=== PATIENT | female | born 1955 | race Caucasian/White ===

== ENCOUNTER 2017-10-27 11:15 | Emergency (ER) | payer BC, OTHER ==
[~2017-10-27] VITALS: Ht 172.7 cm; Wt 108.4 kg
[~2017-10-27 11:15] MED LIST changes: -ALBU3IS INH; -CLARITIN10 MG PO; -FERRETTS325 MG PO; -FLUT1DIS5 INH; -GABA100 PO; -GABA300 PO; -Ipratr-Albuterol3 ML; -LEVO-T150 MCG PO; -MECL12.5 PO; -Nasonex17 GM; -Nitrostat0.4 MG SL; -Prinivil10 MG PO; -VITAMIN D32000 UNIT PO; -Zofran Odt4 MG PO
[2017-10-27] MEDS ORDERED: Norco 5-325 Ta1 EACH PO (15:15)
[2018-01-01] MEDS ORDERED: Nitrostat0.4 MG SL (10:21)
[2018-01-01] MEDS ORDERED: Mirapex1.5 MG PO (10:21)
[2018-01-01] MEDS ORDERED: LEVO-T150 MCG PO (10:23)
[2018-01-01] MEDS ORDERED: Prinivil10 MG PO (10:23)
[2018-01-01] MEDS ORDERED: Omeprazole20 M1 PO (10:23)
[2018-01-01] MEDS ORDERED: Ipratr-Albuterol3 ML (10:24)
[2018-01-01] MEDS ORDERED: AMLO5 PO (10:24)
[2018-01-01] MEDS ORDERED: ATOR40TA PO (10:24)
[2018-01-01] MEDS ORDERED: ALBU90OI6 INH (10:24)
[2018-01-01] MEDS ORDERED: PARO20 PO (10:25)
[2018-01-01] MEDS ORDERED: SOTO80 PO (10:25)
[2018-01-01] MEDS ORDERED: FLUT1DIS5 INH (10:25)
[2018-01-01] MEDS ORDERED: TIOT18 INH (10:25)
[2018-01-01] MEDS ORDERED: XARELTO20 MG PO (10:26)
[2018-01-01] MEDS ORDERED: VITAMIN D32000 UNIT PO (10:26)
[2018-01-01] MEDS ORDERED: Ativan1 MG PO (10:27)
[2018-01-01] MEDS ORDERED: Isosorbide Mono30 MG PO (10:27)
[2018-07-28] MEDS ORDERED: PRAM.125 PO (09:56)
[2018-08-03] MEDS ORDERED: Zofran Odt4 MG PO (01:28)
[2018-09-20] MEDS ORDERED: ASPI81CH PO (00:32)
== END 2017-10-27 15:40 | disposition home or self-care (01) ==
LOC: ER 11:15
DX: R07.9 Chest pain, unspecified (principal); I10 Essential (primary) hypertension; I48.91 Unspecified atrial fibrillation; E03.9 Hypothyroidism, unspecified; J44.9 Chronic obstructive pulmonary disease, unspecified; F17.200 Nicotine dependence, unspecified, uncomplicated; Z88.0 Allergy status to penicillin; Z91.048 Other nonmedicinal substance allergy status; Z88.6 Allergy status to analgesic agent; Z91.013 Allergy to seafood; Z88.7 Allergy status to serum and vaccine; Z88.8 Allergy status to other drugs, medicaments and biological substances; Z79.899 Other long term (current) drug therapy; Z79.52 Long term (current) use of systemic steroids; Z95.0 Presence of cardiac pacemaker; Z90.710 Acquired absence of both cervix and uterus; Z90.49 Acquired absence of other specified parts of digestive tract
CPT/HCPCS: 71046; 83880; 84484; 93005; 93010; 99283

== ENCOUNTER → 2017-10-27 | Outpatient (CLI) | payer BC, OTHER ==
[~2017-10-27] MED LIST: ACET500ER PO; ALBIPROI; ALBU3IS INH; ALBU90OI; ALBU90OI INH; ALBU90OI6 INH; ALBU90OI61 INH; ALPR.5 PO; AMIO200 PO; AMLO5 PO; ASCO500 PO; ASPI325 PO; ASPI325EC PO; ASPI81CH PO; ASPI81EC PO; ATOR10 PO; ATOR40TA PO; AZIT250 PO; Amiodarone HCl200 MG PO; Ativan1 MG PO; BENZ100A; BENZ100A PO; BLACK COHOSH PO; BREO ELLIPTA 21 EACH IH; BUDESONIDE PO; BUSP15 PO; Bactrim Ds Tab1 EACH PO; Black Cohosh540 MG PO; Bystolic10 MG PO; CEFD300 PO; CEFU250 PO; CEPH500 PO; CHOL10002; CHOL10002 PO; CIPR500 PO; CITA20 PO; CLARITIN10 MG PO; CLOP75 PO; CONEST.625; CRUTCH4 USE; CYAN1000 PO; CYAN1000I IM; CYAN500 PO; CYCL0.05OP OP; CYCL10 PO; DELTASONE20 MG PO; DIAZ5 PO; DIPATR PO; DOC250 PO; DOCU100 PO; DULO30 PO; Dulcolax5 MG PO; Duoneb 2.5-0.5 M3 ML INH; ENABLEX; ENABLEX PO; ERYT.5TO BOTHEYES; ESCI20 PO; ESTR.05TPB TOP; ESTR1 PO; ESTR2 PO; FERRETTS325 MG PO; FERSU220EL PO; FEXO180 PO; FISH1000 PO; FLUO10 PO; FLUSAL2505 IH; FLUSAL2505 INH; FLUSAL5005 INH; FLUT.05NI; FLUT110OIA IH; FLUT1DIS5 INH; FLUT44OIA IH; FURO20 PO; FURO40 PO; FURO80 PO; GABA100 PO; GABA300 PO; GABA600 PO; GUAI120S1 PO; GUAI600T33 PO; Guaifenesin-Co118 ML PO; HYDACE10B PO; HYDACE5 PO; HYDACE5325 PO; HYDCHL12.5 PO; HYDCHL25 PO; HYDCHLSU PO; HYDMOR4 PO; HYDR-86 PO; HYDROMET; Hydromet Syrup473 ML PO; IBUP600 PO; IPRA.06NI; IRBHYD150; IRBHYD300 PO; ISOMON20 PO; Ipratr-Albuterol3 ML; Ipratr-Albuterol3 ML INH; Isosorbide Mono30 MG PO; LACT10SY PO; LAVAP17G PO; LEVCAR2510; LEVFLO500 PO; LEVO-T150 MCG PO; LEVO750 PO; LEVSOD150 PO; LEVSOD175 PO; LEVSOD200 PO; LIDO5TP TOP; LISI20 PO; LITH300C PO; LITH300ER PO; LORA.5 PO; LORA1 PO; LOSA50 PO; LOVA20 PO; LOVA40 PO; Lovastatin20 MG PO; MAGCIT300 PO; MAGOXI400 PO; MECL12.5 PO; METF500C PO; METO25ER PO; METO5 PO; METO50 PO; METO50ER PO; METPRE4DP PO; MIRAPEX; MIRT15 PO; MOME220I INH; MOMENI; MYRBETRIQ50 MG; Miralax17 GM PO; Mirapex1.5 MG PO; Monodox100 MG PO; Mucinex600 MG PO; NALT50; NALT50 PO; NAPR500 PO; NEBI10 PO; NEBI5 PO; NICO14TP TOP; NIFE30ER PO; NITR.4SL SL; NITR.6SL SL; NITR100CA PO; NYST100SU PO; Nasonex17 GM; Nifedical Xl30 MG PO; Nitrostat0.4 MG SL; Norco 10-325 T1 EACH PO; Norco 5-325 Ta1 EACH PO; Novolog Fl100 UNIT/1 SQ; OMEP20ER; OMEP20ER PO; OMEPRAZOLE MAGN20 MG PO; ONDA4ODT MM; OXYACE5T PO; OXYACE7.5T PO; OXYC15ER PO; OXYC5 PO; Omeprazole20 M1 PO; Oxycontin60 MG PO; PANT40 PO; PARO10 PO; PARO20 PO; PARO30 PO; POTA10T PO; POTCHL10ER PO; POTCHL20ER PO; PRAM.125; PRAM.125 PO; PRAM.5; PRAM.5 PO; PRAMIPEXOLE DI1.5 MG PO; PRED10 PO; PRED20 PO; PRIM50 PO; PROCODE120 PO; PROG100 PO; PROM25 PO; PSYL5.85P PO; PYRI60 PO; Prednisone20 MG PO; Prednisone50 MG PO; Prilosec Otc20 MG PO; Prinivil10 MG PO; RANI150 PO; RESTASIS; ROXICODONE5 MG PO; RXOXYACE PO; RXPROM25 PO; SANCTURA XR; SOLI5 PO; SOTO80 PO; SPIR25; SPIR25 PO; SULTRISS PO; TIOT18; TIOT18 INH; TRAZ100 PO; TRAZ50 PO; TRIAOI; TRIAOIA; UNKNOWN ANTIBIOTIC; Ultram50 MG PO; VARE1 PO; VENL150ER; VENL150ER PO; VESICARE PO; VITAMIN D-3 PO; VITAMIN D-32000 UNIT PO; VITAMIN D32000 UNIT PO; Valium5 MG PO; Ventolin Soln3 ML INH; Vibramycin100 MG PO; XARELTO20 MG PO; ZESTORETIC 20-121 E1 PO; Zantac150 MG PO; Zithromax250 MG PO; Zofran Odt4 MG PO; Zofran Odt4 MG SL; Zofran Odt8 MG SL; Zovirax800 MG PO; [UNRECOGNIZED DRUG - OTHER]; [UNRECOGNIZED DRUG - OTHER]; [UNRECOGNIZED DRUG - OTHER] PO
[2017-10-27 11:14] LABS: BASOPHILS PERCENT AUTO 1 % (0-2); EOSINOPHILS ABSOLUTE AUTO 0.37 K/mm3 (0.00-0.68); EOSINOPHILS PERCENT AUTO 4 % (0-6); Hematocrit 42.5 % (33.0-51.0); IMMATURE GRAN ABSOLUTE AUTO 0.06 K/mm3 (0.00-0.10); IMMATURE GRAN PERCENT AUTO 1 % (0-1); LYMPHOCYTES ABSOLUTE AUTO 3.07 K/mm3 (0.84-5.20); LYMPHOCYTES PERCENT AUTO 30 % (21-46); MONOCYTES ABSOLUTE AUTO 0.75 K/mm3 (0.16-1.47); MONOCYTES PERCENT AUTO 7 % (4-13); Mean Corpuscular HGB 27.8 pg (26.0-34.0); Mean Corpuscular HGB Conc 32.9 g/dL (31.5-36.5); Mean Corpuscular Volume 84 fL (80-100); Mean Platelet Volume 10.1 fL (9.1-12.4); NEUTROPHILS ABSOLUTE AUTO 5.93 K/mm3 (1.96-9.15); NEUTROPHILS PERCENT AUTO 58 % (41-73); Platelet Count 315 K/mm3 (150-400); RDW Standard Deviation 49.1 fL (35.1-46.3); Red Blood Cell Count 5.04 M/mm3 (3.80-5.20); White Blood Cell Count 10.28 K/mm3 (4.00-11.30)
[2017-10-27 11:28] LABS: Alanine Aminotransfer (ALT/SGP 20 U/L (12-78); Albumin, Blood 3.2 g/dL (3.4-5.0); Albumin/Globulin Ratio 0.8 (0.8-1.8); Alk Phos 145 U/L (40-126); Anion Gap 10 mmol/L (6-16); Aspartate Aminotrans (AST/SGOT 19 U/L (12-37); Bilirubin, Total 0.3 mg/dL (0.1-1.0); Blood Urea Nitrogen 9 mg/dL (8-24); Bun/Creatinine Ratio 14.1 (12.0-20.0); CO2, Blood 26 mmol/L (21-32); Calcium, Blood 8.8 mg/dL (8.5-10.1); Chloride, Blood 105 mmol/L (98-108); Creatinine, Blood 0.64 mg/dL (0.40-1.00); Globulin, Blood 3.9 g/dL (2.2-4.0); Glomerular Filtration Rate >60 (60-); Glucose, Blood 95 mg/dL (70-99); Potassium, Blood 3.9 mmol/L (3.5-5.5); Sodium, Blood 141 mmol/L (136-145); Total Protein, Blood 7.1 g/dL (6.4-8.2)
[2017-10-27 11:29] LABS: Troponin I <0.017 ng/mL (0.000-0.040)
== END ==
LOC: LAB SHORT 11:10
PROVIDERS: Emergency Medicine
DX: R07.89 Other chest pain (principal)
CPT/HCPCS: 80053; 84484; 85025

== ENCOUNTER 2017-12-02 07:58 | Emergency (ER) | payer BC, OTHER ==
[~2017-12-02] VITALS: Ht 167.6 cm; Wt 108.9 kg
[2017-12-02 08:51] LABS: BASOPHILS ABSOLUTE AUTO 0.07 K/mm3 (0.00-0.23); BASOPHILS PERCENT AUTO 1 % (0-2); EOSINOPHILS ABSOLUTE AUTO 0.47 K/mm3 (0.00-0.68); EOSINOPHILS PERCENT AUTO 5 % (0-6); Hematocrit 42.8 % (33.0-51.0); Hemoglobin 13.2 g/dL (11.5-16.0); IMMATURE GRAN ABSOLUTE AUTO 0.07 K/mm3 (0.00-0.10); IMMATURE GRAN PERCENT AUTO 1 % (0-1); LYMPHOCYTES ABSOLUTE AUTO 2.52 K/mm3 (0.84-5.20); LYMPHOCYTES PERCENT AUTO 29 % (21-46); MONOCYTES ABSOLUTE AUTO 0.69 K/mm3 (0.16-1.47); MONOCYTES PERCENT AUTO 8 % (4-13); Mean Corpuscular HGB 27.4 pg (26.0-34.0); Mean Corpuscular HGB Conc 30.8 g/dL (31.5-36.5); Mean Corpuscular Volume 89 fL (80-100); Mean Platelet Volume 10.6 fL (9.1-12.4); NEUTROPHILS ABSOLUTE AUTO 4.98 K/mm3 (1.96-9.15); NEUTROPHILS PERCENT AUTO 57 % (41-73); Platelet Count 293 K/mm3 (150-400); RDW Coefficient Variation 15.2 % (11.7-14.2); RDW Standard Deviation 49.8 fL (35.1-46.3); Red Blood Cell Count 4.81 M/mm3 (3.80-5.20)
[2017-12-02 09:08] LABS: International Normalized Ratio 1.03; Prothrombin Time Results 10.7 Sec (9.7-11.5)
[2017-12-02 09:12] LABS: Alanine Aminotransfer (ALT/SGP 28 U/L (12-78); Albumin, Blood 3.1 g/dL (3.4-5.0); Albumin/Globulin Ratio 0.8 (0.8-1.8); Alk Phos 185 U/L (50-136); Anion Gap 7 mmol/L (6-16); Aspartate Aminotrans (AST/SGOT 21 U/L (12-37); Bilirubin, Total 0.3 mg/dL (0.1-1.0); Blood Urea Nitrogen 16 mg/dL (8-24); Bun/Creatinine Ratio 27.2 (12.0-20.0); CO2, Blood 30 mmol/L (21-32); Calcium, Blood 8.4 mg/dL (8.5-10.1); Chloride, Blood 104 mmol/L (98-108); Creatinine, Blood 0.59 mg/dL (0.40-1.00); Glomerular Filtration Rate >60 (60-); Glucose, Blood 105 mg/dL (70-99); Potassium, Blood 4.2 mmol/L (3.5-5.5); Sodium, Blood 141 mmol/L (136-145); Total Protein, Blood 7.1 g/dL (6.4-8.2); Troponin I <0.015 ng/mL (0.000-0.040)
[2017-12-02 10:53] LABS: Bilirubin, Urine Neg (Neg); Blood, Urine 1+ (Neg); Glucose Qualitative, Urine Neg (Neg); Ketones, Urine Neg (Neg); Leukocyte Esterase, Urine Neg (Neg); Nitrite, Urine Neg (Neg); Protein, Urine Neg (Neg); Urobilinogen, Urine NORM (Normal)
[2017-12-02 11:21] LABS: U Amphetamine Screen Not Detected; U Barbituate Screen Not Detected; U Methamphetamine Screen Not Detected
[2017-12-02 11:22] LABS: U Benzodiazapine Screen DETECTED; U Buprenorphine Screen Not Detected; U Cannabinoids Screen Not Detected; U Cocaine Screen Not Detected; U Methadone Screen Not Detected; U Opiates Screen DETECTED; U Oxycodone Screen DETECTED; U Phencyclidine Screen Not Detected; U Propoxyphene Screen Not Detected
[2017-12-02 11:30] LABS: Appearance, Urine Clear (Clear); Color, Urine Yellow (P-Yellow)
[2017-12-02 11:31] LABS: Red Blood Cells, Urine 0-2 /hpf (0-2); White Blood Cells, Urine Not Seen /hpf (0-5)
[2017-12-02 11:32] LABS: Bacteria Not Seen /hpf; Squamous Epithelial Cells Few /hpf (Few); Transitional Epithelial Cells Few /hpf (0-Rare)
[2018-01-01] MEDS ORDERED: Mirapex1.5 MG PO (10:21)
[2018-01-01] MEDS ORDERED: Nitrostat0.4 MG SL (10:21)
[2018-01-01] MEDS ORDERED: Omeprazole20 M1 PO (10:23)
[2018-01-01] MEDS ORDERED: LEVO-T150 MCG PO (10:23)
[2018-01-01] MEDS ORDERED: Prinivil10 MG PO (10:23)
[2018-01-01] MEDS ORDERED: ATOR40TA PO (10:24)
[2018-01-01] MEDS ORDERED: AMLO5 PO (10:24)
[2018-01-01] MEDS ORDERED: ALBU90OI6 INH (10:24)
[2018-01-01] MEDS ORDERED: Ipratr-Albuterol3 ML (10:24)
[2018-01-01] MEDS ORDERED: SOTO80 PO (10:25)
[2018-01-01] MEDS ORDERED: FLUT1DIS5 INH (10:25)
[2018-01-01] MEDS ORDERED: TIOT18 INH (10:25)
[2018-01-01] MEDS ORDERED: PARO20 PO (10:25)
[2018-01-01] MEDS ORDERED: XARELTO20 MG PO (10:26)
[2018-01-01] MEDS ORDERED: VITAMIN D32000 UNIT PO (10:26)
[2018-01-01] MEDS ORDERED: Isosorbide Mono30 MG PO (10:27)
[2018-01-01] MEDS ORDERED: Ativan1 MG PO (10:27)
[2018-07-28] MEDS ORDERED: PRAM.125 PO (09:56)
[2018-08-03] MEDS ORDERED: Zofran Odt4 MG PO (01:28)
[2018-09-20] MEDS ORDERED: ASPI81CH PO (00:32)
== END 2017-12-02 11:15 | disposition home or self-care (01) ==
LOC: ER 07:58
PROVIDERS: Emergency Medicine
DX: R55 Syncope and collapse (principal); I48.91 Unspecified atrial fibrillation; I10 Essential (primary) hypertension; J45.909 Unspecified asthma, uncomplicated; J44.9 Chronic obstructive pulmonary disease, unspecified; F17.210 Nicotine dependence, cigarettes, uncomplicated; Z88.0 Allergy status to penicillin; Z91.048 Other nonmedicinal substance allergy status; Z88.6 Allergy status to analgesic agent; Z88.7 Allergy status to serum and vaccine; Z79.899 Other long term (current) drug therapy; Z95.0 Presence of cardiac pacemaker; Z95.5 Presence of coronary angioplasty implant and graft
CPT/HCPCS: 36415; 70450; 71045; 80053; 81001; 83880; 84484; 85025; 85610; 93005; 93010; 96360; 96361; 99284; J7030

== ENCOUNTER 2017-12-10 19:44 | Emergency (ER) | payer BC, OTHER ==
[~2017-12-10] VITALS: Ht 167.6 cm; Wt 112.5 kg
[2017-12-10 20:37] LABS: Alanine Aminotransfer (ALT/SGP 21 U/L (12-78); Albumin, Blood 3.2 g/dL (3.4-5.0); Albumin/Globulin Ratio 0.8 (0.8-1.8); Alk Phos 176 U/L (50-136); Anion Gap 8 mmol/L (6-16); Aspartate Aminotrans (AST/SGOT 17 U/L (12-37); Bilirubin, Total 0.2 mg/dL (0.1-1.0); Blood Urea Nitrogen 12 mg/dL (8-24); Bun/Creatinine Ratio 18.7 (12.0-20.0); CO2, Blood 26 mmol/L (21-32); Calcium, Blood 8.4 mg/dL (8.5-10.1); Chloride, Blood 105 mmol/L (98-108); Creatinine, Blood 0.64 mg/dL (0.40-1.00); Glomerular Filtration Rate >60 (60-); Glucose, Blood 176 mg/dL (70-99); Potassium, Blood 3.9 mmol/L (3.5-5.5); Sodium, Blood 139 mmol/L (136-145); Total Protein, Blood 7.2 g/dL (6.4-8.2); Troponin I <0.015 ng/mL (0.000-0.040)
[2017-12-10 20:44] LABS: BASOPHILS ABSOLUTE AUTO 0.07 K/mm3 (0.00-0.23); BASOPHILS PERCENT AUTO 1 % (0-2); EOSINOPHILS ABSOLUTE AUTO 0.43 K/mm3 (0.00-0.68); EOSINOPHILS PERCENT AUTO 4 % (0-6); Hematocrit 42.3 % (33.0-51.0); Hemoglobin 13.5 g/dL (11.5-16.0); IMMATURE GRAN ABSOLUTE AUTO 0.07 K/mm3 (0.00-0.10); IMMATURE GRAN PERCENT AUTO 1 % (0-1); LYMPHOCYTES ABSOLUTE AUTO 3.52 K/mm3 (0.84-5.20); LYMPHOCYTES PERCENT AUTO 30 % (21-46); MONOCYTES ABSOLUTE AUTO 0.75 K/mm3 (0.16-1.47); MONOCYTES PERCENT AUTO 6 % (4-13); Mean Corpuscular HGB 27.7 pg (26.0-34.0); Mean Corpuscular HGB Conc 31.9 g/dL (31.5-36.5); Mean Corpuscular Volume 87 fL (80-100); Mean Platelet Volume 10.2 fL (9.1-12.4); NEUTROPHILS ABSOLUTE AUTO 6.95 K/mm3 (1.96-9.15); NEUTROPHILS PERCENT AUTO 59 % (41-73); Platelet Count 360 K/mm3 (150-400); RDW Coefficient Variation 14.9 % (11.7-14.2); RDW Standard Deviation 48.1 fL (35.1-46.3); Red Blood Cell Count 4.87 M/mm3 (3.80-5.20); White Blood Cell Count 11.79 K/mm3 (4.00-11.30)
[2017-12-10 22:54] LABS: Source, Urine Clean Catch
[2017-12-10 23:01] LABS: Blood, Urine 2+ (Neg); Glucose Qualitative, Urine Neg (Neg); Ketones, Urine 1+ (Neg); Leukocyte Esterase, Urine 1+ (Neg); Nitrite, Urine Neg (Neg); Protein, Urine 2+ (Neg); Specific Gravity, Urine 1.025 (1.003-1.022); Urobilinogen, Urine 1+ (Normal)
[2017-12-10 23:10] LABS: Appearance, Urine Clear (Clear); Bilirubin, Urine 1+ (Neg); Color, Urine Yellow (P-Yellow); Red Blood Cells, Urine 0-2 /hpf (0-2)
[2017-12-10 23:11] LABS: Bacteria Mod /hpf; Mucus Heavy (0-Heavy); Squamous Epithelial Cells Few /hpf (Few)
[2018-01-01] MEDS ORDERED: Mirapex1.5 MG PO (10:21)
[2018-01-01] MEDS ORDERED: Nitrostat0.4 MG SL (10:21)
[2018-01-01] MEDS ORDERED: Omeprazole20 M1 PO (10:23)
[2018-01-01] MEDS ORDERED: Prinivil10 MG PO (10:23)
[2018-01-01] MEDS ORDERED: LEVO-T150 MCG PO (10:23)
[2018-01-01] MEDS ORDERED: ALBU90OI6 INH (10:24)
[2018-01-01] MEDS ORDERED: ATOR40TA PO (10:24)
[2018-01-01] MEDS ORDERED: Ipratr-Albuterol3 ML (10:24)
[2018-01-01] MEDS ORDERED: AMLO5 PO (10:24)
[2018-01-01] MEDS ORDERED: TIOT18 INH (10:25)
[2018-01-01] MEDS ORDERED: FLUT1DIS5 INH (10:25)
[2018-01-01] MEDS ORDERED: SOTO80 PO (10:25)
[2018-01-01] MEDS ORDERED: PARO20 PO (10:25)
[2018-01-01] MEDS ORDERED: XARELTO20 MG PO (10:26)
[2018-01-01] MEDS ORDERED: VITAMIN D32000 UNIT PO (10:26)
[2018-01-01] MEDS ORDERED: Isosorbide Mono30 MG PO (10:27)
[2018-01-01] MEDS ORDERED: Ativan1 MG PO (10:27)
[2018-07-28] MEDS ORDERED: PRAM.125 PO (09:56)
[2018-08-03] MEDS ORDERED: Zofran Odt4 MG PO (01:28)
[2018-09-20] MEDS ORDERED: ASPI81CH PO (00:32)
== END 2017-12-11 00:03 | disposition home or self-care (01) ==
LOC: ER 19:44
PROVIDERS: Emergency Medicine
DX: I10 Essential (primary) hypertension (principal); I48.91 Unspecified atrial fibrillation; R07.9 Chest pain, unspecified; Z91.19 Patient's noncompliance with other medical treatment and regimen; Z88.0 Allergy status to penicillin; Z88.8 Allergy status to other drugs, medicaments and biological substances; Z91.013 Allergy to seafood; Z79.899 Other long term (current) drug therapy; E03.9 Hypothyroidism, unspecified; J45.909 Unspecified asthma, uncomplicated; J44.9 Chronic obstructive pulmonary disease, unspecified; F17.210 Nicotine dependence, cigarettes, uncomplicated
CPT/HCPCS: 36415; 71046; 80053; 81001; 84484; 85025; 87086; 93005; 93010; 99283

== ENCOUNTER 2017-12-18 06:24 | Emergency (ER) | payer BC, OTHER ==
[~2017-12-18] VITALS: Ht 167.6 cm; Wt 112.5 kg
[2017-12-18] MEDS ORDERED: CEFD300 PO (06:49)
[2017-12-18] MEDS ORDERED: FERRETTS325 MG PO (06:49)
[2017-12-18] MEDS ORDERED: ALBU3IS INH (06:50)
[2017-12-18 07:29] LABS: BASOPHILS PERCENT AUTO 1 % (0-2); EOSINOPHILS ABSOLUTE AUTO 0.29 K/mm3 (0.00-0.68); EOSINOPHILS PERCENT AUTO 3 % (0-6); Hemoglobin 13.4 g/dL (11.5-16.0); IMMATURE GRAN ABSOLUTE AUTO 0.06 K/mm3 (0.00-0.10); IMMATURE GRAN PERCENT AUTO 1 % (0-1); LYMPHOCYTES ABSOLUTE AUTO 2.45 K/mm3 (0.84-5.20); LYMPHOCYTES PERCENT AUTO 28 % (21-46); MONOCYTES ABSOLUTE AUTO 1.14 K/mm3 (0.16-1.47); MONOCYTES PERCENT AUTO 13 % (4-13); Mean Corpuscular HGB 27.6 pg (26.0-34.0); Mean Corpuscular HGB Conc 31.9 g/dL (31.5-36.5); Mean Corpuscular Volume 86 fL (80-100); Mean Platelet Volume 10.6 fL (9.1-12.4); NEUTROPHILS ABSOLUTE AUTO 4.59 K/mm3 (1.96-9.15); NEUTROPHILS PERCENT AUTO 53 % (41-73); Platelet Count 301 K/mm3 (150-400); RDW Coefficient Variation 14.6 % (11.7-14.2); RDW Standard Deviation 46.5 fL (35.1-46.3); Red Blood Cell Count 4.86 M/mm3 (3.80-5.20); White Blood Cell Count 8.63 K/mm3 (4.00-11.30)
[2017-12-18 07:55] LABS: Alanine Aminotransfer (ALT/SGP 24 U/L (12-78); Albumin, Blood 3.1 g/dL (3.4-5.0); Albumin/Globulin Ratio 0.7 (0.8-1.8); Alk Phos 146 U/L (50-136); Anion Gap 7 mmol/L (6-16); Aspartate Aminotrans (AST/SGOT 26 U/L (12-37); Bilirubin, Total 0.2 mg/dL (0.1-1.0); Blood Urea Nitrogen 7 mg/dL (8-24); Bun/Creatinine Ratio 10.1 (12.0-20.0); CO2, Blood 28 mmol/L (21-32); Calcium, Blood 8.2 mg/dL (8.5-10.1); Chloride, Blood 103 mmol/L (98-108); Creatinine, Blood 0.69 mg/dL (0.40-1.00); Globulin, Blood 4.3 g/dL (2.2-4.0); Glomerular Filtration Rate >60 (60-); Glucose, Blood 85 mg/dL (70-99); Potassium, Blood 3.8 mmol/L (3.5-5.5); Sodium, Blood 138 mmol/L (136-145); Total Protein, Blood 7.4 g/dL (6.4-8.2)
[2017-12-18 08:11] LABS: Influenza A Negative (NEGATIVE); Influenza B Negative (NEGATIVE)
[2017-12-18] MEDS ORDERED: Prednisone20 MG PO (09:01)
[2018-01-01] MEDS ORDERED: Mirapex1.5 MG PO (10:21)
[2018-01-01] MEDS ORDERED: Nitrostat0.4 MG SL (10:21)
[2018-01-01] MEDS ORDERED: LEVO-T150 MCG PO (10:23)
[2018-01-01] MEDS ORDERED: Omeprazole20 M1 PO (10:23)
[2018-01-01] MEDS ORDERED: Prinivil10 MG PO (10:23)
[2018-01-01] MEDS ORDERED: ATOR40TA PO (10:24)
[2018-01-01] MEDS ORDERED: ALBU90OI6 INH (10:24)
[2018-01-01] MEDS ORDERED: AMLO5 PO (10:24)
[2018-01-01] MEDS ORDERED: Ipratr-Albuterol3 ML (10:24)
[2018-01-01] MEDS ORDERED: PARO20 PO (10:25)
[2018-01-01] MEDS ORDERED: SOTO80 PO (10:25)
[2018-01-01] MEDS ORDERED: TIOT18 INH (10:25)
[2018-01-01] MEDS ORDERED: FLUT1DIS5 INH (10:25)
[2018-01-01] MEDS ORDERED: XARELTO20 MG PO (10:26)
[2018-01-01] MEDS ORDERED: VITAMIN D32000 UNIT PO (10:26)
[2018-01-01] MEDS ORDERED: Isosorbide Mono30 MG PO (10:27)
[2018-01-01] MEDS ORDERED: Ativan1 MG PO (10:27)
[2018-07-28] MEDS ORDERED: PRAM.125 PO (09:56)
[2018-08-03] MEDS ORDERED: Zofran Odt4 MG PO (01:28)
[2018-09-20] MEDS ORDERED: ASPI81CH PO (00:32)
== END 2017-12-18 09:29 | disposition home or self-care (01) ==
LOC: ER 06:24
PROVIDERS: Emergency Medicine
DX: J20.9 Acute bronchitis, unspecified (principal); Z88.0 Allergy status to penicillin; Z88.8 Allergy status to other drugs, medicaments and biological substances; Z91.013 Allergy to seafood; Z79.899 Other long term (current) drug therapy; I10 Essential (primary) hypertension; E03.9 Hypothyroidism, unspecified; J45.909 Unspecified asthma, uncomplicated; J44.9 Chronic obstructive pulmonary disease, unspecified; I48.91 Unspecified atrial fibrillation; Z87.891 Personal history of nicotine dependence
CPT/HCPCS: 36415; 71046; 80053; 84484; 85025; 87804; 93005; 93010; 94640; 96374; 99284; J2930

== ENCOUNTER 2018-01-08 09:44 | Day surgery (SDC) | payer BC, OTHER ==
[~2018-01-08] VITALS: Ht 167.6 cm; Wt 112.7 kg
[~2018-01-08 09:44] MED LIST changes: +ALBU3IS INH; +FERRETTS325 MG PO; +FLUT1DIS5 INH; +Ipratr-Albuterol3 ML; +LEVO-T150 MCG PO; +Nitrostat0.4 MG SL; +Prinivil10 MG PO; +VITAMIN D32000 UNIT PO
== END 2018-01-08 12:12 | disposition home or self-care (01) ==
LOC: ORSCSDS 09:44
PROVIDERS: Internal Medicine Gastroenterology
PROC: 0DBK8ZX Excision of Ascending Colon, Via Natural or Artificial Opening Endoscopic, Diagnostic (ICD-10-PCS; principal; 2018-01-08 11:30)
DX: D50.9 Iron deficiency anemia, unspecified (principal); R10.32 Left lower quadrant pain; D12.2 Benign neoplasm of ascending colon; K57.30 Diverticulosis of large intestine without perforation or abscess without bleeding; Z86.010 Personal history of colon polyps; G47.33 Obstructive sleep apnea (adult) (pediatric); K64.8 Other hemorrhoids; I10 Essential (primary) hypertension; I48.91 Unspecified atrial fibrillation; I25.2 Old myocardial infarction; J44.9 Chronic obstructive pulmonary disease, unspecified; E03.9 Hypothyroidism, unspecified; G93.2 Benign intracranial hypertension; F17.210 Nicotine dependence, cigarettes, uncomplicated; E66.01 Morbid (severe) obesity due to excess calories; Z68.41 Body mass index [BMI] 40.0-44.9, adult; Z79.899 Other long term (current) drug therapy
CPT/HCPCS: 82947; 88305; J2250

== ENCOUNTER 2018-01-30 11:33 | Emergency (ER) | payer BC, OTHER ==
[~2018-01-30] VITALS: Ht 162.6 cm; Wt 120.2 kg
[2018-01-30 12:22] LABS: BASOPHILS ABSOLUTE AUTO 0.13 K/mm3 (0.00-0.23); BASOPHILS PERCENT AUTO 1 % (0-2); EOSINOPHILS ABSOLUTE AUTO 0.39 K/mm3 (0.00-0.68); EOSINOPHILS PERCENT AUTO 3 % (0-6); Hematocrit 44.3 % (33.0-51.0); Hemoglobin 14.4 g/dL (11.5-16.0); IMMATURE GRAN ABSOLUTE AUTO 0.14 K/mm3 (0.00-0.10); IMMATURE GRAN PERCENT AUTO 1 % (0-1); LYMPHOCYTES ABSOLUTE AUTO 3.92 K/mm3 (0.84-5.20); LYMPHOCYTES PERCENT AUTO 26 % (21-46); MONOCYTES ABSOLUTE AUTO 1.03 K/mm3 (0.16-1.47); MONOCYTES PERCENT AUTO 7 % (4-13); Mean Corpuscular HGB 28.4 pg (26.0-34.0); Mean Corpuscular HGB Conc 32.5 g/dL (31.5-36.5); Mean Corpuscular Volume 87 fL (80-100); Mean Platelet Volume 10.6 fL (9.1-12.4); NEUTROPHILS ABSOLUTE AUTO 9.62 K/mm3 (1.96-9.15); NEUTROPHILS PERCENT AUTO 63 % (41-73); Platelet Count 339 K/mm3 (150-400); RDW Coefficient Variation 14.5 % (11.7-14.2); RDW Standard Deviation 46.4 fL (35.1-46.3); Red Blood Cell Count 5.07 M/mm3 (3.80-5.20); White Blood Cell Count 15.23 K/mm3 (4.00-11.30)
[2018-01-30 12:37] LABS: Alanine Aminotransfer (ALT/SGP 28 U/L (12-78); Albumin, Blood 3.1 g/dL (3.4-5.0); Albumin/Globulin Ratio 0.8 (0.8-1.8); Alk Phos 154 U/L (50-136); Anion Gap 6 mmol/L (6-16); Aspartate Aminotrans (AST/SGOT 26 U/L (12-37); Bilirubin, Total 0.2 mg/dL (0.1-1.0); Blood Urea Nitrogen 18 mg/dL (8-24); Bun/Creatinine Ratio 26.3 (12.0-20.0); CO2, Blood 29 mmol/L (21-32); Calcium, Blood 8.2 mg/dL (8.5-10.1); Chloride, Blood 105 mmol/L (98-108); Creatinine, Blood 0.68 mg/dL (0.40-1.00); Globulin, Blood 3.9 g/dL (2.2-4.0); Glomerular Filtration Rate >60 (60-); Glucose, Blood 129 mg/dL (70-99); Potassium, Blood 3.8 mmol/L (3.5-5.5); Sodium, Blood 140 mmol/L (136-145); Troponin I <0.015 ng/mL (0.000-0.040)
[2018-01-30] MEDS ORDERED: METPRE4DP PO (13:45)
[2018-01-30] MEDS ORDERED: CLARITIN10 MG PO (13:45)
[2018-01-30] MEDS ORDERED: Nasonex17 GM (13:45)
== END 2018-01-30 14:16 | disposition home or self-care (01) ==
LOC: ER 11:33
PROVIDERS: Internal Medicine
DX: J45.901 Unspecified asthma with (acute) exacerbation (principal); Z88.0 Allergy status to penicillin; Z79.899 Other long term (current) drug therapy; Z91.048 Other nonmedicinal substance allergy status; Z88.5 Allergy status to narcotic agent; Z91.013 Allergy to seafood; I10 Essential (primary) hypertension; E03.9 Hypothyroidism, unspecified; J44.9 Chronic obstructive pulmonary disease, unspecified; I48.91 Unspecified atrial fibrillation; Z87.891 Personal history of nicotine dependence
CPT/HCPCS: 71046; 80053; 83880; 84484; 85025; 93005; 93010; 94640; 96374; 99283; J2930

== ENCOUNTER → 2018-01-31 | Outpatient (CLI) | payer BC, OTHER ==
[~2018-01-31] MED LIST changes: +CLARITIN10 MG PO; +Nasonex17 GM
[2018-01-31 15:06] LABS: BASOPHILS ABSOLUTE AUTO 0.04 K/mm3 (0.00-0.23); BASOPHILS PERCENT AUTO 0 % (0-2); EOSINOPHILS ABSOLUTE AUTO 0.01 K/mm3 (0.00-0.68); EOSINOPHILS PERCENT AUTO 0 % (0-6); Hematocrit 41.5 % (33.0-51.0); Hemoglobin 13.4 g/dL (11.5-16.0); IMMATURE GRAN ABSOLUTE AUTO 0.33 K/mm3 (0.00-0.10); IMMATURE GRAN PERCENT AUTO 1 % (0-1); LYMPHOCYTES ABSOLUTE AUTO 3.14 K/mm3 (0.84-5.20); LYMPHOCYTES PERCENT AUTO 12 % (21-46); MONOCYTES ABSOLUTE AUTO 1.61 K/mm3 (0.16-1.47); MONOCYTES PERCENT AUTO 6 % (4-13); Mean Corpuscular HGB 27.6 pg (26.0-34.0); Mean Corpuscular HGB Conc 32.3 g/dL (31.5-36.5); Mean Corpuscular Volume 85 fL (80-100); Mean Platelet Volume 10.7 fL (9.1-12.4); NEUTROPHILS ABSOLUTE AUTO 20.28 K/mm3 (1.96-9.15); NEUTROPHILS PERCENT AUTO 80 % (41-73); Platelet Count 343 K/mm3 (150-400); RDW Coefficient Variation 14.4 % (11.7-14.2); Red Blood Cell Count 4.86 M/mm3 (3.80-5.20); White Blood Cell Count 25.41 K/mm3 (4.00-11.30)
[2018-01-31 15:16] LABS: Alanine Aminotransfer (ALT/SGP 32 U/L (12-78); Albumin, Blood 3.3 g/dL (3.4-5.0); Albumin/Globulin Ratio 0.8 (0.8-1.8); Alk Phos 156 U/L (40-126); Anion Gap 10 mmol/L (6-16); Aspartate Aminotrans (AST/SGOT 16 U/L (12-37); Bilirubin, Total 0.3 mg/dL (0.1-1.0); Blood Urea Nitrogen 20 mg/dL (8-24); CO2, Blood 28 mmol/L (21-32); Calcium, Blood 8.9 mg/dL (8.5-10.1); Chloride, Blood 101 mmol/L (98-108); Creatinine, Blood 0.91 mg/dL (0.40-1.00); Glomerular Filtration Rate >60 (60-); Glucose, Blood 145 mg/dL (70-99); Sodium, Blood 139 mmol/L (136-145); Total Protein, Blood 7.3 g/dL (6.4-8.2)
[2018-01-31 15:50] LABS: Troponin I <0.017 ng/mL (0.000-0.040)
== END ==
LOC: LAB EV 14:58 → LAB SHORT 14:58
PROVIDERS: Internal Medicine
DX: R07.9 Chest pain, unspecified (principal); R06.02 Shortness of breath
CPT/HCPCS: 80053; 83880; 84484; 85025

== ENCOUNTER 2018-02-09 21:48 | Emergency (ER) | payer BC, OTHER ==
[~2018-02-09] VITALS: Ht 167.6 cm; Wt 113.4 kg
[2018-02-09 22:18] LABS: BASOPHILS PERCENT AUTO 1 % (0-2); EOSINOPHILS ABSOLUTE AUTO 0.52 K/mm3 (0.00-0.68); EOSINOPHILS PERCENT AUTO 4 % (0-6); Hematocrit 42.4 % (33.0-51.0); Hemoglobin 13.1 g/dL (11.5-16.0); IMMATURE GRAN PERCENT AUTO 1 % (0-1); LYMPHOCYTES ABSOLUTE AUTO 4.01 K/mm3 (0.84-5.20); LYMPHOCYTES PERCENT AUTO 28 % (21-46); MONOCYTES ABSOLUTE AUTO 0.84 K/mm3 (0.16-1.47); MONOCYTES PERCENT AUTO 6 % (4-13); Mean Corpuscular HGB 27.4 pg (26.0-34.0); Mean Corpuscular HGB Conc 30.9 g/dL (31.5-36.5); Mean Corpuscular Volume 89 fL (80-100); Mean Platelet Volume 10.3 fL (9.1-12.4); NEUTROPHILS ABSOLUTE AUTO 8.92 K/mm3 (1.96-9.15); NEUTROPHILS PERCENT AUTO 62 % (41-73); Platelet Count 295 K/mm3 (150-400); RDW Standard Deviation 48.4 fL (35.1-46.3); Red Blood Cell Count 4.78 M/mm3 (3.80-5.20); White Blood Cell Count 14.49 K/mm3 (4.00-11.30)
[2018-02-09 22:37] LABS: Alanine Aminotransfer (ALT/SGP 42 U/L (12-78); Albumin, Blood 2.9 g/dL (3.4-5.0); Albumin/Globulin Ratio 0.8 (0.8-1.8); Alk Phos 179 U/L (50-136); Anion Gap 4 mmol/L (6-16); Aspartate Aminotrans (AST/SGOT 24 U/L (12-37); Bilirubin, Total 0.3 mg/dL (0.1-1.0); Blood Urea Nitrogen 20 mg/dL (8-24); Bun/Creatinine Ratio 25.8 (12.0-20.0); CO2, Blood 31 mmol/L (21-32); Calcium, Blood 8.4 mg/dL (8.5-10.1); Chloride, Blood 106 mmol/L (98-108); Creatinine, Blood 0.77 mg/dL (0.40-1.00); Globulin, Blood 3.8 g/dL (2.2-4.0); Glomerular Filtration Rate >60 (60-); Glucose, Blood 147 mg/dL (70-99); Potassium, Blood 3.9 mmol/L (3.5-5.5); Sodium, Blood 141 mmol/L (136-145); Total Protein, Blood 6.7 g/dL (6.4-8.2); Troponin I <0.015 ng/mL (0.000-0.040)
== END 2018-02-10 01:50 | disposition home or self-care (01) ==
LOC: ER 21:48
PROVIDERS: Emergency Medicine
DX: M25.512 Pain in left shoulder (principal); J44.9 Chronic obstructive pulmonary disease, unspecified; I10 Essential (primary) hypertension; E03.9 Hypothyroidism, unspecified; I48.91 Unspecified atrial fibrillation; I25.2 Old myocardial infarction; F17.200 Nicotine dependence, unspecified, uncomplicated; Z88.0 Allergy status to penicillin; Z88.5 Allergy status to narcotic agent; Z91.048 Other nonmedicinal substance allergy status; Z88.6 Allergy status to analgesic agent; Z88.8 Allergy status to other drugs, medicaments and biological substances; Z91.013 Allergy to seafood; Z88.7 Allergy status to serum and vaccine; Z91.018 Allergy to other foods; Z79.899 Other long term (current) drug therapy
CPT/HCPCS: 36415; 71046; 80053; 84484; 85025; 93005; 93010; 96361; 96374; 99284; J2405; J7030

== ENCOUNTER → 2018-02-15 | Outpatient (CLI) | payer BC, OTHER ==
[2018-02-15 13:14] LABS: BASOPHILS ABSOLUTE AUTO 0.06 K/mm3 (0.00-0.23); BASOPHILS PERCENT AUTO 1 % (0-2); EOSINOPHILS ABSOLUTE AUTO 0.44 K/mm3 (0.00-0.68); EOSINOPHILS PERCENT AUTO 3 % (0-6); Hematocrit 40.6 % (33.0-51.0); Hemoglobin 12.9 g/dL (11.5-16.0); IMMATURE GRAN ABSOLUTE AUTO 0.06 K/mm3 (0.00-0.10); IMMATURE GRAN PERCENT AUTO 1 % (0-1); LYMPHOCYTES ABSOLUTE AUTO 2.39 K/mm3 (0.84-5.20); LYMPHOCYTES PERCENT AUTO 18 % (21-46); MONOCYTES ABSOLUTE AUTO 0.73 K/mm3 (0.16-1.47); MONOCYTES PERCENT AUTO 6 % (4-13); Mean Corpuscular HGB 27.6 pg (26.0-34.0); Mean Corpuscular HGB Conc 31.8 g/dL (31.5-36.5); Mean Corpuscular Volume 87 fL (80-100); Mean Platelet Volume 11.5 fL (9.1-12.4); NEUTROPHILS ABSOLUTE AUTO 9.32 K/mm3 (1.96-9.15); NEUTROPHILS PERCENT AUTO 72 % (41-73); Platelet Count 288 K/mm3 (150-400); RDW Coefficient Variation 15.1 % (11.7-14.2); RDW Standard Deviation 47.9 fL (35.1-46.3); Red Blood Cell Count 4.67 M/mm3 (3.80-5.20)
[2018-02-15 13:26] LABS: Anion Gap 10 mmol/L (6-16); Blood Urea Nitrogen 12 mg/dL (8-24); CO2, Blood 27 mmol/L (21-32); Calcium, Blood 8.6 mg/dL (8.5-10.1); Chloride, Blood 103 mmol/L (98-108); Creatinine, Blood 0.92 mg/dL (0.40-1.00); Glomerular Filtration Rate >60 (60-); Glucose, Blood 143 mg/dL (70-99); Potassium, Blood 3.8 mmol/L (3.5-5.5); Sodium, Blood 140 mmol/L (136-145)
[2018-02-15 13:31] LABS: Troponin I <0.017 ng/mL (0.000-0.040)
== END | disposition home or self-care (01) ==
LOC: LAB SHORT 13:08 → LAB EV 13:08
PROVIDERS: Physician Assistant Surgical
DX: R42 Dizziness and giddiness (principal)
CPT/HCPCS: 80048; 84484; 85025

== ENCOUNTER → 2018-02-27 | Outpatient (CLI) | payer BC, OTHER ==
[2018-02-27 14:56] LABS: BASOPHILS ABSOLUTE AUTO 0.08 K/mm3 (0.00-0.23); BASOPHILS PERCENT AUTO 1 % (0-2); EOSINOPHILS ABSOLUTE AUTO 0.45 K/mm3 (0.00-0.68); EOSINOPHILS PERCENT AUTO 4 % (0-6); Hematocrit 42.1 % (33.0-51.0); Hemoglobin 13.6 g/dL (11.5-16.0); IMMATURE GRAN ABSOLUTE AUTO 0.09 K/mm3 (0.00-0.10); IMMATURE GRAN PERCENT AUTO 1 % (0-1); LYMPHOCYTES PERCENT AUTO 26 % (21-46); MONOCYTES ABSOLUTE AUTO 0.63 K/mm3 (0.16-1.47); MONOCYTES PERCENT AUTO 6 % (4-13); Mean Corpuscular HGB 27.4 pg (26.0-34.0); Mean Corpuscular HGB Conc 32.3 g/dL (31.5-36.5); Mean Corpuscular Volume 85 fL (80-100); Mean Platelet Volume 10.3 fL (9.1-12.4); NEUTROPHILS ABSOLUTE AUTO 6.73 K/mm3 (1.96-9.15); NEUTROPHILS PERCENT AUTO 63 % (41-73); Platelet Count 348 K/mm3 (150-400); RDW Standard Deviation 45.4 fL (35.1-46.3); Red Blood Cell Count 4.96 M/mm3 (3.80-5.20); White Blood Cell Count 10.78 K/mm3 (4.00-11.30)
[2018-02-27 15:11] LABS: Alanine Aminotransfer (ALT/SGP 23 U/L (12-78); Albumin, Blood 3.2 g/dL (3.4-5.0); Albumin/Globulin Ratio 0.8 (0.8-1.8); Alk Phos 179 U/L (40-126); Anion Gap 8 mmol/L (6-16); Aspartate Aminotrans (AST/SGOT 21 U/L (12-37); Bilirubin, Total 0.3 mg/dL (0.1-1.0); Blood Urea Nitrogen 11 mg/dL (8-24); CO2, Blood 30 mmol/L (21-32); Calcium, Blood 8.7 mg/dL (8.5-10.1); Chloride, Blood 103 mmol/L (98-108); Creatinine, Blood 0.92 mg/dL (0.40-1.00); Globulin, Blood 4.2 g/dL (2.2-4.0); Glomerular Filtration Rate >60 (60-); Glucose, Blood 111 mg/dL (70-99); Potassium, Blood 3.9 mmol/L (3.5-5.5); Sodium, Blood 141 mmol/L (136-145); Total Protein, Blood 7.4 g/dL (6.4-8.2)
== END ==
LOC: LAB SHORT 14:50
PROVIDERS: Physician Assistant
DX: R05 Cough (principal)
CPT/HCPCS: 80053; 83880; 85025

== ENCOUNTER 2018-03-06 16:19 | Emergency (ER) | payer BC, OTHER ==
[~2018-03-06] VITALS: Ht 170.2 cm; Wt 131.5 kg
[2018-03-06 17:23] LABS: BASOPHILS ABSOLUTE AUTO 0.11 K/mm3 (0.00-0.23); BASOPHILS PERCENT AUTO 1 % (0-2); EOSINOPHILS PERCENT AUTO 3 % (0-6); Hematocrit 42.6 % (33.0-51.0); Hemoglobin 13.5 g/dL (11.5-16.0); IMMATURE GRAN ABSOLUTE AUTO 0.12 K/mm3 (0.00-0.10); IMMATURE GRAN PERCENT AUTO 1 % (0-1); LYMPHOCYTES PERCENT AUTO 22 % (21-46); MONOCYTES ABSOLUTE AUTO 0.87 K/mm3 (0.16-1.47); MONOCYTES PERCENT AUTO 7 % (4-13); Mean Corpuscular HGB Conc 31.7 g/dL (31.5-36.5); Mean Corpuscular Volume 85 fL (80-100); Mean Platelet Volume 10.3 fL (9.1-12.4); NEUTROPHILS ABSOLUTE AUTO 8.02 K/mm3 (1.96-9.15); NEUTROPHILS PERCENT AUTO 66 % (41-73); Platelet Count 366 K/mm3 (150-400); RDW Standard Deviation 46.2 fL (35.1-46.3); White Blood Cell Count 12.12 K/mm3 (4.00-11.30)
[2018-03-06 17:34] LABS: Alanine Aminotransfer (ALT/SGP 22 U/L (12-78); Albumin, Blood 3.3 g/dL (3.4-5.0); Albumin/Globulin Ratio 0.8 (0.8-1.8); Alk Phos 180 U/L (50-136); Anion Gap 6 mmol/L (6-16); Aspartate Aminotrans (AST/SGOT 22 U/L (12-37); Bilirubin, Total 0.2 mg/dL (0.1-1.0); Blood Urea Nitrogen 9 mg/dL (8-24); Bun/Creatinine Ratio 13.5 (12.0-20.0); CO2, Blood 28 mmol/L (21-32); Calcium, Blood 8.8 mg/dL (8.5-10.1); Chloride, Blood 102 mmol/L (98-108); Creatinine, Blood 0.67 mg/dL (0.40-1.00); Globulin, Blood 4.1 g/dL (2.2-4.0); Glomerular Filtration Rate >60 (60-); Glucose, Blood 112 mg/dL (70-99); Potassium, Blood 4.2 mmol/L (3.5-5.5); Sodium, Blood 136 mmol/L (136-145); Total Protein, Blood 7.4 g/dL (6.4-8.2)
[2018-03-06 17:37] LABS: International Normalized Ratio 0.99; Prothrombin Time Results 10.3 Sec (9.7-11.5)
[2018-03-06] MEDS ORDERED: MECL12.5 PO (19:10)
== END 2018-03-06 19:30 | disposition home or self-care (01) ==
LOC: ER 16:19
PROVIDERS: Emergency Medicine
DX: H83.09 Labyrinthitis, unspecified ear (principal); I10 Essential (primary) hypertension; E03.9 Hypothyroidism, unspecified; J44.9 Chronic obstructive pulmonary disease, unspecified; I48.91 Unspecified atrial fibrillation; F17.210 Nicotine dependence, cigarettes, uncomplicated; Z88.0 Allergy status to penicillin; Z88.6 Allergy status to analgesic agent; Z88.8 Allergy status to other drugs, medicaments and biological substances; Z88.5 Allergy status to narcotic agent; Z91.013 Allergy to seafood; Z88.7 Allergy status to serum and vaccine; Z79.899 Other long term (current) drug therapy
CPT/HCPCS: 36415; 80053; 85025; 85610; 85730; 93005; 93010; 96374; 99283; J1885

== ENCOUNTER 2018-03-18 00:56 | Emergency (ER) | payer BC, OTHER ==
[~2018-03-18] VITALS: Ht 167.6 cm; Wt 99.8 kg
[~2018-03-18 00:56] MED LIST changes: +MECL12.5 PO
[2018-03-18 02:04] LABS: Troponin I <0.015 ng/mL (0.000-0.040)
[2018-03-18 02:05] LABS: Alanine Aminotransfer (ALT/SGP 22 U/L (12-78); Albumin, Blood 3.2 g/dL (3.4-5.0); Albumin/Globulin Ratio 0.9 (0.8-1.8); Alk Phos 148 U/L (50-136); Anion Gap 10 mmol/L (6-16); Aspartate Aminotrans (AST/SGOT 23 U/L (12-37); Bilirubin, Total 0.2 mg/dL (0.1-1.0); Blood Urea Nitrogen 13 mg/dL (8-24); Bun/Creatinine Ratio 15.5 (12.0-20.0); CO2, Blood 25 mmol/L (21-32); Calcium, Blood 8.1 mg/dL (8.5-10.1); Chloride, Blood 106 mmol/L (98-108); Creatinine, Blood 0.84 mg/dL (0.40-1.00); Globulin, Blood 3.7 g/dL (2.2-4.0); Glomerular Filtration Rate >60 (60-); Glucose, Blood 117 mg/dL (70-99); Potassium, Blood 3.8 mmol/L (3.5-5.5); Sodium, Blood 141 mmol/L (136-145); Total Protein, Blood 6.9 g/dL (6.4-8.2)
[2018-03-18 02:07] LABS: BASOPHILS PERCENT AUTO 1 % (0-2); EOSINOPHILS ABSOLUTE AUTO 0.51 K/mm3 (0.00-0.68); EOSINOPHILS PERCENT AUTO 5 % (0-6); Hematocrit 39.8 % (33.0-51.0); Mean Corpuscular HGB 27.6 pg (26.0-34.0); Mean Corpuscular HGB Conc 32.7 g/dL (31.5-36.5); Mean Corpuscular Volume 85 fL (80-100); Mean Platelet Volume 11.6 fL (9.1-12.4); Platelet Count 248 K/mm3 (150-400); RDW Coefficient Variation 15.2 % (11.7-14.2); Red Blood Cell Count 4.71 M/mm3 (3.80-5.20); White Blood Cell Count 10.97 K/mm3 (4.00-11.30)
[2018-03-18 02:11] LABS: IMMATURE GRAN ABSOLUTE AUTO 0.05 K/mm3 (0.00-0.10); IMMATURE GRAN PERCENT AUTO 1 % (0-1); LYMPHOCYTES ABSOLUTE AUTO 3.83 K/mm3 (0.84-5.20); LYMPHOCYTES PERCENT AUTO 35 % (21-46); MONOCYTES ABSOLUTE AUTO 1.07 K/mm3 (0.16-1.47); MONOCYTES PERCENT AUTO 10 % (4-13); NEUTROPHILS ABSOLUTE AUTO 5.41 K/mm3 (1.96-9.15); NEUTROPHILS PERCENT AUTO 49 % (41-73)
[2018-03-18] MEDS ORDERED: Prednisone20 MG PO (04:45)
== END 2018-03-18 05:50 | disposition home or self-care (01) ==
LOC: ER 00:56
PROVIDERS: Emergency Medicine
DX: J44.1 Chronic obstructive pulmonary disease with (acute) exacerbation (principal); I10 Essential (primary) hypertension; E03.9 Hypothyroidism, unspecified; I48.91 Unspecified atrial fibrillation; F17.200 Nicotine dependence, unspecified, uncomplicated; Z88.0 Allergy status to penicillin; Z88.6 Allergy status to analgesic agent; Z91.048 Other nonmedicinal substance allergy status; Z91.09 Other allergy status, other than to drugs and biological substances; Z88.5 Allergy status to narcotic agent; Z91.013 Allergy to seafood; Z88.7 Allergy status to serum and vaccine; Z79.899 Other long term (current) drug therapy
CPT/HCPCS: 71046; 80053; 84484; 85025; 93005; 93010; 94640; 96374; 99284; J2930

== ENCOUNTER 2018-03-19 00:18 | Emergency (ER) | payer BC, OTHER ==
[~2018-03-19] VITALS: Ht 167.6 cm; Wt 113.4 kg
[2018-03-19 00:58] LABS: BASOPHILS ABSOLUTE AUTO 0.01 K/mm3 (0.00-0.23); BASOPHILS PERCENT AUTO 0 % (0-2); EOSINOPHILS PERCENT AUTO 0 % (0-6); Hematocrit 39.7 % (33.0-51.0); Hemoglobin 12.5 g/dL (11.5-16.0); IMMATURE GRAN ABSOLUTE AUTO 0.12 K/mm3 (0.00-0.10); IMMATURE GRAN PERCENT AUTO 1 % (0-1); LYMPHOCYTES ABSOLUTE AUTO 1.81 K/mm3 (0.84-5.20); LYMPHOCYTES PERCENT AUTO 13 % (21-46); MONOCYTES PERCENT AUTO 6 % (4-13); Mean Corpuscular HGB 27.5 pg (26.0-34.0); Mean Corpuscular HGB Conc 31.5 g/dL (31.5-36.5); Mean Corpuscular Volume 87 fL (80-100); Mean Platelet Volume 10.5 fL (9.1-12.4); NEUTROPHILS ABSOLUTE AUTO 11.62 K/mm3 (1.96-9.15); NEUTROPHILS PERCENT AUTO 80 % (41-73); Platelet Count 308 K/mm3 (150-400); RDW Standard Deviation 48.1 fL (35.1-46.3); Red Blood Cell Count 4.54 M/mm3 (3.80-5.20); White Blood Cell Count 14.46 K/mm3 (4.00-11.30)
[2018-03-19 01:19] LABS: Alanine Aminotransfer (ALT/SGP 25 U/L (12-78); Albumin, Blood 3.4 g/dL (3.4-5.0); Albumin/Globulin Ratio 0.8 (0.8-1.8); Alk Phos 156 U/L (50-136); Anion Gap 9 mmol/L (6-16); Aspartate Aminotrans (AST/SGOT 24 U/L (12-37); Bilirubin, Total 0.2 mg/dL (0.1-1.0); Blood Urea Nitrogen 15 mg/dL (8-24); Bun/Creatinine Ratio 19.3 (12.0-20.0); CO2, Blood 26 mmol/L (21-32); Calcium, Blood 8.6 mg/dL (8.5-10.1); Chloride, Blood 104 mmol/L (98-108); Creatinine, Blood 0.78 mg/dL (0.40-1.00); Glomerular Filtration Rate >60 (60-); Glucose, Blood 185 mg/dL (70-99); Potassium, Blood 3.9 mmol/L (3.5-5.5); Sodium, Blood 139 mmol/L (136-145); Total Protein, Blood 7.4 g/dL (6.4-8.2); Troponin I <0.015 ng/mL (0.000-0.040)
== END 2018-03-19 04:03 | disposition home or self-care (01) ==
LOC: ER 00:18
PROVIDERS: Emergency Medicine
DX: I48.0 Paroxysmal atrial fibrillation (principal); R07.89 Other chest pain; I10 Essential (primary) hypertension; E03.9 Hypothyroidism, unspecified; J45.909 Unspecified asthma, uncomplicated; J44.9 Chronic obstructive pulmonary disease, unspecified; I25.2 Old myocardial infarction; Z88.0 Allergy status to penicillin; Z88.8 Allergy status to other drugs, medicaments and biological substances; Z91.048 Other nonmedicinal substance allergy status; Z88.5 Allergy status to narcotic agent; Z91.013 Allergy to seafood; Z79.899 Other long term (current) drug therapy; Z79.52 Long term (current) use of systemic steroids; F17.200 Nicotine dependence, unspecified, uncomplicated
CPT/HCPCS: 36415; 80053; 84484; 85025; 93005; 93010; 99284

== ENCOUNTER 2018-03-31 20:14 | Emergency (ER) | payer BC, OTHER ==
[~2018-03-31] VITALS: Ht 167.6 cm; Wt 116.1 kg
== END 2018-03-31 22:25 | disposition left against medical advice (07) ==
LOC: ER 20:14
DX: Z53.21 Procedure and treatment not carried out due to patient leaving prior to being seen by health care provider (principal)
CPT/HCPCS: 93005; 93010; 99283

== ENCOUNTER → 2018-04-10 | Outpatient (CLI) | payer BC, OTHER ==
[2018-04-10 16:34] LABS: BASOPHILS ABSOLUTE AUTO 0.08 K/mm3 (0.00-0.23); BASOPHILS PERCENT AUTO 1 % (0-2); EOSINOPHILS ABSOLUTE AUTO 0.55 K/mm3 (0.00-0.68); EOSINOPHILS PERCENT AUTO 6 % (0-6); Hematocrit 40.3 % (33.0-51.0); Hemoglobin 13.2 g/dL (11.5-16.0); IMMATURE GRAN ABSOLUTE AUTO 0.02 K/mm3 (0.00-0.10); IMMATURE GRAN PERCENT AUTO 0 % (0-1); LYMPHOCYTES PERCENT AUTO 34 % (21-46); MONOCYTES ABSOLUTE AUTO 0.69 K/mm3 (0.16-1.47); MONOCYTES PERCENT AUTO 8 % (4-13); Mean Corpuscular HGB 27.7 pg (26.0-34.0); Mean Corpuscular HGB Conc 32.8 g/dL (31.5-36.5); Mean Corpuscular Volume 85 fL (80-100); Mean Platelet Volume 11.6 fL (9.1-12.4); NEUTROPHILS ABSOLUTE AUTO 4.37 K/mm3 (1.96-9.15); NEUTROPHILS PERCENT AUTO 51 % (41-73); Platelet Count 298 K/mm3 (150-400); RDW Coefficient Variation 15.1 % (11.7-14.2); RDW Standard Deviation 46.7 fL (35.1-46.3); Red Blood Cell Count 4.76 M/mm3 (3.80-5.20); White Blood Cell Count 8.61 K/mm3 (4.00-11.30)
[2018-04-10 16:52] LABS: Alanine Aminotransfer (ALT/SGP 24 U/L (12-78); Albumin, Blood 3.7 g/dL (3.4-5.0); Alk Phos 153 U/L (40-126); Anion Gap 10 mmol/L (6-16); Aspartate Aminotrans (AST/SGOT 25 U/L (12-37); Bilirubin, Total 0.5 mg/dL (0.1-1.0); Blood Urea Nitrogen 22 mg/dL (8-24); CO2, Blood 29 mmol/L (21-32); Chloride, Blood 102 mmol/L (98-108); Globulin, Blood 3.8 g/dL (2.2-4.0); Glomerular Filtration Rate 56 (60-); Glucose, Blood 109 mg/dL (70-99); Potassium, Blood 3.4 mmol/L (3.5-5.5); Sodium, Blood 141 mmol/L (136-145); Total Protein, Blood 7.5 g/dL (6.4-8.2)
[2018-04-10 16:53] LABS: Troponin I <0.017 ng/mL (0.000-0.040)
== END | disposition home or self-care (01) ==
LOC: LAB SHORT 16:28 → LAB EV 16:28
PROVIDERS: Family Medicine
DX: R00.2 Palpitations (principal)
CPT/HCPCS: 80053; 83880; 84484; 85025

== ENCOUNTER 2018-05-23 19:16 | Emergency (ER) | payer OTHER, BC ==
[~2018-05-23] VITALS: Ht 167.6 cm; Wt 113.4 kg
[2018-05-23 20:13] LABS: BASOPHILS ABSOLUTE AUTO 0.09 K/mm3 (0.00-0.23); BASOPHILS PERCENT AUTO 1 % (0-2); EOSINOPHILS ABSOLUTE AUTO 0.59 K/mm3 (0.00-0.68); EOSINOPHILS PERCENT AUTO 6 % (0-6); Hematocrit 42.5 % (33.0-51.0); Hemoglobin 13.1 g/dL (11.5-16.0); IMMATURE GRAN ABSOLUTE AUTO 0.03 K/mm3 (0.00-0.10); IMMATURE GRAN PERCENT AUTO 0 % (0-1); LYMPHOCYTES ABSOLUTE AUTO 3.28 K/mm3 (0.84-5.20); LYMPHOCYTES PERCENT AUTO 34 % (21-46); MONOCYTES ABSOLUTE AUTO 0.79 K/mm3 (0.16-1.47); MONOCYTES PERCENT AUTO 8 % (4-13); Mean Corpuscular HGB 27.1 pg (26.0-34.0); Mean Corpuscular HGB Conc 30.8 g/dL (31.5-36.5); Mean Corpuscular Volume 88 fL (80-100); Mean Platelet Volume 11.8 fL (9.1-12.4); NEUTROPHILS ABSOLUTE AUTO 4.93 K/mm3 (1.96-9.15); NEUTROPHILS PERCENT AUTO 51 % (41-73); Platelet Count 278 K/mm3 (150-400); RDW Coefficient Variation 14.6 % (11.7-14.2); RDW Standard Deviation 46.9 fL (35.1-46.3); Red Blood Cell Count 4.84 M/mm3 (3.80-5.20); White Blood Cell Count 9.71 K/mm3 (4.00-11.30)
[2018-05-23 20:35] LABS: Alanine Aminotransfer (ALT/SGP 17 U/L (12-78); Albumin, Blood 3.2 g/dL (3.4-5.0); Albumin/Globulin Ratio 0.8 (0.8-1.8); Alk Phos 169 U/L (50-136); Anion Gap 7 mmol/L (6-16); Aspartate Aminotrans (AST/SGOT 17 U/L (12-37); Bilirubin, Total 0.2 mg/dL (0.1-1.0); Blood Urea Nitrogen 20 mg/dL (8-24); Bun/Creatinine Ratio 26.1 (12.0-20.0); CO2, Blood 27 mmol/L (21-32); Calcium, Blood 8.5 mg/dL (8.5-10.1); Chloride, Blood 106 mmol/L (98-108); Creatinine, Blood 0.77 mg/dL (0.40-1.00); Glomerular Filtration Rate >60 (60-); Glucose, Blood 103 mg/dL (70-99); Potassium, Blood 4.3 mmol/L (3.5-5.5); Sodium, Blood 140 mmol/L (136-145); Total Protein, Blood 7.2 g/dL (6.4-8.2); Troponin I <0.015 ng/mL (0.000-0.040)
== END 2018-05-23 22:39 | disposition home or self-care (01) ==
LOC: ER 19:16
PROVIDERS: Internal Medicine
DX: R07.89 Other chest pain (principal); I10 Essential (primary) hypertension; E03.9 Hypothyroidism, unspecified; J44.9 Chronic obstructive pulmonary disease, unspecified; I48.91 Unspecified atrial fibrillation; F17.200 Nicotine dependence, unspecified, uncomplicated; Z88.0 Allergy status to penicillin; Z88.6 Allergy status to analgesic agent; Z91.048 Other nonmedicinal substance allergy status; Z91.013 Allergy to seafood; Z88.7 Allergy status to serum and vaccine; Z79.899 Other long term (current) drug therapy; Z79.52 Long term (current) use of systemic steroids
CPT/HCPCS: 71046; 80053; 84484; 85025; 93005; 93010; 99285-25

== ENCOUNTER 2018-06-11 11:21 | Emergency (ER) | payer OTHER ==
[~2018-06-11] VITALS: Ht 167.6 cm; Wt 113.4 kg
[2018-06-11 11:54] LABS: BASOPHILS ABSOLUTE AUTO 0.09 K/mm3 (0.00-0.23); BASOPHILS PERCENT AUTO 1 % (0-2); EOSINOPHILS ABSOLUTE AUTO 0.64 K/mm3 (0.00-0.68); EOSINOPHILS PERCENT AUTO 6 % (0-6); Hematocrit 42.8 % (33.0-51.0); IMMATURE GRAN ABSOLUTE AUTO 0.07 K/mm3 (0.00-0.10); IMMATURE GRAN PERCENT AUTO 1 % (0-1); LYMPHOCYTES ABSOLUTE AUTO 2.74 K/mm3 (0.84-5.20); LYMPHOCYTES PERCENT AUTO 26 % (21-46); MONOCYTES ABSOLUTE AUTO 0.79 K/mm3 (0.16-1.47); MONOCYTES PERCENT AUTO 8 % (4-13); Mean Corpuscular HGB 26.6 pg (26.0-34.0); Mean Corpuscular HGB Conc 30.4 g/dL (31.5-36.5); Mean Corpuscular Volume 88 fL (80-100); Mean Platelet Volume 11.1 fL (9.1-12.4); NEUTROPHILS ABSOLUTE AUTO 6.25 K/mm3 (1.96-9.15); NEUTROPHILS PERCENT AUTO 59 % (41-73); Platelet Count 321 K/mm3 (150-400); RDW Coefficient Variation 14.8 % (11.7-14.2); RDW Standard Deviation 47.7 fL (35.1-46.3); Red Blood Cell Count 4.89 M/mm3 (3.80-5.20); White Blood Cell Count 10.58 K/mm3 (4.00-11.30)
[2018-06-11 12:07] LABS: International Normalized Ratio 1.06; Prothrombin Time Results 10.9 Sec (9.7-11.5)
[2018-06-11 12:09] LABS: Alanine Aminotransfer (ALT/SGP 20 U/L (12-78); Albumin, Blood 3.2 g/dL (3.4-5.0); Albumin/Globulin Ratio 0.7 (0.8-1.8); Alk Phos 169 U/L (50-136); Anion Gap 6 mmol/L (6-16); Aspartate Aminotrans (AST/SGOT 19 U/L (12-37); Bilirubin, Total 0.2 mg/dL (0.1-1.0); Blood Urea Nitrogen 20 mg/dL (8-24); Bun/Creatinine Ratio 27.6 (12.0-20.0); CO2, Blood 30 mmol/L (21-32); Calcium, Blood 8.5 mg/dL (8.5-10.1); Chloride, Blood 105 mmol/L (98-108); Creatinine, Blood 0.73 mg/dL (0.40-1.00); Globulin, Blood 4.5 g/dL (2.2-4.0); Glomerular Filtration Rate >60 (60-); Glucose, Blood 114 mg/dL (70-99); Potassium, Blood 4.2 mmol/L (3.5-5.5); Sodium, Blood 141 mmol/L (136-145); Total Protein, Blood 7.7 g/dL (6.4-8.2)
[2018-06-11] MEDS ORDERED: XARELTO20 MG PO (12:13)
[2018-06-11] MEDS ORDERED: FURO20 PO (12:14)
[2018-06-11] MEDS ORDERED: ALBU90OI6 INH (12:15)
[2018-06-11 12:16] LABS: Ethanol (Alcohol), Blood, Med <3 mg/dL; Troponin I <0.015 ng/mL (0.000-0.040)
[2018-06-11] MEDS ORDERED: GABA100 PO (12:17)
[2018-06-11 12:47] LABS: Source, Urine Clean Catch
[2018-06-11 12:53] LABS: Bilirubin, Urine Neg (Neg); Blood, Urine 1+ (Neg); Glucose Qualitative, Urine Neg (Neg); Ketones, Urine Neg (Neg); Leukocyte Esterase, Urine 1+ (Neg); Nitrite, Urine Neg (Neg); Protein, Urine Neg (Neg); Urobilinogen, Urine NORM (Normal); pH, Urine 6.5 (5.0-8.0)
[2018-06-11 13:08] LABS: U Amphetamine Screen Not Detected; U Barbituate Screen Not Detected; U Benzodiazapine Screen DETECTED; U Buprenorphine Screen Not Detected; U Cannabinoids Screen DETECTED; U Cocaine Screen Not Detected; U Methadone Screen Not Detected; U Methamphetamine Screen Not Detected; U Opiates Screen Not Detected; U Oxycodone Screen Not Detected; U Phencyclidine Screen Not Detected; U Propoxyphene Screen Not Detected
[2018-06-11 13:14] LABS: Appearance, Urine Clear (Clear); Color, Urine Yellow (P-Yellow)
[2018-06-11 13:15] LABS: Bacteria Rare /hpf; Squamous Epithelial Cells Mod /hpf (Few)
== END 2018-06-11 14:05 | disposition home or self-care (01) ==
LOC: ER 11:21 → EDSTATUS 11:21 → ER 14:05
PROVIDERS: Emergency Medicine; Physician Assistant
DX: R40.4 Transient alteration of awareness (principal); R51 Headache; I10 Essential (primary) hypertension; E03.9 Hypothyroidism, unspecified; J44.9 Chronic obstructive pulmonary disease, unspecified; I25.2 Old myocardial infarction; I48.91 Unspecified atrial fibrillation; Z88.0 Allergy status to penicillin; Z88.5 Allergy status to narcotic agent; Z91.048 Other nonmedicinal substance allergy status; Z88.6 Allergy status to analgesic agent; Z91.09 Other allergy status, other than to drugs and biological substances; Z91.018 Allergy to other foods; Z88.7 Allergy status to serum and vaccine; Z79.899 Other long term (current) drug therapy; Z79.51 Long term (current) use of inhaled steroids; Z87.891 Personal history of nicotine dependence
CPT/HCPCS: 36415; 70450; 80053; 81001; 82947; 84484; 85025; 85610; 85730; 87086; 93005; 93010; 96361; 96374; 99284-25; G0480; J2405; J7030

== ENCOUNTER 2018-06-19 14:06 | Emergency (ER) | payer OTHER ==
[~2018-06-19] VITALS: Ht 167.6 cm; Wt 113.4 kg
[~2018-06-19 14:06] MED LIST changes: +GABA100 PO
[2018-06-19] MEDS ORDERED: MECL12.5 PO (16:23)
[2018-06-19] MEDS ORDERED: Norco 5-325 Ta1 EACH PO (16:23)
== END 2018-06-19 16:45 | disposition home or self-care (01) ==
LOC: ER 14:06
DX: S00.93XA Contusion of unspecified part of head, initial encounter (principal); S00.33XA Contusion of nose, initial encounter; S40.019A Contusion of unspecified shoulder, initial encounter; H83.09 Labyrinthitis, unspecified ear; R27.0 Ataxia, unspecified; I10 Essential (primary) hypertension; E03.9 Hypothyroidism, unspecified; J44.9 Chronic obstructive pulmonary disease, unspecified; I48.91 Unspecified atrial fibrillation; I25.2 Old myocardial infarction; F17.200 Nicotine dependence, unspecified, uncomplicated; Z88.0 Allergy status to penicillin; Z88.5 Allergy status to narcotic agent; Z91.048 Other nonmedicinal substance allergy status; Z88.6 Allergy status to analgesic agent; Z91.09 Other allergy status, other than to drugs and biological substances; Z91.013 Allergy to seafood; Z88.7 Allergy status to serum and vaccine; Z91.018 Allergy to other foods; Z79.899 Other long term (current) drug therapy; Z79.51 Long term (current) use of inhaled steroids; W22.8XXA Striking against or struck by other objects, initial encounter
CPT/HCPCS: 70450; 72125; 93005; 93010; 99284-25

== ENCOUNTER 2018-07-03 17:15 | Emergency (ER) | payer OTHER ==
[~2018-07-03] VITALS: Ht 167.6 cm; Wt 116.1 kg
[2018-07-03] MEDS ORDERED: GABA300 PO (17:41)
[2018-07-03 18:31] LABS: BASOPHILS ABSOLUTE AUTO 0.08 K/mm3 (0.00-0.23); BASOPHILS PERCENT AUTO 1 % (0-2); EOSINOPHILS ABSOLUTE AUTO 0.66 K/mm3 (0.00-0.68); EOSINOPHILS PERCENT AUTO 6 % (0-6); Hemoglobin 12.3 g/dL (11.5-16.0); IMMATURE GRAN ABSOLUTE AUTO 0.06 K/mm3 (0.00-0.10); IMMATURE GRAN PERCENT AUTO 1 % (0-1); LYMPHOCYTES ABSOLUTE AUTO 2.57 K/mm3 (0.84-5.20); LYMPHOCYTES PERCENT AUTO 24 % (21-46); MONOCYTES ABSOLUTE AUTO 0.78 K/mm3 (0.16-1.47); MONOCYTES PERCENT AUTO 7 % (4-13); Mean Corpuscular HGB 26.2 pg (26.0-34.0); Mean Corpuscular HGB Conc 30.8 g/dL (31.5-36.5); Mean Corpuscular Volume 85 fL (80-100); Mean Platelet Volume 10.8 fL (9.1-12.4); NEUTROPHILS ABSOLUTE AUTO 6.65 K/mm3 (1.96-9.15); NEUTROPHILS PERCENT AUTO 62 % (41-73); Platelet Count 320 K/mm3 (150-400)
[2018-07-03 18:56] LABS: Alanine Aminotransfer (ALT/SGP 20 U/L (12-78); Albumin, Blood 3.1 g/dL (3.4-5.0); Albumin/Globulin Ratio 0.7 (0.8-1.8); Alk Phos 176 U/L (50-136); Anion Gap 7 mmol/L (6-16); Aspartate Aminotrans (AST/SGOT 18 U/L (12-37); Bilirubin, Total 0.3 mg/dL (0.1-1.0); Blood Urea Nitrogen 17 mg/dL (8-24); CO2, Blood 29 mmol/L (21-32); Calcium, Blood 8.9 mg/dL (8.5-10.1); Chloride, Blood 102 mmol/L (98-108); Creatinine, Blood 0.74 mg/dL (0.40-1.00); Globulin, Blood 4.3 g/dL (2.2-4.0); Glomerular Filtration Rate >60 (60-); Glucose, Blood 113 mg/dL (70-99); Potassium, Blood 3.9 mmol/L (3.5-5.5); Sodium, Blood 138 mmol/L (136-145); Total Protein, Blood 7.4 g/dL (6.4-8.2); Troponin I <0.015 ng/mL (0.000-0.040)
[2018-07-03] MEDS ORDERED: Prednisone50 MG PO (19:51)
[2018-07-03] MEDS ORDERED: BENZ100A PO (19:51)
[2018-07-03] MEDS ORDERED: Vibramycin100 MG PO (19:51)
== END 2018-07-03 20:05 | disposition home or self-care (01) ==
LOC: ER 17:15
PROVIDERS: Emergency Medicine
DX: J44.1 Chronic obstructive pulmonary disease with (acute) exacerbation (principal); I10 Essential (primary) hypertension; E03.9 Hypothyroidism, unspecified; F17.200 Nicotine dependence, unspecified, uncomplicated; Z88.0 Allergy status to penicillin; Z88.6 Allergy status to analgesic agent; Z88.8 Allergy status to other drugs, medicaments and biological substances; Z91.013 Allergy to seafood; Z88.7 Allergy status to serum and vaccine; Z88.5 Allergy status to narcotic agent; Z79.899 Other long term (current) drug therapy
CPT/HCPCS: 36415; 71046; 80053; 83880; 84484; 85025; 93005; 93010; 94640; 96374; 99285-25; J1100

== ENCOUNTER 2018-07-08 03:02 | Emergency (ER) | payer OTHER ==
[~2018-07-08] VITALS: Ht 167.6 cm; Wt 116.1 kg
[~2018-07-08 03:02] MED LIST changes: +GABA300 PO
[2018-07-08 03:43] LABS: BASOPHILS PERCENT AUTO 1 % (0-2); EOSINOPHILS ABSOLUTE AUTO 0.56 K/mm3 (0.00-0.68); EOSINOPHILS PERCENT AUTO 4 % (0-6); Hematocrit 40.2 % (33.0-51.0); Hemoglobin 12.5 g/dL (11.5-16.0); IMMATURE GRAN ABSOLUTE AUTO 0.11 K/mm3 (0.00-0.10); IMMATURE GRAN PERCENT AUTO 1 % (0-1); LYMPHOCYTES ABSOLUTE AUTO 4.26 K/mm3 (0.84-5.20); LYMPHOCYTES PERCENT AUTO 29 % (21-46); MONOCYTES ABSOLUTE AUTO 1.16 K/mm3 (0.16-1.47); MONOCYTES PERCENT AUTO 8 % (4-13); Mean Corpuscular HGB 26.7 pg (26.0-34.0); Mean Corpuscular HGB Conc 31.1 g/dL (31.5-36.5); Mean Corpuscular Volume 86 fL (80-100); Mean Platelet Volume 10.7 fL (9.1-12.4); NEUTROPHILS ABSOLUTE AUTO 8.34 K/mm3 (1.96-9.15); NEUTROPHILS PERCENT AUTO 57 % (41-73); Platelet Count 315 K/mm3 (150-400); RDW Coefficient Variation 15.4 % (11.7-14.2); RDW Standard Deviation 48.2 fL (35.1-46.3); Red Blood Cell Count 4.69 M/mm3 (3.80-5.20); White Blood Cell Count 14.53 K/mm3 (4.00-11.30)
[2018-07-08 04:20] LABS: Alanine Aminotransfer (ALT/SGP 23 U/L (12-78); Albumin, Blood 3.1 g/dL (3.4-5.0); Albumin/Globulin Ratio 0.7 (0.8-1.8); Alk Phos 171 U/L (50-136); Anion Gap 7 mmol/L (6-16); Aspartate Aminotrans (AST/SGOT 25 U/L (12-37); Bilirubin, Total 0.4 mg/dL (0.1-1.0); Blood Urea Nitrogen 15 mg/dL (8-24); CO2, Blood 30 mmol/L (21-32); Calcium, Blood 8.2 mg/dL (8.5-10.1); Chloride, Blood 103 mmol/L (98-108); Creatinine, Blood 0.65 mg/dL (0.40-1.00); Globulin, Blood 4.3 g/dL (2.2-4.0); Glomerular Filtration Rate >60 (60-); Glucose, Blood 97 mg/dL (70-99); Sodium, Blood 140 mmol/L (136-145); Total Protein, Blood 7.4 g/dL (6.4-8.2); Troponin I <0.015 ng/mL (0.000-0.040)
== END 2018-07-08 04:58 | disposition home or self-care (01) ==
LOC: ER 03:02
PROVIDERS: Emergency Medicine
DX: R07.89 Other chest pain (principal); I10 Essential (primary) hypertension; E03.9 Hypothyroidism, unspecified; J44.9 Chronic obstructive pulmonary disease, unspecified; I48.91 Unspecified atrial fibrillation; F17.200 Nicotine dependence, unspecified, uncomplicated; Z88.0 Allergy status to penicillin; Z88.5 Allergy status to narcotic agent; Z91.048 Other nonmedicinal substance allergy status; Z88.6 Allergy status to analgesic agent; Z91.013 Allergy to seafood; Z88.7 Allergy status to serum and vaccine; Z91.018 Allergy to other foods; Z79.899 Other long term (current) drug therapy; Z79.51 Long term (current) use of inhaled steroids; Z79.52 Long term (current) use of systemic steroids
CPT/HCPCS: 36415; 71046; 80053; 83690; 84484; 85025; 93005; 93010; 99284-25

== ENCOUNTER → 2018-08-11 | Outpatient (CLI) | payer OTHER ==
[~2018-08-11] MED LIST changes: +Zofran Odt4 MG PO
[2018-08-11 13:39] LABS: BASOPHILS ABSOLUTE AUTO 0.05 K/mm3 (0.00-0.23); BASOPHILS PERCENT AUTO 0 % (0-2); EOSINOPHILS ABSOLUTE AUTO 0.04 K/mm3 (0.00-0.68); EOSINOPHILS PERCENT AUTO 0 % (0-6); Hematocrit 37.2 % (33.0-51.0); IMMATURE GRAN ABSOLUTE AUTO 0.16 K/mm3 (0.00-0.10); IMMATURE GRAN PERCENT AUTO 1 % (0-1); LYMPHOCYTES ABSOLUTE AUTO 1.92 K/mm3 (0.84-5.20); LYMPHOCYTES PERCENT AUTO 13 % (21-46); MONOCYTES ABSOLUTE AUTO 0.62 K/mm3 (0.16-1.47); MONOCYTES PERCENT AUTO 4 % (4-13); Mean Corpuscular HGB Conc 32.3 g/dL (31.5-36.5); Mean Platelet Volume 11.1 fL (9.1-12.4); NEUTROPHILS ABSOLUTE AUTO 11.83 K/mm3 (1.96-9.15); NEUTROPHILS PERCENT AUTO 81 % (41-73); Platelet Count 341 K/mm3 (150-400); RDW Coefficient Variation 16.6 % (11.7-14.2); RDW Standard Deviation 50.3 fL (35.1-46.3); Red Blood Cell Count 4.45 M/mm3 (3.80-5.20); White Blood Cell Count 14.62 K/mm3 (4.00-11.30)
[2018-08-11 13:40] LABS: Mean Corpuscular Volume 84 fL (80-100)
[2018-08-11 13:47] LABS: Anion Gap 10 mmol/L (6-16); Blood Urea Nitrogen 14 mg/dL (8-24); Bun/Creatinine Ratio 15.2 (12.0-20.0); CO2, Blood 29 mmol/L (21-32); Calcium, Blood 8.4 mg/dL (8.5-10.1); Chloride, Blood 104 mmol/L (98-108); Creatinine, Blood 0.92 mg/dL (0.40-1.00); Glomerular Filtration Rate >60 (60-); Glucose, Blood 130 mg/dL (70-99); Potassium, Blood 3.6 mmol/L (3.5-5.5); Sodium, Blood 143 mmol/L (136-145)
== END ==
LOC: LAB SHORT 13:36 → LAB EV 13:36
PROVIDERS: Emergency Medicine
DX: R06.00 Dyspnea, unspecified (principal)
CPT/HCPCS: 80048; 83880; 85025

== ENCOUNTER → 2018-08-19 | Outpatient (CLI) | payer OTHER ==
[~2018-08-19] MED LIST changes: +Advair Hfa 230-12 GM INH; +CITRATE OF MAG296 ML PO; +Colace100 MG PO; +Hydrocodone-Ap1 EA23; +Motion Sickness25 M1 PO; +Percocet 5-3251 EACH PO
[2018-08-19 10:12] LABS: BASOPHILS ABSOLUTE AUTO 0.08 K/mm3 (0.00-0.23); BASOPHILS PERCENT AUTO 1 % (0-2); EOSINOPHILS ABSOLUTE AUTO 0.33 K/mm3 (0.00-0.68); EOSINOPHILS PERCENT AUTO 3 % (0-6); Hematocrit 39.3 % (33.0-51.0); Hemoglobin 12.3 g/dL (11.5-16.0); IMMATURE GRAN ABSOLUTE AUTO 0.11 K/mm3 (0.00-0.10); IMMATURE GRAN PERCENT AUTO 1 % (0-1); LYMPHOCYTES PERCENT AUTO 17 % (21-46); MONOCYTES ABSOLUTE AUTO 1.15 K/mm3 (0.16-1.47); MONOCYTES PERCENT AUTO 9 % (4-13); Mean Corpuscular HGB 26.7 pg (26.0-34.0); Mean Corpuscular HGB Conc 31.3 g/dL (31.5-36.5); Mean Corpuscular Volume 85 fL (80-100); Mean Platelet Volume 11.2 fL (9.1-12.4); NEUTROPHILS ABSOLUTE AUTO 9.25 K/mm3 (1.96-9.15); NEUTROPHILS PERCENT AUTO 71 % (41-73); Platelet Count 320 K/mm3 (150-400); RDW Coefficient Variation 16.6 % (11.7-14.2); RDW Standard Deviation 51.3 fL (35.1-46.3); White Blood Cell Count 13.12 K/mm3 (4.00-11.30)
[2018-08-19 10:28] LABS: Alanine Aminotransfer (ALT/SGP 19 U/L (12-78); Albumin/Globulin Ratio 0.7 (0.8-1.8); Alk Phos 160 U/L (40-126); Anion Gap 8 mmol/L (6-16); Aspartate Aminotrans (AST/SGOT 15 U/L (12-37); Bilirubin, Total 0.7 mg/dL (0.1-1.0); Blood Urea Nitrogen 11 mg/dL (8-24); Bun/Creatinine Ratio 13.1 (12.0-20.0); CO2, Blood 31 mmol/L (21-32); Calcium, Blood 8.8 mg/dL (8.5-10.1); Chloride, Blood 101 mmol/L (98-108); Creatinine, Blood 0.84 mg/dL (0.40-1.00); Globulin, Blood 4.4 g/dL (2.2-4.0); Glomerular Filtration Rate >60 (60-); Glucose, Blood 90 mg/dL (70-99); Potassium, Blood 3.9 mmol/L (3.5-5.5); Sodium, Blood 140 mmol/L (136-145); Total Protein, Blood 7.4 g/dL (6.4-8.2)
[2018-08-19 10:31] LABS: Troponin I <0.017 ng/mL (0.000-0.040)
== END | disposition home or self-care (01) ==
LOC: LAB SHORT 10:03 → LAB EV 10:03
PROVIDERS: Physician Assistant
DX: R07.9 Chest pain, unspecified (principal); R06.02 Shortness of breath
CPT/HCPCS: 80053; 83880; 84484; 85025

== ENCOUNTER → 2018-09-11 | Outpatient (CLI) | payer OTHER ==
[2018-09-11 13:34] LABS: BASOPHILS ABSOLUTE AUTO 0.11 K/mm3 (0.00-0.23); BASOPHILS PERCENT AUTO 1 % (0-2); EOSINOPHILS ABSOLUTE AUTO 0.44 K/mm3 (0.00-0.68); EOSINOPHILS PERCENT AUTO 4 % (0-6); Hematocrit 41.4 % (33.0-51.0); IMMATURE GRAN ABSOLUTE AUTO 0.04 K/mm3 (0.00-0.10); IMMATURE GRAN PERCENT AUTO 0 % (0-1); LYMPHOCYTES ABSOLUTE AUTO 2.42 K/mm3 (0.84-5.20); LYMPHOCYTES PERCENT AUTO 23 % (21-46); MONOCYTES ABSOLUTE AUTO 0.68 K/mm3 (0.16-1.47); MONOCYTES PERCENT AUTO 7 % (4-13); Mean Corpuscular HGB 26.7 pg (26.0-34.0); Mean Corpuscular HGB Conc 31.4 g/dL (31.5-36.5); Mean Corpuscular Volume 85 fL (80-100); Mean Platelet Volume 10.9 fL (9.1-12.4); NEUTROPHILS ABSOLUTE AUTO 6.76 K/mm3 (1.96-9.15); NEUTROPHILS PERCENT AUTO 65 % (41-73); Platelet Count 355 K/mm3 (150-400); RDW Coefficient Variation 15.8 % (11.7-14.2); RDW Standard Deviation 48.7 fL (35.1-46.3); Red Blood Cell Count 4.87 M/mm3 (3.80-5.20); White Blood Cell Count 10.45 K/mm3 (4.00-11.30)
[2018-09-11 13:52] LABS: Anion Gap 10 mmol/L (6-16); Blood Urea Nitrogen 12 mg/dL (8-24); Bun/Creatinine Ratio 15.6 (12.0-20.0); CO2, Blood 29 mmol/L (21-32); Calcium, Blood 9.1 mg/dL (8.5-10.1); Chloride, Blood 102 mmol/L (98-108); Creatinine, Blood 0.77 mg/dL (0.40-1.00); Glomerular Filtration Rate >60 (60-); Glucose, Blood 102 mg/dL (70-99); Potassium, Blood 3.9 mmol/L (3.5-5.5); Sodium, Blood 141 mmol/L (136-145)
== END ==
LOC: LAB EV 13:24 → LAB SHORT 13:24
PROVIDERS: Physician Assistant Surgical
DX: R06.09 Other forms of dyspnea (principal); R53.83 Other fatigue
CPT/HCPCS: 80048; 83880; 84443; 85025

== ENCOUNTER 2018-10-12 23:18 | Emergency (ER) | payer OTHER ==
[~2018-10-12] VITALS: Ht 172.7 cm; Wt 86.2 kg
[~2018-10-12 23:18] MED LIST changes: -Advair Hfa 230-12 GM INH; -CITRATE OF MAG296 ML PO; -Colace100 MG PO; -Hydrocodone-Ap1 EA23; -Motion Sickness25 M1 PO
[2018-10-13 00:28] LABS: BASOPHILS ABSOLUTE AUTO 0.07 K/mm3 (0.00-0.23); BASOPHILS PERCENT AUTO 1 % (0-2); EOSINOPHILS PERCENT AUTO 7 % (0-6); Hematocrit 40.1 % (33.0-51.0); Hemoglobin 12.3 g/dL (11.5-16.0); IMMATURE GRAN ABSOLUTE AUTO 0.07 K/mm3 (0.00-0.10); IMMATURE GRAN PERCENT AUTO 1 % (0-1); LYMPHOCYTES ABSOLUTE AUTO 2.73 K/mm3 (0.84-5.20); LYMPHOCYTES PERCENT AUTO 20 % (21-46); MONOCYTES ABSOLUTE AUTO 0.85 K/mm3 (0.16-1.47); MONOCYTES PERCENT AUTO 6 % (4-13); Mean Corpuscular HGB 26.3 pg (26.0-34.0); Mean Corpuscular HGB Conc 30.7 g/dL (31.5-36.5); Mean Corpuscular Volume 86 fL (80-100); Mean Platelet Volume 11.1 fL (9.1-12.4); NEUTROPHILS ABSOLUTE AUTO 8.73 K/mm3 (1.96-9.15); NEUTROPHILS PERCENT AUTO 66 % (41-73); Platelet Count 333 K/mm3 (150-400); RDW Coefficient Variation 15.7 % (11.7-14.2); RDW Standard Deviation 48.5 fL (35.1-46.3); Red Blood Cell Count 4.67 M/mm3 (3.80-5.20); White Blood Cell Count 13.35 K/mm3 (4.00-11.30)
[2018-10-13 00:44] LABS: Alanine Aminotransfer (ALT/SGP 22 U/L (12-78); Albumin, Blood 3.1 g/dL (3.4-5.0); Albumin/Globulin Ratio 0.8 (0.8-1.8); Alk Phos 190 U/L (50-136); Anion Gap 8 mmol/L (6-16); Aspartate Aminotrans (AST/SGOT 17 U/L (12-37); Bilirubin, Total 0.5 mg/dL (0.1-1.0); Blood Urea Nitrogen 10 mg/dL (8-24); Bun/Creatinine Ratio 13.7 (12.0-20.0); CO2, Blood 28 mmol/L (21-32); Calcium, Blood 8.3 mg/dL (8.5-10.1); Chloride, Blood 99 mmol/L (98-108); Creatinine, Blood 0.73 mg/dL (0.40-1.00); Globulin, Blood 4.1 g/dL (2.2-4.0); Glomerular Filtration Rate >60 (60-); Glucose, Blood 115 mg/dL (70-99); Potassium, Blood 3.9 mmol/L (3.5-5.5); Sodium, Blood 135 mmol/L (136-145); Total Protein, Blood 7.2 g/dL (6.4-8.2)
[2018-10-13 00:46] LABS: Troponin I 0.505 ng/mL (0.000-0.040)
[2018-10-13] MEDS ORDERED: Colace100 MG PO (03:43)
[2018-10-13] MEDS ORDERED: CITRATE OF MAG296 ML PO (03:43)
== END 2018-10-13 04:05 | disposition home or self-care (01) ==
LOC: ER 23:18
PROVIDERS: Emergency Medicine
DX: K59.00 Constipation, unspecified (principal); Z88.0 Allergy status to penicillin; Z88.8 Allergy status to other drugs, medicaments and biological substances; Z91.013 Allergy to seafood; Z91.048 Other nonmedicinal substance allergy status; Z79.899 Other long term (current) drug therapy; Z79.82 Long term (current) use of aspirin; I10 Essential (primary) hypertension; E03.9 Hypothyroidism, unspecified; J44.9 Chronic obstructive pulmonary disease, unspecified; I48.91 Unspecified atrial fibrillation; I25.2 Old myocardial infarction; Z95.5 Presence of coronary angioplasty implant and graft; F17.200 Nicotine dependence, unspecified, uncomplicated
CPT/HCPCS: 36415; 71046; 74018; 80053; 83880; 84484; 85025; 93005; 93010; 96374; 99285-25; J2405

== ENCOUNTER 2018-10-14 13:51 | Emergency (ER) | payer OTHER ==
[~2018-10-14] VITALS: Ht 167.6 cm; Wt 116.1 kg
[~2018-10-14 13:51] MED LIST changes: +CITRATE OF MAG296 ML PO; +Colace100 MG PO
[2018-10-14 14:31] LABS: BASOPHILS ABSOLUTE AUTO 0.09 K/mm3 (0.00-0.23); BASOPHILS PERCENT AUTO 1 % (0-2); EOSINOPHILS ABSOLUTE AUTO 0.72 K/mm3 (0.00-0.68); EOSINOPHILS PERCENT AUTO 7 % (0-6); Hematocrit 39.8 % (33.0-51.0); Hemoglobin 12.1 g/dL (11.5-16.0); IMMATURE GRAN ABSOLUTE AUTO 0.07 K/mm3 (0.00-0.10); IMMATURE GRAN PERCENT AUTO 1 % (0-1); LYMPHOCYTES ABSOLUTE AUTO 3.19 K/mm3 (0.84-5.20); LYMPHOCYTES PERCENT AUTO 29 % (21-46); MONOCYTES ABSOLUTE AUTO 0.62 K/mm3 (0.16-1.47); MONOCYTES PERCENT AUTO 6 % (4-13); Mean Corpuscular HGB Conc 30.4 g/dL (31.5-36.5); Mean Corpuscular Volume 86 fL (80-100); Mean Platelet Volume 11.1 fL (9.1-12.4); NEUTROPHILS ABSOLUTE AUTO 6.18 K/mm3 (1.96-9.15); NEUTROPHILS PERCENT AUTO 57 % (41-73); Platelet Count 346 K/mm3 (150-400); RDW Coefficient Variation 15.9 % (11.7-14.2); RDW Standard Deviation 48.5 fL (35.1-46.3); Red Blood Cell Count 4.65 M/mm3 (3.80-5.20); White Blood Cell Count 10.87 K/mm3 (4.00-11.30)
[2018-10-14 14:52] LABS: Alanine Aminotransfer (ALT/SGP 20 U/L (12-78); Albumin, Blood 3.1 g/dL (3.4-5.0); Albumin/Globulin Ratio 0.8 (0.8-1.8); Alk Phos 182 U/L (50-136); Anion Gap 8 mmol/L (6-16); Aspartate Aminotrans (AST/SGOT 18 U/L (12-37); Bilirubin, Total 0.5 mg/dL (0.1-1.0); Blood Urea Nitrogen 11 mg/dL (8-24); CO2, Blood 27 mmol/L (21-32); Calcium, Blood 8.2 mg/dL (8.5-10.1); Chloride, Blood 99 mmol/L (98-108); Creatinine, Blood 0.78 mg/dL (0.40-1.00); Globulin, Blood 3.9 g/dL (2.2-4.0); Glomerular Filtration Rate >60 (60-); Glucose, Blood 133 mg/dL (70-99); Potassium, Blood 3.9 mmol/L (3.5-5.5); Sodium, Blood 134 mmol/L (136-145)
== END 2018-10-14 17:04 | disposition left against medical advice (07) ==
LOC: ER 13:51
PROVIDERS: Physician Assistant
DX: Z53.21 Procedure and treatment not carried out due to patient leaving prior to being seen by health care provider (principal)
CPT/HCPCS: 36415; 80053; 84484; 85025; 93005; 93010; 99285-25

== ENCOUNTER 2018-10-19 05:47 | Emergency (ER) | payer OTHER ==
[~2018-10-19] VITALS: Ht 167.6 cm; Wt 116.1 kg
[2018-10-19] MEDS ORDERED: Miralax17 GM PO (07:56)
== END 2018-10-19 08:36 | disposition home or self-care (01) ==
LOC: ER 05:47
DX: K59.09 Other constipation (principal); Z88.0 Allergy status to penicillin; Z91.048 Other nonmedicinal substance allergy status; Z91.013 Allergy to seafood; Z79.899 Other long term (current) drug therapy; Z79.82 Long term (current) use of aspirin; I10 Essential (primary) hypertension; E03.9 Hypothyroidism, unspecified; J44.9 Chronic obstructive pulmonary disease, unspecified; I48.91 Unspecified atrial fibrillation; I25.2 Old myocardial infarction; F17.210 Nicotine dependence, cigarettes, uncomplicated
CPT/HCPCS: 74019; 99283-25

== ENCOUNTER 2018-11-08 17:58 | Emergency (ER) | payer OTHER ==
[~2018-11-08] VITALS: Ht 170.2 cm; Wt 123.4 kg
[2018-11-08 18:24] LABS: BASOPHILS ABSOLUTE AUTO 0.09 K/mm3 (0.00-0.23); BASOPHILS PERCENT AUTO 1 % (0-2); EOSINOPHILS ABSOLUTE AUTO 0.77 K/mm3 (0.00-0.68); EOSINOPHILS PERCENT AUTO 9 % (0-6); Hematocrit 45.1 % (33.0-51.0); Hemoglobin 13.7 g/dL (11.5-16.0); IMMATURE GRAN ABSOLUTE AUTO 0.05 K/mm3 (0.00-0.10); IMMATURE GRAN PERCENT AUTO 1 % (0-1); LYMPHOCYTES ABSOLUTE AUTO 3.43 K/mm3 (0.84-5.20); LYMPHOCYTES PERCENT AUTO 40 % (21-46); MONOCYTES ABSOLUTE AUTO 0.53 K/mm3 (0.16-1.47); MONOCYTES PERCENT AUTO 6 % (4-13); Mean Corpuscular HGB 25.7 pg (26.0-34.0); Mean Corpuscular HGB Conc 30.4 g/dL (31.5-36.5); Mean Corpuscular Volume 85 fL (80-100); Mean Platelet Volume 10.4 fL (9.1-12.4); NEUTROPHILS ABSOLUTE AUTO 3.76 K/mm3 (1.96-9.15); NEUTROPHILS PERCENT AUTO 44 % (41-73); Platelet Count 319 K/mm3 (150-400); RDW Coefficient Variation 16.3 % (11.7-14.2); RDW Standard Deviation 49.9 fL (35.1-46.3); Red Blood Cell Count 5.34 M/mm3 (3.80-5.20); White Blood Cell Count 8.63 K/mm3 (4.00-11.30)
[2018-11-08 18:39] LABS: Alanine Aminotransfer (ALT/SGP 19 U/L (12-78); Albumin, Blood 3.6 g/dL (3.4-5.0); Albumin/Globulin Ratio 0.8 (0.8-1.8); Alk Phos 133 U/L (50-136); Anion Gap 8 mmol/L (6-16); Aspartate Aminotrans (AST/SGOT 25 U/L (12-37); Bilirubin, Total 0.3 mg/dL (0.1-1.0); Blood Urea Nitrogen 12 mg/dL (8-24); Bun/Creatinine Ratio 14.7 (12.0-20.0); CO2, Blood 24 mmol/L (21-32); Calcium, Blood 8.3 mg/dL (8.5-10.1); Chloride, Blood 102 mmol/L (98-108); Creatinine, Blood 0.82 mg/dL (0.40-1.00); Globulin, Blood 4.5 g/dL (2.2-4.0); Glomerular Filtration Rate >60 (60-); Glucose, Blood 120 mg/dL (70-99); Potassium, Blood 4.6 mmol/L (3.5-5.5); Sodium, Blood 134 mmol/L (136-145); Total Protein, Blood 8.1 g/dL (6.4-8.2)
[2018-11-08 18:42] LABS: International Normalized Ratio 1.05; Prothrombin Time Results 11.1 Sec (9.7-11.5)
[2018-11-08] MEDS ORDERED: Advair Hfa 230-12 GM INH (19:14)
[2018-11-08] MEDS ORDERED: Hydrocodone-Ap1 EA23 (19:15)
[2018-11-08] MEDS ORDERED: ALBU3IS INH (19:16)
[2018-11-08] MEDS ORDERED: Motion Sickness25 M1 PO (21:08)
== END 2018-11-08 21:05 | disposition home or self-care (01) ==
LOC: ER 17:58
PROVIDERS: Emergency Medicine
DX: R41.82 Altered mental status, unspecified (principal); R51 Headache; Z88.0 Allergy status to penicillin; Z91.048 Other nonmedicinal substance allergy status; Z88.8 Allergy status to other drugs, medicaments and biological substances; Z91.013 Allergy to seafood; Z88.7 Allergy status to serum and vaccine; Z79.899 Other long term (current) drug therapy; Z79.82 Long term (current) use of aspirin; I10 Essential (primary) hypertension; E03.9 Hypothyroidism, unspecified; J44.9 Chronic obstructive pulmonary disease, unspecified; I48.91 Unspecified atrial fibrillation; I25.2 Old myocardial infarction; F17.210 Nicotine dependence, cigarettes, uncomplicated
CPT/HCPCS: 36415; 70450; 70496; 70498; 80053; 85025; 85610; 93005; 93010; 99285-25; Q9967

== ENCOUNTER 2018-11-22 01:05 | Emergency (ER) | payer OTHER ==
[~2018-11-22] VITALS: Ht 167.6 cm; Wt 104.3 kg
[~2018-11-22 01:05] MED LIST changes: +Advair Hfa 230-12 GM INH; +Hydrocodone-Ap1 EA23; +Motion Sickness25 M1 PO
[2018-11-22 02:14] LABS: BASOPHILS ABSOLUTE AUTO 0.08 K/mm3 (0.00-0.23); BASOPHILS PERCENT AUTO 1 % (0-2); EOSINOPHILS ABSOLUTE AUTO 0.35 K/mm3 (0.00-0.68); EOSINOPHILS PERCENT AUTO 4 % (0-6); Hematocrit 39.9 % (33.0-51.0); Hemoglobin 12.2 g/dL (11.5-16.0); IMMATURE GRAN ABSOLUTE AUTO 0.02 K/mm3 (0.00-0.10); IMMATURE GRAN PERCENT AUTO 0 % (0-1); LYMPHOCYTES ABSOLUTE AUTO 2.58 K/mm3 (0.84-5.20); LYMPHOCYTES PERCENT AUTO 32 % (21-46); MONOCYTES ABSOLUTE AUTO 0.72 K/mm3 (0.16-1.47); MONOCYTES PERCENT AUTO 9 % (4-13); Mean Corpuscular HGB 26.6 pg (26.0-34.0); Mean Corpuscular HGB Conc 30.6 g/dL (31.5-36.5); Mean Corpuscular Volume 87 fL (80-100); Mean Platelet Volume 10.5 fL (9.1-12.4); NEUTROPHILS ABSOLUTE AUTO 4.24 K/mm3 (1.96-9.15); NEUTROPHILS PERCENT AUTO 53 % (41-73); Platelet Count 306 K/mm3 (150-400); RDW Coefficient Variation 16.1 % (11.7-14.2); RDW Standard Deviation 50.9 fL (35.1-46.3); Red Blood Cell Count 4.59 M/mm3 (3.80-5.20); White Blood Cell Count 7.99 K/mm3 (4.00-11.30)
[2018-11-22 02:38] LABS: Alanine Aminotransfer (ALT/SGP 14 U/L (12-78); Albumin, Blood 3.7 g/dL (3.4-5.0); Albumin/Globulin Ratio 0.9 (0.8-1.8); Alk Phos 165 U/L (50-136); Anion Gap 8 mmol/L (6-16); Aspartate Aminotrans (AST/SGOT 16 U/L (12-37); Bilirubin, Total 0.3 mg/dL (0.1-1.0); Blood Urea Nitrogen 19 mg/dL (8-24); Bun/Creatinine Ratio 21.8 (12.0-20.0); CO2, Blood 28 mmol/L (21-32); Calcium, Blood 8.9 mg/dL (8.5-10.1); Chloride, Blood 102 mmol/L (98-108); Creatinine, Blood 0.87 mg/dL (0.40-1.00); Globulin, Blood 4.1 g/dL (2.2-4.0); Glomerular Filtration Rate >60 (60-); Glucose, Blood 116 mg/dL (70-99); Sodium, Blood 138 mmol/L (136-145); Total Protein, Blood 7.8 g/dL (6.4-8.2)
== END 2018-11-22 03:42 | disposition home or self-care (01) ==
LOC: ER 01:05
PROVIDERS: Emergency Medicine
DX: R42 Dizziness and giddiness (principal); I10 Essential (primary) hypertension; E03.9 Hypothyroidism, unspecified; J44.9 Chronic obstructive pulmonary disease, unspecified; I25.2 Old myocardial infarction; I48.91 Unspecified atrial fibrillation; F17.200 Nicotine dependence, unspecified, uncomplicated; Z88.0 Allergy status to penicillin; Z91.048 Other nonmedicinal substance allergy status; Z88.6 Allergy status to analgesic agent; Z91.041 Radiographic dye allergy status; Z91.013 Allergy to seafood; Z88.7 Allergy status to serum and vaccine; Z91.018 Allergy to other foods; Z79.899 Other long term (current) drug therapy; Z79.51 Long term (current) use of inhaled steroids; Z79.82 Long term (current) use of aspirin
CPT/HCPCS: 36415; 80053; 84439; 84443; 85025; 93005; 93010; 99284-25

== ENCOUNTER 2018-12-18 09:32 | Emergency (ER) | payer OTHER ==
[~2018-12-18] VITALS: Ht 167.6 cm; Wt 117.9 kg
[2018-12-18 10:13] LABS: BASOPHILS ABSOLUTE AUTO 0.08 K/mm3 (0.00-0.23); BASOPHILS PERCENT AUTO 1 % (0-2); EOSINOPHILS ABSOLUTE AUTO 0.29 K/mm3 (0.00-0.68); EOSINOPHILS PERCENT AUTO 4 % (0-6); Hematocrit 41.1 % (33.0-51.0); Hemoglobin 12.5 g/dL (11.5-16.0); IMMATURE GRAN ABSOLUTE AUTO 0.03 K/mm3 (0.00-0.10); IMMATURE GRAN PERCENT AUTO 0 % (0-1); LYMPHOCYTES ABSOLUTE AUTO 1.92 K/mm3 (0.84-5.20); LYMPHOCYTES PERCENT AUTO 24 % (21-46); MONOCYTES ABSOLUTE AUTO 0.69 K/mm3 (0.16-1.47); MONOCYTES PERCENT AUTO 9 % (4-13); Mean Corpuscular HGB 26.1 pg (26.0-34.0); Mean Corpuscular HGB Conc 30.4 g/dL (31.5-36.5); Mean Corpuscular Volume 86 fL (80-100); Mean Platelet Volume 10.3 fL (9.1-12.4); NEUTROPHILS ABSOLUTE AUTO 5.05 K/mm3 (1.96-9.15); NEUTROPHILS PERCENT AUTO 63 % (41-73); Platelet Count 295 K/mm3 (150-400); RDW Coefficient Variation 15.7 % (11.7-14.2); RDW Standard Deviation 49.2 fL (35.1-46.3); Red Blood Cell Count 4.79 M/mm3 (3.80-5.20); White Blood Cell Count 8.06 K/mm3 (4.00-11.30)
[2018-12-18 10:41] LABS: Alanine Aminotransfer (ALT/SGP 14 U/L (12-78); Albumin, Blood 3.2 g/dL (3.4-5.0); Albumin/Globulin Ratio 0.8 (0.8-1.8); Alk Phos 162 U/L (50-136); Anion Gap 10 mmol/L (6-16); Aspartate Aminotrans (AST/SGOT 14 U/L (12-37); Bilirubin, Total 0.4 mg/dL (0.1-1.0); Blood Urea Nitrogen 9 mg/dL (8-24); CO2, Blood 26 mmol/L (21-32); Calcium, Blood 8.5 mg/dL (8.5-10.1); Chloride, Blood 104 mmol/L (98-108); Globulin, Blood 4.2 g/dL (2.2-4.0); Glomerular Filtration Rate >60 (60-); Glucose, Blood 87 mg/dL (70-99); Potassium, Blood 3.8 mmol/L (3.5-5.5); Sodium, Blood 140 mmol/L (136-145); Total Protein, Blood 7.4 g/dL (6.4-8.2); Troponin I <0.015 ng/mL (0.000-0.040)
[2018-12-18] MEDS ORDERED: ONDA4ODT MM (11:11)
== END 2018-12-18 11:26 | disposition home or self-care (01) ==
LOC: ER 09:32
PROVIDERS: Emergency Medicine
DX: R07.9 Chest pain, unspecified (principal); R11.2 Nausea with vomiting, unspecified; I10 Essential (primary) hypertension; E03.9 Hypothyroidism, unspecified; J44.9 Chronic obstructive pulmonary disease, unspecified; I48.91 Unspecified atrial fibrillation; I25.2 Old myocardial infarction; Z88.0 Allergy status to penicillin; Z91.048 Other nonmedicinal substance allergy status; Z91.013 Allergy to seafood; Z79.899 Other long term (current) drug therapy; Z79.82 Long term (current) use of aspirin; F17.210 Nicotine dependence, cigarettes, uncomplicated
CPT/HCPCS: 36415; 71046; 80053; 83690; 84484; 85025; 93005; 93010; 96374; 99285-25; J2405

== ENCOUNTER 2019-01-26 21:15 | Emergency (ER) | payer OTHER ==
[~2019-01-26] VITALS: Ht 167.6 cm; Wt 113.4 kg
[2019-01-26 21:50] LABS: BASOPHILS ABSOLUTE AUTO 0.07 K/mm3 (0.00-0.23); BASOPHILS PERCENT AUTO 1 % (0-2); EOSINOPHILS ABSOLUTE AUTO 0.42 K/mm3 (0.00-0.68); EOSINOPHILS PERCENT AUTO 5 % (0-6); Hematocrit 39.8 % (33.0-51.0); Hemoglobin 12.3 g/dL (11.5-16.0); IMMATURE GRAN ABSOLUTE AUTO 0.03 K/mm3 (0.00-0.10); IMMATURE GRAN PERCENT AUTO 0 % (0-1); LYMPHOCYTES ABSOLUTE AUTO 3.02 K/mm3 (0.84-5.20); LYMPHOCYTES PERCENT AUTO 35 % (21-46); MONOCYTES ABSOLUTE AUTO 0.67 K/mm3 (0.16-1.47); MONOCYTES PERCENT AUTO 8 % (4-13); Mean Corpuscular HGB 26.2 pg (26.0-34.0); Mean Corpuscular HGB Conc 30.9 g/dL (31.5-36.5); Mean Corpuscular Volume 85 fL (80-100); Mean Platelet Volume 10.8 fL (9.1-12.4); NEUTROPHILS PERCENT AUTO 52 % (41-73); Platelet Count 310 K/mm3 (150-400); RDW Coefficient Variation 16.1 % (11.7-14.2); RDW Standard Deviation 50.2 fL (35.1-46.3); White Blood Cell Count 8.71 K/mm3 (4.00-11.30)
[2019-01-26 22:11] LABS: Alanine Aminotransfer (ALT/SGP 15 U/L (12-78); Albumin, Blood 3.2 g/dL (3.4-5.0); Albumin/Globulin Ratio 0.8 (0.8-1.8); Alk Phos 156 U/L (50-136); Anion Gap 3 mmol/L (6-16); Aspartate Aminotrans (AST/SGOT 12 U/L (12-37); Bilirubin, Total 0.2 mg/dL (0.1-1.0); Blood Urea Nitrogen 14 mg/dL (8-24); Bun/Creatinine Ratio 17.6 (12.0-20.0); CO2, Blood 29 mmol/L (21-32); Calcium, Blood 8.5 mg/dL (8.5-10.1); Chloride, Blood 104 mmol/L (98-108); Globulin, Blood 3.9 g/dL (2.2-4.0); Glomerular Filtration Rate >60 (60-); Glucose, Blood 104 mg/dL (70-99); Potassium, Blood 3.9 mmol/L (3.5-5.5); Sodium, Blood 136 mmol/L (136-145); Total Protein, Blood 7.1 g/dL (6.4-8.2); Troponin I <0.015 ng/mL (0.000-0.040)
== END 2019-01-27 00:49 | disposition home or self-care (01) ==
LOC: ER 21:15
PROVIDERS: Emergency Medicine
DX: R07.9 Chest pain, unspecified (principal); J45.909 Unspecified asthma, uncomplicated; I10 Essential (primary) hypertension; E03.9 Hypothyroidism, unspecified; J44.9 Chronic obstructive pulmonary disease, unspecified; I48.91 Unspecified atrial fibrillation; I25.2 Old myocardial infarction; F17.210 Nicotine dependence, cigarettes, uncomplicated; Z88.0 Allergy status to penicillin; Z91.013 Allergy to seafood; Z91.048 Other nonmedicinal substance allergy status; Z88.8 Allergy status to other drugs, medicaments and biological substances; Z79.82 Long term (current) use of aspirin; Z79.899 Other long term (current) drug therapy
CPT/HCPCS: 36415; 71046; 80053; 83690; 84484; 85025; 93005; 93010; 99285-25

== ENCOUNTER 2019-02-08 04:30 | Emergency (ER) | payer OTHER ==
[~2019-02-08] VITALS: Ht 167.6 cm; Wt 113.4 kg
[2019-02-08 05:25] LABS: BASOPHILS ABSOLUTE AUTO 0.08 K/mm3 (0.00-0.23); BASOPHILS PERCENT AUTO 1 % (0-2); EOSINOPHILS ABSOLUTE AUTO 0.43 K/mm3 (0.00-0.68); EOSINOPHILS PERCENT AUTO 4 % (0-6); Hematocrit 41.2 % (33.0-51.0); Hemoglobin 13.1 g/dL (11.5-16.0); IMMATURE GRAN ABSOLUTE AUTO 0.04 K/mm3 (0.00-0.10); IMMATURE GRAN PERCENT AUTO 0 % (0-1); LYMPHOCYTES PERCENT AUTO 26 % (21-46); MONOCYTES ABSOLUTE AUTO 0.64 K/mm3 (0.16-1.47); MONOCYTES PERCENT AUTO 6 % (4-13); Mean Corpuscular HGB 26.7 pg (26.0-34.0); Mean Corpuscular HGB Conc 31.8 g/dL (31.5-36.5); Mean Corpuscular Volume 84 fL (80-100); Mean Platelet Volume 10.5 fL (9.1-12.4); NEUTROPHILS ABSOLUTE AUTO 6.64 K/mm3 (1.96-9.15); NEUTROPHILS PERCENT AUTO 63 % (41-73); Platelet Count 290 K/mm3 (150-400); RDW Coefficient Variation 15.8 % (11.7-14.2); RDW Standard Deviation 48.1 fL (35.1-46.3); Red Blood Cell Count 4.91 M/mm3 (3.80-5.20); White Blood Cell Count 10.63 K/mm3 (4.00-11.30)
[2019-02-08 05:39] LABS: Alanine Aminotransfer (ALT/SGP 13 U/L (12-78); Albumin, Blood 3.1 g/dL (3.4-5.0); Albumin/Globulin Ratio 0.7 (0.8-1.8); Alk Phos 166 U/L (50-136); Anion Gap 7 mmol/L (6-16); Aspartate Aminotrans (AST/SGOT 12 U/L (12-37); Bilirubin, Total 0.4 mg/dL (0.1-1.0); Blood Urea Nitrogen 12 mg/dL (8-24); Bun/Creatinine Ratio 17.4 (12.0-20.0); CO2, Blood 27 mmol/L (21-32); Calcium, Blood 8.7 mg/dL (8.5-10.1); Chloride, Blood 103 mmol/L (98-108); Creatinine, Blood 0.69 mg/dL (0.40-1.00); Globulin, Blood 4.2 g/dL (2.2-4.0); Glomerular Filtration Rate >60 (60-); Glucose, Blood 131 mg/dL (70-99); Potassium, Blood 3.5 mmol/L (3.5-5.5); Sodium, Blood 137 mmol/L (136-145); Total Protein, Blood 7.3 g/dL (6.4-8.2); Troponin I <0.015 ng/mL (0.000-0.040)
[2019-02-08 05:51] LABS: Source, Urine Clean Catch
[2019-02-08 05:58] LABS: Bilirubin, Urine Neg (Neg); Blood, Urine 3+ (Neg); Glucose Qualitative, Urine Neg (Neg); Ketones, Urine Neg (Neg); Leukocyte Esterase, Urine 1+ (Neg); Nitrite, Urine Neg (Neg); Protein, Urine Neg (Neg); Urobilinogen, Urine NORM (Normal)
[2019-02-08 06:02] LABS: Appearance, Urine Clear (Clear); Color, Urine Yellow (P-Yellow)
[2019-02-08 06:04] LABS: Bacteria Rare /hpf; Mucus Light (0-Heavy); Red Blood Cells, Urine 0-2 /hpf (0-2); Squamous Epithelial Cells Few /hpf (Few)
[2019-02-08] MEDS ORDERED: Prilosec Otc20 MG PO (06:05)
[2019-02-08] MEDS ORDERED: Carafate1 GM/10 ML PO (06:05)
[2019-02-08] MEDS ORDERED: ONDA4ODT MM (06:12)
== END 2019-02-08 06:15 | disposition home or self-care (01) ==
LOC: ER 04:30
PROVIDERS: Emergency Medicine
DX: R10.13 Epigastric pain (principal); Z88.0 Allergy status to penicillin; Z91.048 Other nonmedicinal substance allergy status; Z88.8 Allergy status to other drugs, medicaments and biological substances; Z91.013 Allergy to seafood; Z79.899 Other long term (current) drug therapy; Z79.82 Long term (current) use of aspirin; I10 Essential (primary) hypertension; E03.9 Hypothyroidism, unspecified; J45.909 Unspecified asthma, uncomplicated; I48.91 Unspecified atrial fibrillation; J44.9 Chronic obstructive pulmonary disease, unspecified; I25.10 Atherosclerotic heart disease of native coronary artery without angina pectoris; F17.200 Nicotine dependence, unspecified, uncomplicated
CPT/HCPCS: 80053; 81001; 83690; 84484; 85025; 87086; 93005; 93010; 96374; 96375; 99284-25; J2270; J2405; J7030

== ENCOUNTER 2019-04-08 22:59 | Emergency (ER) | payer OTHER ==
[~2019-04-08] VITALS: Ht 167.6 cm; Wt 112.0 kg
[~2019-04-08 22:59] MED LIST changes: +AMLO10 PO; +Aspirin EC81 MG PO; +Carafate1 GM/10 ML PO; -LEVO-T150 MCG PO; +LEVO-T175 MCG PO; +Sotalol120 MG PO
[2019-04-09 00:56] LABS: BASOPHILS ABSOLUTE AUTO 0.08 K/mm3 (0.00-0.23); BASOPHILS PERCENT AUTO 1 % (0-2); EOSINOPHILS ABSOLUTE AUTO 0.55 K/mm3 (0.00-0.68); EOSINOPHILS PERCENT AUTO 6 % (0-6); Hematocrit 38.4 % (33.0-51.0); Hemoglobin 11.7 g/dL (11.5-16.0); IMMATURE GRAN ABSOLUTE AUTO 0.05 K/mm3 (0.00-0.10); IMMATURE GRAN PERCENT AUTO 1 % (0-1); LYMPHOCYTES ABSOLUTE AUTO 2.56 K/mm3 (0.84-5.20); LYMPHOCYTES PERCENT AUTO 26 % (21-46); MONOCYTES ABSOLUTE AUTO 0.75 K/mm3 (0.16-1.47); MONOCYTES PERCENT AUTO 8 % (4-13); Mean Corpuscular HGB 25.9 pg (26.0-34.0); Mean Corpuscular HGB Conc 30.5 g/dL (31.5-36.5); Mean Corpuscular Volume 85 fL (80-100); Mean Platelet Volume 10.1 fL (9.1-12.4); NEUTROPHILS PERCENT AUTO 59 % (41-73); Platelet Count 299 K/mm3 (150-400); RDW Coefficient Variation 15.1 % (11.7-14.2); RDW Standard Deviation 47.3 fL (35.1-46.3); Red Blood Cell Count 4.51 M/mm3 (3.80-5.20); White Blood Cell Count 9.69 K/mm3 (4.00-11.30)
[2019-04-09 01:01] LABS: Bilirubin, Urine Neg (Neg); Blood, Urine Neg (Neg); Glucose Qualitative, Urine Neg (Neg); Ketones, Urine Neg (Neg); Leukocyte Esterase, Urine 1+ (Neg); Nitrite, Urine Neg (Neg); Protein, Urine Neg (Neg); Source, Urine Clean Catch; Specific Gravity, Urine 1.015 (1.003-1.022); Urobilinogen, Urine NORM (Normal)
[2019-04-09 01:06] LABS: Appearance, Urine Clear (Clear); Color, Urine Yellow (P-Yellow)
[2019-04-09 01:07] LABS: Red Blood Cells, Urine 0-2 /hpf (0-2); Squamous Epithelial Cells Few /hpf (Few)
[2019-04-09 01:08] LABS: Bacteria Mod /hpf; Hyaline Casts 0-2 /lpf (0-2)
[2019-04-09 01:14] LABS: Alanine Aminotransfer (ALT/SGP 15 U/L (12-78); Albumin, Blood 3.2 g/dL (3.4-5.0); Albumin/Globulin Ratio 0.8 (0.8-1.8); Alk Phos 158 U/L (50-136); Anion Gap 6 mmol/L (6-16); Aspartate Aminotrans (AST/SGOT 10 U/L (12-37); Bilirubin, Total 0.2 mg/dL (0.1-1.0); Blood Urea Nitrogen 14 mg/dL (8-24); Bun/Creatinine Ratio 19.2 (12.0-20.0); CO2, Blood 29 mmol/L (21-32); Calcium, Blood 8.8 mg/dL (8.5-10.1); Chloride, Blood 102 mmol/L (98-108); Creatinine, Blood 0.73 mg/dL (0.40-1.00); Globulin, Blood 3.8 g/dL (2.2-4.0); Glomerular Filtration Rate >60 (60-); Glucose, Blood 115 mg/dL (70-99); Potassium, Blood 3.9 mmol/L (3.5-5.5); Sodium, Blood 137 mmol/L (136-145)
== END 2019-04-09 01:55 | disposition home or self-care (01) ==
LOC: ER 22:59
PROVIDERS: Emergency Medicine
DX: R53.1 Weakness (principal); R11.0 Nausea; I10 Essential (primary) hypertension; J45.909 Unspecified asthma, uncomplicated; E03.9 Hypothyroidism, unspecified; I44.1 Atrioventricular block, second degree; J44.9 Chronic obstructive pulmonary disease, unspecified; I48.91 Unspecified atrial fibrillation; I25.10 Atherosclerotic heart disease of native coronary artery without angina pectoris; I25.2 Old myocardial infarction; F17.210 Nicotine dependence, cigarettes, uncomplicated; Z88.0 Allergy status to penicillin; Z88.6 Allergy status to analgesic agent; Z91.013 Allergy to seafood; Z88.8 Allergy status to other drugs, medicaments and biological substances; Z79.899 Other long term (current) drug therapy
CPT/HCPCS: 36415; 71046; 80053; 81001; 85025; 87086; 93005; 93010; 96360; 99284-25; J7030

== ENCOUNTER 2019-05-18 15:56 | Emergency (ER) | payer OTHER ==
[~2019-05-18] VITALS: Ht 167.6 cm; Wt 117.4 kg
[2019-05-18 19:28] LABS: BASOPHILS ABSOLUTE AUTO 0.06 K/mm3 (0.00-0.23); BASOPHILS PERCENT AUTO 1 % (0-2); EOSINOPHILS ABSOLUTE AUTO 0.55 K/mm3 (0.00-0.68); EOSINOPHILS PERCENT AUTO 6 % (0-6); Hematocrit 39.3 % (33.0-51.0); Hemoglobin 11.9 g/dL (11.5-16.0); IMMATURE GRAN ABSOLUTE AUTO 0.02 K/mm3 (0.00-0.10); IMMATURE GRAN PERCENT AUTO 0 % (0-1); LYMPHOCYTES ABSOLUTE AUTO 2.58 K/mm3 (0.84-5.20); LYMPHOCYTES PERCENT AUTO 30 % (21-46); MONOCYTES ABSOLUTE AUTO 0.61 K/mm3 (0.16-1.47); MONOCYTES PERCENT AUTO 7 % (4-13); Mean Corpuscular HGB Conc 30.3 g/dL (31.5-36.5); Mean Corpuscular Volume 86 fL (80-100); Mean Platelet Volume 10.7 fL (9.1-12.4); NEUTROPHILS ABSOLUTE AUTO 4.75 K/mm3 (1.96-9.15); NEUTROPHILS PERCENT AUTO 56 % (41-73); Platelet Count 330 K/mm3 (150-400); RDW Standard Deviation 49.7 fL (35.1-46.3); Red Blood Cell Count 4.58 M/mm3 (3.80-5.20); White Blood Cell Count 8.57 K/mm3 (4.00-11.30)
[2019-05-18 19:47] LABS: Anion Gap 6 mmol/L (6-16); Blood Urea Nitrogen 17 mg/dL (8-24); Bun/Creatinine Ratio 23.2 (12.0-20.0); CO2, Blood 23 mmol/L (21-32); Calcium, Blood 8.8 mg/dL (8.5-10.1); Chloride, Blood 105 mmol/L (98-108); Creatinine, Blood 0.73 mg/dL (0.40-1.00); Glomerular Filtration Rate >60 (60-); Glucose, Blood 139 mg/dL (70-99); Potassium, Blood 4.8 mmol/L (3.5-5.5); Sodium, Blood 134 mmol/L (136-145)
[2019-05-18] MEDS ORDERED: Norco 7.5-3251 EACH PO (20:41)
[2019-05-18] MEDS ORDERED: ALBU3IS INH (20:42)
== END 2019-05-18 23:42 | disposition home or self-care (01) ==
LOC: ER 15:56
PROVIDERS: Emergency Medicine
DX: T83.69XA Infection and inflammatory reaction due to other prosthetic device, implant and graft in genital tract, initial encounter (principal); L02.31 Cutaneous abscess of buttock; L03.317 Cellulitis of buttock; Z88.0 Allergy status to penicillin; Z88.8 Allergy status to other drugs, medicaments and biological substances; Z91.013 Allergy to seafood; Z88.7 Allergy status to serum and vaccine; Z91.048 Other nonmedicinal substance allergy status; Z79.899 Other long term (current) drug therapy; Z79.82 Long term (current) use of aspirin; I10 Essential (primary) hypertension; E03.9 Hypothyroidism, unspecified; J45.909 Unspecified asthma, uncomplicated; J44.9 Chronic obstructive pulmonary disease, unspecified; I48.91 Unspecified atrial fibrillation; I25.2 Old myocardial infarction; F17.200 Nicotine dependence, unspecified, uncomplicated
CPT/HCPCS: 76882; 80048; 85025; 96365; 96366; 96375; 99284-25; J2405; J3370; J7050

== ENCOUNTER 2019-05-19 09:49 | Emergency (ER) | payer OTHER ==
[~2019-05-19] VITALS: Ht 167.6 cm; Wt 117.0 kg
[~2019-05-19 09:49] MED LIST changes: +Norco 7.5-3251 EACH PO
== END 2019-05-19 10:51 | disposition left against medical advice (07) ==
LOC: ER 09:49
DX: Z53.21 Procedure and treatment not carried out due to patient leaving prior to being seen by health care provider (principal)

== ENCOUNTER 2019-06-06 04:13 | Emergency (ER) | payer OTHER ==
[~2019-06-06] VITALS: Ht 167.6 cm; Wt 113.4 kg
[2019-06-06 09:37] LABS: BASOPHILS ABSOLUTE AUTO 0.07 K/mm3 (0.00-0.23); BASOPHILS PERCENT AUTO 1 % (0-2); EOSINOPHILS ABSOLUTE AUTO 0.33 K/mm3 (0.00-0.68); EOSINOPHILS PERCENT AUTO 3 % (0-6); Hematocrit 36.7 % (33.0-51.0); Hemoglobin 11.2 g/dL (11.5-16.0); IMMATURE GRAN ABSOLUTE AUTO 0.05 K/mm3 (0.00-0.10); IMMATURE GRAN PERCENT AUTO 0 % (0-1); LYMPHOCYTES ABSOLUTE AUTO 2.05 K/mm3 (0.84-5.20); LYMPHOCYTES PERCENT AUTO 15 % (21-46); MONOCYTES ABSOLUTE AUTO 0.98 K/mm3 (0.16-1.47); MONOCYTES PERCENT AUTO 7 % (4-13); Mean Corpuscular HGB 25.8 pg (26.0-34.0); Mean Corpuscular HGB Conc 30.5 g/dL (31.5-36.5); Mean Corpuscular Volume 85 fL (80-100); Mean Platelet Volume 10.5 fL (9.1-12.4); NEUTROPHILS ABSOLUTE AUTO 9.93 K/mm3 (1.96-9.15); NEUTROPHILS PERCENT AUTO 74 % (41-73); Platelet Count 291 K/mm3 (150-400); RDW Standard Deviation 49.6 fL (35.1-46.3); Red Blood Cell Count 4.34 M/mm3 (3.80-5.20); White Blood Cell Count 13.41 K/mm3 (4.00-11.30)
[2019-06-06 09:57] LABS: Alanine Aminotransfer (ALT/SGP 16 U/L (12-78); Albumin, Blood 3.2 g/dL (3.4-5.0); Albumin/Globulin Ratio 0.8 (0.8-1.8); Alk Phos 140 U/L (50-136); Anion Gap 7 mmol/L (6-16); Aspartate Aminotrans (AST/SGOT 12 U/L (12-37); Bilirubin, Total 0.5 mg/dL (0.1-1.0); Blood Urea Nitrogen 18 mg/dL (8-24); Bun/Creatinine Ratio 27.4 (12.0-20.0); CO2, Blood 28 mmol/L (21-32); Calcium, Blood 8.6 mg/dL (8.5-10.1); Chloride, Blood 106 mmol/L (98-108); Creatinine, Blood 0.66 mg/dL (0.40-1.00); Globulin, Blood 3.8 g/dL (2.2-4.0); Glomerular Filtration Rate >60 (60-); Glucose, Blood 122 mg/dL (70-99); Potassium, Blood 3.7 mmol/L (3.5-5.5); Sodium, Blood 141 mmol/L (136-145)
== END 2019-06-06 14:15 | disposition short-term general hospital (02) ==
LOC: ER 04:13
PROVIDERS: Physician Assistant
DX: T81.49XA Infection following a procedure, other surgical site, initial encounter (principal); L03.317 Cellulitis of buttock; L02.31 Cutaneous abscess of buttock; I10 Essential (primary) hypertension; E11.9 Type 2 diabetes mellitus without complications; E78.5 Hyperlipidemia, unspecified; J44.9 Chronic obstructive pulmonary disease, unspecified; I25.10 Atherosclerotic heart disease of native coronary artery without angina pectoris; E03.9 Hypothyroidism, unspecified; G47.30 Sleep apnea, unspecified; F17.210 Nicotine dependence, cigarettes, uncomplicated; Z88.0 Allergy status to penicillin; Z91.048 Other nonmedicinal substance allergy status; Z91.09 Other allergy status, other than to drugs and biological substances; Z91.013 Allergy to seafood; Z88.7 Allergy status to serum and vaccine; Z88.6 Allergy status to analgesic agent; Z91.018 Allergy to other foods; Z79.899 Other long term (current) drug therapy; Z79.82 Long term (current) use of aspirin; Z79.51 Long term (current) use of inhaled steroids; Z98.890 Other specified postprocedural states
CPT/HCPCS: 36415; 72193; 80053; 85025; 96374-59; 96375-59; 96376-59; 99284-25; J2270; J2405; J3010; Q9967

== ENCOUNTER 2019-06-21 15:09 | Emergency (ER) | payer OTHER ==
[~2019-06-21] VITALS: Ht 167.6 cm; Wt 111.0 kg
[2019-06-21 15:42] LABS: BASOPHILS ABSOLUTE AUTO 0.08 K/mm3 (0.00-0.23); BASOPHILS PERCENT AUTO 1 % (0-2); EOSINOPHILS ABSOLUTE AUTO 0.34 K/mm3 (0.00-0.68); EOSINOPHILS PERCENT AUTO 4 % (0-6); Hematocrit 37.6 % (33.0-51.0); Hemoglobin 11.8 g/dL (11.5-16.0); IMMATURE GRAN ABSOLUTE AUTO 0.02 K/mm3 (0.00-0.10); IMMATURE GRAN PERCENT AUTO 0 % (0-1); LYMPHOCYTES ABSOLUTE AUTO 2.67 K/mm3 (0.84-5.20); LYMPHOCYTES PERCENT AUTO 33 % (21-46); MONOCYTES ABSOLUTE AUTO 0.55 K/mm3 (0.16-1.47); MONOCYTES PERCENT AUTO 7 % (4-13); Mean Corpuscular HGB 26.4 pg (26.0-34.0); Mean Corpuscular HGB Conc 31.4 g/dL (31.5-36.5); Mean Corpuscular Volume 84 fL (80-100); NEUTROPHILS ABSOLUTE AUTO 4.52 K/mm3 (1.96-9.15); NEUTROPHILS PERCENT AUTO 55 % (41-73); Platelet Count 342 K/mm3 (150-400); RDW Coefficient Variation 16.1 % (11.7-14.2); RDW Standard Deviation 49.9 fL (35.1-46.3); Red Blood Cell Count 4.47 M/mm3 (3.80-5.20); White Blood Cell Count 8.18 K/mm3 (4.00-11.30)
[2019-06-21 16:03] LABS: Alanine Aminotransfer (ALT/SGP 18 U/L (12-78); Albumin, Blood 3.5 g/dL (3.4-5.0); Albumin/Globulin Ratio 0.9 (0.8-1.8); Alk Phos 149 U/L (50-136); Anion Gap 4 mmol/L (6-16); Aspartate Aminotrans (AST/SGOT 19 U/L (12-37); Bilirubin, Total 0.2 mg/dL (0.1-1.0); Blood Urea Nitrogen 12 mg/dL (8-24); Bun/Creatinine Ratio 15.7 (12.0-20.0); CO2, Blood 25 mmol/L (21-32); Chloride, Blood 106 mmol/L (98-108); Creatinine, Blood 0.76 mg/dL (0.40-1.00); Glomerular Filtration Rate >60 (60-); Glucose, Blood 111 mg/dL (70-99); Sodium, Blood 135 mmol/L (136-145); Total Protein, Blood 7.5 g/dL (6.4-8.2)
[2019-06-21] MEDS ORDERED: Bactrim Ds Tab1 EACH PO (16:32)
== END 2019-06-21 17:46 | disposition home or self-care (01) ==
LOC: ER 15:09
PROVIDERS: Physician Assistant
DX: Z48.817 Encounter for surgical aftercare following surgery on the skin and subcutaneous tissue (principal); Z88.0 Allergy status to penicillin; Z91.013 Allergy to seafood; Z88.7 Allergy status to serum and vaccine; Z91.048 Other nonmedicinal substance allergy status; Z79.899 Other long term (current) drug therapy; Z79.82 Long term (current) use of aspirin; I10 Essential (primary) hypertension; E03.9 Hypothyroidism, unspecified; J45.909 Unspecified asthma, uncomplicated; J44.9 Chronic obstructive pulmonary disease, unspecified; F17.210 Nicotine dependence, cigarettes, uncomplicated; I25.2 Old myocardial infarction
CPT/HCPCS: 36415; 80053; 85025; 99283

== ENCOUNTER 2019-07-06 00:27 | Day surgery (SDC) | payer OTHER | END 2019-07-06 23:02 | disposition home or self-care (01) | LOC: WOUND 00:27 | DX: T81.41XA Infection following a procedure, superficial incisional surgical site, initial encounter (principal); I11.0 Hypertensive heart disease with heart failure; I50.9 Heart failure, unspecified; F17.210 Nicotine dependence, cigarettes, uncomplicated; Z71.6 Tobacco abuse counseling; Z91.09 Other allergy status, other than to drugs and biological substances; Z88.0 Allergy status to penicillin; Z88.6 Allergy status to analgesic agent; Z91.048 Other nonmedicinal substance allergy status; Z88.7 Allergy status to serum and vaccine | CPT/HCPCS: G0463 ==

== ENCOUNTER 2019-07-09 17:10 | Observation (INO) | payer OTHER ==
[~2019-07-09] VITALS: Ht 167.6 cm; Wt 110.8 kg
[2019-07-09 18:00] LABS: BASOPHILS ABSOLUTE AUTO 0.08 K/mm3 (0.00-0.23); BASOPHILS PERCENT AUTO 1 % (0-2); EOSINOPHILS PERCENT AUTO 5 % (0-6); Hematocrit 35.9 % (33.0-51.0); Hemoglobin 11.3 g/dL (11.5-16.0); IMMATURE GRAN ABSOLUTE AUTO 0.03 K/mm3 (0.00-0.10); IMMATURE GRAN PERCENT AUTO 0 % (0-1); LYMPHOCYTES ABSOLUTE AUTO 2.81 K/mm3 (0.84-5.20); LYMPHOCYTES PERCENT AUTO 30 % (21-46); MONOCYTES ABSOLUTE AUTO 0.67 K/mm3 (0.16-1.47); MONOCYTES PERCENT AUTO 7 % (4-13); Mean Corpuscular HGB 25.9 pg (26.0-34.0); Mean Corpuscular HGB Conc 31.5 g/dL (31.5-36.5); Mean Corpuscular Volume 82 fL (80-100); Mean Platelet Volume 10.8 fL (9.1-12.4); NEUTROPHILS ABSOLUTE AUTO 5.26 K/mm3 (1.96-9.15); NEUTROPHILS PERCENT AUTO 56 % (41-73); Platelet Count 309 K/mm3 (150-400); RDW Coefficient Variation 15.8 % (11.7-14.2); RDW Standard Deviation 47.5 fL (35.1-46.3); Red Blood Cell Count 4.36 M/mm3 (3.80-5.20); White Blood Cell Count 9.35 K/mm3 (4.00-11.30)
[2019-07-09 18:27] LABS: Alanine Aminotransfer (ALT/SGP 15 U/L (12-78); Albumin/Globulin Ratio 0.8 (0.8-1.8); Alk Phos 155 U/L (50-136); Anion Gap 3 mmol/L (6-16); Aspartate Aminotrans (AST/SGOT 9 U/L (12-37); Bilirubin, Total 0.2 mg/dL (0.1-1.0); Blood Urea Nitrogen 14 mg/dL (8-24); Bun/Creatinine Ratio 23.7 (12.0-20.0); CO2, Blood 31 mmol/L (21-32); Calcium, Blood 8.6 mg/dL (8.5-10.1); Chloride, Blood 106 mmol/L (98-108); Creatinine, Blood 0.59 mg/dL (0.40-1.00); Globulin, Blood 3.9 g/dL (2.2-4.0); Glomerular Filtration Rate >60 (60-); Glucose, Blood 97 mg/dL (70-99); Potassium, Blood 3.5 mmol/L (3.5-5.5); Sodium, Blood 140 mmol/L (136-145); Total Protein, Blood 6.9 g/dL (6.4-8.2); Troponin I <0.015 ng/mL (0.000-0.040)
--- NOTE | 2019-07-10 04:56 | NUR ---
SHIFT SUMMARY PATEINT ADMITTED FROM ER. PATEINT AMBULATING SELF IN ROOM. PICTURE OF RIGHT BUTTOCK WOUND IN CHART. DRESSING CHANGED AND WOUND CLEANED. NO ACUTE EVENTS OVERNIGHT. PATIENT RESTED IN BED. WILL CONTINUE TO MONITOR AND REPORT TO ON COMING RN.
[2019-07-10 05:06] LABS: Hematocrit 34.2 % (33.0-51.0); Hemoglobin 10.5 g/dL (11.5-16.0); Mean Corpuscular HGB Conc 30.7 g/dL (31.5-36.5); Mean Platelet Volume 11.4 fL (9.1-12.4); Platelet Count 286 K/mm3 (150-400); RDW Coefficient Variation 15.9 % (11.7-14.2); Red Blood Cell Count 4.04 M/mm3 (3.80-5.20); White Blood Cell Count 9.08 K/mm3 (4.00-11.30)
[2019-07-10 05:17] LABS: Mean Corpuscular Volume 85 fL (80-100)
[2019-07-10 05:45] LABS: Anion Gap 6 mmol/L (6-16); Blood Urea Nitrogen 12 mg/dL (8-24); Bun/Creatinine Ratio 18.6 (12.0-20.0); CO2, Blood 29 mmol/L (21-32); Calcium, Blood 8.3 mg/dL (8.5-10.1); Chloride, Blood 106 mmol/L (98-108); Creatinine, Blood 0.65 mg/dL (0.40-1.00); Glomerular Filtration Rate >60 (60-); Glucose, Blood 114 mg/dL (70-99); Potassium, Blood 3.8 mmol/L (3.5-5.5); Sodium, Blood 141 mmol/L (136-145)
--- NOTE | 2019-07-10 06:16 | NUR ---
RECEIVED CALL FROM PCU MICROBIOLOGY SOIL SCIENTIST WHO STATED THAT PATIENTS PACEMAKER HAD FAILED TO CAPTURE 2 BEATS IN THE SAME STRIP AND MAY NEED TO BE INTERROGATED. STATED HE WILL SEND STRIP FOR CHART AND I WILL SPEAK TO ON COMING NURSE.
--- NOTE | 2019-07-10 17:38 | NUR ---
SHIFT SUMMARY NO ACUTE CHANGES. PATIENT MEDICATED X2 FOR NAUSEA AND X1 FOR PAIN THIS SHIFT. DENIES SHORTNESS OF BREATH. PATIENT CONTINUES TO HAVE "ACHING" FEELING IN HER STERNAL REGION. PATIENT UP INDEPENDENT IN ROOM, AT BEDSIDE. DR. NAVAS CONSULTED ON PATIENT TODAY. ECHO AND AM TROPONIN ORDERED. CALL LIGHT IN REACH.
--- NOTE | 2019-07-11 01:16 | NUR ---
PATIENT REQUESTED THAT I COME IN AND LOOK AT HER RIGHT BUTTOCK WOUND BECAUSE IT FELT "HOT AND PAINFUL". I PEELED BACK DRESSING AND DID NOT OBSERVE AND CHANGE IN THE WOUND FROM THE PREVIOUS SHIFT. NO DRAINAGE ON THE DRESSING OBSERVED, NO REDNESS, NO FEVER. EXPLAINED TO PATIENT THAT IT MIGHT FEEL WARMER ON HER BOTTOM BECAUSE OF THE WAY SHE WAS LAYING IN BED AND THAT THE TOP OF HER LEGS FEEL COOLER BECAUSE SHE IS NOT LAYING ON THEM LIKE SHE IS HER BOTTOM. PATIENT AGREED WITH THIS STATEMENT AND SAID "YOU AND YOUR LOGIC". WILL CONTINUE TO MONITOR
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
--- NOTE | 2019-07-11 12:57 | NUR ---
Echocardiogram completed in the presence of female MEDICAL RECORDS LIBRARY PROFESSOR.
--- NOTE | 2019-07-11 17:07 | NUR ---
SHIFT SUMMARY PATIENT MEDICATED X2 FOR PAIN THIS SHIFT AND X2 FOR NAUSEA. PATIENT DENIES SHORTNESS OF BREATH. PATIENT UP INDEPENDENT IN ROOM. DR. PRIETO CONSULTED ON PATIENT. PATIENT EXPERIENCED ONE EPISODE OF INCREASED CHEST PAIN AFTER SHOWER THIS AFTERNOON. PAIN RESOLVED SPONTANEOUSLY WITHIN 10 MINUTES. VITAL SIGNS AND TELEMETRY IN NORMAL RANGE. PATIENT HAD ECHO TODAY. CALL LIGHT IN REACH.
--- NOTE | 2019-07-11 21:37 | NUR ---
PT REPORTS FEELING SOME CHEST PAIN TO PHYSICAL OPTICS TEACHER. THIS RN ASSESSED PT, PT STATES SHE DOESN'T HAVE CHEST PAIN ANYMORE, STATES IT COMES AND GOES AND THAT SHE DOESN'T HAVE ANY AT THIS TIME.
--- NOTE | 2019-07-12 00:09 | NUR ---
UP WALKING OUT OF RM WITH AND BACK TO ROOM.
--- NOTE | 2019-07-12 02:01 | NUR ---
PT RESTING QUIETLY. AT BEDSIDE. CALL LT IN REACH.
--- NOTE | 2019-07-12 05:00 | NUR ---
SHIFT SUMMARY: PT RESTED OFF AND ON DURING SHIFT. STAYED AT BEDSIDE. MEDICATED TWICE FOR RIGHT BUTTOCK PAIN AND LOWER BACK PAIN WITH GOOD PAIN RELIEF. REGLAN GIVEN FOR NAUSEA X 1 WITH GOOD RELIEF. PT REPORTED SOME CP TO THE DRY CANS OPERATOR. ASSESSED PT FOR CP AND SHE SAID IT WENT AWAY. PT 100% ATRIAL PACED AT 76 ON TELE. WILL CONTINUE TO MONITOR AND PROVIDE CARE UNTIL SHIFT REPORT.
--- NOTE | 2019-07-12 16:43 | NUR ---
SHIFT SUMMARY: NO ACUTE CHANGES TO REPORT THIS SHIFT. PT A&O; CALM AND COOPERATIVE WITH CARE. MEDICATED FOR BACK/BUTTOCK PAIN PER EMAR. REGLAN GIVEN FOR NAUSEA; ORDER CHANGED FROM PRN TO SCHEDULED. TELE IN PLACE; 100% ATRIAL PACED. DIET REGRESSED TO FULL LIQUIDS, PER GI (DR PRIETO). WCTM.
--- NOTE | 2019-07-13 04:33 | NUR ---
SHIFT SUMMARY- PT. RESTED WELL T/O THE NIGHT. NO APPARENT DISTRESS NOTED. PT. DENIED CP, C/O PAIN IN THE RT BUTTOCKS AND BACK. PAIN MED GIVEN PER EMAR. PERFORMED DRESSING CHANGE TO THE RT BUTTOCKS, AREA C/D/I. PT. TOLERATED WELL. DENIED ANY NEEDS AT THIS TIME. CALL LIGHT WITHIN REACH AND SIDE RAILS UP X2. WILL CONT TO MONITOR.
[2019-07-13] MEDS ORDERED: Carafate1 GM/10 ML PO (12:06)
--- NOTE | 2019-07-13 12:38 | NUR ---
PT DIACHARGED WITH INSTRUCTIONS, PCP APT SET UP, DR GASTELUM OFFICE TO CALL PT TO F/U WITH OP UPPER GI SCOPE. PT DENIDE ANY CHEST PAIN ALL MORNING. MEDICATED WITH FENT FOR CHRONIC BACK PAIN. PT SHOWERED AND SENT HOME WITH MCKAYLA, W/C ESCORT OUT TO PRIVATE CAR, TO DRIVE HOME.
== END 2019-07-13 12:35 | disposition home or self-care (01) ==
LOC: ER 17:10 → MEDS 23:11 → ENPENDDIS 07-13 11:30 → MEDS 07-13 12:35
PROVIDERS: Nurse Practitioner Acute Care; Physician Assistant; ADMIT Internal Medicine
DX: R07.89 Other chest pain (principal); R06.00 Dyspnea, unspecified; I48.91 Unspecified atrial fibrillation; I10 Essential (primary) hypertension; E11.9 Type 2 diabetes mellitus without complications; K21.9 Gastro-esophageal reflux disease without esophagitis; E03.9 Hypothyroidism, unspecified; I25.10 Atherosclerotic heart disease of native coronary artery without angina pectoris; J44.9 Chronic obstructive pulmonary disease, unspecified; G47.33 Obstructive sleep apnea (adult) (pediatric); J38.3 Other diseases of vocal cords; E78.5 Hyperlipidemia, unspecified; D64.9 Anemia, unspecified; F17.210 Nicotine dependence, cigarettes, uncomplicated; T83.590A Infection and inflammatory reaction due to implanted urinary neurostimulation device, initial encounter; R11.0 Nausea; Z95.5 Presence of coronary angioplasty implant and graft; Z95.0 Presence of cardiac pacemaker; Z87.39 Personal history of other diseases of the musculoskeletal system and connective tissue; Z98.890 Other specified postprocedural states; Z90.710 Acquired absence of both cervix and uterus; Z79.82 Long term (current) use of aspirin; Z79.899 Other long term (current) drug therapy; Z79.01 Long term (current) use of anticoagulants; Z88.0 Allergy status to penicillin; Z88.8 Allergy status to other drugs, medicaments and biological substances; Z88.6 Allergy status to analgesic agent; Z91.041 Radiographic dye allergy status
CPT/HCPCS: 36415; 71046; 71260; 80048; 80053; 83880; 84484; 85025; 85027; 93005; 93010; 93306; 94640; 94762; 96372-59; 96374; 96375; 96376; 99285-25; A9270; A9270-GY; G0378; J2405; J2765; J3010; Q9967

== ENCOUNTER 2019-07-24 16:05 | Emergency (ER) | payer OTHER ==
[~2019-07-24] VITALS: Ht 167.6 cm; Wt 104.3 kg
[2019-07-24 16:56] LABS: BASOPHILS ABSOLUTE AUTO 0.06 K/mm3 (0.00-0.23); BASOPHILS PERCENT AUTO 1 % (0-2); EOSINOPHILS ABSOLUTE AUTO 0.39 K/mm3 (0.00-0.68); EOSINOPHILS PERCENT AUTO 5 % (0-6); Hematocrit 34.9 % (33.0-51.0); Hemoglobin 10.9 g/dL (11.5-16.0); IMMATURE GRAN ABSOLUTE AUTO 0.03 K/mm3 (0.00-0.10); IMMATURE GRAN PERCENT AUTO 0 % (0-1); LYMPHOCYTES ABSOLUTE AUTO 2.04 K/mm3 (0.84-5.20); LYMPHOCYTES PERCENT AUTO 24 % (21-46); MONOCYTES ABSOLUTE AUTO 0.81 K/mm3 (0.16-1.47); MONOCYTES PERCENT AUTO 10 % (4-13); Mean Corpuscular HGB 26.3 pg (26.0-34.0); Mean Corpuscular HGB Conc 31.2 g/dL (31.5-36.5); Mean Corpuscular Volume 84 fL (80-100); Mean Platelet Volume 10.8 fL (9.1-12.4); NEUTROPHILS PERCENT AUTO 61 % (41-73); Platelet Count 332 K/mm3 (150-400); RDW Coefficient Variation 16.4 % (11.7-14.2); RDW Standard Deviation 50.6 fL (35.1-46.3); Red Blood Cell Count 4.14 M/mm3 (3.80-5.20); White Blood Cell Count 8.53 K/mm3 (4.00-11.30)
[2019-07-24 17:23] LABS: Troponin I <0.015 ng/mL (0.000-0.040)
[2019-07-24 17:55] LABS: Alanine Aminotransfer (ALT/SGP 19 U/L (12-78); Albumin/Globulin Ratio 0.8 (0.8-1.8); Alk Phos 146 U/L (50-136); Anion Gap 7 mmol/L (6-16); Aspartate Aminotrans (AST/SGOT 17 U/L (12-37); Bilirubin, Total 0.3 mg/dL (0.1-1.0); Blood Urea Nitrogen 8 mg/dL (8-24); Bun/Creatinine Ratio 10.3 (12.0-20.0); CO2, Blood 26 mmol/L (21-32); Calcium, Blood 8.5 mg/dL (8.5-10.1); Chloride, Blood 105 mmol/L (98-108); Creatinine, Blood 0.78 mg/dL (0.40-1.00); Globulin, Blood 3.7 g/dL (2.2-4.0); Glomerular Filtration Rate >60 (60-); Glucose, Blood 105 mg/dL (70-99); Potassium, Blood 3.7 mmol/L (3.5-5.5); Sodium, Blood 138 mmol/L (136-145); Total Protein, Blood 6.7 g/dL (6.4-8.2)
== END 2019-07-24 20:30 | disposition home or self-care (01) ==
LOC: ER 16:05
PROVIDERS: Emergency Medicine
DX: R07.9 Chest pain, unspecified (principal); R00.0 Tachycardia, unspecified; R06.00 Dyspnea, unspecified; I10 Essential (primary) hypertension; E03.9 Hypothyroidism, unspecified; J44.9 Chronic obstructive pulmonary disease, unspecified; I25.2 Old myocardial infarction; F17.210 Nicotine dependence, cigarettes, uncomplicated; Z88.0 Allergy status to penicillin; Z91.048 Other nonmedicinal substance allergy status; Z88.8 Allergy status to other drugs, medicaments and biological substances; Z91.013 Allergy to seafood; Z91.018 Allergy to other foods; Z88.7 Allergy status to serum and vaccine; Z79.899 Other long term (current) drug therapy; Z79.01 Long term (current) use of anticoagulants; Z79.82 Long term (current) use of aspirin
CPT/HCPCS: 71046; 80053; 83690; 83880; 84484; 85025; 93005; 93010; 99285-25

== ENCOUNTER 2019-08-12 12:08 | Emergency (ER) | payer OTHER ==
[~2019-08-12] VITALS: Ht 167.6 cm; Wt 111.1 kg
[2019-08-12 13:59] LABS: Alanine Aminotransfer (ALT/SGP 15 U/L (12-78); Albumin, Blood 3.1 g/dL (3.4-5.0); Albumin/Globulin Ratio 0.8 (0.8-1.8); Alk Phos 141 U/L (50-136); Anion Gap 6 mmol/L (6-16); Aspartate Aminotrans (AST/SGOT 18 U/L (12-37); Bilirubin, Total 0.2 mg/dL (0.1-1.0); Blood Urea Nitrogen 13 mg/dL (8-24); CO2, Blood 29 mmol/L (21-32); Calcium, Blood 8.4 mg/dL (8.5-10.1); Chloride, Blood 104 mmol/L (98-108); Creatinine, Blood 0.77 mg/dL (0.40-1.00); Globulin, Blood 3.8 g/dL (2.2-4.0); Glomerular Filtration Rate >60 (60-); Glucose, Blood 123 mg/dL (70-99); Potassium, Blood 3.8 mmol/L (3.5-5.5); Sodium, Blood 139 mmol/L (136-145); Total Protein, Blood 6.9 g/dL (6.4-8.2)
[2019-08-12 14:17] LABS: BASOPHILS ABSOLUTE AUTO 0.07 K/mm3 (0.00-0.23); BASOPHILS PERCENT AUTO 1 % (0-2); EOSINOPHILS ABSOLUTE AUTO 0.51 K/mm3 (0.00-0.68); EOSINOPHILS PERCENT AUTO 5 % (0-6); Hematocrit 36.2 % (33.0-51.0); Hemoglobin 11.1 g/dL (11.5-16.0); IMMATURE GRAN ABSOLUTE AUTO 0.02 K/mm3 (0.00-0.10); IMMATURE GRAN PERCENT AUTO 0 % (0-1); LYMPHOCYTES ABSOLUTE AUTO 3.12 K/mm3 (0.84-5.20); LYMPHOCYTES PERCENT AUTO 33 % (21-46); MONOCYTES ABSOLUTE AUTO 0.71 K/mm3 (0.16-1.47); MONOCYTES PERCENT AUTO 7 % (4-13); Mean Corpuscular HGB 25.8 pg (26.0-34.0); Mean Corpuscular HGB Conc 30.7 g/dL (31.5-36.5); Mean Corpuscular Volume 84 fL (80-100); Mean Platelet Volume 10.5 fL (9.1-12.4); NEUTROPHILS ABSOLUTE AUTO 5.14 K/mm3 (1.96-9.15); NEUTROPHILS PERCENT AUTO 54 % (41-73); Platelet Count 285 K/mm3 (150-400); RDW Coefficient Variation 15.9 % (11.7-14.2); RDW Standard Deviation 48.8 fL (35.1-46.3); Red Blood Cell Count 4.31 M/mm3 (3.80-5.20); White Blood Cell Count 9.57 K/mm3 (4.00-11.30)
== END 2019-08-12 15:43 | disposition home or self-care (01) ==
LOC: ER 12:08
PROVIDERS: Physician Assistant
DX: M79.18 Myalgia, other site (principal); E78.5 Hyperlipidemia, unspecified; J44.9 Chronic obstructive pulmonary disease, unspecified; I25.10 Atherosclerotic heart disease of native coronary artery without angina pectoris; I10 Essential (primary) hypertension; G47.33 Obstructive sleep apnea (adult) (pediatric); M79.7 Fibromyalgia; G70.9 Myoneural disorder, unspecified; F17.210 Nicotine dependence, cigarettes, uncomplicated; Z88.0 Allergy status to penicillin; Z88.5 Allergy status to narcotic agent; Z91.013 Allergy to seafood; Z88.8 Allergy status to other drugs, medicaments and biological substances; Z88.7 Allergy status to serum and vaccine; Z79.51 Long term (current) use of inhaled steroids; Z79.899 Other long term (current) drug therapy; Z79.82 Long term (current) use of aspirin
CPT/HCPCS: 36415; 74177; 80053; 83605; 85025; 93005; 93010; 99284-25; Q9967

== ENCOUNTER 2019-09-30 08:00 | Emergency (ER) | payer OTHER ==
[~2019-09-30] VITALS: Ht 167.6 cm; Wt 108.0 kg
[2019-09-30 08:54] LABS: BASOPHILS ABSOLUTE AUTO 0.11 K/mm3 (0.00-0.23); BASOPHILS PERCENT AUTO 1 % (0-2); EOSINOPHILS PERCENT AUTO 5 % (0-6); Hematocrit 41.1 % (33.0-51.0); Hemoglobin 12.5 g/dL (11.5-16.0); IMMATURE GRAN ABSOLUTE AUTO 0.03 K/mm3 (0.00-0.10); IMMATURE GRAN PERCENT AUTO 0 % (0-1); LYMPHOCYTES PERCENT AUTO 23 % (21-46); MONOCYTES ABSOLUTE AUTO 0.89 K/mm3 (0.16-1.47); MONOCYTES PERCENT AUTO 9 % (4-13); Mean Corpuscular HGB 25.1 pg (26.0-34.0); Mean Corpuscular HGB Conc 30.4 g/dL (31.5-36.5); Mean Corpuscular Volume 83 fL (80-100); Mean Platelet Volume 10.1 fL (9.1-12.4); NEUTROPHILS ABSOLUTE AUTO 6.01 K/mm3 (1.96-9.15); NEUTROPHILS PERCENT AUTO 62 % (41-73); Platelet Count 338 K/mm3 (150-400); RDW Coefficient Variation 15.1 % (11.7-14.2); Red Blood Cell Count 4.98 M/mm3 (3.80-5.20); White Blood Cell Count 9.74 K/mm3 (4.00-11.30)
[2019-09-30 08:59] LABS: Source, Urine Clean Catch
[2019-09-30 09:02] LABS: Bilirubin, Urine Neg (Neg); Blood, Urine 1+ (Neg); Glucose Qualitative, Urine Neg (Neg); Ketones, Urine Neg (Neg); Leukocyte Esterase, Urine Neg (Neg); Nitrite, Urine Neg (Neg); Protein, Urine 1+ (Neg); Specific Gravity, Urine 1.005 (1.003-1.022); Urobilinogen, Urine NORM (Normal)
[2019-09-30 09:05] LABS: Appearance, Urine Clear (Clear); Color, Urine Yellow (P-Yellow)
[2019-09-30 09:11] LABS: Bacteria Rare /hpf; Red Blood Cells, Urine 0-2 /hpf (0-2); Squamous Epithelial Cells Mod /hpf (Few); White Blood Cells, Urine 0-2 /hpf (0-5)
[2019-09-30 09:15] LABS: Influenza A Negative (NEGATIVE); Influenza B Negative (NEGATIVE)
[2019-09-30 09:18] LABS: Alanine Aminotransfer (ALT/SGP 19 U/L (12-78); Albumin, Blood 3.2 g/dL (3.4-5.0); Albumin/Globulin Ratio 0.8 (0.8-1.8); Alk Phos 166 U/L (50-136); Anion Gap 6 mmol/L (6-16); Aspartate Aminotrans (AST/SGOT 12 U/L (12-37); Bilirubin, Total 0.3 mg/dL (0.1-1.0); Blood Urea Nitrogen 11 mg/dL (8-24); Bun/Creatinine Ratio 16.7 (12.0-20.0); CO2, Blood 26 mmol/L (21-32); Calcium, Blood 8.6 mg/dL (8.5-10.1); Chloride, Blood 104 mmol/L (98-108); Creatinine, Blood 0.66 mg/dL (0.40-1.00); Globulin, Blood 4.2 g/dL (2.2-4.0); Glomerular Filtration Rate >60 (60-); Glucose, Blood 105 mg/dL (70-99); Potassium, Blood 4.1 mmol/L (3.5-5.5); Sodium, Blood 136 mmol/L (136-145); Total Protein, Blood 7.4 g/dL (6.4-8.2); Troponin I <0.015 ng/mL (0.000-0.040)
== END 2019-09-30 10:43 | disposition home or self-care (01) ==
LOC: ER 08:00
PROVIDERS: Physician Assistant
DX: R11.2 Nausea with vomiting, unspecified (principal); J44.9 Chronic obstructive pulmonary disease, unspecified; I10 Essential (primary) hypertension; E03.9 Hypothyroidism, unspecified; I25.2 Old myocardial infarction; I48.91 Unspecified atrial fibrillation; F17.210 Nicotine dependence, cigarettes, uncomplicated; Z88.0 Allergy status to penicillin; Z91.013 Allergy to seafood; Z91.048 Other nonmedicinal substance allergy status; Z79.899 Other long term (current) drug therapy
CPT/HCPCS: 36415; 71046; 80053; 81001; 83690; 84484; 85025; 87086; 87804; 93005; 93010; 96361; 96374; 99284-25; J2405; J7030

== ENCOUNTER 2019-12-22 16:38 | Emergency (ER) | payer MEDICARE, OTHER ==
[~2019-12-22] VITALS: Ht 167.6 cm; Wt 113.4 kg
[~2019-12-22 16:38] MED LIST changes: +Cymbalta20 MG PO
== END 2019-12-22 19:03 | disposition home or self-care (01) ==
LOC: ER 16:38
DX: M79.604 Pain in right leg (principal); I10 Essential (primary) hypertension; J44.9 Chronic obstructive pulmonary disease, unspecified; I25.2 Old myocardial infarction; I48.91 Unspecified atrial fibrillation; F17.210 Nicotine dependence, cigarettes, uncomplicated; Z88.0 Allergy status to penicillin; Z91.09 Other allergy status, other than to drugs and biological substances; Z91.013 Allergy to seafood; Z88.8 Allergy status to other drugs, medicaments and biological substances; Z79.82 Long term (current) use of aspirin; Z79.899 Other long term (current) drug therapy
CPT/HCPCS: 93971; 99283-25

== ENCOUNTER 2019-12-29 12:10 | Observation (INO) | payer MEDICARE, OTHER ==
[~2019-12-29] VITALS: Ht 167.6 cm; Wt 114.0 kg
[~2019-12-29 12:10] MED LIST changes: -AMLO10 PO; +SUCR1 PO
[2019-12-29] MEDS ORDERED: PRAM.5 PO (12:52)
[2019-12-29] MEDS ORDERED: PYRI60 PO (12:53)
[2019-12-29] MEDS ORDERED: XARELTO20 MG PO (12:53)
[2019-12-29] MEDS ORDERED: Lovastatin20 MG PO (12:53)
[2019-12-29] MEDS ORDERED: Norco 7.5-3251 EACH PO (12:54)
[2019-12-29] MEDS ORDERED: ISOSORBIDE MONO60 MG PO (12:54)
[2019-12-29 13:06] LABS: BASOPHILS ABSOLUTE AUTO 0.08 K/mm3 (0.00-0.23); BASOPHILS PERCENT AUTO 1 % (0-2); EOSINOPHILS ABSOLUTE AUTO 0.42 K/mm3 (0.00-0.68); EOSINOPHILS PERCENT AUTO 4 % (0-6); Hematocrit 38.3 % (33.0-51.0); Hemoglobin 11.5 g/dL (11.5-16.0); IMMATURE GRAN ABSOLUTE AUTO 0.03 K/mm3 (0.00-0.10); IMMATURE GRAN PERCENT AUTO 0 % (0-1); LYMPHOCYTES ABSOLUTE AUTO 2.76 K/mm3 (0.84-5.20); LYMPHOCYTES PERCENT AUTO 27 % (21-46); MONOCYTES ABSOLUTE AUTO 0.82 K/mm3 (0.16-1.47); MONOCYTES PERCENT AUTO 8 % (4-13); Mean Corpuscular HGB 24.8 pg (26.0-34.0); Mean Corpuscular Volume 83 fL (80-100); Mean Platelet Volume 10.6 fL (9.1-12.4); NEUTROPHILS ABSOLUTE AUTO 6.02 K/mm3 (1.96-9.15); NEUTROPHILS PERCENT AUTO 60 % (41-73); Platelet Count 347 K/mm3 (150-400); RDW Coefficient Variation 16.8 % (11.7-14.2); RDW Standard Deviation 50.3 fL (35.1-46.3); Red Blood Cell Count 4.64 M/mm3 (3.80-5.20); White Blood Cell Count 10.13 K/mm3 (4.00-11.30)
[2019-12-29 13:28] LABS: Anion Gap 3 mmol/L (6-16); Blood Urea Nitrogen 10 mg/dL (8-24); Bun/Creatinine Ratio 13.7 (12.0-20.0); CO2, Blood 31 mmol/L (21-32); Calcium, Blood 8.7 mg/dL (8.5-10.1); Chloride, Blood 105 mmol/L (98-108); Creatinine, Blood 0.73 mg/dL (0.40-1.00); Glomerular Filtration Rate >60 (60-); Glucose, Blood 89 mg/dL (70-99); Magnesium, Blood 2.1 mg/dL (1.6-2.4); Sodium, Blood 139 mmol/L (136-145); Troponin I 0.042 ng/mL (0.000-0.040)
[2019-12-29] MEDS ORDERED: AMLO10 PO (16:38)
[2019-12-29] MEDS ORDERED: Ativan1 MG PO (17:00)
[2019-12-29] MEDS ORDERED: ALBU90OI6 INH (17:00)
[2019-12-29] MEDS ORDERED: Duoneb 2.5-0.5 M3 ML NEB (17:01)
--- NOTE | 2019-12-29 18:55 | NUR ---
ARRIVES TO FLOOR ABOUT 1824 VIA W/C. DEVELOPED C.P W/RAD TO BACK WHILE AT PCP'S OFFICE. TOOK ONE OF HER OWN NTG AND FELT BETTER. DENIES ANY; C.P., RADIATION, SOB, N/V OR DIAPHROESIS SINCE COMING TO HOSPITAL. ALERT. ORIENTED. STEADY GAIT. BEDSIDE REPORT GIVEN TO NIGHT RN
--- NOTE | 2019-12-30 04:10 | NUR ---
SHIFT SUMMARY ADMITTED FOR CHEST PAIN. FULL CODE. PACEMAKER IN PLACE. TROPONINS DOWNTRENDING: WAS 0.071, THIS MORNING 0.065. SHE DENIES CHEST PAIN THIS SHIFT. BLOOD PRESSURE IS MUCH IMPROVED THIS MORNIN/85. HR IS 70 BPM. SHE IS ACHS CHEMSTICKS, ADA DIET, RA, A&O X4, INDEPENDENT IN ROOM. TELEMETRY IS MONITORING - NSR, NO EVENTS REPORTED. HX: MYASTHENIA GRAVIS, [place] W/ONE STENT, COPD, AFIB, DM2, CAD. CURRENT SMOKER: REPORTS 5 CIGARETTES PER DAY.
--- NOTE | 2019-12-30 04:51 | NUR ---
PT STATUS SHE STATES SHE HAS HAD A COUGH AND HAS BEEN VOMITING FOR 3 DAYS BEFORE ADMIT. SHE STATED SHE FELT SOB JUST NOW. I'VE ELEVATED THE HOB, NOTIFIED RT. WHEN ASSESSING HER LUNG SOUNDS I NOTE EXPIRATORY WHEEZES IN UPPER LOBES, DIM IN LOWER LOBES. I DID REMEMBER SHE HAD PREVIOUS DX OF COPD. VITAL SIGNS LOOK GOOD. SHE STATES SHE FEELS DIZZY. NOTIFIED CHARGE NURSE
--- NOTE | 2019-12-30 05:34 | NUR ---
UPDATE PT STATUS RESPIRATORY THERAPY (RT) GAVE THIS PT A BREATHING TX. ME AND RT COULD THEN AUDIBLY HEAR THE WHEEZING WITHOUT STETHOSCOPES. RT STATED THAT MEANT THE TX HAD "OPENED HER UP". THE PT DID STATE SHE FELT BETTER FOLLOWING THE BREATHING TX.
--- NOTE | 2019-12-30 11:40 | NUR ---
PATIENT C/O MIDSTERNAL C.P RAD TO BACK AND LEFT JAW. NOT DIAPHORETIC. STS SOB, VS TAKEN. EKG ORDERED. NTG GIVEN WAS 8(1-10).
--- NOTE | 2019-12-30 11:47 | NUR ---
C.P DOWN TO 4(1-10). EKG BEING DONE
--- NOTE | 2019-12-30 11:51 | NUR ---
dr. whipple notified of events-c.p.. ekg being done. to order cardiology consult and repeat trop.will recheck vs when ekg done.
--- NOTE | 2019-12-30 12:03 | NUR ---
PATIENT FEELING BETTER. PER PCU ARCHITECTURAL TECHNOLOGIST THERE WAS NOT ANY CHANGES IN RYTHM. VSS. ECHO BEING DONE.
--- NOTE | 2019-12-30 14:59 | NUR ---
Patient is sitting up in bed and alert. Patient immediately shares about her housing stress, her relationahip stress and her medical issue stress. We talk about healthy ways to deal with stress, about her edouard and its impact on her stress and about what resources she has. I listen empathically, normalize patient's experience and provide pastoral director of counseling and prayer. Patient responds well and shows signs of reduced stress. I will continue to remain available to patient and family.
--- NOTE | 2019-12-30 15:42 | NUR ---
C/O N/V AFTER COUGHING AND EATTING ; CHIPS, CHEETOS AND COOKIES.
--- NOTE | 2019-12-30 18:16 | NUR ---
ALERT. ORIENTED. FORGETFUL. ONE BOUGHT OF MIDSTERNAL C.P. SEE PRIOR NOTE. NAUSEA/VOMITING X ONE -SEE PRIOR NOTE. TELE ON PACED RYTHM. UNLABORED RESPIRATIONS. INDEPENDENT IN ROOM. ABLE TO MAKE NEEDS KNOWN. WCTM
--- NOTE | 2019-12-31 03:01 | NUR ---
[employer] CALLED INFORMED ME THAT ON 09/29/2020 THERE WERE A FEW UNSUSTAINED EPISODES WHERE THE PT WAS BRIEFLY BRADYCARDIC (HR IN 50'S RANGE) AND THEN WENT INTO A 2ND DEGREE MOBITZ TYPE HEART BLOCK. THESE EVENTS BEGAN AT 0030 HRS AND ENDED AT 0400 HRS. [employer] ALSO INFORMS ME THAT SHE HAS WITNESSED NO PACER SPIKES WITH THIS PT, BUT THAT THE EQUIPMENT IS NOT ALWAYS ABLE TO SEE THOSE. [employer] IS SENDING ME RHYTHM STRIPS TO PUT IN THE PT'S CHART. CHARGE HAS BEEN INFORMED.
--- NOTE | 2019-12-31 04:43 | NUR ---
SHIFT SUMMARY ADMITTED FOR CHEST PAIN. FULL CODE. HOPEFUL FOR DC TODAY. NO COMPLAINTS OF CHEST PAIN THIS SHIFT. DOES HAVE CHRONIC BACK PAIN. I DID MEDICATE FOR NAUSEA. PACEMAKER IS IN PLACE. TELEMETRY: NSR W/1ST DEGREE BLOCK @ 70 BPM. SOME UNSUSTAINED EVENTS TOOK PLACE 12/29/19, I WAS NOT INFORMED OF THOSE UNTIL THIS SHIFT (SEE PREVIOUS NOTE). SHE IS ADA DIET, RA, INDEPENDENT, A&O X4 (EMOTIONAL & ANXIOUS AT TIMES). DR GILLETTE IS CARDIAC CONSULT. HX: MYASTHENIA GRAVIS, AFIB, [place] W/1 STENT, ASTHMA, COPD, DM2, CAD.
--- NOTE | 2019-12-31 09:58 | NUR ---
chest pain PT REPORTED CP WHILE IN SHOWER. ADMINISTERED NITRO PER ORDERS WELL MORNING MEDS. PT REPORTS CP IMPROVING. VS 196/101. TELE STATED PT SR W/FEW PVCS. NOTIFIED DR MACDONALD, NO NEW ORDERS.
[2019-12-31] MEDS ORDERED: XARELTO20 MG PO (12:54)
--- NOTE | 2019-12-31 13:24 | NUR ---
discharged DC'D IV, CATHETER INTACT. PT HAD DC'D TELE AND PLACED ON BEDSIDE TABLE. REVIEWED DC PAPERWORK W/PT; VERBALIZED UNDERSTANDING. PT LEFT UNIT IN WC W/POSSESSIONS AND PAPERWORK IN HAND.
== END 2019-12-31 13:36 | disposition home or self-care (01) ==
LOC: ER 12:10 → MEDS 12:11
PROVIDERS: Emergency Medicine; ADMIT Internal Medicine
DX: R07.9 Chest pain, unspecified (principal); I10 Essential (primary) hypertension; J44.9 Chronic obstructive pulmonary disease, unspecified; F17.210 Nicotine dependence, cigarettes, uncomplicated; I25.10 Atherosclerotic heart disease of native coronary artery without angina pectoris; I48.0 Paroxysmal atrial fibrillation; E03.9 Hypothyroidism, unspecified; E66.9 Obesity, unspecified; Z68.41 Body mass index [BMI] 40.0-44.9, adult; Z95.0 Presence of cardiac pacemaker; Z88.6 Allergy status to analgesic agent; Z88.8 Allergy status to other drugs, medicaments and biological substances; Z88.0 Allergy status to penicillin; Z91.013 Allergy to seafood; Z88.7 Allergy status to serum and vaccine; Z79.82 Long term (current) use of aspirin; Z79.899 Other long term (current) drug therapy; Z95.5 Presence of coronary angioplasty implant and graft
CPT/HCPCS: 36415; 80048; 82947; 83735; 84484; 85025; 93005; 93010; 93306; 94640; 94760; 96374; 96375; 96376; 99285-25; A9270-GY; G0378; J1885; J2060; J2405

== ENCOUNTER 2020-02-17 08:35 | Day surgery (SDC) | payer MEDICARE, OTHER ==
[~2020-02-17 08:35] MED LIST changes: +AMLO10 PO; +Aspir 8181 MG PO; +Betapace120 MG PO; +Duoneb 2.5-0.5 M3 ML NEB; +FEROSUL325 M1 PO; +HYDRA25 PO; +ISOSORBIDE MONO60 MG PO; +Isosorbide Mono60 MG PO; +Metoclopramide H5 MG PO; +NORCO 7.5-3251 EACH PO; +PRAMIPEXOLE DI1.5 M1 PO; +RANO500T PO; +SYNTHROID175 MC1 PO
--- NOTE | 2020-02-17 11:33 | NUR ---
PT C/O OF PRESSURE PAIN IN BUTTOX AND DOWN BOTH LEGS 6/10 DIFFERENT THAN PRIOR TO MYELOGRAM. PT TOOK OWN PAIN MES. WILL CONTINUE TO MOITOR FOR CHANGES. PT NUERO CHECK REVEALS WEAKNESS IN PULL ON LLE. BASELINE FINDING, ALL OTHER NUERO CHECKS WNL, EXCEPT C/O OF SLIGHT HEADACHE. PROVIDED WATER, COFFEE, SNACK AND ORDERED A FOOD TRY. WARM BLANKETS PROVIDED. WILL CONTINUE TO MONITOR ALL OF PT PAIN, CARE AND NEEDS.
== END 2020-02-17 22:43 | disposition home or self-care (01) ==
LOC: RAD 08:35 → SDS 08:35 → RAD 09:00 → ORSCMMR 11:36 → SDS 22:43
DX: M47.896 Other spondylosis, lumbar region (principal); M51.36 Other intervertebral disc degeneration, lumbar region; I10 Essential (primary) hypertension; J44.9 Chronic obstructive pulmonary disease, unspecified; K21.9 Gastro-esophageal reflux disease without esophagitis; E78.00 Pure hypercholesterolemia, unspecified; E66.9 Obesity, unspecified; F32.9 Major depressive disorder, single episode, unspecified; F17.200 Nicotine dependence, unspecified, uncomplicated; Z79.899 Other long term (current) drug therapy; Z88.7 Allergy status to serum and vaccine; Z88.8 Allergy status to other drugs, medicaments and biological substances; Z88.6 Allergy status to analgesic agent; Z88.0 Allergy status to penicillin; Z91.013 Allergy to seafood; Z68.41 Body mass index [BMI] 40.0-44.9, adult; Z79.82 Long term (current) use of aspirin
CPT/HCPCS: 62304; 72132; Q9966

== ENCOUNTER 2020-04-10 19:29 | Emergency (ER) | payer MEDICARE, OTHER ==
[~2020-04-10] VITALS: Ht 167.6 cm; Wt 111.1 kg
[~2020-04-10 19:29] MED LIST changes: +DEXILANT30 MG PO; +HYDROCHLOROTH12.5 MG PO; +IPRAT-ALBUT 0.5-3 ML NEB; +NORCO 7.5-3251 EAC1 PO; -NORCO 7.5-3251 EACH PO; +TUDORZA PRESS400 MC1 INH
[2020-04-10 20:00] LABS: BASOPHILS ABSOLUTE AUTO 0.07 K/mm3 (0.00-0.23); BASOPHILS PERCENT AUTO 1 % (0-2); EOSINOPHILS ABSOLUTE AUTO 0.76 K/mm3 (0.00-0.68); EOSINOPHILS PERCENT AUTO 7 % (0-6); Hemoglobin 12.5 g/dL (11.5-16.0); IMMATURE GRAN ABSOLUTE AUTO 0.04 K/mm3 (0.00-0.10); IMMATURE GRAN PERCENT AUTO 0 % (0-1); LYMPHOCYTES ABSOLUTE AUTO 2.49 K/mm3 (0.84-5.20); LYMPHOCYTES PERCENT AUTO 23 % (21-46); MONOCYTES ABSOLUTE AUTO 0.74 K/mm3 (0.16-1.47); MONOCYTES PERCENT AUTO 7 % (4-13); Mean Corpuscular HGB Conc 30.5 g/dL (31.5-36.5); Mean Corpuscular Volume 82 fL (80-100); Mean Platelet Volume 11.1 fL (9.1-12.4); NEUTROPHILS ABSOLUTE AUTO 6.69 K/mm3 (1.96-9.15); NEUTROPHILS PERCENT AUTO 62 % (41-73); Platelet Count 327 K/mm3 (150-400); RDW Coefficient Variation 18.1 % (11.7-14.2); RDW Standard Deviation 54.3 fL (35.1-46.3); White Blood Cell Count 10.79 K/mm3 (4.00-11.30)
[2020-04-10 20:23] LABS: Alanine Aminotransfer (ALT/SGP 18 U/L (12-78); Albumin, Blood 3.6 g/dL (3.4-5.0); Albumin/Globulin Ratio 0.9 (0.8-1.8); Alk Phos 124 U/L (50-136); Anion Gap 5 mmol/L (6-16); Aspartate Aminotrans (AST/SGOT 17 U/L (12-37); Bilirubin, Total 0.2 mg/dL (0.1-1.0); Blood Urea Nitrogen 20 mg/dL (8-24); Bun/Creatinine Ratio 15.9 (12.0-20.0); CO2, Blood 28 mmol/L (21-32); Calcium, Blood 9.1 mg/dL (8.5-10.1); Chloride, Blood 97 mmol/L (98-108); Creatinine, Blood 1.26 mg/dL (0.40-1.00); Glomerular Filtration Rate 45 (60-); Glucose, Blood 110 mg/dL (70-99); Potassium, Blood 3.8 mmol/L (3.5-5.5); Sodium, Blood 130 mmol/L (136-145); Total Protein, Blood 7.6 g/dL (6.4-8.2); Troponin I <0.015 ng/mL (0.000-0.040)
[2020-05-28] MEDS ORDERED: Valium5 MG PO (12:10)
[2020-05-28] MEDS ORDERED: Percocet 10-321 EACH PO (12:10)
[2020-05-28] MEDS ORDERED: Keflex500 MG PO (12:10)
== END 2020-04-10 21:44 | disposition home or self-care (01) ==
LOC: ER 19:29
PROVIDERS: Emergency Medicine
DX: R07.9 Chest pain, unspecified (principal); Z88.0 Allergy status to penicillin; Z91.048 Other nonmedicinal substance allergy status; Z91.09 Other allergy status, other than to drugs and biological substances; Z91.013 Allergy to seafood; Z91.018 Allergy to other foods; Z88.6 Allergy status to analgesic agent; Z79.899 Other long term (current) drug therapy; Z79.84 Long term (current) use of oral hypoglycemic drugs; I48.91 Unspecified atrial fibrillation; I25.10 Atherosclerotic heart disease of native coronary artery without angina pectoris; J44.9 Chronic obstructive pulmonary disease, unspecified; I10 Essential (primary) hypertension; E11.9 Type 2 diabetes mellitus without complications; K21.9 Gastro-esophageal reflux disease without esophagitis; I25.2 Old myocardial infarction; F17.210 Nicotine dependence, cigarettes, uncomplicated
CPT/HCPCS: 36415; 71260; 80053; 84484; 85025; 93005; 93010; 99285-25; Q9967

== ENCOUNTER 2020-06-10 06:46 | Inpatient (IN) | payer MEDICARE ==
[~2020-06-10] VITALS: Ht 167.6 cm; Wt 113.3 kg
[~2020-06-10 06:46] MED LIST changes: -Isosorbide Mono60 MG PO; +Keflex500 MG PO; +Percocet 10-321 EACH PO; -SYNTHROID175 MC1 PO
[2020-06-10 07:57] LABS: BASOPHILS ABSOLUTE AUTO 0.09 K/mm3 (0.00-0.23); BASOPHILS PERCENT AUTO 1 % (0-2); EOSINOPHILS ABSOLUTE AUTO 0.58 K/mm3 (0.00-0.68); EOSINOPHILS PERCENT AUTO 5 % (0-6); Hematocrit 36.6 % (33.0-51.0); Hemoglobin 11.5 g/dL (11.5-16.0); IMMATURE GRAN ABSOLUTE AUTO 0.04 K/mm3 (0.00-0.10); IMMATURE GRAN PERCENT AUTO 0 % (0-1); LYMPHOCYTES PERCENT AUTO 24 % (21-46); MONOCYTES ABSOLUTE AUTO 0.74 K/mm3 (0.16-1.47); MONOCYTES PERCENT AUTO 7 % (4-13); Mean Corpuscular HGB 26.6 pg (26.0-34.0); Mean Corpuscular HGB Conc 31.4 g/dL (31.5-36.5); Mean Corpuscular Volume 85 fL (80-100); Mean Platelet Volume 11.1 fL (9.1-12.4); NEUTROPHILS ABSOLUTE AUTO 6.66 K/mm3 (1.96-9.15); NEUTROPHILS PERCENT AUTO 62 % (41-73); Platelet Count 301 K/mm3 (150-400); RDW Coefficient Variation 15.7 % (11.7-14.2); RDW Standard Deviation 48.4 fL (35.1-46.3); Red Blood Cell Count 4.32 M/mm3 (3.80-5.20); White Blood Cell Count 10.71 K/mm3 (4.00-11.30)
[2020-06-10 08:15] LABS: Alanine Aminotransfer (ALT/SGP 18 U/L (12-78); Albumin, Blood 3.1 g/dL (3.4-5.0); Albumin/Globulin Ratio 0.8 (0.8-1.8); Alk Phos 127 U/L (50-136); Anion Gap 4 mmol/L (6-16); Aspartate Aminotrans (AST/SGOT 14 U/L (12-37); Bilirubin, Total 0.3 mg/dL (0.1-1.0); Blood Urea Nitrogen 14 mg/dL (8-24); Bun/Creatinine Ratio 19.4 (12.0-20.0); CO2, Blood 28 mmol/L (21-32); Calcium, Blood 8.5 mg/dL (8.5-10.1); Chloride, Blood 105 mmol/L (98-108); Creatinine, Blood 0.72 mg/dL (0.40-1.00); Glomerular Filtration Rate >60 (60-); Glucose, Blood 99 mg/dL (70-99); Potassium, Blood 3.7 mmol/L (3.5-5.5); Sodium, Blood 137 mmol/L (136-145); Total Protein, Blood 7.1 g/dL (6.4-8.2)
[2020-06-10 08:17] LABS: Source, Urine Clean Catch
[2020-06-10 08:28] LABS: Bilirubin, Urine Neg (Neg); Blood, Urine Neg (Neg); Glucose Qualitative, Urine Neg (Neg); Ketones, Urine Neg (Neg); Leukocyte Esterase, Urine 1+ (Neg); Nitrite, Urine Neg (Neg); Protein, Urine Neg (Neg); Specific Gravity, Urine 1.015 (1.003-1.022); Urobilinogen, Urine NORM (Normal)
[2020-06-10 08:35] LABS: Appearance, Urine Hazy (Clear); Bacteria Rare /hpf; Color, Urine Yellow (P-Yellow); Red Blood Cells, Urine Not Seen /hpf (0-2); Squamous Epithelial Cells Few /hpf (Few); White Blood Cells, Urine 0-2 /hpf (0-5)
[2020-06-10 09:58] LABS: International Normalized Ratio 0.93
[2020-06-10] MEDS ORDERED: HYDCHL25 PO (11:00)
[2020-06-10] MEDS ORDERED: OXYCODONE-ACET1 EAC3 PO (13:28)
[2020-06-10] MEDS ORDERED: ATOR40TA PO (13:29)
[2020-06-10] MEDS ORDERED: OMEP20ER PO (13:31)
[2020-06-10] MEDS ORDERED: Diazepam5 MG PO (13:33)
[2020-06-10] MEDS ORDERED: Isosorbide Mono60 MG PO (13:34)
--- NOTE | 2020-06-10 17:35 | NUR ---
SHIFT SUMMARY PATIENT DENIES PAIN, NAUSEA, AND SHORTNESS OF BREATH. PATIENT UP SBA TO BR OR INDEPENDENT TO BSC. HEPARIN DRIP RUNNING AT 24/MLS HR. PENDING ANGIO TOMORROW. NPO AT MIDNIGHT.
[2020-06-11 01:14] LABS: Hematocrit 34.5 % (33.0-51.0); Hemoglobin 10.7 g/dL (11.5-16.0); Mean Corpuscular HGB 26.3 pg (26.0-34.0); Mean Corpuscular Volume 85 fL (80-100); Mean Platelet Volume 10.8 fL (9.1-12.4); Platelet Count 269 K/mm3 (150-400); RDW Coefficient Variation 15.7 % (11.7-14.2); RDW Standard Deviation 48.4 fL (35.1-46.3); Red Blood Cell Count 4.07 M/mm3 (3.80-5.20); White Blood Cell Count 10.08 K/mm3 (4.00-11.30)
[2020-06-11 01:28] LABS: Anion Gap 6 mmol/L (6-16); Blood Urea Nitrogen 13 mg/dL (8-24); Bun/Creatinine Ratio 14.9 (12.0-20.0); CO2, Blood 28 mmol/L (21-32); Calcium, Blood 8.1 mg/dL (8.5-10.1); Chloride, Blood 107 mmol/L (98-108); Creatinine, Blood 0.87 mg/dL (0.40-1.00); Glomerular Filtration Rate >60 (60-); Glucose, Blood 120 mg/dL (70-99); Potassium, Blood 3.6 mmol/L (3.5-5.5); Sodium, Blood 141 mmol/L (136-145)
--- NOTE | 2020-06-11 04:54 | NUR ---
END OF SHIFT SUMMARY PT AXO. HAS DENIED CP/PRESSURE OR EPIGASTRIC PAIN THIS SHIFT. VSS. REMAINS ON RA/CPAP AT NIGHT. HEPARIN GTT INFUSING. PT NPO AT MIDNIGHT FOR ANGIOGRAM IN AM. PT NOTED TO HAVE SOME IRREGULAR CARDIAC RHYTHMS THAT SHE IS ASYMPTOMATIC TOO AND STOP W/OUT INTERVENTION. THESE RHYTHMS APPEAR TO BE ACCELARATED IDIOVENTRICULAR 60'S BUT THIS MAY ALSO BE THE UNDERLYING RHYTHM OF PACING DUE TO PACER SPIKES NOT SHOWING ON TELEMTRY. WILL CONTINUE TO MONITOR UNTIL SHIFT CHANGE.
--- NOTE | 2020-06-11 08:00 | NUR ---
pt laying in bed awake a/ox3, pleasant and cooperative with care, follows commands well, denies pain all night, lungs are clear a bit dim in bases, resp even and unlabored, no cough noted, hrr, tele in place running sr per monitor, see strip, no edema noted, ppp+2, cap refill <3sec, vs stable, afebrile, iv sites are clear and patent, bt x4, abd flat soft nontender, voids without diff, skin c/w/d, maew, gómez, call light in reach. will be going for angio this am, will keep npo for that.
--- NOTE | 2020-06-11 08:25 | NUR ---
pt left via bed for angio with heart center nurses.
--- NOTE | 2020-06-11 09:40 | NUR ---
pt returned to room post angio, awake, v.s. stable, she recieved iv lasix in heart center and urgently needed to void. hungry, breakfast was heated up for her, spouce in room. report was arteries were clear, no intervention. call light in reach.
--- NOTE | 2020-06-11 11:02 | NUR ---
ECHOCARDIOGRAM COMPLETED
[2020-06-11] MEDS ORDERED: CLOP75 PO (15:39)
[2020-06-11] MEDS ORDERED: FURO40 PO (15:39)
== END 2020-06-11 16:20 | disposition home or self-care (01) | DRG 281 ==
LOC: ER 06:46 → ERHOLD 10:33 → PCU 10:33
PROVIDERS: Emergency Medicine; Nurse Practitioner Acute Care; ADMIT Internal Medicine
PROC: 4A023N7 Measurement of Cardiac Sampling and Pressure, Left Heart, Percutaneous Approach (ICD-10-PCS; principal; 2020-06-11)
PROC: B2111ZZ Fluoroscopy of Multiple Coronary Arteries using Low Osmolar Contrast (ICD-10-PCS; 2020-06-11)
DX: I21.4 Non-ST elevation (NSTEMI) myocardial infarction (principal); Z68.41 Body mass index [BMI] 40.0-44.9, adult; I16.0 Hypertensive urgency; I11.9 Hypertensive heart disease without heart failure; I51.89 Other ill-defined heart diseases; F41.1 Generalized anxiety disorder; I49.5 Sick sinus syndrome; G47.33 Obstructive sleep apnea (adult) (pediatric); I25.10 Atherosclerotic heart disease of native coronary artery without angina pectoris; E66.01 Morbid (severe) obesity due to excess calories; E11.9 Type 2 diabetes mellitus without complications; G25.81 Restless legs syndrome; E89.0 Postprocedural hypothyroidism; G47.00 Insomnia, unspecified; I25.2 Old myocardial infarction; J44.9 Chronic obstructive pulmonary disease, unspecified; I48.0 Paroxysmal atrial fibrillation; F17.210 Nicotine dependence, cigarettes, uncomplicated; Z79.899 Other long term (current) drug therapy; Z91.14 Patient's other noncompliance with medication regimen; Z79.01 Long term (current) use of anticoagulants; Z79.84 Long term (current) use of oral hypoglycemic drugs; Z79.82 Long term (current) use of aspirin; Z79.891 Long term (current) use of opiate analgesic; Z95.5 Presence of coronary angioplasty implant and graft; Z95.0 Presence of cardiac pacemaker; Z86.73 Personal history of transient ischemic attack (TIA), and cerebral infarction without residual deficits; Z88.0 Allergy status to penicillin; Z88.8 Allergy status to other drugs, medicaments and biological substances; Z88.7 Allergy status to serum and vaccine
CPT/HCPCS: 36415; 71045; 74177; 76937; 80048; 80053; 81001; 82947; 83036; 83690; 84484; 85025; 85027; 85347; 85610; 85730; 87077; 87086; 87186; 93005; 93010; 93308; 93321; 93458; 94640; 94660; 94762; 96365-59; 96366; 96375; 99152; 99153; 99285-25; A9270-GY; C1769; C1894; J1200; J1644; J1720; J1940; J2250; J2270; J2405; J3010; J7030; Q9967

== ENCOUNTER 2020-06-13 17:32 | Observation (INO) | payer MEDICARE ==
[~2020-06-13] VITALS: Ht 167.6 cm; Wt 111.2 kg
[~2020-06-13 17:32] MED LIST changes: +Diazepam5 MG PO; +Isosorbide Mono60 MG PO; +OXYCODONE-ACET1 EAC3 PO
[2020-06-13 18:12] LABS: BASOPHILS ABSOLUTE AUTO 0.07 K/mm3 (0.00-0.23); BASOPHILS PERCENT AUTO 1 % (0-2); EOSINOPHILS ABSOLUTE AUTO 0.66 K/mm3 (0.00-0.68); EOSINOPHILS PERCENT AUTO 8 % (0-6); Hematocrit 36.4 % (33.0-51.0); Hemoglobin 11.3 g/dL (11.5-16.0); IMMATURE GRAN ABSOLUTE AUTO 0.04 K/mm3 (0.00-0.10); IMMATURE GRAN PERCENT AUTO 1 % (0-1); LYMPHOCYTES ABSOLUTE AUTO 2.93 K/mm3 (0.84-5.20); LYMPHOCYTES PERCENT AUTO 36 % (21-46); MONOCYTES ABSOLUTE AUTO 0.78 K/mm3 (0.16-1.47); MONOCYTES PERCENT AUTO 10 % (4-13); Mean Corpuscular HGB 26.5 pg (26.0-34.0); Mean Corpuscular Volume 85 fL (80-100); Mean Platelet Volume 10.6 fL (9.1-12.4); NEUTROPHILS ABSOLUTE AUTO 3.68 K/mm3 (1.96-9.15); NEUTROPHILS PERCENT AUTO 45 % (41-73); Platelet Count 276 K/mm3 (150-400); RDW Coefficient Variation 15.5 % (11.7-14.2); RDW Standard Deviation 48.3 fL (35.1-46.3); Red Blood Cell Count 4.26 M/mm3 (3.80-5.20); White Blood Cell Count 8.16 K/mm3 (4.00-11.30)
[2020-06-13 18:37] LABS: Alanine Aminotransfer (ALT/SGP 18 U/L (12-78); Albumin/Globulin Ratio 0.8 (0.8-1.8); Alk Phos 122 U/L (50-136); Anion Gap 3 mmol/L (6-16); Aspartate Aminotrans (AST/SGOT 15 U/L (12-37); Bilirubin, Total 0.2 mg/dL (0.1-1.0); Blood Urea Nitrogen 14 mg/dL (8-24); Bun/Creatinine Ratio 17.8 (12.0-20.0); CO2, Blood 31 mmol/L (21-32); Calcium, Blood 8.2 mg/dL (8.5-10.1); Chloride, Blood 103 mmol/L (98-108); Creatinine, Blood 0.79 mg/dL (0.40-1.00); Glomerular Filtration Rate >60 (60-); Glucose, Blood 101 mg/dL (70-99); Potassium, Blood 3.6 mmol/L (3.5-5.5); Sodium, Blood 137 mmol/L (136-145)
[2020-06-13 22:24] LABS: International Normalized Ratio 0.94; Prothrombin Time Results 10.1 Sec (9.7-11.5)
[2020-06-14] MEDS ORDERED: HYDCHL25 PO (01:22)
[2020-06-14] MEDS ORDERED: HYDRA25 PO (01:24)
[2020-06-14] MEDS ORDERED: IPRAT-ALBUT 0.5-3 ML INH (01:29)
[2020-06-14 02:09] LABS: Anion Gap 5 mmol/L (6-16); Blood Urea Nitrogen 12 mg/dL (8-24); Bun/Creatinine Ratio 13.8 (12.0-20.0); CO2, Blood 30 mmol/L (21-32); Calcium, Blood 8.4 mg/dL (8.5-10.1); Chloride, Blood 104 mmol/L (98-108); Creatinine, Blood 0.87 mg/dL (0.40-1.00); Glomerular Filtration Rate >60 (60-); Glucose, Blood 117 mg/dL (70-99); Potassium, Blood 3.6 mmol/L (3.5-5.5); Sodium, Blood 139 mmol/L (136-145)
[2020-06-14 07:02] LABS: Hematocrit 34.8 % (33.0-51.0); Hemoglobin 11.1 g/dL (11.5-16.0); Mean Corpuscular HGB 26.7 pg (26.0-34.0); Mean Corpuscular HGB Conc 31.9 g/dL (31.5-36.5); Mean Corpuscular Volume 84 fL (80-100); Mean Platelet Volume 10.7 fL (9.1-12.4); Platelet Count 239 K/mm3 (150-400); RDW Coefficient Variation 15.7 % (11.7-14.2); RDW Standard Deviation 47.2 fL (35.1-46.3); Red Blood Cell Count 4.16 M/mm3 (3.80-5.20); White Blood Cell Count 8.45 K/mm3 (4.00-11.30)
--- NOTE | 2020-06-14 07:12 | NUR ---
PATIENT ALERT AND ORIENTED, SHE IS HERE FOR CHEST PAIN WHICH SHE SAYS BROUGHT HER IN A COUPLE DAYS AGO. HEPARIN DRIP WAS STARTED BUT DISCONTINUED THIS MORNING FOR A LEXISCAN ORDERED BY DR. BARGER. PATIENT HAS NOT EATEN MUCH IN 24 HOURS AND IS ASKING WHEN SHE WILL BE ABLE TO EAT FOOD. VSS, CALL LIGHT WITHIN REACH, WILL CONTINUE TO MONITOR UNTIL END OF SHIFT
[2020-06-14 07:39] LABS: BASOPHILS PERCENT MAN 0 % (0-2); EOSINOPHILS ABSOLUTE MAN 0.84 K/mm3 (0.00-0.68); EOSINOPHILS PERCENT MAN 10 % (0-6); LYMPHOCYTES % ATYPICAL MANUAL 2 % (0-0); LYMPHOCYTES ABSOLUTE MAN 3.21 K/mm3 (0.84-5.20); LYMPHOCYTES PERCENT MAN 36 % (21-46); MONOCYTES ABSOLUTE MAN 0.84 K/mm3 (0.16-1.47); MONOCYTES PERCENT MAN 10 % (4-13); NEUTROPHILS ABSOLUTE MAN 3.54 K/mm3 (1.96-9.15); SEG NEUTROPHILS PERCENT MAN 42 % (41-73); TOTAL CELLS COUNTED 100
--- NOTE | 2020-06-14 14:50 | NUR ---
PACEMAKER CHECK PER HOSPITALIST ORDER, PRINT OUT PLACE IN FRONT OF CHART AND ROUTED TO DR MASON IN [place]
--- NOTE | 2020-06-14 17:06 | NUR ---
DISCHARGE SUMMARY PT A&Ox4; CALM AND COOPERATIVE WITH CARE. PT RESTING IN BED DURING SHIFT. UP IN ROOM IND. PT REPORTS MILD PRESSURE IN EPIGASTRIC, STATES RESOLVED PRIOR TO DISCHARGE. PT DENIES SOB, NAUSEA, DIZZINESS AND NUMB/TINGLING. PLANS TO GEOPHYSICS PROFESSOR MEDICATION THIS EVENING FROM PREVIOUS DISCHARGE. VSS. NO OTHER ACUTE CHANGES NOTED. PT EDUCATED ON DISCHARGE INTRUCTIONS, FOLLOW UP APPOINTMENT AND MEDICATIONS. PT LEFT VIA WHEELCHAIR AT 1519. PT STABLE UPON DISCHARGE.
== END 2020-06-14 15:15 | disposition home or self-care (01) ==
LOC: ER 17:32 → ERHOLD 17:33 → PCU 17:33
PROVIDERS: Emergency Medicine; ADMIT Family Medicine
DX: R07.89 Other chest pain (principal); R10.13 Epigastric pain; K21.9 Gastro-esophageal reflux disease without esophagitis; I25.10 Atherosclerotic heart disease of native coronary artery without angina pectoris; J44.9 Chronic obstructive pulmonary disease, unspecified; F41.9 Anxiety disorder, unspecified; I21.4 Non-ST elevation (NSTEMI) myocardial infarction; E11.9 Type 2 diabetes mellitus without complications; K59.00 Constipation, unspecified; F17.210 Nicotine dependence, cigarettes, uncomplicated; E66.01 Morbid (severe) obesity due to excess calories; E78.5 Hyperlipidemia, unspecified; I48.0 Paroxysmal atrial fibrillation; E03.9 Hypothyroidism, unspecified; Z71.6 Tobacco abuse counseling; Z79.899 Other long term (current) drug therapy; Z88.7 Allergy status to serum and vaccine; Z88.8 Allergy status to other drugs, medicaments and biological substances; Z88.6 Allergy status to analgesic agent; Z91.041 Radiographic dye allergy status; Z88.0 Allergy status to penicillin; Z91.013 Allergy to seafood; Z95.0 Presence of cardiac pacemaker; Z95.5 Presence of coronary angioplasty implant and graft; Z87.11 Personal history of peptic ulcer disease; Z79.02 Long term (current) use of antithrombotics/antiplatelets; Z68.39 Body mass index [BMI] 39.0-39.9, adult; Z79.82 Long term (current) use of aspirin
CPT/HCPCS: 36415; 71046; 78451; 80048; 80053; 83036; 83690; 83880; 84484; 85025; 85610; 85730; 93005; 93010; 93280; 94640; 94760; 96374; 96375; 99285-25; A9270-GY; A9500; C9113; G0378; J1644; J2405

== ENCOUNTER 2020-08-15 02:23 | Emergency (ER) | payer MEDICARE ==
[~2020-08-15] VITALS: Ht 167.6 cm; Wt 104.3 kg
[~2020-08-15 02:23] MED LIST changes: +IPRAT-ALBUT 0.5-3 ML INH
[2020-08-15] MEDS ORDERED: RANO500T PO (02:52)
[2020-08-15 03:35] LABS: BASOPHILS ABSOLUTE AUTO 0.07 K/mm3 (0.00-0.23); BASOPHILS PERCENT AUTO 1 % (0-2); EOSINOPHILS ABSOLUTE AUTO 0.36 K/mm3 (0.00-0.68); EOSINOPHILS PERCENT AUTO 4 % (0-6); Hematocrit 36.7 % (33.0-51.0); Hemoglobin 11.5 g/dL (11.5-16.0); IMMATURE GRAN ABSOLUTE AUTO 0.04 K/mm3 (0.00-0.10); IMMATURE GRAN PERCENT AUTO 1 % (0-1); LYMPHOCYTES ABSOLUTE AUTO 1.71 K/mm3 (0.84-5.20); LYMPHOCYTES PERCENT AUTO 20 % (21-46); MONOCYTES ABSOLUTE AUTO 0.71 K/mm3 (0.16-1.47); MONOCYTES PERCENT AUTO 8 % (4-13); Mean Corpuscular HGB 25.8 pg (26.0-34.0); Mean Corpuscular HGB Conc 31.3 g/dL (31.5-36.5); Mean Corpuscular Volume 83 fL (80-100); Mean Platelet Volume 10.1 fL (9.1-12.4); NEUTROPHILS ABSOLUTE AUTO 5.85 K/mm3 (1.96-9.15); NEUTROPHILS PERCENT AUTO 67 % (41-73); Platelet Count 331 K/mm3 (150-400); RDW Coefficient Variation 15.8 % (11.7-14.2); RDW Standard Deviation 47.8 fL (35.1-46.3); Red Blood Cell Count 4.45 M/mm3 (3.80-5.20); White Blood Cell Count 8.74 K/mm3 (4.00-11.30)
[2020-08-15 03:49] LABS: Alanine Aminotransfer (ALT/SGP 17 U/L (12-78); Albumin/Globulin Ratio 0.8 (0.8-1.8); Alk Phos 141 U/L (50-136); Anion Gap 7 mmol/L (6-16); Aspartate Aminotrans (AST/SGOT 14 U/L (12-37); Bilirubin, Total 0.3 mg/dL (0.1-1.0); Blood Urea Nitrogen 15 mg/dL (8-24); Bun/Creatinine Ratio 16.6 (12.0-20.0); CO2, Blood 28 mmol/L (21-32); Calcium, Blood 8.6 mg/dL (8.5-10.1); Chloride, Blood 100 mmol/L (98-108); Glomerular Filtration Rate >60 (60-); Glucose, Blood 122 mg/dL (70-99); Potassium, Blood 3.2 mmol/L (3.5-5.5); Sodium, Blood 135 mmol/L (136-145); Troponin I 0.031 ng/mL (0.000-0.040)
== END 2020-08-15 05:08 | disposition home or self-care (01) ==
LOC: ER 02:23
PROVIDERS: Emergency Medicine
DX: R07.9 Chest pain, unspecified (principal); R00.2 Palpitations; R11.0 Nausea; I10 Essential (primary) hypertension; E03.9 Hypothyroidism, unspecified; I25.2 Old myocardial infarction; J44.9 Chronic obstructive pulmonary disease, unspecified; I48.91 Unspecified atrial fibrillation; F17.210 Nicotine dependence, cigarettes, uncomplicated; Z88.0 Allergy status to penicillin; Z79.82 Long term (current) use of aspirin; Z79.899 Other long term (current) drug therapy; Z91.09 Other allergy status, other than to drugs and biological substances; Z91.041 Radiographic dye allergy status; Z91.013 Allergy to seafood; Z88.7 Allergy status to serum and vaccine; Z88.6 Allergy status to analgesic agent; Z79.02 Long term (current) use of antithrombotics/antiplatelets; Z88.2 Allergy status to sulfonamides
CPT/HCPCS: 36415; 71046; 80053; 84484; 85025; 93005; 93010; 96374; 99285-25; J2405

== ENCOUNTER 2020-08-26 11:54 | Emergency (ER) | payer MEDICARE, OTHER ==
[~2020-08-26] VITALS: Ht 167.6 cm; Wt 106.6 kg
[2020-08-26] MEDS ORDERED: HYDR1TAB94 PO (14:08)
== END 2020-08-26 14:20 | disposition home or self-care (01) ==
LOC: ER 11:54
DX: M76.32 Iliotibial band syndrome, left leg (principal); I10 Essential (primary) hypertension; E03.9 Hypothyroidism, unspecified; I25.2 Old myocardial infarction; J44.9 Chronic obstructive pulmonary disease, unspecified; I48.91 Unspecified atrial fibrillation; F17.210 Nicotine dependence, cigarettes, uncomplicated; Z88.8 Allergy status to other drugs, medicaments and biological substances; Z88.0 Allergy status to penicillin; Z88.7 Allergy status to serum and vaccine; Z91.09 Other allergy status, other than to drugs and biological substances; Z91.041 Radiographic dye allergy status; Z91.013 Allergy to seafood; Z88.6 Allergy status to analgesic agent; Z79.899 Other long term (current) drug therapy; Z79.82 Long term (current) use of aspirin; Z79.02 Long term (current) use of antithrombotics/antiplatelets; Z95.5 Presence of coronary angioplasty implant and graft; Z95.0 Presence of cardiac pacemaker
CPT/HCPCS: 73502; 99283-25; A9270-GY

== ENCOUNTER 2020-09-22 12:11 | Emergency (ER) | payer MEDICARE, OTHER ==
[~2020-09-22] VITALS: Ht 167.6 cm; Wt 83.9 kg
[~2020-09-22 12:11] MED LIST changes: +HYDR1TAB94 PO
[2020-09-22 12:44] LABS: BASOPHILS PERCENT AUTO 1 % (0-2); EOSINOPHILS ABSOLUTE AUTO 0.44 K/mm3 (0.00-0.68); EOSINOPHILS PERCENT AUTO 4 % (0-6); Hemoglobin 12.2 g/dL (11.5-16.0); IMMATURE GRAN ABSOLUTE AUTO 0.07 K/mm3 (0.00-0.10); IMMATURE GRAN PERCENT AUTO 1 % (0-1); LYMPHOCYTES ABSOLUTE AUTO 2.53 K/mm3 (0.84-5.20); LYMPHOCYTES PERCENT AUTO 24 % (21-46); MONOCYTES PERCENT AUTO 6 % (4-13); Mean Corpuscular HGB 25.3 pg (26.0-34.0); Mean Corpuscular HGB Conc 31.3 g/dL (31.5-36.5); Mean Corpuscular Volume 81 fL (80-100); Mean Platelet Volume 9.3 fL (9.1-12.4); NEUTROPHILS ABSOLUTE AUTO 7.02 K/mm3 (1.96-9.15); NEUTROPHILS PERCENT AUTO 65 % (41-73); Platelet Count 406 K/mm3 (150-400); RDW Coefficient Variation 17.1 % (11.7-14.2); RDW Standard Deviation 49.7 fL (35.1-46.3); Red Blood Cell Count 4.82 M/mm3 (3.80-5.20); White Blood Cell Count 10.76 K/mm3 (4.00-11.30)
[2020-09-22 13:06] LABS: Alanine Aminotransfer (ALT/SGP 24 U/L (12-78); Albumin, Blood 3.4 g/dL (3.4-5.0); Albumin/Globulin Ratio 0.8 (0.8-1.8); Alk Phos 132 U/L (50-136); Anion Gap 6 mmol/L (6-16); Aspartate Aminotrans (AST/SGOT 26 U/L (12-37); Bilirubin, Total 0.3 mg/dL (0.1-1.0); Blood Urea Nitrogen 12 mg/dL (8-24); Bun/Creatinine Ratio 13.5 (12.0-20.0); CO2, Blood 29 mmol/L (21-32); Calcium, Blood 8.8 mg/dL (8.5-10.1); Chloride, Blood 100 mmol/L (98-108); Creatinine, Blood 0.89 mg/dL (0.40-1.00); Globulin, Blood 4.1 g/dL (2.2-4.0); Glomerular Filtration Rate >60 (60-); Glucose, Blood 121 mg/dL (70-99); Potassium, Blood 3.6 mmol/L (3.5-5.5); Sodium, Blood 135 mmol/L (136-145); Total Protein, Blood 7.5 g/dL (6.4-8.2); Troponin I 0.043 ng/mL (0.000-0.040)
[2020-09-22 15:31] LABS: International Normalized Ratio 1.38; Prothrombin Time Results 14.5 Sec (9.7-11.5)
== END 2020-09-22 18:22 | disposition home or self-care (01) ==
LOC: ER 12:11
PROVIDERS: Emergency Medicine
DX: R07.9 Chest pain, unspecified (principal); I10 Essential (primary) hypertension; E03.9 Hypothyroidism, unspecified; J44.9 Chronic obstructive pulmonary disease, unspecified; I48.91 Unspecified atrial fibrillation; F17.210 Nicotine dependence, cigarettes, uncomplicated; Z79.82 Long term (current) use of aspirin; Z79.899 Other long term (current) drug therapy; Z79.02 Long term (current) use of antithrombotics/antiplatelets; Z88.0 Allergy status to penicillin; Z91.09 Other allergy status, other than to drugs and biological substances; Z91.013 Allergy to seafood; Z88.7 Allergy status to serum and vaccine; Z88.6 Allergy status to analgesic agent; Z95.5 Presence of coronary angioplasty implant and graft; Z95.0 Presence of cardiac pacemaker
CPT/HCPCS: 36415; 71045; 80053; 83880; 84484; 85025; 85610; 93005; 93010; 99285-25

== ENCOUNTER 2020-10-04 11:27 | Observation (INO) | payer MEDICARE ==
[~2020-10-04] VITALS: Ht 167.6 cm; Wt 115.9 kg
[2020-10-04 12:33] LABS: BASOPHILS ABSOLUTE AUTO 0.09 K/mm3 (0.00-0.23); BASOPHILS PERCENT AUTO 1 % (0-2); EOSINOPHILS ABSOLUTE AUTO 0.51 K/mm3 (0.00-0.68); EOSINOPHILS PERCENT AUTO 4 % (0-6); Hematocrit 39.5 % (33.0-51.0); Hemoglobin 12.3 g/dL (11.5-16.0); IMMATURE GRAN ABSOLUTE AUTO 0.09 K/mm3 (0.00-0.10); IMMATURE GRAN PERCENT AUTO 1 % (0-1); LYMPHOCYTES ABSOLUTE AUTO 2.74 K/mm3 (0.84-5.20); LYMPHOCYTES PERCENT AUTO 23 % (21-46); MONOCYTES PERCENT AUTO 6 % (4-13); Mean Corpuscular HGB 25.1 pg (26.0-34.0); Mean Corpuscular HGB Conc 31.1 g/dL (31.5-36.5); Mean Corpuscular Volume 80 fL (80-100); Mean Platelet Volume 9.1 fL (9.1-12.4); NEUTROPHILS ABSOLUTE AUTO 8.04 K/mm3 (1.96-9.15); NEUTROPHILS PERCENT AUTO 66 % (41-73); Platelet Count 384 K/mm3 (150-400); RDW Coefficient Variation 17.6 % (11.7-14.2); RDW Standard Deviation 50.8 fL (35.1-46.3); Red Blood Cell Count 4.91 M/mm3 (3.80-5.20); White Blood Cell Count 12.17 K/mm3 (4.00-11.30)
[2020-10-04 13:01] LABS: Influenza A, PCR Negative (NEGATIVE); Influenza B, PCR Negative (NEGATIVE); Resp Syncytial Virus, PCR Negative (NEGATIVE); SARS-Cov-2 (COVID-19) PCR, MMC Negative (NEGATIVE)
[2020-10-04 13:36] LABS: Potassium, Blood 3.4 mmol/L (3.5-5.5)
[2020-10-04 13:37] LABS: Albumin, Blood 3.5 g/dL (3.4-5.0); Albumin/Globulin Ratio 0.8 (0.8-1.8); Bilirubin, Total 0.3 mg/dL (0.1-1.0); Bun/Creatinine Ratio 12.6 (12.0-20.0); Calcium, Blood 8.9 mg/dL (8.5-10.1); Creatinine, Blood 0.95 mg/dL (0.40-1.00); Globulin, Blood 4.6 g/dL (2.2-4.0); Total Protein, Blood 8.1 g/dL (6.4-8.2); Troponin I 0.05 ng/mL (0.000-0.040)
[2020-10-04] MEDS ORDERED: PLAVIX75 MG PO (14:09)
[2020-10-04] MEDS ORDERED: WARF5 PO (14:09)
[2020-10-04] MEDS ORDERED: Mirapex1.5 MG PO (14:09)
[2020-10-04] MEDS ORDERED: SYNTHROID150 MC1 PO (14:10)
[2020-10-04] MEDS ORDERED: Betapace120 MG PO (14:12)
[2020-10-04] MEDS ORDERED: HYDRA25 PO (14:23)
[2020-10-04] MEDS ORDERED: AMLO10 PO (14:23)
[2020-10-04] MEDS ORDERED: Isosorbide Mono60 MG PO (14:23)
[2020-10-04] MEDS ORDERED: IPRAT-ALBUT 0.5-3 ML INH (14:24)
[2020-10-04] MEDS ORDERED: NITR.4SL SL (14:25)
[2020-10-04] MEDS ORDERED: ALBU2.5V5 INH (14:25)
[2020-10-04 14:48] LABS: International Normalized Ratio 2.67
--- NOTE | 2020-10-04 15:11 | NUR ---
echocardiogram completed
--- NOTE | 2020-10-04 19:08 | NUR ---
SHIFT SUMMARY PT ADMITTED THIS SHIFT FROM THE ED FOR CHEST PAIN. PT IS A/O X4 AND PLEASANT. BROUGHT IN MEDICATIONS FROM HOME AND A MED REC NEEDS TO BE DONE. ORIENTED TO THE ROOM AND MEDICATED PER EMR. VSS; GAVE REPORT TO NIGHT RN.
--- NOTE | 2020-10-04 21:06 | NUR ---
C/O CHEST PAIN 06/16. RADIATING DOWN LEFT ARM AND TO BACK. [employer] NOTIFIED, ORDERS FOR NITRO OBTAINED. FIRST NITOR SL: DROPPED PAIN TO /. 2ND SL: 4:10 AND 3RD NITOR SL 0:10. SEE MAR FOR DETAILS. EKG DONE - SEE EKG. SAME PREVIOUS ONE
--- NOTE | 2020-10-04 21:37 | NUR ---
VSS. RESTING QUIETLY. NO C/ CHEST PAIN AT THIS TIME. CALL LIGHT IN REACH. WILL CONTINUE TO MONITOR
[2020-10-05 00:44] LABS: Hematocrit 35.3 % (33.0-51.0); Mean Corpuscular HGB 25.1 pg (26.0-34.0); Mean Corpuscular HGB Conc 31.2 g/dL (31.5-36.5); Mean Corpuscular Volume 81 fL (80-100); Mean Platelet Volume 9.1 fL (9.1-12.4); Platelet Count 347 K/mm3 (150-400); RDW Coefficient Variation 17.5 % (11.7-14.2); RDW Standard Deviation 51.7 fL (35.1-46.3); Red Blood Cell Count 4.38 M/mm3 (3.80-5.20); White Blood Cell Count 10.87 K/mm3 (4.00-11.30)
[2020-10-05 00:59] LABS: International Normalized Ratio 2.25
[2020-10-05 01:05] LABS: Albumin, Blood 3.2 g/dL (3.4-5.0); Albumin/Globulin Ratio 0.8 (0.8-1.8); Bilirubin, Total 0.5 mg/dL (0.1-1.0); Bun/Creatinine Ratio 13.3 (12.0-20.0); Calcium, Blood 8.5 mg/dL (8.5-10.1); Creatinine, Blood 1.05 mg/dL (0.40-1.00); Globulin, Blood 3.8 g/dL (2.2-4.0); Potassium, Blood 3.7 mmol/L (3.5-5.5); Troponin I 0.05 ng/mL (0.000-0.040)
--- NOTE | 2020-10-05 02:36 | NUR ---
C/O CHEST PAIN. 5:10. NITRO SL ADMIN.NOT EFFECTIVE. RAPID RESPONSE CALLED
[2020-10-05 02:59] LABS: BASOPHILS ABSOLUTE AUTO 0.08 K/mm3 (0.00-0.23); BASOPHILS PERCENT AUTO 1 % (0-2); EOSINOPHILS ABSOLUTE AUTO 0.55 K/mm3 (0.00-0.68); EOSINOPHILS PERCENT AUTO 5 % (0-6); Hematocrit 37.2 % (33.0-51.0); Hemoglobin 11.6 g/dL (11.5-16.0); IMMATURE GRAN PERCENT AUTO 1 % (0-1); LYMPHOCYTES ABSOLUTE AUTO 2.75 K/mm3 (0.84-5.20); LYMPHOCYTES PERCENT AUTO 26 % (21-46); MONOCYTES ABSOLUTE AUTO 0.63 K/mm3 (0.16-1.47); MONOCYTES PERCENT AUTO 6 % (4-13); Mean Corpuscular HGB 25.3 pg (26.0-34.0); Mean Corpuscular HGB Conc 31.2 g/dL (31.5-36.5); Mean Corpuscular Volume 81 fL (80-100); Mean Platelet Volume 8.9 fL (9.1-12.4); NEUTROPHILS ABSOLUTE AUTO 6.46 K/mm3 (1.96-9.15); NEUTROPHILS PERCENT AUTO 61 % (41-73); Platelet Count 344 K/mm3 (150-400); RDW Coefficient Variation 17.7 % (11.7-14.2); RDW Standard Deviation 51.6 fL (35.1-46.3); Red Blood Cell Count 4.59 M/mm3 (3.80-5.20); White Blood Cell Count 10.57 K/mm3 (4.00-11.30)
--- NOTE | 2020-10-05 03:05 | NUR ---
RAPID RESPONSE WAS CALLED, ORDERED FENTANYL 25 MCG IV, ADMINISTERED. SEE MAR FOR DETAILS OF OTHER MEDS GIVEN. PT TRANSFERED TO ICU 5 PER MD ORDERS. CALLED REPORT TO AIRCRAFT PAINTER. PT TRANSFERRED TO UNIT.
[2020-10-05 03:20] LABS: Albumin, Blood 3.3 g/dL (3.4-5.0); Anion Gap 6 mmol/L (6-16); Blood Urea Nitrogen 15 mg/dL (8-24); Bun/Creatinine Ratio 13.9 (12.0-20.0); CO2, Blood 31 mmol/L (21-32); Calcium, Blood 8.4 mg/dL (8.5-10.1); Chloride, Blood 99 mmol/L (98-108); Creatinine, Blood 1.08 mg/dL (0.40-1.00); Glomerular Filtration Rate 54 (60-); Glucose, Blood 109 mg/dL (70-99); Phosphorus, Blood 4.6 mg/dL (2.5-4.9); Potassium, Blood 3.8 mmol/L (3.5-5.5); Sodium, Blood 136 mmol/L (136-145); Troponin I 0.046 ng/mL (0.000-0.040)
--- NOTE | 2020-10-05 04:29 | NUR ---
TRANSFER FROM MEDICAL FLOOR 0305 PT TRANSFERRED FROM MEDICAL FLOOR, ROOM 305 TO ICU-5 VIA BED. PT HAS STABLE VSS, HR 60'S PACED WITH PACER SPIKES. PT DENIES CP AND NAUSEA. STRUCTURAL ANALYST CALLED FOR CP. PT GIVEN NITRO AND FENTANYL ON MEDICAL FLOOR. SHE HAS ONE IV ON RIGHT AC, FLUSHING/RETURNING BLOOD. A/O X 4, LUNG SOUNDS CLEAR, BOWEL TONES ACTIVE. PT HAS INCONTINENCE. CARIOLOGY CONSULTED FOR MORNING PER DR. RODGERS.
--- NOTE | 2020-10-05 06:28 | NUR ---
SHIFT SUMMARY PT DENIES CP AND NAUSEA. PT ON 2 L VIA NC, SPO2 > 90%. PT SNORES WHILE SLEEPING BUT AT BASELINE DOES NOT REQUIRE OXYGEN. A/O X 4. NO SIGNIFICANT CHANGES SINCE ARRIVING FROM ACADEMIC AFFAIRS MANAGER. VSS. HR 60'S, AFIB WITH PACER SPIKES. PT ABLE TO AMBULATE TO TOILET WITH WALKER, DENIES CP/SOB. WILL REPORT TO ONCOMING SHIFT.
--- NOTE | 2020-10-05 08:30 | NUR ---
ASSUMED CARE REPORT FROM VON RN AT 0700. PT RESTING IN BED. WAKES c VERBAL STIMULI. A&OX 4. ANSWERS QUESTIONS APPROPRIATELY, FOLLOWS COMMANDS. C/O 2/10 CHEST PAIN THAT ORIGINATES IN BACK AND RADIATES TO CHEST. PT P/W/D. LUNGS DIMINISHED IN BASES. NAD NOTED. MEDICATED ORDERED. PT INDEPENDENT IN ROOM, ABLE TO REPOSITION SELF IN BED. VSS, PACED RHYTHM, RATE 60'S. DR MARTINEZ AND DR KENNEDY ROUNDED. STATUS CHANGED TO MED c TELE. PT NEEDS ASSISTANCE c MED MANAGEMENT AT HOME. CARE MANAGEMENT NOTIFIED. WILL CONTINUE TO MONITOR.
[2020-10-05 12:39] LABS: CHOL/HDL RATIO 3.1; Cholesterol 232 mg/dL (50-200); HDL Cholesterol 76 mg/dL (>39); LDL/HDL RATIO 1.7; Low Density Lipoprotein Chol 127 mg/dL (0-110); Triglycerides 147 mg/dL (30-160); Very Low Density Lipoprot Chol 29 mg/dL (6-32)
--- NOTE | 2020-10-05 16:28 | NUR ---
RECIEVED REPORT FROM ANTOLIN, ENGAGEMENT QUALITY CONSULTANT, AT 1558. PATIENT TO TRANSFER TO ROOM 342 WHEN ROOM IS CLEAN.
[2020-10-05 16:59] LABS: Source, Urine Clean Catch
--- NOTE | 2020-10-05 17:05 | NUR ---
SHIFT SUMMARY/TRANSFER TO MEDICAL FLOOR PT STATUS CHANGED TO MED c TELE THIS SHIFT. PT HAS INTERMITTANT LOW BACK PAIN c RADIATION TO FRONT. MEDICATED c LIDOCAINE PATCH, PERCOCET AND FENTANYL c RELIEF. PT DIURSESED TODAY, 400 ML URINE OUT. SAMPLE SENT TO LAB. PT STANDBY ASSIST TO BATHROOM. TOLERATED WELL. VSS. REPORT CALLED TO GEGE DE ANDA. PT TRANSFERRED UP c ALL BELONGINGS.
[2020-10-05 17:14] LABS: Appearance, Urine Clear (Clear); Bilirubin, Urine Neg (Neg); Blood, Urine Neg (Neg); Color, Urine Yellow (P-Yellow); Glucose Qualitative, Urine Neg (Neg); Ketones, Urine Neg (Neg); Leukocyte Esterase, Urine 1+ (Neg); Nitrite, Urine Pos (Neg); Protein, Urine Neg (Neg); Urobilinogen, Urine NORM (Normal)
[2020-10-05 18:09] LABS: White Blood Cells, Urine 0-2 /hpf (0-5)
[2020-10-05 18:10] LABS: Bacteria Mod /hpf; Red Blood Cells, Urine 0-2 /hpf (0-2); Squamous Epithelial Cells Rare /hpf (Few)
--- NOTE | 2020-10-06 04:55 | NUR ---
SHIFT SUMMARY PATIENT ALERT AND ORIENTED. WAS MEDICATED TWICE PER EMAR FOR PAIN. PT DENIES HAVING ANY CHEST PAIN OR SHORTNESS OF BREATH OVERNIGHT. STATED THAT SHE SLEPT WELL. IV PATENT AND FLUSHED. BED IN LOWEST POSITION WITH WHEELS LOCKED. CALL LIGHT WITHIN REACH. REPORT GIVEN TO ONCOMING RN.
[2020-10-06 06:33] LABS: International Normalized Ratio 2.52; Prothrombin Time Results 25.6 Sec (9.7-11.5)
[2020-10-06 06:40] LABS: Bun/Creatinine Ratio 17.3 (12.0-20.0); Calcium, Blood 8.7 mg/dL (8.5-10.1); Creatinine, Blood 1.27 mg/dL (0.40-1.00); Potassium, Blood 3.9 mmol/L (3.5-5.5)
--- NOTE | 2020-10-06 13:35 | NUR ---
pt stated she was sob, o2 1L via nc, chk'd vs, pmt reports paced 60, called said to continue to monitor and call if hr went to high, noted medication given around 5am
[2020-10-06] MEDS ORDERED: LIDO700A20 TOP (14:32)
[2020-10-06] MEDS ORDERED: LISI5 PO (14:34)
[2020-10-06] MEDS ORDERED: SOTO80 PO (14:36)
[2020-10-06] MEDS ORDERED: Isosorbide Mono30 MG PO (14:37)
--- NOTE | 2020-10-06 17:43 | NUR ---
DISCHARGED: removed IV, escorted pt to car, a+o, reviewed: stay, medications, dc orders, appointments and how to contact [facility], reviewed consultants instructions with pt, she stated she had an appointment with her specialist and with her pcp, reminded pt of importance of following dc instructions
== END 2020-10-06 15:30 | disposition home or self-care (01) ==
LOC: ER 11:27 → MEDS 11:28 → ICUE 11:28 → MEDS 16:49 → ICUE 10-05 02:59 → MEDS 10-05 17:27
PROVIDERS: Emergency Medicine; Family Medicine; Internal Medicine; Internal Medicine Cardiovascular Disease; Nurse Practitioner Acute Care; ADMIT Internal Medicine
DX: R07.89 Other chest pain (principal); I25.10 Atherosclerotic heart disease of native coronary artery without angina pectoris; I48.0 Paroxysmal atrial fibrillation; R77.8 Other specified abnormalities of plasma proteins; J44.9 Chronic obstructive pulmonary disease, unspecified; I25.2 Old myocardial infarction; E11.9 Type 2 diabetes mellitus without complications; E78.5 Hyperlipidemia, unspecified; K21.9 Gastro-esophageal reflux disease without esophagitis; G25.81 Restless legs syndrome; G47.00 Insomnia, unspecified; G47.33 Obstructive sleep apnea (adult) (pediatric); F17.210 Nicotine dependence, cigarettes, uncomplicated; E66.01 Morbid (severe) obesity due to excess calories; R06.02 Shortness of breath; I11.0 Hypertensive heart disease with heart failure; I50.33 Acute on chronic diastolic (congestive) heart failure; G70.00 Myasthenia gravis without (acute) exacerbation; R32 Unspecified urinary incontinence; G89.29 Other chronic pain; M54.9 Dorsalgia, unspecified; E89.0 Postprocedural hypothyroidism; N39.0 Urinary tract infection, site not specified; F41.1 Generalized anxiety disorder; F11.20 Opioid dependence, uncomplicated; E87.1 Hypo-osmolality and hyponatremia; Z91.14 Patient's other noncompliance with medication regimen; Z91.19 Patient's noncompliance with other medical treatment and regimen; Z88.0 Allergy status to penicillin; Z88.6 Allergy status to analgesic agent; Z88.7 Allergy status to serum and vaccine; Z91.041 Radiographic dye allergy status; Z91.013 Allergy to seafood; Z91.048 Other nonmedicinal substance allergy status; Z79.82 Long term (current) use of aspirin; Z79.899 Other long term (current) drug therapy; Z79.02 Long term (current) use of antithrombotics/antiplatelets; Z95.5 Presence of coronary angioplasty implant and graft; Z95.0 Presence of cardiac pacemaker; Z68.39 Body mass index [BMI] 39.0-39.9, adult; Z87.11 Personal history of peptic ulcer disease; Z20.828 Contact with and (suspected) exposure to other viral communicable diseases; Z23 Encounter for immunization; Z79.01 Long term (current) use of anticoagulants
CPT/HCPCS: 0241U; 36415; 71045; 80048; 80053; 80061; 80069; 81001; 83036; 83690; 83735; 83880; 84484; 85025; 85027; 85610; 85651; 86140; 87077; 87086; 87186; 93005; 93010; 93308; 93321; 94760; 94762; 96374; 96375; 96376; 99285-25; A9270; A9270-GY; G0378; J1940; J3010

== ENCOUNTER 2020-10-26 13:09 | Observation (INO) | payer MEDICARE, SELFPAY ==
[~2020-10-26] VITALS: Ht 167.6 cm; Wt 118.4 kg
[~2020-10-26 13:09] MED LIST changes: +ALBU2.5V5 INH; +LISI5 PO; +PLAVIX75 MG PO; +SYNTHROID150 MC1 PO
[2020-10-26 14:12] LABS: BASOPHILS ABSOLUTE AUTO 0.09 K/mm3 (0.00-0.23); BASOPHILS PERCENT AUTO 1 % (0-2); EOSINOPHILS ABSOLUTE AUTO 0.36 K/mm3 (0.00-0.68); EOSINOPHILS PERCENT AUTO 4 % (0-6); Hematocrit 35.3 % (33.0-51.0); Hemoglobin 11.2 g/dL (11.5-16.0); IMMATURE GRAN ABSOLUTE AUTO 0.03 K/mm3 (0.00-0.10); IMMATURE GRAN PERCENT AUTO 0 % (0-1); LYMPHOCYTES PERCENT AUTO 22 % (21-46); MONOCYTES ABSOLUTE AUTO 0.66 K/mm3 (0.16-1.47); MONOCYTES PERCENT AUTO 8 % (4-13); Mean Corpuscular HGB 26.3 pg (26.0-34.0); Mean Corpuscular HGB Conc 31.7 g/dL (31.5-36.5); Mean Corpuscular Volume 83 fL (80-100); Mean Platelet Volume 10.4 fL (9.1-12.4); NEUTROPHILS ABSOLUTE AUTO 5.35 K/mm3 (1.96-9.15); NEUTROPHILS PERCENT AUTO 65 % (41-73); Platelet Count 335 K/mm3 (150-400); RDW Coefficient Variation 18.8 % (11.7-14.2); RDW Standard Deviation 56.4 fL (35.1-46.3); Red Blood Cell Count 4.26 M/mm3 (3.80-5.20); White Blood Cell Count 8.29 K/mm3 (4.00-11.30)
[2020-10-26 14:34] LABS: Alanine Aminotransfer (ALT/SGP 23 U/L (12-78); Albumin, Blood 3.5 g/dL (3.4-5.0); Albumin/Globulin Ratio 0.9 (0.8-1.8); Alk Phos 121 U/L (50-136); Anion Gap 6 mmol/L (6-16); Aspartate Aminotrans (AST/SGOT 18 U/L (12-37); Bilirubin, Total 0.6 mg/dL (0.1-1.0); Blood Urea Nitrogen 13 mg/dL (8-24); Bun/Creatinine Ratio 15.2 (12.0-20.0); CO2, Blood 28 mmol/L (21-32); Calcium, Blood 8.6 mg/dL (8.5-10.1); Chloride, Blood 101 mmol/L (98-108); Creatinine, Blood 0.85 mg/dL (0.40-1.00); Globulin, Blood 4.1 g/dL (2.2-4.0); Glomerular Filtration Rate >60 (60-); Glucose, Blood 98 mg/dL (70-99); Potassium, Blood 4.1 mmol/L (3.5-5.5); Sodium, Blood 135 mmol/L (136-145); Total Protein, Blood 7.6 g/dL (6.4-8.2); Troponin I 0.031 ng/mL (0.000-0.040)
[2020-10-26 15:03] LABS: International Normalized Ratio 3.43; Prothrombin Time Results 34.2 Sec (9.7-11.5)
[2020-10-26] MEDS ORDERED: AMLODIPINE BESY10 MG PO (15:54)
[2020-10-26] MEDS ORDERED: FUROSEMIDE20 MG PO (15:55)
[2020-10-26] MEDS ORDERED: HYDRA25 PO (15:55)
[2020-10-26] MEDS ORDERED: Percocet 5-3251 EACH PO (15:56)
[2020-10-26] MEDS ORDERED: PRAMIPEXOLE ER3 MG PO (16:08)
[2020-10-26] MEDS ORDERED: LISI5 PO (16:08)
--- NOTE | 2020-10-26 23:59 | NUR ---
ASSUMED CARE OF PATIENT AT APPROXIMATELY 190 FROM DWIGHT Laird RN AND ONI South RN. PATIENT ALERT AND ORIENTED X4. PATIENT DRINKING DR. DICKENS AND EATING CHEETOS DURING BEDSIDE REPORT; REFUSED WATER. PATIENT REPORTS CHEST PAIN AT APPROXIMATELY 194 6/10 DULL ACHE SUBSTERNAL; NO RADAITION. PATIENT HAD NITRO PASTE IN PLACE; NO PRN IV MEDICATION. CALLED DR. FITCH AT APPROXIMATELY 2000 TO REQUEST PRN; ONE TIME ORDER OF MORPHINE IV GIVEN; GOOD RESULTS; CHEST PAIN RELEIVED. PATIENT ALSO REPORTS HEADACHE AND REQUESTED HOME MEDICATION OXYCODONE. PATIENT DENIES NUMBNESS, TINGLING, DIZZINESS AND NAUSEA. NSR/100% ATRIAL PACED ON TELE; OXYGEN SATURATION ABOVE 90% ON ROOM AIR. 2LPM VIA NC PLACED FOR CP/ PATIENT REPORTS SHE HAS SLEEP APNEA BUT UNABLE TO USE CPAP AT HOME. PIV S/L. PATIENT CURRENTLY RESTING IN BED; CALL LIGHT IN REACH; BED IN LOWEST POSISTION.
--- NOTE | 2020-10-27 02:55 | NUR ---
PATIENT WALKS OUT TOWARDS HALLWAY; REPORTS "I DON'T KNOW" WHEN ASKED IF SHE NEEDS SOMETHING. PATIENT HAD REMOVED 0XYGEN.
--- NOTE | 2020-10-27 03:24 | NUR ---
PATIENT REPORTS CHEST PAIN "IS THAT BAD" 3/10; MEDICATED WITH PRN PAIN MEDS PER REQUEST. PATIENT LAUGHING LAYING IN BED.
[2020-10-27 04:10] LABS: BASOPHILS ABSOLUTE AUTO 0.11 K/mm3 (0.00-0.23); BASOPHILS PERCENT AUTO 2 % (0-2); EOSINOPHILS ABSOLUTE AUTO 0.31 K/mm3 (0.00-0.68); EOSINOPHILS PERCENT AUTO 4 % (0-6); Hematocrit 33.4 % (33.0-51.0); Hemoglobin 10.3 g/dL (11.5-16.0); IMMATURE GRAN ABSOLUTE AUTO 0.02 K/mm3 (0.00-0.10); IMMATURE GRAN PERCENT AUTO 0 % (0-1); LYMPHOCYTES ABSOLUTE AUTO 2.24 K/mm3 (0.84-5.20); LYMPHOCYTES PERCENT AUTO 32 % (21-46); MONOCYTES PERCENT AUTO 10 % (4-13); Mean Corpuscular HGB 25.8 pg (26.0-34.0); Mean Corpuscular HGB Conc 30.8 g/dL (31.5-36.5); Mean Corpuscular Volume 84 fL (80-100); Mean Platelet Volume 10.3 fL (9.1-12.4); NEUTROPHILS ABSOLUTE AUTO 3.64 K/mm3 (1.96-9.15); NEUTROPHILS PERCENT AUTO 52 % (41-73); Platelet Count 296 K/mm3 (150-400); RDW Coefficient Variation 18.8 % (11.7-14.2); RDW Standard Deviation 56.7 fL (35.1-46.3); White Blood Cell Count 7.02 K/mm3 (4.00-11.30)
[2020-10-27 04:28] LABS: International Normalized Ratio 3.04; Prothrombin Time Results 30.5 Sec (9.7-11.5)
[2020-10-27 04:32] LABS: Anion Gap 5 mmol/L (6-16); Blood Urea Nitrogen 16 mg/dL (8-24); Bun/Creatinine Ratio 17.7 (12.0-20.0); CO2, Blood 29 mmol/L (21-32); Calcium, Blood 8.2 mg/dL (8.5-10.1); Chloride, Blood 103 mmol/L (98-108); Glomerular Filtration Rate >60 (60-); Glucose, Blood 104 mg/dL (70-99); Potassium, Blood 4.2 mmol/L (3.5-5.5); Sodium, Blood 137 mmol/L (136-145); Troponin I 0.037 ng/mL (0.000-0.040)
--- NOTE | 2020-10-27 06:05 | NUR ---
PATIENT SLEPT ABOUT SEVEN HOURS LAST NIGHT; SNORING HEARD IN HALLWAY; CHEST PAIN RELIEVED BY OXYCODONE/MORPHINE. VSS. 2 EPISODES OF CHEST PAIN REPORTED. NO OTHER ACUTE CHANGES TO REPORT.
--- NOTE | 2020-10-27 08:46 | NUR ---
pt laying in bed watching tv, a/ox3, pleasant and cooperative with care, follows commands well, denies pain at this time but states she did have pain early this am, lungs are dim t/o, resp even and unlabored, reports a smokers cough but unaware of color of sputum, is currently on ra, hrr, tele in place running sr atrial paced, no edema noted, ppp+1, cap refill <3sec, vs stable, afebrile, iv site is clear and patent, btx4, abd flat soft nontender, voids without diff, skin c/w/d, maew, reports sob with pain, otherwise none, call light in reach.
--- NOTE | 2020-10-27 13:30 | NUR ---
PT UP AD DAWOOD IN ROOM, DOING OK, SHE DID ASK FOR PAIN MEDS FOR HER HIPS, HER SPOUCE CAME IN TO VISIT. SHE WILL BE HAVING A STRESS TEST TOMORROW, WILL KEEP HER NPO AFTER MIDNIGHT, CALL LIGHT IN REACH.
--- NOTE | 2020-10-27 23:01 | NUR ---
ASSUMED CARE OF PATIENT AT APPROXIMATELY 1905 FROM STEPH Ridley RN. PATIENT ALERT AND ORIENTED X4. PATIENT DRINKS ROOT BEER; REFUSED WATER. PATIENT DENIES CP/PRESSURE BUT REPORTS CHRONIC PAIN IN BACK AND LEFT HIP; MEDICATED PER EMAR; PATIENT DENIES NUMBNESS, TINGLING, DIZZINESS AND NAUSEA. NSR/100% ATRIAL PACED ON TELE; OXYGEN SATURATION ABOVE 90% ON ROOM AIR. PATIENT TO BE NPO AT MIDNIGHT FOR STRESS TEST IN AM. PIV S/L. PATIENT CURRENTLY RESTING IN BED; CALL LIGHT IN REACH; BED IN LOWEST POSISTION.
[2020-10-28 04:07] LABS: International Normalized Ratio 2.68; Prothrombin Time Results 27.1 Sec (9.7-11.5)
--- NOTE | 2020-10-28 08:31 | NUR ---
pt had a shower this am, she is tired from that, but denies any chest pain throughout the night or this am, states she slept well, a/ox3, pleasant and cooperative with care, follows commands well, lungs are clear in [place], dim in bases, resp even and unlabored, no cough noted, hrr, tele in place she is atrial paced, no edema noted, ppp+2, cap refill <3sec, vs stable, afebrile, iv site is clear and patent, btx4, reports no bm for at leaste 3 days, will ask for bowel care, voids without diff, skin c/w/d, daniela, gómez, call light in reach, will be having a stress test this am or afternoon, will keep npo for that.
--- NOTE | 2020-10-28 10:24 | NUR ---
will be having stress test at noon. pt informed.
--- NOTE | 2020-10-28 12:53 | NUR ---
PT HAS BEEN INJECTED FOR STRESS TEST, SET UP FOR HER LUNCH, Luke POZO. CALL LIGHT IN REACH.
--- NOTE | 2020-10-28 18:35 | NUR ---
Arnold will be npo after mid for second part of her stress test, she is in need of bowel care, left msg on Dr. phone, will pass on to presidential support specialist. no c.p. today. call light in reach.
[2020-10-29 04:26] LABS: International Normalized Ratio 1.49; Prothrombin Time Results 15.6 Sec (9.7-11.5)
--- NOTE | 2020-10-29 07:34 | NUR ---
SHIFT SUMMARY PATIENT PLEASENT THROUGHOUT THE SHIFT. PATIENT REQUESTED BOWEL CARE AT THE BEGINNING OF THE SHIFT. A CALL WAS MADE TO THE DR AND ORDERS FOR BOWEL CARE WERE RECIEVED. WIRE BRUSH OPERATOR ZOILA NOTIFIED OF PATIENT'S CHEST PAIN AT APPROX 2100. PATIENT REPORTED THAT SHE HAS BEEN HAVING EPIDOSDES OF CHEST PAIN THAT RANGE BETWEEN ONE MINUTE TO TWENTY MINUTES LONG. PATIENT REPORTS THEY ARE PAINFUL BUT TOLERABLE. PATIENT MEDICATED FOR BACK PAIN AND HEADACHE PER EMAR. PATIENT APPEARED TO BE AWAKE MOST OF THE NIGHT. PATIENT CURRENTLY SITTING UP IN BED ON HER PHONE. PATIENT CURRENTLY DENIES ANY CHEST PAIN. REPORT GIVEN TO ONCOMING RN.
--- NOTE | 2020-10-29 07:40 | NUR ---
ASSUMED CARE: PT LAYING IN BED, AWAKE, TALKING TO STAFF AT THIS TIME. DENIES CP, NPO, AWAITING SECOND PORTION OF STRESS TEST. DENIES NEEDS OR CONCERNS.
--- NOTE | 2020-10-29 09:04 | NUR ---
PT TAKEN TO [facility] FOR SECOND PORTION OF STRESS TEST.
--- NOTE | 2020-10-29 13:16 | NUR ---
CALL TO DR SIN WITH PT'S RESULT FOR FIRST PART OF STRESS TEST. SAID BASED OFF OF FIRST RESULT, PT COULD HAVE OPTION OF GOING HOME TODAY OR WAITING FOR CARDIOLOGY INPUT. PT WANTED TO WAIT FOR SECOND RESULT TO COME THROUGH. RELAYED WITH DR SIN AND WILL INFORM CARDIOLOGY WHEN SECOND RESULT COMES THROUGH. NO FURTHER NEEDS AT THIS TIME.
--- NOTE | 2020-10-29 17:00 | NUR ---
DR GILLETTE CAME TO SEE PT AND CLEARED HER FOR DC WITH INSTRUCTIONS TO FOLLOW UP WITH CARDIOLOGY AND GET STARTED ON AMPLODIPINE. CALL TO DR SIN TO RELAY THIS WHO WILL BE WRITING DC ORDERS.
[2020-10-29] MEDS ORDERED: RANO500T PO (17:08)
[2020-10-29] MEDS ORDERED: AMLO5 PO (17:26)
--- NOTE | 2020-10-29 17:54 | NUR ---
BET TAKER REVIEWED DC INSTRUCTIONS WITH PT AND REMOVED PT'S IV. PT DENIED FURTHER QUESTIONS. STATED BOB SANCHEZ WENT MISSING. PT ADVOCATE NUMBER LEFT ON PT'S VOICE MAIL. PT AMBULATORY UPON DISCHARGE.
== END 2020-10-29 17:48 | disposition home or self-care (01) ==
LOC: ER 13:09 → PCU 13:10
PROVIDERS: Emergency Medicine; ADMIT Internal Medicine
DX: R07.89 Other chest pain (principal); I10 Essential (primary) hypertension; I25.10 Atherosclerotic heart disease of native coronary artery without angina pectoris; G47.33 Obstructive sleep apnea (adult) (pediatric); E66.01 Morbid (severe) obesity due to excess calories; I48.0 Paroxysmal atrial fibrillation; E11.9 Type 2 diabetes mellitus without complications; E78.5 Hyperlipidemia, unspecified; J44.9 Chronic obstructive pulmonary disease, unspecified; K21.9 Gastro-esophageal reflux disease without esophagitis; G25.81 Restless legs syndrome; Z66 Do not resuscitate; Z91.14 Patient's other noncompliance with medication regimen; Z88.0 Allergy status to penicillin; Z88.6 Allergy status to analgesic agent; Z88.7 Allergy status to serum and vaccine; Z91.048 Other nonmedicinal substance allergy status; Z91.041 Radiographic dye allergy status; Z91.013 Allergy to seafood; Z79.02 Long term (current) use of antithrombotics/antiplatelets; Z79.01 Long term (current) use of anticoagulants; Z79.899 Other long term (current) drug therapy; Z20.822 Contact with and (suspected) exposure to COVID-19; Z68.41 Body mass index [BMI] 40.0-44.9, adult; Z91.19 Patient's noncompliance with other medical treatment and regimen; Z95.5 Presence of coronary angioplasty implant and graft
CPT/HCPCS: 36415; 71045; 78452; 80048; 80053; 83880; 84484; 85025; 85610; 85730; 93005; 93010; 93017; 94760; 96374; 99285-25; A9270; A9500; G0378; J0706; J2270; J2405; J2785

== ENCOUNTER 2020-11-20 23:04 | Emergency (ER) | payer MEDICARE, SELFPAY ==
[~2020-11-20] VITALS: Ht 167.6 cm; Wt 108.9 kg
[~2020-11-20 23:04] MED LIST changes: +AMLODIPINE BESY10 MG PO; +FUROSEMIDE20 MG PO; +PRAMIPEXOLE ER3 MG PO
[2020-11-20 23:38] LABS: BASOPHILS ABSOLUTE AUTO 0.05 K/mm3 (0.00-0.23); BASOPHILS PERCENT AUTO 1 % (0-2); EOSINOPHILS ABSOLUTE AUTO 0.38 K/mm3 (0.00-0.68); EOSINOPHILS PERCENT AUTO 4 % (0-6); Hematocrit 34.5 % (33.0-51.0); IMMATURE GRAN ABSOLUTE AUTO 0.05 K/mm3 (0.00-0.10); IMMATURE GRAN PERCENT AUTO 1 % (0-1); LYMPHOCYTES ABSOLUTE AUTO 2.26 K/mm3 (0.84-5.20); LYMPHOCYTES PERCENT AUTO 22 % (21-46); MONOCYTES ABSOLUTE AUTO 1.01 K/mm3 (0.16-1.47); MONOCYTES PERCENT AUTO 10 % (4-13); Mean Corpuscular HGB Conc 31.9 g/dL (31.5-36.5); Mean Corpuscular Volume 82 fL (80-100); Mean Platelet Volume 10.5 fL (9.1-12.4); NEUTROPHILS ABSOLUTE AUTO 6.64 K/mm3 (1.96-9.15); NEUTROPHILS PERCENT AUTO 64 % (41-73); Platelet Count 347 K/mm3 (150-400); RDW Standard Deviation 50.4 fL (35.1-46.3); Red Blood Cell Count 4.23 M/mm3 (3.80-5.20); White Blood Cell Count 10.39 K/mm3 (4.00-11.30)
[2020-11-20 23:53] LABS: International Normalized Ratio 1.32; Prothrombin Time Results 13.9 Sec (9.7-11.5)
[2020-11-20 23:59] LABS: Alanine Aminotransfer (ALT/SGP 22 U/L (12-78); Albumin, Blood 3.2 g/dL (3.4-5.0); Albumin/Globulin Ratio 0.8 (0.8-1.8); Alk Phos 111 U/L (50-136); Anion Gap 6 mmol/L (6-16); Aspartate Aminotrans (AST/SGOT 17 U/L (12-37); Bilirubin, Total 0.2 mg/dL (0.1-1.0); Blood Urea Nitrogen 17 mg/dL (8-24); Bun/Creatinine Ratio 19.8 (12.0-20.0); CO2, Blood 29 mmol/L (21-32); Calcium, Blood 8.5 mg/dL (8.5-10.1); Chloride, Blood 102 mmol/L (98-108); Creatinine, Blood 0.86 mg/dL (0.40-1.00); Globulin, Blood 4.1 g/dL (2.2-4.0); Glomerular Filtration Rate >60 (60-); Glucose, Blood 104 mg/dL (70-99); Potassium, Blood 3.7 mmol/L (3.5-5.5); Sodium, Blood 137 mmol/L (136-145); Total Protein, Blood 7.3 g/dL (6.4-8.2); Troponin I 0.024 ng/mL (0.000-0.040)
== END 2020-11-21 01:10 | disposition home or self-care (01) ==
LOC: ER 23:04
PROVIDERS: Emergency Medicine
DX: R07.9 Chest pain, unspecified (principal); I10 Essential (primary) hypertension; E03.9 Hypothyroidism, unspecified; J44.9 Chronic obstructive pulmonary disease, unspecified; I48.91 Unspecified atrial fibrillation; I25.2 Old myocardial infarction; E11.9 Type 2 diabetes mellitus without complications; E78.5 Hyperlipidemia, unspecified; Z79.899 Other long term (current) drug therapy; Z95.5 Presence of coronary angioplasty implant and graft; Z87.891 Personal history of nicotine dependence
CPT/HCPCS: 36415; 71046; 80053; 83880; 84484; 85025; 85610; 93005; 93010; 99285-25

== ENCOUNTER 2020-11-29 10:32 | Observation (INO) | payer MEDICARE, SELFPAY ==
[~2020-11-29] VITALS: Ht 167.6 cm; Wt 117.8 kg
[2020-11-29 11:16] LABS: BASOPHILS ABSOLUTE AUTO 0.07 K/mm3 (0.00-0.23); BASOPHILS PERCENT AUTO 1 % (0-2); EOSINOPHILS ABSOLUTE AUTO 0.37 K/mm3 (0.00-0.68); EOSINOPHILS PERCENT AUTO 4 % (0-6); Hematocrit 33.8 % (33.0-51.0); Hemoglobin 10.8 g/dL (11.5-16.0); IMMATURE GRAN ABSOLUTE AUTO 0.05 K/mm3 (0.00-0.10); IMMATURE GRAN PERCENT AUTO 1 % (0-1); LYMPHOCYTES ABSOLUTE AUTO 1.88 K/mm3 (0.84-5.20); LYMPHOCYTES PERCENT AUTO 20 % (21-46); MONOCYTES ABSOLUTE AUTO 0.65 K/mm3 (0.16-1.47); MONOCYTES PERCENT AUTO 7 % (4-13); Mean Corpuscular Volume 81 fL (80-100); Mean Platelet Volume 10.5 fL (9.1-12.4); NEUTROPHILS PERCENT AUTO 67 % (41-73); Platelet Count 350 K/mm3 (150-400); RDW Standard Deviation 50.3 fL (35.1-46.3); Red Blood Cell Count 4.15 M/mm3 (3.80-5.20); White Blood Cell Count 9.22 K/mm3 (4.00-11.30)
[2020-11-29 11:45] LABS: Alanine Aminotransfer (ALT/SGP 17 U/L (12-78); Albumin, Blood 3.1 g/dL (3.4-5.0); Albumin/Globulin Ratio 0.8 (0.8-1.8); Alk Phos 105 U/L (50-136); Anion Gap 6 mmol/L (6-16); Aspartate Aminotrans (AST/SGOT 9 U/L (12-37); Bilirubin, Total 0.3 mg/dL (0.1-1.0); Blood Urea Nitrogen 12 mg/dL (8-24); Bun/Creatinine Ratio 14.3 (12.0-20.0); CO2, Blood 26 mmol/L (21-32); Calcium, Blood 8.7 mg/dL (8.5-10.1); Chloride, Blood 106 mmol/L (98-108); Creatinine, Blood 0.84 mg/dL (0.40-1.00); Glomerular Filtration Rate >60 (60-); Glucose, Blood 119 mg/dL (70-99); Potassium, Blood 3.8 mmol/L (3.5-5.5); Sodium, Blood 138 mmol/L (136-145); Total Protein, Blood 7.1 g/dL (6.4-8.2); Troponin I 0.016 ng/mL (0.000-0.040)
[2020-11-29 16:15] LABS: International Normalized Ratio 2.06; Prothrombin Time Results 21.2 Sec (9.7-11.5)
[2020-11-29] MEDS ORDERED: Prinivil10 MG PO (17:07)
[2020-11-29] MEDS ORDERED: Percocet 5-3251 EACH PO (17:08)
[2020-11-29] MEDS ORDERED: RANO500T PO (17:09)
[2020-11-29] MEDS ORDERED: MIRAPEX ER3 MG PO (17:10)
[2020-11-29] MEDS ORDERED: HYDRA25 PO (17:57)
--- NOTE | 2020-11-29 23:05 | NUR ---
ADMISSION: JEOVANY WAS ADMITTED FOR ANGINA/CP. AOX3, FAMILIAR WITH ROUTINES SHE DOES GET CHEST PAIN OFTEN. MOST OF THE TIME SHE TREATS WITH NITRO AT HOME AND IT GOES AWAY. YESTERDAY AFTERNOON SHE STARTED TO HAVE SEVERE CHEST PAIN, TOOK HER NITRO WHICH ALEIVED IT SOME BUT WAS STILL THERE TODAY. OTHER SYMPTOMS CONSIST OF LIGHTHEADNESS, BLURRED VISION, WEAKNESS, SHARP STABBING MID STERNUM PAIN. UPON SITTING ON SIDE OF BED, SHE DEVELOPED LIGHTHEADNESS THAT CAUSED HER TO SWAY. DID ORTHO CHECK. SITTING WAS 146/75 PULSE 76, STANDING 178/87 82. SHE ALSO GOT VERY LIGHTHEADED AND SWAYED, CP STARTED RIGHT AFTER. TELE REPORTED 100% PACED. SHE REPORTED NOT FEELING WELL ONCE BACK TO BED. MADE HER FALL RISK AND ASSIST TO THE BATHROOM. LUNG SOUNDS ARE VERY DIMINISHED, SOB WITH CHEST PAIN ONLY, TRACE EDEMA IN BLE. HEART SOUND VERY DISTENT. POOR INTACT OF FLUIDS, MOSTLY DRINKS SODA ALL DAY, DOES NOT FOLLOW CARDIAC DIET. ON COUMADIN FOR AFIB HISTORY. TROPONIN'S SO FAR ARE NEGATIVE. WILL CONTINUE TO MONITOR AT THIS TIME. CALL LIGHT IS IN REACH.
[2020-11-30 04:06] LABS: International Normalized Ratio 1.89; Prothrombin Time Results 19.5 Sec (9.7-11.5)
[2020-11-30 04:17] LABS: Anion Gap 5 mmol/L (6-16); Blood Urea Nitrogen 15 mg/dL (8-24); Bun/Creatinine Ratio 18.5 (12.0-20.0); CO2, Blood 30 mmol/L (21-32); Calcium, Blood 8.6 mg/dL (8.5-10.1); Chloride, Blood 103 mmol/L (98-108); Creatinine, Blood 0.81 mg/dL (0.40-1.00); Glomerular Filtration Rate >60 (60-); Glucose, Blood 106 mg/dL (70-99); Potassium, Blood 4.1 mmol/L (3.5-5.5); Sodium, Blood 138 mmol/L (136-145); Troponin I 0.018 ng/mL (0.000-0.040)
--- NOTE | 2020-11-30 06:24 | NUR ---
SHIFT SUMMARY: JEOVANY WAS ADMITTED LAST NIGHT FOR CHEST PAIN THAT WAS LASTING OVER 12 HOURS. SHE DID TAKE HER NITRO AT HOME BUT IT DID NOT RELEIVE IT. SHE HAS AN EXTENSIVE HISTORY OF CARDIAC DISEASE. HAS BEEN IN ON SEVERAL ACCOUNTS FOR CHEST PAIN. SHE HAS HAD CHEST PAIN OFF AND ON TONIGHT. IT OCCURS AFTER SHE HAS A CHANGE IN POSITION SUCH LAYING TO SITTING OR SITTING TO STANDING. SHE GETS REALLY LIGHTHEADED, SOME BLURRED VISION, SWAYING LIKE SHE WILL FALL BACK. HAD AIR SAW OPERATOR DO SOME ORTHOSTATICS AND FOUND THAT WHEN SITTING TO STANDING HER BLOOD PRESSURE WENT FROM 146/75 TO 178/87. HER PULSE REMAINED CLOSE TO THE SAME AND SO DID HER OXYGEN. AFTER SHE SAT DOWN THAT IS WHEN THE CHEST PAIN OCCURRED. THIS HAS HAPPENED SEVERAL TIMES TONIGHT. CHEST PAIN IS MID-STERNUM AND SHARP. TELE REPORTS 100% PACED THE ENTIRE NIGHT. SHE IS ON COUMADIN WITH RECENT INR 1.89. SHE IS ALSO HAVING LEFT HIP PAIN THAT HAS BEEN OCCURING OVER THE LAST SEVERAL MONTHS, [facility] HAS BEEN USED TO RELEIVE IT. AFTER DOING SOME RESEARCH I HAVE FOUND THAT HER SYMPTOMS ARE VERY SIMILAR TO ORTHOSTATIC HYPERTENSION. WILL PRINT THE ARTICLE FOR PATIENT AND MD A THOUGHT. WILL REPORT TO DAY SHIFT RN. CALL LIGHT IS IN REACH.
--- NOTE | 2020-11-30 10:05 | NUR ---
Echocardiogram completed.
--- NOTE | 2020-11-30 16:46 | NUR ---
PATIENT IS PLEASANT AND COOPERATIVE WITH STAFF AND CARE PROVIDER. VITALS STABLE. C/O CP THIS AFTERNOON WITH DOSE OF NITRO ADMINISTERED WITH EFFECTIVE RESULTS. SOME HIP DISCOMFORT ON OCCASION. PATIENT TO DISCHARGE HOME PENDING RESULTS OF ECHO. PATIENT RESTING IN ROOM AT THIS TIME. AT BEDSIDE. CALL LIGHT WITHIN REACH.
--- NOTE | 2020-11-30 18:03 | NUR ---
DISCHARGE INSTRUCTIONS GIVEN TO THE PATIENT AND . EDUCATIONAL MATERIAL GIVEN ON CHEST PAIN. ALL QUESTIONS ANSWERED. IV REMOVED. TELE REMOVED AND RETURNED TO PCU. PATIENT DISCHARGED HOME AT 1745.
== END 2020-11-30 17:50 | disposition home or self-care (01) ==
LOC: ER 10:32 → MEDS 10:33
PROVIDERS: Emergency Medicine; Family Medicine; Pharmacist; Physician Assistant; ADMIT Internal Medicine
DX: R07.2 Precordial pain (principal); I25.10 Atherosclerotic heart disease of native coronary artery without angina pectoris; I11.0 Hypertensive heart disease with heart failure; I50.32 Chronic diastolic (congestive) heart failure; K21.9 Gastro-esophageal reflux disease without esophagitis; I48.0 Paroxysmal atrial fibrillation; E03.9 Hypothyroidism, unspecified; E11.9 Type 2 diabetes mellitus without complications; J44.9 Chronic obstructive pulmonary disease, unspecified; E78.5 Hyperlipidemia, unspecified; G25.81 Restless legs syndrome; I25.2 Old myocardial infarction; Z95.5 Presence of coronary angioplasty implant and graft; I49.5 Sick sinus syndrome; E66.01 Morbid (severe) obesity due to excess calories; Z68.38 Body mass index [BMI] 38.0-38.9, adult; Z95.0 Presence of cardiac pacemaker; Z87.891 Personal history of nicotine dependence; Z88.6 Allergy status to analgesic agent; Z91.013 Allergy to seafood; Z88.7 Allergy status to serum and vaccine; Z91.048 Other nonmedicinal substance allergy status; Z91.09 Other allergy status, other than to drugs and biological substances; Z79.4 Long term (current) use of insulin; Z79.01 Long term (current) use of anticoagulants; Z79.02 Long term (current) use of antithrombotics/antiplatelets
CPT/HCPCS: 36415; 71046; 80048; 80053; 82947; 83880; 84484; 85025; 85610; 93005; 93010; 93306; 96374; 96375; 97116; 97162; 99285-25; A9270; G0378; J2270; J2405

== ENCOUNTER 2020-12-17 00:09 | Emergency (ER) | payer MEDICARE ==
[~2020-12-17] VITALS: Ht 167.6 cm; Wt 113.4 kg
[~2020-12-17 00:09] MED LIST changes: +MIRAPEX ER3 MG PO
[2020-12-17] MEDS ORDERED: RANO500T PO (01:05)
[2020-12-17 03:11] LABS: Source, Urine Clean Catch
[2020-12-17 03:13] LABS: Appearance, Urine Clear (Clear); Bilirubin, Urine Neg (Neg); Blood, Urine Neg (Neg); Color, Urine Yellow (P-Yellow); Glucose Qualitative, Urine Neg (Neg); Ketones, Urine Neg (Neg); Leukocyte Esterase, Urine 1+ (Neg); Nitrite, Urine Neg (Neg); Protein, Urine Neg (Neg); Urobilinogen, Urine NORM (Normal)
[2020-12-17 03:20] LABS: Bacteria Rare /hpf; Red Blood Cells, Urine Not Seen /hpf (0-2); Squamous Epithelial Cells Few /hpf (Few); White Blood Cells, Urine 0-2 /hpf (0-5)
[2020-12-17 03:36] LABS: BASOPHILS ABSOLUTE AUTO 0.06 K/mm3 (0.00-0.23); BASOPHILS PERCENT AUTO 1 % (0-2); EOSINOPHILS ABSOLUTE AUTO 0.36 K/mm3 (0.00-0.68); EOSINOPHILS PERCENT AUTO 3 % (0-6); Hematocrit 35.6 % (33.0-51.0); Hemoglobin 11.3 g/dL (11.5-16.0); IMMATURE GRAN ABSOLUTE AUTO 0.04 K/mm3 (0.00-0.10); IMMATURE GRAN PERCENT AUTO 0 % (0-1); LYMPHOCYTES ABSOLUTE AUTO 2.25 K/mm3 (0.84-5.20); LYMPHOCYTES PERCENT AUTO 21 % (21-46); MONOCYTES ABSOLUTE AUTO 0.69 K/mm3 (0.16-1.47); MONOCYTES PERCENT AUTO 7 % (4-13); Mean Corpuscular HGB 25.9 pg (26.0-34.0); Mean Corpuscular HGB Conc 31.7 g/dL (31.5-36.5); Mean Corpuscular Volume 82 fL (80-100); Mean Platelet Volume 10.4 fL (9.1-12.4); NEUTROPHILS ABSOLUTE AUTO 7.18 K/mm3 (1.96-9.15); NEUTROPHILS PERCENT AUTO 68 % (41-73); Platelet Count 375 K/mm3 (150-400); RDW Coefficient Variation 16.8 % (11.7-14.2); RDW Standard Deviation 50.2 fL (35.1-46.3); Red Blood Cell Count 4.37 M/mm3 (3.80-5.20); White Blood Cell Count 10.58 K/mm3 (4.00-11.30)
[2020-12-17 04:01] LABS: Alanine Aminotransfer (ALT/SGP 20 U/L (12-78); Albumin, Blood 3.3 g/dL (3.4-5.0); Albumin/Globulin Ratio 0.8 (0.8-1.8); Alk Phos 109 U/L (50-136); Anion Gap 7 mmol/L (6-16); Aspartate Aminotrans (AST/SGOT 16 U/L (12-37); Bilirubin, Total 0.4 mg/dL (0.1-1.0); Blood Urea Nitrogen 17 mg/dL (8-24); Bun/Creatinine Ratio 23.9 (12.0-20.0); CO2, Blood 29 mmol/L (21-32); Calcium, Blood 8.9 mg/dL (8.5-10.1); Chloride, Blood 100 mmol/L (98-108); Creatinine, Blood 0.71 mg/dL (0.40-1.00); Globulin, Blood 4.4 g/dL (2.2-4.0); Glomerular Filtration Rate >60 (60-); Glucose, Blood 95 mg/dL (70-99); Potassium, Blood 4.1 mmol/L (3.5-5.5); Sodium, Blood 136 mmol/L (136-145); Total Protein, Blood 7.7 g/dL (6.4-8.2); Troponin I 0.026 ng/mL (0.000-0.040)
[2020-12-17 05:03] LABS: International Normalized Ratio 3.3
== END 2020-12-17 06:54 | disposition home or self-care (01) ==
LOC: ER 00:09
PROVIDERS: Emergency Medicine
DX: R42 Dizziness and giddiness (principal); I10 Essential (primary) hypertension; E03.9 Hypothyroidism, unspecified; I25.10 Atherosclerotic heart disease of native coronary artery without angina pectoris; J44.9 Chronic obstructive pulmonary disease, unspecified; K21.9 Gastro-esophageal reflux disease without esophagitis; Z88.0 Allergy status to penicillin; Z91.09 Other allergy status, other than to drugs and biological substances; Z91.041 Radiographic dye allergy status; Z91.013 Allergy to seafood; Z88.7 Allergy status to serum and vaccine; Z79.01 Long term (current) use of anticoagulants; Z79.899 Other long term (current) drug therapy; Z95.0 Presence of cardiac pacemaker; Z95.5 Presence of coronary angioplasty implant and graft; Z87.891 Personal history of nicotine dependence
CPT/HCPCS: 36415; 70450; 71045; 80053; 81001; 84443; 84484; 85025; 85610; 93005; 93010; 96360; 96361; 99285-25; J7120

== ENCOUNTER 2021-01-08 16:52 | Emergency (ER) | payer MEDICARE ==
[~2021-01-08] VITALS: Ht 167.6 cm; Wt 113.4 kg
[2021-01-08] MEDS ORDERED: CYCL10 PO (20:25)
[2021-01-08] MEDS ORDERED: Prednisone50 MG PO (20:25)
== END 2021-01-08 20:48 | disposition home or self-care (01) ==
LOC: ER 16:52
DX: M16.12 Unilateral primary osteoarthritis, left hip (principal); I10 Essential (primary) hypertension; I25.10 Atherosclerotic heart disease of native coronary artery without angina pectoris; J44.9 Chronic obstructive pulmonary disease, unspecified; K21.9 Gastro-esophageal reflux disease without esophagitis; J45.909 Unspecified asthma, uncomplicated; Z88.0 Allergy status to penicillin; Z91.09 Other allergy status, other than to drugs and biological substances; Z91.013 Allergy to seafood; Z88.7 Allergy status to serum and vaccine; Z88.6 Allergy status to analgesic agent; Z88.8 Allergy status to other drugs, medicaments and biological substances; Z79.01 Long term (current) use of anticoagulants; Z79.899 Other long term (current) drug therapy; Z87.891 Personal history of nicotine dependence
CPT/HCPCS: 73502; 99283-25; A9270; J7512

== ENCOUNTER 2021-01-24 06:30 | Emergency (ER) | payer MEDICARE ==
[~2021-01-24] VITALS: Ht 167.6 cm; Wt 115.2 kg
[~2021-01-24 06:30] MED LIST changes: +Betapace120 MG; +LIDO700A20 TOP; +LISINOPRIL2.5 MG PO; +METFORMIN HCL500 M3 PO; +WARF5 PO
[2021-01-24] MEDS ORDERED: ASPI81CH PO (06:45)
[2021-01-24] MEDS ORDERED: HYDRA25 PO (06:46)
[2021-01-24] MEDS ORDERED: Percocet 5-3251 EACH PO (06:51)
[2021-01-24] MEDS ORDERED: MIRAPEX ER3 MG PO (06:52)
[2021-01-24] MEDS ORDERED: ALBU90OI INH (06:53)
[2021-01-24 07:04] LABS: BASOPHILS ABSOLUTE AUTO 0.04 K/mm3 (0.00-0.23); BASOPHILS PERCENT AUTO 0 % (0-2); EOSINOPHILS PERCENT AUTO 0 % (0-6); Hematocrit 34.8 % (33.0-51.0); Hemoglobin 11.1 g/dL (11.5-16.0); IMMATURE GRAN ABSOLUTE AUTO 0.16 K/mm3 (0.00-0.10); IMMATURE GRAN PERCENT AUTO 1 % (0-1); LYMPHOCYTES ABSOLUTE AUTO 1.19 K/mm3 (0.84-5.20); LYMPHOCYTES PERCENT AUTO 8 % (21-46); MONOCYTES ABSOLUTE AUTO 0.59 K/mm3 (0.16-1.47); MONOCYTES PERCENT AUTO 4 % (4-13); Mean Corpuscular HGB 26.3 pg (26.0-34.0); Mean Corpuscular HGB Conc 31.9 g/dL (31.5-36.5); Mean Corpuscular Volume 83 fL (80-100); Mean Platelet Volume 10.1 fL (9.1-12.4); NEUTROPHILS ABSOLUTE AUTO 13.85 K/mm3 (1.96-9.15); NEUTROPHILS PERCENT AUTO 88 % (41-73); Platelet Count 376 K/mm3 (150-400); RDW Coefficient Variation 18.7 % (11.7-14.2); RDW Standard Deviation 55.8 fL (35.1-46.3); Red Blood Cell Count 4.22 M/mm3 (3.80-5.20); White Blood Cell Count 15.83 K/mm3 (4.00-11.30)
[2021-01-24 07:23] LABS: Alanine Aminotransfer (ALT/SGP 19 U/L (12-78); Albumin, Blood 3.2 g/dL (3.4-5.0); Albumin/Globulin Ratio 0.8 (0.8-1.8); Alk Phos 123 U/L (50-136); Anion Gap 6 mmol/L (6-16); Aspartate Aminotrans (AST/SGOT 10 U/L (12-37); Bilirubin, Total 0.2 mg/dL (0.1-1.0); Blood Urea Nitrogen 16 mg/dL (8-24); Bun/Creatinine Ratio 24.8 (12.0-20.0); CO2, Blood 27 mmol/L (21-32); Calcium, Blood 8.7 mg/dL (8.5-10.1); Chloride, Blood 104 mmol/L (98-108); Creatinine, Blood 0.64 mg/dL (0.40-1.00); Globulin, Blood 4.2 g/dL (2.2-4.0); Glomerular Filtration Rate >60 (60-); Glucose, Blood 121 mg/dL (70-99); Potassium, Blood 4.3 mmol/L (3.5-5.5); Sodium, Blood 137 mmol/L (136-145); Total Protein, Blood 7.4 g/dL (6.4-8.2); Troponin I <0.015 ng/mL (0.000-0.040)
== END 2021-01-24 08:20 | disposition home or self-care (01) ==
LOC: ER 06:30
PROVIDERS: Emergency Medicine
DX: R51.9 Headache, unspecified (principal); R20.2 Paresthesia of skin; J44.9 Chronic obstructive pulmonary disease, unspecified; K21.9 Gastro-esophageal reflux disease without esophagitis; I10 Essential (primary) hypertension; E11.9 Type 2 diabetes mellitus without complications; Z79.899 Other long term (current) drug therapy; Z88.0 Allergy status to penicillin; Z91.013 Allergy to seafood; Z91.041 Radiographic dye allergy status
CPT/HCPCS: 36415; 70450; 71046; 80053; 84484; 85025; 93005; 93010; 99284-25

== ENCOUNTER 2021-02-12 07:18 | Emergency (ER) | payer MEDICARE ==
[~2021-02-12] VITALS: Ht 167.6 cm; Wt 113.4 kg
[~2021-02-12 07:18] MED LIST changes: -Betapace120 MG; -LIDO700A20 TOP; -LISINOPRIL2.5 MG PO; -METFORMIN HCL500 M3 PO; -WARF5 PO
[2021-02-12] MEDS ORDERED: METPRE4DP PO (07:43)
== END 2021-02-12 08:20 | disposition home or self-care (01) ==
LOC: ER 07:18
DX: T78.40XA Allergy, unspecified, initial encounter (principal); I10 Essential (primary) hypertension; E03.9 Hypothyroidism, unspecified; J44.9 Chronic obstructive pulmonary disease, unspecified; I48.91 Unspecified atrial fibrillation; F17.210 Nicotine dependence, cigarettes, uncomplicated; Z79.899 Other long term (current) drug therapy
CPT/HCPCS: 82947; 99283; J7512

== ENCOUNTER 2021-02-17 07:58 | Emergency (ER) | payer MEDICARE ==
[~2021-02-17] VITALS: Ht 167.6 cm; Wt 113.4 kg
[2021-02-17 08:56] LABS: BASOPHILS ABSOLUTE AUTO 0.04 K/mm3 (0.00-0.23); BASOPHILS PERCENT AUTO 0 % (0-2); EOSINOPHILS ABSOLUTE AUTO 0.01 K/mm3 (0.00-0.68); EOSINOPHILS PERCENT AUTO 0 % (0-6); Hemoglobin 12.6 g/dL (11.5-16.0); IMMATURE GRAN ABSOLUTE AUTO 0.18 K/mm3 (0.00-0.10); IMMATURE GRAN PERCENT AUTO 1 % (0-1); LYMPHOCYTES ABSOLUTE AUTO 2.01 K/mm3 (0.84-5.20); LYMPHOCYTES PERCENT AUTO 15 % (21-46); MONOCYTES ABSOLUTE AUTO 0.76 K/mm3 (0.16-1.47); MONOCYTES PERCENT AUTO 6 % (4-13); Mean Corpuscular HGB 26.1 pg (26.0-34.0); Mean Corpuscular HGB Conc 31.5 g/dL (31.5-36.5); Mean Corpuscular Volume 83 fL (80-100); Mean Platelet Volume 10.1 fL (9.1-12.4); NEUTROPHILS ABSOLUTE AUTO 10.39 K/mm3 (1.96-9.15); NEUTROPHILS PERCENT AUTO 78 % (41-73); Platelet Count 341 K/mm3 (150-400); RDW Coefficient Variation 18.8 % (11.7-14.2); RDW Standard Deviation 56.4 fL (35.1-46.3); Red Blood Cell Count 4.83 M/mm3 (3.80-5.20); White Blood Cell Count 13.39 K/mm3 (4.00-11.30)
[2021-02-17 09:13] LABS: International Normalized Ratio 1.74; Prothrombin Time Results 18.2 Sec (9.7-11.5)
[2021-02-17 09:18] LABS: Alanine Aminotransfer (ALT/SGP 23 U/L (12-78); Albumin, Blood 3.4 g/dL (3.4-5.0); Albumin/Globulin Ratio 0.8 (0.8-1.8); Alk Phos 105 U/L (50-136); Anion Gap 2 mmol/L (6-16); Aspartate Aminotrans (AST/SGOT 12 U/L (12-37); Bilirubin, Total 0.3 mg/dL (0.1-1.0); Blood Urea Nitrogen 17 mg/dL (8-24); Bun/Creatinine Ratio 26.6 (12.0-20.0); CO2, Blood 31 mmol/L (21-32); Calcium, Blood 8.5 mg/dL (8.5-10.1); Chloride, Blood 102 mmol/L (98-108); Creatinine, Blood 0.64 mg/dL (0.40-1.00); Globulin, Blood 4.1 g/dL (2.2-4.0); Glomerular Filtration Rate >60 (60-); Glucose, Blood 95 mg/dL (70-99); Potassium, Blood 4.1 mmol/L (3.5-5.5); Sodium, Blood 135 mmol/L (136-145); Total Protein, Blood 7.5 g/dL (6.4-8.2); Troponin I <0.015 ng/mL (0.000-0.040)
== END 2021-02-17 10:40 | disposition home or self-care (01) ==
LOC: ER 07:58
PROVIDERS: Emergency Medicine
DX: R20.2 Paresthesia of skin (principal); I10 Essential (primary) hypertension; E11.9 Type 2 diabetes mellitus without complications; I25.10 Atherosclerotic heart disease of native coronary artery without angina pectoris; K21.9 Gastro-esophageal reflux disease without esophagitis; J44.9 Chronic obstructive pulmonary disease, unspecified; Z79.01 Long term (current) use of anticoagulants; Z79.82 Long term (current) use of aspirin; Z79.899 Other long term (current) drug therapy
CPT/HCPCS: 36415; 71045; 80053; 84484; 85025; 85610; 93005; 93010; 96374; 96375; 99284-25; A9270; J2405; J2765

== ENCOUNTER 2021-03-06 22:23 | Emergency (ER) | payer MEDICARE ==
[~2021-03-06] VITALS: Ht 167.6 cm; Wt 113.4 kg
[2021-03-07 02:35] LABS: BASOPHILS ABSOLUTE AUTO 0.05 K/mm3 (0.00-0.23); BASOPHILS PERCENT AUTO 1 % (0-2); EOSINOPHILS PERCENT AUTO 2 % (0-6); Hematocrit 38.8 % (33.0-51.0); IMMATURE GRAN ABSOLUTE AUTO 0.06 K/mm3 (0.00-0.10); IMMATURE GRAN PERCENT AUTO 1 % (0-1); LYMPHOCYTES ABSOLUTE AUTO 2.51 K/mm3 (0.84-5.20); LYMPHOCYTES PERCENT AUTO 28 % (21-46); MONOCYTES ABSOLUTE AUTO 0.65 K/mm3 (0.16-1.47); MONOCYTES PERCENT AUTO 7 % (4-13); Mean Corpuscular HGB Conc 30.9 g/dL (31.5-36.5); Mean Corpuscular Volume 84 fL (80-100); Mean Platelet Volume 9.8 fL (9.1-12.4); NEUTROPHILS ABSOLUTE AUTO 5.37 K/mm3 (1.96-9.15); NEUTROPHILS PERCENT AUTO 61 % (41-73); Platelet Count 359 K/mm3 (150-400); RDW Coefficient Variation 18.8 % (11.7-14.2); RDW Standard Deviation 57.4 fL (35.1-46.3); Red Blood Cell Count 4.61 M/mm3 (3.80-5.20); White Blood Cell Count 8.84 K/mm3 (4.00-11.30)
[2021-03-07 02:55] LABS: Alanine Aminotransfer (ALT/SGP 20 U/L (12-78); Albumin, Blood 3.1 g/dL (3.4-5.0); Albumin/Globulin Ratio 0.8 (0.8-1.8); Alk Phos 111 U/L (50-136); Anion Gap 0 mmol/L (6-16); Aspartate Aminotrans (AST/SGOT 12 U/L (12-37); Bilirubin, Total 0.2 mg/dL (0.1-1.0); Blood Urea Nitrogen 14 mg/dL (8-24); Bun/Creatinine Ratio 19.1 (12.0-20.0); CO2, Blood 32 mmol/L (21-32); Calcium, Blood 8.8 mg/dL (8.5-10.1); Chloride, Blood 104 mmol/L (98-108); Creatinine, Blood 0.73 mg/dL (0.40-1.00); Glomerular Filtration Rate >60 (60-); Glucose, Blood 100 mg/dL (70-99); Potassium, Blood 3.9 mmol/L (3.5-5.5); Sodium, Blood 136 mmol/L (136-145); Total Protein, Blood 7.1 g/dL (6.4-8.2)
[2021-03-07 03:56] LABS: Source, Urine Clean Catch
[2021-03-07 04:05] LABS: Bilirubin, Urine Neg (Neg); Blood, Urine 1+ (Neg); Glucose Qualitative, Urine Neg (Neg); Ketones, Urine Neg (Neg); Leukocyte Esterase, Urine 2+ (Neg); Nitrite, Urine Neg (Neg); Protein, Urine 1+ (Neg); Specific Gravity, Urine 1.025 (1.003-1.022); Urobilinogen, Urine NORM (Normal)
[2021-03-07 04:17] LABS: Appearance, Urine Clear (Clear); Color, Urine Yellow (P-Yellow)
[2021-03-07 04:18] LABS: Amorphous Light (0-Heavy); Bacteria Few /hpf; Mucus Light (0-Heavy); Squamous Epithelial Cells Few /hpf (Few)
[2021-03-07] MEDS ORDERED: Valium10 MG PO (06:06)
[2021-03-07] MEDS ORDERED: ACETAMINOPHEN500 MG PO (06:06)
== END 2021-03-07 06:25 | disposition home or self-care (01) ==
LOC: ER 22:23
PROVIDERS: Emergency Medicine
DX: M54.5 Low back pain (principal); M54.6 Pain in thoracic spine; G89.29 Other chronic pain; K59.00 Constipation, unspecified; R20.0 Anesthesia of skin; S61.439A Puncture wound without foreign body of unspecified hand, initial encounter; E03.9 Hypothyroidism, unspecified; J44.9 Chronic obstructive pulmonary disease, unspecified; E11.9 Type 2 diabetes mellitus without complications; I10 Essential (primary) hypertension; I48.91 Unspecified atrial fibrillation; I50.9 Heart failure, unspecified; I25.2 Old myocardial infarction; F17.210 Nicotine dependence, cigarettes, uncomplicated; Z88.0 Allergy status to penicillin; Z91.09 Other allergy status, other than to drugs and biological substances; Z91.013 Allergy to seafood; Z88.8 Allergy status to other drugs, medicaments and biological substances; Z79.01 Long term (current) use of anticoagulants; Z79.899 Other long term (current) drug therapy; Z79.84 Long term (current) use of oral hypoglycemic drugs; Z79.82 Long term (current) use of aspirin; Z95.0 Presence of cardiac pacemaker; Z95.5 Presence of coronary angioplasty implant and graft; X50.1XXA Overexertion from prolonged static or awkward postures, initial encounter
CPT/HCPCS: 51798; 74177; 80053; 81001; 83690; 85025; 87086; 99284-25; A9270; Q9967

== ENCOUNTER 2021-03-20 09:15 | Emergency (ER) | payer MEDICARE ==
[~2021-03-20] VITALS: Ht 170.2 cm; Wt 127.0 kg
[~2021-03-20 09:15] MED LIST changes: +ACETAMINOPHEN500 MG PO; +Valium10 MG PO
[2021-03-20 10:36] LABS: BASOPHILS PERCENT AUTO 1 % (0-2); EOSINOPHILS ABSOLUTE AUTO 0.19 K/mm3 (0.00-0.68); EOSINOPHILS PERCENT AUTO 2 % (0-6); Hematocrit 39.5 % (33.0-51.0); Hemoglobin 12.2 g/dL (11.5-16.0); IMMATURE GRAN ABSOLUTE AUTO 0.11 K/mm3 (0.00-0.10); IMMATURE GRAN PERCENT AUTO 1 % (0-1); LYMPHOCYTES ABSOLUTE AUTO 2.32 K/mm3 (0.84-5.20); LYMPHOCYTES PERCENT AUTO 19 % (21-46); MONOCYTES ABSOLUTE AUTO 0.76 K/mm3 (0.16-1.47); MONOCYTES PERCENT AUTO 6 % (4-13); Mean Corpuscular HGB 26.3 pg (26.0-34.0); Mean Corpuscular HGB Conc 30.9 g/dL (31.5-36.5); Mean Corpuscular Volume 85 fL (80-100); Mean Platelet Volume 10.5 fL (9.1-12.4); NEUTROPHILS ABSOLUTE AUTO 8.65 K/mm3 (1.96-9.15); NEUTROPHILS PERCENT AUTO 71 % (41-73); Platelet Count 348 K/mm3 (150-400); RDW Coefficient Variation 17.7 % (11.7-14.2); RDW Standard Deviation 55.1 fL (35.1-46.3); Red Blood Cell Count 4.64 M/mm3 (3.80-5.20); White Blood Cell Count 12.13 K/mm3 (4.00-11.30)
[2021-03-20 11:07] LABS: Alanine Aminotransfer (ALT/SGP 23 U/L (12-78); Albumin, Blood 3.2 g/dL (3.4-5.0); Albumin/Globulin Ratio 0.7 (0.8-1.8); Alk Phos 125 U/L (50-136); Anion Gap 4 mmol/L (6-16); Aspartate Aminotrans (AST/SGOT 28 U/L (12-37); Bilirubin, Total 0.4 mg/dL (0.1-1.0); Blood Urea Nitrogen 13 mg/dL (8-24); Bun/Creatinine Ratio 17.9 (12.0-20.0); CO2, Blood 31 mmol/L (21-32); Calcium, Blood 8.8 mg/dL (8.5-10.1); Chloride, Blood 103 mmol/L (98-108); Creatinine, Blood 0.73 mg/dL (0.40-1.00); Globulin, Blood 4.6 g/dL (2.2-4.0); Glomerular Filtration Rate >60 (60-); Glucose, Blood 96 mg/dL (70-99); Potassium, Blood 4.3 mmol/L (3.5-5.5); Sodium, Blood 138 mmol/L (136-145); Total Protein, Blood 7.8 g/dL (6.4-8.2)
== END 2021-03-20 11:50 | disposition home or self-care (01) ==
LOC: ER 09:15
PROVIDERS: Physician Assistant
DX: S06.9X0A Unspecified intracranial injury without loss of consciousness, initial encounter (principal); S61.216A Laceration without foreign body of right little finger without damage to nail, initial encounter; S93.401A Sprain of unspecified ligament of right ankle, initial encounter; I11.0 Hypertensive heart disease with heart failure; I50.9 Heart failure, unspecified; E11.9 Type 2 diabetes mellitus without complications; J44.9 Chronic obstructive pulmonary disease, unspecified; I25.2 Old myocardial infarction; E03.9 Hypothyroidism, unspecified; F17.210 Nicotine dependence, cigarettes, uncomplicated; Z79.01 Long term (current) use of anticoagulants; Z79.82 Long term (current) use of aspirin; Z79.899 Other long term (current) drug therapy; Z79.890 Hormone replacement therapy; Z79.84 Long term (current) use of oral hypoglycemic drugs; Z88.0 Allergy status to penicillin; Z91.048 Other nonmedicinal substance allergy status; Z88.8 Allergy status to other drugs, medicaments and biological substances; Z91.013 Allergy to seafood; Z88.7 Allergy status to serum and vaccine; Z88.6 Allergy status to analgesic agent; W11.XXXA Fall on and from ladder, initial encounter; X50.1XXA Overexertion from prolonged static or awkward postures, initial encounter
CPT/HCPCS: 36415; 70450; 72125; 73600; 73620; 80053; 85025; 96372; 99284-25; J1885

== ENCOUNTER 2021-04-09 21:36 | Emergency (ER) | payer MEDICARE ==
[~2021-04-09] VITALS: Ht 167.6 cm; Wt 113.4 kg
== END 2021-04-10 02:26 | disposition home or self-care (01) ==
LOC: ER 21:36
DX: M54.5 Low back pain (principal); G89.29 Other chronic pain; Z79.01 Long term (current) use of anticoagulants; Z79.899 Other long term (current) drug therapy; Z79.82 Long term (current) use of aspirin; Z88.0 Allergy status to penicillin; Z91.09 Other allergy status, other than to drugs and biological substances; Z88.6 Allergy status to analgesic agent
CPT/HCPCS: 72131; 96374; 99283-25; A9270; J1885

== ENCOUNTER 2021-04-24 18:51 | Observation (INO) | payer MEDICARE ==
[~2021-04-24] VITALS: Ht 167.6 cm; Wt 117.0 kg
[2021-04-24 20:27] LABS: BASOPHILS ABSOLUTE AUTO 0.06 K/mm3 (0.00-0.23); BASOPHILS PERCENT AUTO 1 % (0-2); EOSINOPHILS ABSOLUTE AUTO 0.33 K/mm3 (0.00-0.68); EOSINOPHILS PERCENT AUTO 3 % (0-6); Hematocrit 35.9 % (33.0-51.0); Hemoglobin 11.3 g/dL (11.5-16.0); IMMATURE GRAN ABSOLUTE AUTO 0.04 K/mm3 (0.00-0.10); IMMATURE GRAN PERCENT AUTO 0 % (0-1); LYMPHOCYTES ABSOLUTE AUTO 2.55 K/mm3 (0.84-5.20); LYMPHOCYTES PERCENT AUTO 24 % (21-46); MONOCYTES ABSOLUTE AUTO 0.83 K/mm3 (0.16-1.47); MONOCYTES PERCENT AUTO 8 % (4-13); Mean Corpuscular HGB 26.7 pg (26.0-34.0); Mean Corpuscular HGB Conc 31.5 g/dL (31.5-36.5); Mean Corpuscular Volume 85 fL (80-100); Mean Platelet Volume 10.1 fL (9.1-12.4); NEUTROPHILS ABSOLUTE AUTO 6.73 K/mm3 (1.96-9.15); NEUTROPHILS PERCENT AUTO 64 % (41-73); Platelet Count 332 K/mm3 (150-400); RDW Standard Deviation 52.5 fL (35.1-46.3); Red Blood Cell Count 4.23 M/mm3 (3.80-5.20); White Blood Cell Count 10.54 K/mm3 (4.00-11.30)
[2021-04-24 20:45] LABS: Alanine Aminotransfer (ALT/SGP 19 U/L (12-78); Albumin, Blood 3.3 g/dL (3.4-5.0); Albumin/Globulin Ratio 0.8 (0.8-1.8); Alk Phos 134 U/L (50-136); Anion Gap 4 mmol/L (6-16); Aspartate Aminotrans (AST/SGOT 17 U/L (12-37); Bilirubin, Total 0.2 mg/dL (0.1-1.0); Blood Urea Nitrogen 14 mg/dL (8-24); Bun/Creatinine Ratio 22.4 (12.0-20.0); CO2, Blood 28 mmol/L (21-32); Calcium, Blood 8.6 mg/dL (8.5-10.1); Chloride, Blood 107 mmol/L (98-108); Creatinine, Blood 0.63 mg/dL (0.40-1.00); Globulin, Blood 3.9 g/dL (2.2-4.0); Glomerular Filtration Rate >60 (60-); Glucose, Blood 103 mg/dL (70-99); Potassium, Blood 3.8 mmol/L (3.5-5.5); Sodium, Blood 139 mmol/L (136-145); Total Protein, Blood 7.2 g/dL (6.4-8.2); Troponin I 0.021 ng/mL (0.000-0.040)
[2021-04-24] MEDS ORDERED: PERCOCET 10-321 EAC1 PO (21:38)
[2021-04-24] MEDS ORDERED: AMLO10 PO (21:38)
[2021-04-24] MEDS ORDERED: EUTHYROX175 MCG PO (21:38)
[2021-04-24] MEDS ORDERED: PRAMIPEXOLE DI1.5 M1 PO (21:39)
[2021-04-24] MEDS ORDERED: WARF5 PO (21:40)
[2021-04-24] MEDS ORDERED: OMEP20ER PO (21:40)
[2021-04-24] MEDS ORDERED: ATOR40TA PO (21:41)
[2021-04-24] MEDS ORDERED: ISOSORBIDE MONO60 MG PO (21:41)
[2021-04-24] MEDS ORDERED: SOTO80 PO (21:42)
[2021-04-24] MEDS ORDERED: METFORMIN HCL500 M3 PO (21:42)
[2021-04-24] MEDS ORDERED: IPRAT-ALBUT 0.5-3 ML NEB (22:07)
[2021-04-24] MEDS ORDERED: LIDO700A20 TD (22:08)
[2021-04-24] MEDS ORDERED: NITR.4SL SL (22:08)
[2021-04-24] MEDS ORDERED: LISINOPRIL2.5 MG PO (22:08)
[2021-04-24] MEDS ORDERED: Aspir 8181 MG PO (22:09)
[2021-04-24] MEDS ORDERED: HYDRA25 PO (22:09)
[2021-04-24] MEDS ORDERED: ALBU90OI INH (22:09)
[2021-04-24] MEDS ORDERED: Ondansetron Odt8 MG SL (22:11)
--- NOTE | 2021-04-24 23:00 | NUR ---
REPORT RECIEVED FROM MADAI WILKINS RN AT 2241 AND AWAITING PT T/F TO ROOM 359.
--- NOTE | 2021-04-24 23:10 | NUR ---
PT T/F TO ROOM 359 VIA W/C AT 2305. SHE'S A/OX4 AND IS TYPICALLY INDEPENDENT BUT HAD DIZZYNESS ACCOMPANYING CP PRIOR TO ADMIT SO SBA RECCOMENDED FOR SAFETY. SHE DENIES PAIN, CP, SOB, N/V AND DIZZYNESS AT THIS TIME. PT AWARE TO CALL IF SYMPTOMATIC. TELEMETRY AND IVF TO BE COMMENCED. PT MADE AWARE OF PRN MEDS AVAILABLE. VSS/AFEBRILE UPON ARRIVAL TO FLOOR.
--- NOTE | 2021-04-25 00:48 | NUR ---
ALERTED OF BRANDING MACHINE OPERATOR'S CONCERN THAT PM SPIKES WERE ONLY OCCASIONALLY SEEN BUT "WHEN OBSERVED, DID NOT APPEAR IN THE RIGHT PLACES". PT ALSO HAD PM INTERROGATION IN ER "WITH EVERYTHING WORKING IT SHOULD" PER JADYN, ATHLETE MARKETING AGENT. PT ASYMPTOMATIC OF CARDIAC DISTRESS AT THIS TIME. NO NEW ORDERS RECEIVED BUT MD INSTRUCTED TO CONTINUE MONITORING FOR CHANGES/WORSENING.
--- NOTE | 2021-04-25 01:24 | NUR ---
PT REPORTS CHRONIC BACK PAIN. ALERTED W/PRN OXYCODONE AND LIDOCAINE PATCH RX'D PER HOME MED LIST.
--- NOTE | 2021-04-25 03:36 | NUR ---
SUMMARY: PT A/OX4, CALLS APPROPRIATELY AND IS PLEASANT/COOPERATIVE W/CARE. SHE'S DENIED CP, SOB, N/V AND DIAPHORESIS THIS SHIFT. PT C/O 1 EPISODE DIZZYNESS THAT RESOLVED QUICKLY AND SPONTANEOUSLY, PRN ANTIVERT NOT REQUIRED. SHE'S INDEPENDENT TO BSC BUT KNOWS TO CALL FOR ASSIST IF SYNCOPAL. SHE WAS MADE SBA FOR DISTANCE/RESTROOM USE FOR HEIGHTENED FALL RISK/PT SAFETY. PM PRESENT TO TIAN AND SHE'S NSR W/1ST BLOCK ON TELEMETRY. SIDE DOOR MAN ALERTED STAFF THAT PM SPIKES SEEMED INCORRECTLLY PLACED WHEN THEY SELDOMLY OCCURED. MADE AWARE AND SINCE PM INTERROGATION WAS WNL IN ER, NO NEW ORDERS WERE RECIEVED. OXYCODONE PROVIDED FOR TOLERABLE RELIEF OF CHRONIC BACK PAIN. NS INFUSES AT 75ML/HR. NO ACUTE CHANGES. VSS/AFEBRILE. WCTM AND REPORT TO DAY RN.
--- NOTE | 2021-04-25 04:55 | NUR ---
PT C/O SUDDEN ONSET ARIAS W/NAUSEA WHICH PROGRESSED TO MILD SOB, OCC HEART PALPITATIONS, CHEST TIGHTNESS AND INTERMITTENT DIZZYNESS. TYLENOL, ZOFRAN AND ANTIVERT RECIEVED PRN BUT SHE DENIED CHEST PAIN AND NEED FOR NTG. VSS: BP 148/76, HR 78 AND SPO2 98% ON RA. BANQUET FOOD SERVER REPORTED NO CHANGES OR ECTOPIES. ALERTED W/EKG RX'D, CHANGES TO RHYTHM OBSERVED. MADE AWARE AND NO NEW ORDERS RECIEVED AT THIS TIME BUT HE STATED HE'D "LOOK AT IT LATER". WCTM TO MONITOR CLOSELY FOR SYMPTOMATIC WORSENING. PT NOW RESTING QUIETLY IN BED W/O S/S ACUTE DISTRESS.
--- NOTE | 2021-04-25 05:12 | NUR ---
PT NOW C/O CP RADIATING INTO BACK. NTG RECIEVED, AWAITING EFFECT.
--- NOTE | 2021-04-25 05:22 | NUR ---
BP AND HR STABLE. CP DOWN TO 3/1O BUT 2ND DOSE NTG RECIEVED PRN, AWAITING EFFECT.
--- NOTE | 2021-04-25 05:36 | NUR ---
NTG EFFECTIVE AND RELIEVING CP. ONLY REMAINING SYMPTOM AT THIS TIME IS SLIGHT DIZZYNESS. PT AWARE TO CALL FOR CHANGES AND WORSENING OF SYMPTOMS. SHE DENIES FURTHER NEEDS AT THIS TIME.
[2021-04-25 05:48] LABS: BASOPHILS ABSOLUTE AUTO 0.09 K/mm3 (0.00-0.23); BASOPHILS PERCENT AUTO 1 % (0-2); EOSINOPHILS PERCENT AUTO 4 % (0-6); Hematocrit 36.4 % (33.0-51.0); Hemoglobin 10.8 g/dL (11.5-16.0); IMMATURE GRAN ABSOLUTE AUTO 0.03 K/mm3 (0.00-0.10); IMMATURE GRAN PERCENT AUTO 0 % (0-1); LYMPHOCYTES ABSOLUTE AUTO 2.72 K/mm3 (0.84-5.20); LYMPHOCYTES PERCENT AUTO 27 % (21-46); MONOCYTES ABSOLUTE AUTO 0.75 K/mm3 (0.16-1.47); MONOCYTES PERCENT AUTO 7 % (4-13); Mean Corpuscular HGB 25.8 pg (26.0-34.0); Mean Corpuscular HGB Conc 29.7 g/dL (31.5-36.5); Mean Corpuscular Volume 87 fL (80-100); Mean Platelet Volume 9.9 fL (9.1-12.4); NEUTROPHILS ABSOLUTE AUTO 6.25 K/mm3 (1.96-9.15); NEUTROPHILS PERCENT AUTO 61 % (41-73); Platelet Count 321 K/mm3 (150-400); RDW Coefficient Variation 17.1 % (11.7-14.2); RDW Standard Deviation 54.4 fL (35.1-46.3); Red Blood Cell Count 4.18 M/mm3 (3.80-5.20); White Blood Cell Count 10.24 K/mm3 (4.00-11.30)
[2021-04-25 06:17] LABS: Alanine Aminotransfer (ALT/SGP 18 U/L (12-78); Albumin/Globulin Ratio 0.8 (0.8-1.8); Alk Phos 125 U/L (50-136); Anion Gap 6 mmol/L (6-16); Aspartate Aminotrans (AST/SGOT 14 U/L (12-37); Bilirubin, Total 0.3 mg/dL (0.1-1.0); Blood Urea Nitrogen 14 mg/dL (8-24); Bun/Creatinine Ratio 23.1 (12.0-20.0); CO2, Blood 27 mmol/L (21-32); CPK Creatine Kinase 59 U/L (26-193); Calcium, Blood 8.4 mg/dL (8.5-10.1); Chloride, Blood 106 mmol/L (98-108); Creatinine, Blood 0.61 mg/dL (0.40-1.00); Globulin, Blood 3.6 g/dL (2.2-4.0); Glomerular Filtration Rate >60 (60-); Glucose, Blood 126 mg/dL (70-99); Potassium, Blood 3.5 mmol/L (3.5-5.5); Sodium, Blood 139 mmol/L (136-145); Total Protein, Blood 6.6 g/dL (6.4-8.2); Troponin I 0.026 ng/mL (0.000-0.040)
[2021-04-25 07:04] LABS: International Normalized Ratio 4.33
--- NOTE | 2021-04-25 07:31 | NUR ---
CRITICAL INR 4.33. NOTIFIED. NO NEW ORDERS RECIEVED BUT STATED "I'LL TAKE A LOOK". PT C/O DIZZYNESS BUT NO S/S BLEEDING.
[2021-04-25 13:18] LABS: Troponin I 0.028 ng/mL (0.000-0.040)
--- NOTE | 2021-04-25 14:00 | NUR ---
Upon receiving an admit referral for spiritual care, I visit patient. Patient talks at length about her chilhood, her spiritual journey and her fears concerning her health. I normalize patient's experience and provide spiritual guidance, recitation of scripture and prayer. Patient responds well and shows signs of reduced stress and yazdanism to her own edouard.
--- NOTE | 2021-04-25 19:34 | NUR ---
SHIFT SUMMARY: PT A&O; CALM AND COOPERATIVE WITH CARE. ADMIT FOR SHEST PAIN; ONE EPISODE THIS SHIFT; NITRO SL GIVEN WITH GOOD EFFECT. 2-DAY MYOCARDIAL PERFUSION TEST STARTED THIS SHIFT; NO FURTHER NITRATES TO BE GIVEN UNTIL COMPLETION OF TEST. MEDICATED FOR CHRONIC BACK PAIN PER EMAR. REPORT GIVEN TO ONCOMING RN.
--- NOTE | 2021-04-26 00:54 | NUR ---
increased chest pain 2345 pt stated she has increased chest pain, rated pain as 8/10 like something is "sitting" on her chest. pt denies sob. vitals stable and are stable. tele sr in the 70's per outbound telemarketing representative. ekg showed no acute changes from previous ekgs. oral pain medication given. dr oseguera notified, iv morphine given. will give once pharmacy verifies.
--- NOTE | 2021-04-26 02:14 | NUR ---
MALORIE V-TACH PER TELE PT HAD MALORIE V. TACH FOR 1 MIN PER MILLING MACHINIST. PT IS NOW BACK TO SR IN THE 70'S. PT IS ASYPTOMATIC AND IS ASLEEP. HOSPITALIST ROMULO NOTIFIED. NO NEW ORDERS. CALL LIGHT WITHIN REACH, WILL CONTINUE TO MONITOR.
--- NOTE | 2021-04-26 04:10 | NUR ---
GLOVE CUTTER SUMMARY PT HAS BEEN HAVING ON AND OFF CHEST PAIN. THERE IS ONE TIME PT HAD INCREASE CHEST PAIN OVERNIGHT. MEDICATED FOR CHEST PAIN AND CHRONIC BACK PAIN. PT STATES CHEST PAIN RADIATES TO BACK. TELE'S BEEN SR IN THE 70'S. PT DID BECOME BRADYCARDIC X2 TONIGHT AND PACEMAKER KICKED IN. SLEPT WELL AFTER IV MORPHINE GIVEN FOR CHEST PAIN. DENIES SOB AND DIZZINIESS TONIGHT. SBA TO THE BATHROOM. CALL LIGHT WITHIN REACH, WILL CONTINUE TO MONITOR.
[2021-04-26 05:07] LABS: Hematocrit 34.7 % (33.0-51.0); Hemoglobin 10.6 g/dL (11.5-16.0); Mean Corpuscular HGB 25.9 pg (26.0-34.0); Mean Corpuscular HGB Conc 30.5 g/dL (31.5-36.5); Mean Corpuscular Volume 85 fL (80-100); Mean Platelet Volume 10.1 fL (9.1-12.4); Platelet Count 319 K/mm3 (150-400); RDW Coefficient Variation 16.9 % (11.7-14.2); RDW Standard Deviation 52.6 fL (35.1-46.3); Red Blood Cell Count 4.09 M/mm3 (3.80-5.20); White Blood Cell Count 9.45 K/mm3 (4.00-11.30)
[2021-04-26 05:14] LABS: International Normalized Ratio 3.42; Prothrombin Time Results 34.5 Sec (9.7-11.5)
[2021-04-26 05:24] LABS: Albumin, Blood 2.9 g/dL (3.4-5.0); Anion Gap 4 mmol/L (6-16); Blood Urea Nitrogen 12 mg/dL (8-24); Bun/Creatinine Ratio 19.3 (12.0-20.0); CHOL/HDL RATIO 2.7; CO2, Blood 30 mmol/L (21-32); Calcium, Blood 8.4 mg/dL (8.5-10.1); Chloride, Blood 106 mmol/L (98-108); Cholesterol 114 mg/dL (50-200); Creatinine, Blood 0.62 mg/dL (0.40-1.00); Glomerular Filtration Rate >60 (60-); Glucose, Blood 118 mg/dL (70-99); HDL Cholesterol 43 mg/dL (>39); LDL/HDL RATIO 1.3; Low Density Lipoprotein Chol 56 mg/dL (0-110); Phosphorus, Blood 3.8 mg/dL (2.5-4.9); Potassium, Blood 3.9 mmol/L (3.5-5.5); Sodium, Blood 140 mmol/L (136-145); Triglycerides 76 mg/dL (30-160); Very Low Density Lipoprot Chol 15 mg/dL (6-32)
--- NOTE | 2021-04-26 14:20 | NUR ---
Patient immediately tells me how stressful the stress kiera was and that she thinks she failed because she was having intense chest pain during the test. We discuss her concerns about her health and then talks about her family. I provide therapeutic listening, anxiety containment and prayer. Patient responds well and shows signs of increased peace. I will continue to remain available to patient and family.
--- NOTE | 2021-04-26 17:59 | NUR ---
PT AOX4 AND COOPERATIVE OF CARE. PT HAS BEEN TREATED FOR MULTIPLE EPISODES OF CHEST PAIN AND NAUSEA THEN SEEMS TO FEEL GOOD AGTER TREATING PER EMAR. HAS BEEN AMBULATING INDEPENDENTLY IN ROOM. PT WALKED OUT TO ELEVATOR AND THEN GOT TO THE ROOM AND NEEDED HELP TO A CHAIR SHE WAS SUDDENLY TO TIRED. DR COLLIER NOTIFIED AND PT HAD VITALS CHECKED PT O2 94% RA. AFTER RESTING A BIT PT STATES SHE IS FEELING BETTER WILL CONTINUE TO MONITOR.
[2021-04-26] MEDS ORDERED: RANEXA500 MG PO (19:39)
== END 2021-04-26 19:55 | disposition home or self-care (01) ==
LOC: ER 18:51 → MEDS 18:52
PROVIDERS: Emergency Medicine; Internal Medicine; ADMIT Internal Medicine
DX: R07.9 Chest pain, unspecified (principal); I11.0 Hypertensive heart disease with heart failure; I50.9 Heart failure, unspecified; I25.10 Atherosclerotic heart disease of native coronary artery without angina pectoris; I25.2 Old myocardial infarction; E78.5 Hyperlipidemia, unspecified; E11.9 Type 2 diabetes mellitus without complications; J44.9 Chronic obstructive pulmonary disease, unspecified; F17.210 Nicotine dependence, cigarettes, uncomplicated; E03.9 Hypothyroidism, unspecified; I48.20 Chronic atrial fibrillation, unspecified; E66.01 Morbid (severe) obesity due to excess calories; G47.33 Obstructive sleep apnea (adult) (pediatric); I49.5 Sick sinus syndrome; K21.9 Gastro-esophageal reflux disease without esophagitis; Z68.41 Body mass index [BMI] 40.0-44.9, adult; Z79.84 Long term (current) use of oral hypoglycemic drugs; Z95.5 Presence of coronary angioplasty implant and graft; Z95.0 Presence of cardiac pacemaker; Z79.01 Long term (current) use of anticoagulants; Z79.82 Long term (current) use of aspirin; Z88.0 Allergy status to penicillin; Z91.013 Allergy to seafood; Z88.7 Allergy status to serum and vaccine; Z88.8 Allergy status to other drugs, medicaments and biological substances; Z91.048 Other nonmedicinal substance allergy status; Z91.19 Patient's noncompliance with other medical treatment and regimen
CPT/HCPCS: 36415; 71045; 78452; 80053; 80061; 80069; 82550; 82947; 83036; 84484; 85025; 85027; 85610; 93005; 93010; 93017; 94760; 96374; 96375; 96376; 99285-25; A9270; A9500; G0378; J0706; J2270; J2405; J2785; J3010; J7030

== ENCOUNTER 2021-06-20 19:02 | Emergency (ER) | payer MEDICARE ==
[~2021-06-20] VITALS: Ht 167.6 cm; Wt 108.9 kg
[~2021-06-20 19:02] MED LIST changes: +EUTHYROX175 MCG PO; +LIDO700A20 TD; +LISINOPRIL2.5 MG PO; +METFORMIN HCL500 M3 PO; +Ondansetron Odt8 MG SL; +PERCOCET 10-321 EAC1 PO; +RANEXA500 MG PO; +WARF5 PO
[2021-06-20 19:35] LABS: BASOPHILS ABSOLUTE AUTO 0.06 K/mm3 (0.00-0.23); BASOPHILS PERCENT AUTO 1 % (0-2); EOSINOPHILS ABSOLUTE AUTO 0.51 K/mm3 (0.00-0.68); EOSINOPHILS PERCENT AUTO 5 % (0-6); Hematocrit 37.5 % (33.0-51.0); Hemoglobin 11.3 g/dL (11.5-16.0); IMMATURE GRAN ABSOLUTE AUTO 0.03 K/mm3 (0.00-0.10); IMMATURE GRAN PERCENT AUTO 0 % (0-1); LYMPHOCYTES ABSOLUTE AUTO 2.67 K/mm3 (0.84-5.20); LYMPHOCYTES PERCENT AUTO 28 % (21-46); MONOCYTES ABSOLUTE AUTO 0.77 K/mm3 (0.16-1.47); MONOCYTES PERCENT AUTO 8 % (4-13); Mean Corpuscular HGB 24.7 pg (26.0-34.0); Mean Corpuscular HGB Conc 30.1 g/dL (31.5-36.5); Mean Corpuscular Volume 82 fL (80-100); Mean Platelet Volume 10.7 fL (9.1-12.4); NEUTROPHILS ABSOLUTE AUTO 5.57 K/mm3 (1.96-9.15); NEUTROPHILS PERCENT AUTO 58 % (41-73); Platelet Count 362 K/mm3 (150-400); RDW Coefficient Variation 16.4 % (11.7-14.2); RDW Standard Deviation 48.9 fL (35.1-46.3); Red Blood Cell Count 4.57 M/mm3 (3.80-5.20); White Blood Cell Count 9.61 K/mm3 (4.00-11.30)
[2021-06-20 19:59] LABS: Alanine Aminotransfer (ALT/SGP 21 U/L (12-78); Albumin, Blood 3.2 g/dL (3.4-5.0); Albumin/Globulin Ratio 0.8 (0.8-1.8); Alk Phos 128 U/L (50-136); Anion Gap 3 mmol/L (6-16); Aspartate Aminotrans (AST/SGOT 13 U/L (12-37); Bilirubin, Total 0.3 mg/dL (0.1-1.0); Blood Urea Nitrogen 16 mg/dL (8-24); Bun/Creatinine Ratio 21.5 (12.0-20.0); CO2, Blood 28 mmol/L (21-32); Calcium, Blood 8.7 mg/dL (8.5-10.1); Chloride, Blood 106 mmol/L (98-108); Creatinine, Blood 0.74 mg/dL (0.40-1.00); Globulin, Blood 4.2 g/dL (2.2-4.0); Glomerular Filtration Rate >60 (60-); Glucose, Blood 109 mg/dL (70-99); Potassium, Blood 4.1 mmol/L (3.5-5.5); Sodium, Blood 137 mmol/L (136-145); Total Protein, Blood 7.4 g/dL (6.4-8.2); Troponin I 0.025 ng/mL (0.000-0.040)
[2021-06-20 22:06] LABS: International Normalized Ratio 2.55; Prothrombin Time Results 26.1 Sec (9.7-11.5)
== END 2021-06-21 00:53 | disposition home or self-care (01) ==
LOC: ER 19:02
PROVIDERS: Emergency Medicine Emergency Medical Services; Physician Assistant
DX: R07.89 Other chest pain (principal); K29.70 Gastritis, unspecified, without bleeding; E03.9 Hypothyroidism, unspecified; J44.9 Chronic obstructive pulmonary disease, unspecified; I48.91 Unspecified atrial fibrillation; I25.2 Old myocardial infarction; I11.0 Hypertensive heart disease with heart failure; I50.9 Heart failure, unspecified; E11.9 Type 2 diabetes mellitus without complications; E78.5 Hyperlipidemia, unspecified; F17.210 Nicotine dependence, cigarettes, uncomplicated; Z88.0 Allergy status to penicillin; Z91.048 Other nonmedicinal substance allergy status; Z91.013 Allergy to seafood; Z88.7 Allergy status to serum and vaccine; Z88.6 Allergy status to analgesic agent; Z88.8 Allergy status to other drugs, medicaments and biological substances; Z79.899 Other long term (current) drug therapy; Z79.01 Long term (current) use of anticoagulants; Z79.84 Long term (current) use of oral hypoglycemic drugs; Z79.82 Long term (current) use of aspirin
CPT/HCPCS: 36415; 71045; 80053; 83690; 84484; 85025; 85610; 85730; 93005; 93010; 99285-25; A9270; J7030

== ENCOUNTER 2021-07-13 10:40 | Emergency (ER) | payer MEDICARE ==
[~2021-07-13] VITALS: Ht 167.6 cm; Wt 108.9 kg
[2021-07-13 11:18] LABS: BASOPHILS ABSOLUTE AUTO 0.07 K/mm3 (0.00-0.23); BASOPHILS PERCENT AUTO 1 % (0-2); EOSINOPHILS ABSOLUTE AUTO 0.05 K/mm3 (0.00-0.68); EOSINOPHILS PERCENT AUTO 0 % (0-6); Hematocrit 37.2 % (33.0-51.0); Hemoglobin 11.7 g/dL (11.5-16.0); IMMATURE GRAN ABSOLUTE AUTO 0.21 K/mm3 (0.00-0.10); IMMATURE GRAN PERCENT AUTO 2 % (0-1); LYMPHOCYTES ABSOLUTE AUTO 2.03 K/mm3 (0.84-5.20); LYMPHOCYTES PERCENT AUTO 14 % (21-46); MONOCYTES ABSOLUTE AUTO 0.85 K/mm3 (0.16-1.47); MONOCYTES PERCENT AUTO 6 % (4-13); Mean Corpuscular HGB 24.7 pg (26.0-34.0); Mean Corpuscular HGB Conc 31.5 g/dL (31.5-36.5); Mean Corpuscular Volume 79 fL (80-100); Mean Platelet Volume 9.9 fL (9.1-12.4); NEUTROPHILS ABSOLUTE AUTO 11.18 K/mm3 (1.96-9.15); NEUTROPHILS PERCENT AUTO 78 % (41-73); Platelet Count 437 K/mm3 (150-400); RDW Coefficient Variation 17.4 % (11.7-14.2); RDW Standard Deviation 49.4 fL (35.1-46.3); Red Blood Cell Count 4.74 M/mm3 (3.80-5.20); White Blood Cell Count 14.39 K/mm3 (4.00-11.30)
[2021-07-13 11:34] LABS: Alanine Aminotransfer (ALT/SGP 17 U/L (12-78); Albumin, Blood 3.1 g/dL (3.4-5.0); Albumin/Globulin Ratio 0.6 (0.8-1.8); Alk Phos 137 U/L (50-136); Anion Gap 6 mmol/L (6-16); Aspartate Aminotrans (AST/SGOT 18 U/L (12-37); Bilirubin, Total 0.3 mg/dL (0.1-1.0); Blood Urea Nitrogen 16 mg/dL (8-24); Bun/Creatinine Ratio 24.5 (12.0-20.0); CO2, Blood 27 mmol/L (21-32); Calcium, Blood 9.1 mg/dL (8.5-10.1); Chloride, Blood 103 mmol/L (98-108); Creatinine, Blood 0.65 mg/dL (0.40-1.00); Globulin, Blood 4.8 g/dL (2.2-4.0); Glomerular Filtration Rate >60 (60-); Glucose, Blood 114 mg/dL (70-99); Potassium, Blood 3.8 mmol/L (3.5-5.5); Sodium, Blood 136 mmol/L (136-145); Total Protein, Blood 7.9 g/dL (6.4-8.2); Troponin I 0.039 ng/mL (0.000-0.040)
== END 2021-07-13 14:50 | disposition home or self-care (01) ==
LOC: ER 10:40
PROVIDERS: Emergency Medicine
DX: R07.89 Other chest pain (principal); E03.9 Hypothyroidism, unspecified; J44.9 Chronic obstructive pulmonary disease, unspecified; I48.91 Unspecified atrial fibrillation; I25.2 Old myocardial infarction; I11.0 Hypertensive heart disease with heart failure; I50.9 Heart failure, unspecified; E11.9 Type 2 diabetes mellitus without complications; E78.5 Hyperlipidemia, unspecified; F17.210 Nicotine dependence, cigarettes, uncomplicated; Z88.0 Allergy status to penicillin; Z91.048 Other nonmedicinal substance allergy status; Z91.013 Allergy to seafood; Z88.7 Allergy status to serum and vaccine; Z88.6 Allergy status to analgesic agent; Z88.8 Allergy status to other drugs, medicaments and biological substances; Z79.899 Other long term (current) drug therapy; Z79.01 Long term (current) use of anticoagulants; Z79.82 Long term (current) use of aspirin
CPT/HCPCS: 36415; 71045; 80053; 84484; 85025; 85379; 93005; 93010; 99285-25; A9270

== ENCOUNTER 2021-09-16 10:23 | Observation (INO) | payer MEDICARE ==
[~2021-09-16] VITALS: Ht 167.6 cm; Wt 121.0 kg
[~2021-09-16 10:23] MED LIST changes: +CYMBALTA30 M2 PO; +LIDO700A20 TOP
[2021-09-16 10:56] LABS: Source, Urine Clean Catch
[2021-09-16 11:01] LABS: Bilirubin, Urine Neg (Neg); Blood, Urine 1+ (Neg); Glucose Qualitative, Urine Neg (Neg); Ketones, Urine Neg (Neg); Leukocyte Esterase, Urine Neg (Neg); Nitrite, Urine Neg (Neg); Protein, Urine 1+ (Neg); Specific Gravity, Urine 1.025 (1.003-1.022); Urobilinogen, Urine NORM (Normal)
[2021-09-16 11:06] LABS: Appearance, Urine Clear (Clear); Color, Urine Yellow (P-Yellow)
[2021-09-16 11:07] LABS: Bacteria Rare /hpf; Red Blood Cells, Urine 0-2 /hpf (0-2); Squamous Epithelial Cells Few /hpf (Few); White Blood Cells, Urine 0-2 /hpf (0-5)
[2021-09-16 11:41] LABS: Base Excess Venous 3.7 mmol/L; Bicarbonate Venous 27.2 mmol/L (24.0-30.0); PCO2 Venous 46.1 mmHg (38-42); PO2 Venous 123 mmHg (38-42)
[2021-09-16 11:44] LABS: BASOPHILS ABSOLUTE AUTO 0.09 K/mm3 (0.00-0.23); BASOPHILS PERCENT AUTO 1 % (0-2); EOSINOPHILS ABSOLUTE AUTO 0.28 K/mm3 (0.00-0.68); EOSINOPHILS PERCENT AUTO 3 % (0-6); Hematocrit 40.2 % (33.0-51.0); Hemoglobin 12.2 g/dL (11.5-16.0); IMMATURE GRAN ABSOLUTE AUTO 0.12 K/mm3 (0.00-0.10); IMMATURE GRAN PERCENT AUTO 1 % (0-1); LYMPHOCYTES ABSOLUTE AUTO 2.26 K/mm3 (0.84-5.20); LYMPHOCYTES PERCENT AUTO 22 % (21-46); MONOCYTES ABSOLUTE AUTO 0.61 K/mm3 (0.16-1.47); MONOCYTES PERCENT AUTO 6 % (4-13); Mean Corpuscular HGB 25.5 pg (26.0-34.0); Mean Corpuscular HGB Conc 30.3 g/dL (31.5-36.5); Mean Corpuscular Volume 84 fL (80-100); Mean Platelet Volume 10.6 fL (9.1-12.4); NEUTROPHILS ABSOLUTE AUTO 7.05 K/mm3 (1.96-9.15); NEUTROPHILS PERCENT AUTO 68 % (41-73); Platelet Count 313 K/mm3 (150-400); RDW Coefficient Variation 22.4 % (11.7-14.2); RDW Standard Deviation 67.7 fL (35.1-46.3); Red Blood Cell Count 4.79 M/mm3 (3.80-5.20); White Blood Cell Count 10.41 K/mm3 (4.00-11.30)
[2021-09-16 12:23] LABS: International Normalized Ratio 1.08; Prothrombin Time Results 11.3 Sec (9.7-11.5)
[2021-09-16 12:29] LABS: Alanine Aminotransfer (ALT/SGP 18 U/L (12-78); Albumin/Globulin Ratio 0.8 (0.8-1.8); Alk Phos 130 U/L (50-136); Anion Gap 9 mmol/L (6-16); Aspartate Aminotrans (AST/SGOT 12 U/L (12-37); Bilirubin, Direct <0.1 mg/dL (0.0-0.3); Bilirubin, Indirect Unable to Calculate mg/dL (0.1-0.7); Bilirubin, Total 0.4 mg/dL (0.1-1.0); Blood Urea Nitrogen 14 mg/dL (8-24); Bun/Creatinine Ratio 19.8 (12.0-20.0); CO2, Blood 28 mmol/L (21-32); Calcium, Blood 8.4 mg/dL (8.5-10.1); Chloride, Blood 105 mmol/L (98-108); Creatinine, Blood 0.71 mg/dL (0.40-1.00); Globulin, Blood 3.6 g/dL (2.2-4.0); Glomerular Filtration Rate >60 (60-); Glucose, Blood 124 mg/dL (70-99); Magnesium, Blood 1.8 mg/dL (1.6-2.4); Potassium, Blood 3.7 mmol/L (3.5-5.5); Sodium, Blood 142 mmol/L (136-145); Total Protein, Blood 6.6 g/dL (6.4-8.2); Troponin I 0.156 ng/mL (0.000-0.040)
[2021-09-16] MEDS ORDERED: DIAZ5 PO (13:28)
[2021-09-16 13:33] LABS: Influenza A, PCR NEGATIVE (NEGATIVE); Influenza B, PCR NEGATIVE (NEGATIVE); Resp Syncytial Virus, PCR NEGATIVE (NEGATIVE); SARS-Cov-2 (COVID-19) PCR, MMC NEGATIVE (NEGATIVE)
--- NOTE | 2021-09-16 21:35 | NUR ---
CARDIOLOGY CONSULT NOTIFICATION I DID CALL THE CANE FLUME FEEDING MACHINE OPERATOR ANSWERING SERVICE TO CONFIRM THIS CONSULT AND TO INFORM RE: THIS PT'S ROOM NUMBER. 2136 HRS @ 09/16/2021
--- NOTE | 2021-09-17 04:28 | NUR ---
SHIFT SUMMARY ADMITTED FOR CHEST PAIN/NSTEMI. FULL CODE. PLAN IS FOR A CARDIOLOGY CONSULT. HEPARIN DRIP IS INFUSING ORDERED. NITRO PASTE IN PLACE. TROPONINS ARE DOWNTRENDING. TELEMETRY: NSR @ 87 BPM W/PAC'S. SHE DOES HAVE A PACEMAKER. SHE HAS A URINARY MEDITRONIC DEVICE IN PLACE. CONTACT PRECAUTIONS FOR BEDBUGS. SHE HAD ONE EPISODE WHERE SHE BECAME CONFUSED AND WANDERED, UNSURE OF WHERE SHE WAS. I AM INFORMED SHE HAS DONE THESE BEHAVIORS IN THE PAST. HX: [place] IN 2016
[2021-09-17 04:45] LABS: Hematocrit 37.9 % (33.0-51.0); Hemoglobin 11.5 g/dL (11.5-16.0); Mean Corpuscular HGB 25.8 pg (26.0-34.0); Mean Corpuscular HGB Conc 30.3 g/dL (31.5-36.5); Mean Corpuscular Volume 85 fL (80-100); Mean Platelet Volume 10.7 fL (9.1-12.4); Platelet Count 245 K/mm3 (150-400); RDW Coefficient Variation 22.5 % (11.7-14.2); RDW Standard Deviation 69.3 fL (35.1-46.3); Red Blood Cell Count 4.46 M/mm3 (3.80-5.20); White Blood Cell Count 15.28 K/mm3 (4.00-11.30)
[2021-09-17 04:58] LABS: Anti-Xa UFH, PHA Monitoring 0.31 IU/mL; International Normalized Ratio 1.26
[2021-09-17 05:26] LABS: BAND PERCENT MAN 2 % (0-8); BASOPHILS PERCENT MAN 0 % (0-2); EOSINOPHILS PERCENT MAN 0 % (0-6); LYMPHOCYTES ABSOLUTE MAN 1.06 K/mm3 (0.84-5.20); LYMPHOCYTES PERCENT MAN 7 % (21-46); METAMYELOCYTE ABSOLUTE MAN 0.15 K/mm3 (0.00-0.00); METAMYELOCYTE PERCENT MAN 1 % (0-0); MONOCYTES PERCENT MAN 2 % (4-13); MYELOCYTE PERCENT MAN 2 % (0-0); NEUTROPHILS ABSOLUTE MAN 13.44 K/mm3 (1.96-9.15); SEG NEUTROPHILS PERCENT MAN 86 % (41-73); TOTAL CELLS COUNTED 100
[2021-09-17 05:47] LABS: Magnesium, Blood 1.8 mg/dL (1.6-2.4)
[2021-09-17 05:48] LABS: Alanine Aminotransfer (ALT/SGP 16 U/L (12-78); Albumin, Blood 2.8 g/dL (3.4-5.0); Albumin/Globulin Ratio 0.8 (0.8-1.8); Alk Phos 123 U/L (50-136); Anion Gap 8 mmol/L (6-16); Aspartate Aminotrans (AST/SGOT 13 U/L (12-37); Bilirubin, Total 0.2 mg/dL (0.1-1.0); Blood Urea Nitrogen 11 mg/dL (8-24); Bun/Creatinine Ratio 17.9 (12.0-20.0); CO2, Blood 26 mmol/L (21-32); Calcium, Blood 8.8 mg/dL (8.5-10.1); Chloride, Blood 106 mmol/L (98-108); Creatinine, Blood 0.62 mg/dL (0.40-1.00); Globulin, Blood 3.6 g/dL (2.2-4.0); Glomerular Filtration Rate >60 (60-); Glucose, Blood 154 mg/dL (70-99); Potassium, Blood 3.9 mmol/L (3.5-5.5); Sodium, Blood 140 mmol/L (136-145); Total Protein, Blood 6.4 g/dL (6.4-8.2)
--- NOTE | 2021-09-17 19:47 | NUR ---
TRANSFER NOTE RECEIVED TELE PHONE REPORTS FROM NEETU VILLAFUERTE ON MEDICAL AND BEDSIDE REPORT FROM NEETU WITT FROM BLANKER OPERATOR. PT TO ROOM WITH RIGHT RADIAL SITE; TR BAND IN PLACE NOT BRUISING, BLEEDING OR HEMATOMA NOTED; PT DENIES PAIN AND NUMBNESS/TINGLING NOTED; HAND PINK WITH CAP REFILL WNL. TR BAND RECOVERED PER ORDERS AND DRAINED AT 1820. PT A&Ox3-4; ANXIOUS AT TIMES. PT REPORTS CHRONIC BACK PAIN, MEDICATED x1 PER ORDERS. AT APPROX 1820 PT REPORTS FEELING DIZZINESS AND GENERALZIED WEAKNESS AFTER STANDING AND WAS UNABLE TO GET BACK INTO BED IN HER OWN; ONCE BACK IN BED PT REPORTS HEADACHE; NOTIFIED DR STOUT; NEW ORDERS FOR HEAD CT WITH OUT CONSTRAST; UPDATED DR BARRAGAN, ORDERS TO HOLD DISCHARGE. IMAGING CALLED, STATES THEY WOULD RECOMMEND WAITING 8 HOURS FROM HER LAST INJECTION OF CONTRAST BEFORE COMPELTING THE HEAD CT; NOTIFED NIGHT HOSPITALIST OK TO HOLD CT UNTIL THIS AM. VSS. NO OTHER ACUTE CHANGES NOTED. REPORT GIVEN TO ONCOMING RN.
--- NOTE | 2021-09-17 23:58 | NUR ---
ASSUMED CARE OF PT AT 1900. A/OX4. NEURO SHOWED SLIGHT WEAKNESS IN R HAND BARREL CUTTER, SAME SIDE ANGIO SITE. OTHER NEURO'S WNL. MAINTAINS OVER 95% ON RA, AND USES 2L NC WHILE ASLEEP. LS WHEEZE ON TOP AND DIM AT BASES BL. SR ON MONITOR WITH 1ST DEGREE AVG 70'S. +2 RADIAL PULSES, AND +1 PEDAL/TIBIALS. DENIES ANY CP OR SOB. ATRIAL PACEMAKER. +1 PITTING EDEMA BLE. NONPRODUCTIVE COUGH. R RADIAL SITE C/D/I AND COVERED WITH TEGADERM. WILL UPDATE IF CHANGES OCCUR.
--- NOTE | 2021-09-18 12:09 | NUR ---
DISCHARGE PT PROVIDED DC INSTRUCTIONS. PT UPDATED ON ALL CHANGES. ALL QUESTIONS ANSWERED. PT TAKEN OUT BY AURELIANO
--- NOTE | 2021-09-18 13:25 | NUR ---
SHIFT SUMMARY PT A&Ox4; ANXIOUS BUT COOPERATIVE WITH CARE. PT RESTING IN BED UP IN ROOM IND. PT REPORTS HEADACHE AND CHRONIC BACK PAIN, THIS AM, STATES GETTING BETTER AFTER PAIN MEDICATION. PT DENIES CHEST PAIN, NAUSEA AND DIZZINESS DURING SHIFT. HEAD CT COMPLETED, DR BARRAGAN OK TO GO HOME WITH DISCHARGE FROM 09/17/21; NOTIFIED DR STOUT, OK TO GO HOME WITH FOLLOW UP IN 1-2 WEEKS. PT REFUSED 1130 CBG AND 1200 VS. VSS. NO OTHER ACUTE CHANGES NOTED. 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
== END 2021-09-18 12:14 | disposition home or self-care (01) ==
LOC: ER 10:23 → ERHOLD 10:24 → PCU 10:24 → MEDS 10:24 → PCU 09-17 14:57
PROVIDERS: Internal Medicine Cardiovascular Disease; Nurse Practitioner Acute Care; Student in an Organized Health Care Education/Training Program; ADMIT Hospitalist
PROC: 4A023N7 Measurement of Cardiac Sampling and Pressure, Left Heart, Percutaneous Approach (ICD-10-PCS; principal; 2021-09-17)
PROC: B2111ZZ Fluoroscopy of Multiple Coronary Arteries using Low Osmolar Contrast (ICD-10-PCS; principal; 2021-09-17)
DX: R07.89 Other chest pain (principal); R74.8 Abnormal levels of other serum enzymes; R35.0 Frequency of micturition; R39.15 Urgency of urination; I25.10 Atherosclerotic heart disease of native coronary artery without angina pectoris; I48.0 Paroxysmal atrial fibrillation; Z95.5 Presence of coronary angioplasty implant and graft; I10 Essential (primary) hypertension; E11.9 Type 2 diabetes mellitus without complications; Z95.0 Presence of cardiac pacemaker; E78.5 Hyperlipidemia, unspecified; K21.9 Gastro-esophageal reflux disease without esophagitis; Z79.899 Other long term (current) drug therapy; G47.30 Sleep apnea, unspecified; E89.0 Postprocedural hypothyroidism; E66.01 Morbid (severe) obesity due to excess calories; J44.9 Chronic obstructive pulmonary disease, unspecified; F17.210 Nicotine dependence, cigarettes, uncomplicated; Z88.0 Allergy status to penicillin; Z88.8 Allergy status to other drugs, medicaments and biological substances; Z91.013 Allergy to seafood; Z79.82 Long term (current) use of aspirin; Z79.84 Long term (current) use of oral hypoglycemic drugs; Z20.822 Contact with and (suspected) exposure to COVID-19
CPT/HCPCS: 0241U; 36415; 70450; 71045; 71275; 74177; 76937; 80048; 80053; 80076; 81001; 82803; 82947; 83690; 83735; 83880; 84145; 84484; 85025; 85347; 85520; 85610; 93005; 93010; 93458; 94640; 94760; 94762; 96365; 96366; 96375; 96376; 99152; 99285-25; A9270; C1769; C1894; G0378; J1200; J1644; J1720; J2250; J2370; J2405; J3010; J7030; J7050; J7512; Q9967

== ENCOUNTER 2021-10-26 10:48 | Emergency (ER) | payer MEDICARE ==
[~2021-10-26] VITALS: Ht 167.6 cm; Wt 113.4 kg
[2021-10-26 12:03] LABS: BASOPHILS ABSOLUTE AUTO 0.08 K/mm3 (0.00-0.23); BASOPHILS PERCENT AUTO 1 % (0-2); EOSINOPHILS ABSOLUTE AUTO 0.35 K/mm3 (0.00-0.68); EOSINOPHILS PERCENT AUTO 3 % (0-6); Hematocrit 42.5 % (33.0-51.0); Hemoglobin 13.4 g/dL (11.5-16.0); IMMATURE GRAN ABSOLUTE AUTO 0.04 K/mm3 (0.00-0.10); IMMATURE GRAN PERCENT AUTO 0 % (0-1); LYMPHOCYTES ABSOLUTE AUTO 1.69 K/mm3 (0.84-5.20); LYMPHOCYTES PERCENT AUTO 17 % (21-46); MONOCYTES ABSOLUTE AUTO 0.63 K/mm3 (0.16-1.47); MONOCYTES PERCENT AUTO 6 % (4-13); Mean Corpuscular HGB Conc 31.5 g/dL (31.5-36.5); Mean Corpuscular Volume 86 fL (80-100); NEUTROPHILS ABSOLUTE AUTO 7.38 K/mm3 (1.96-9.15); NEUTROPHILS PERCENT AUTO 73 % (41-73); Platelet Count 309 K/mm3 (150-400); RDW Coefficient Variation 18.5 % (11.7-14.2); RDW Standard Deviation 58.2 fL (35.1-46.3); Red Blood Cell Count 4.96 M/mm3 (3.80-5.20); White Blood Cell Count 10.17 K/mm3 (4.00-11.30)
[2021-10-26 12:39] LABS: Alanine Aminotransfer (ALT/SGP 19 U/L (12-78); Albumin, Blood 3.3 g/dL (3.4-5.0); Albumin/Globulin Ratio 0.8 (0.8-1.8); Alk Phos 133 U/L (50-136); Anion Gap 6 mmol/L (6-16); Aspartate Aminotrans (AST/SGOT 19 U/L (12-37); Bilirubin, Total 0.2 mg/dL (0.1-1.0); Blood Urea Nitrogen 13 mg/dL (8-24); CO2, Blood 29 mmol/L (21-32); Calcium, Blood 8.8 mg/dL (8.5-10.1); Chloride, Blood 102 mmol/L (98-108); Creatinine, Blood 0.62 mg/dL (0.40-1.00); Globulin, Blood 3.9 g/dL (2.2-4.0); Glomerular Filtration Rate >60 (60-); Glucose, Blood 108 mg/dL (70-99); Potassium, Blood 4.5 mmol/L (3.5-5.5); Sodium, Blood 137 mmol/L (136-145); Total Protein, Blood 7.2 g/dL (6.4-8.2); Troponin I <0.015 ng/mL (0.000-0.040)
== END 2021-10-26 13:59 | disposition home or self-care (01) ==
LOC: ER 10:48
PROVIDERS: Emergency Medicine
DX: R55 Syncope and collapse (principal); E03.9 Hypothyroidism, unspecified; J44.9 Chronic obstructive pulmonary disease, unspecified; I25.2 Old myocardial infarction; I48.91 Unspecified atrial fibrillation; I11.0 Hypertensive heart disease with heart failure; I50.9 Heart failure, unspecified; E11.9 Type 2 diabetes mellitus without complications; Z79.899 Other long term (current) drug therapy; Z88.0 Allergy status to penicillin
CPT/HCPCS: 80053; 84484; 85025; 93005; 93010; 99284-25

== ENCOUNTER 2022-01-02 12:11 | Emergency (ER) | payer MEDICARE ==
[~2022-01-02] VITALS: Ht 167.6 cm; Wt 109.8 kg
[~2022-01-02 12:11] MED LIST changes: +COLCHICINE0.6 MG PO; +LIDO5TO TOP; +PRED5 PO
[2022-01-02 13:16] LABS: Alanine Aminotransfer (ALT/SGP 20 U/L (12-78); Albumin, Blood 3.2 g/dL (3.4-5.0); Albumin/Globulin Ratio 0.8 (0.8-1.8); Alk Phos 141 U/L (50-136); Anion Gap 6 mmol/L (6-16); Aspartate Aminotrans (AST/SGOT 25 U/L (12-37); Bilirubin, Total 0.3 mg/dL (0.1-1.0); Blood Urea Nitrogen 14 mg/dL (8-24); Bun/Creatinine Ratio 20.3 (12.0-20.0); CO2, Blood 27 mmol/L (21-32); Chloride, Blood 104 mmol/L (98-108); Creatinine, Blood 0.69 mg/dL (0.40-1.00); Globulin, Blood 3.8 g/dL (2.2-4.0); Glomerular Filtration Rate >60 (60-); Glucose, Blood 101 mg/dL (70-99); Potassium, Blood 4.2 mmol/L (3.5-5.5); Sodium, Blood 137 mmol/L (136-145)
[2022-01-02 13:34] LABS: BASOPHILS ABSOLUTE AUTO 0.07 K/mm3 (0.00-0.23); BASOPHILS PERCENT AUTO 1 % (0-2); EOSINOPHILS ABSOLUTE AUTO 0.26 K/mm3 (0.00-0.68); EOSINOPHILS PERCENT AUTO 2 % (0-6); Hematocrit 42.6 % (33.0-51.0); Hemoglobin 14.1 g/dL (11.5-16.0); IMMATURE GRAN ABSOLUTE AUTO 0.11 K/mm3 (0.00-0.10); IMMATURE GRAN PERCENT AUTO 1 % (0-1); LYMPHOCYTES ABSOLUTE AUTO 2.12 K/mm3 (0.84-5.20); LYMPHOCYTES PERCENT AUTO 17 % (21-46); MONOCYTES ABSOLUTE AUTO 0.85 K/mm3 (0.16-1.47); MONOCYTES PERCENT AUTO 7 % (4-13); Mean Corpuscular HGB 29.1 pg (26.0-34.0); Mean Corpuscular HGB Conc 33.1 g/dL (31.5-36.5); Mean Corpuscular Volume 88 fL (80-100); Mean Platelet Volume 11.5 fL (9.1-12.4); NEUTROPHILS ABSOLUTE AUTO 9.45 K/mm3 (1.96-9.15); NEUTROPHILS PERCENT AUTO 74 % (41-73); RDW Coefficient Variation 15.6 % (11.7-14.2); RDW Standard Deviation 49.7 fL (35.1-46.3); Red Blood Cell Count 4.85 M/mm3 (3.80-5.20); White Blood Cell Count 12.86 K/mm3 (4.00-11.30)
[2022-01-02 14:12] LABS: Platelet Count 271 K/mm3 (150-400)
[2022-01-02] MEDS ORDERED: ONDA4ODT MM (16:51)
== END 2022-01-02 17:14 | disposition home or self-care (01) ==
LOC: ER 12:11
PROVIDERS: Emergency Medicine
DX: R07.9 Chest pain, unspecified (principal); R77.8 Other specified abnormalities of plasma proteins; I11.0 Hypertensive heart disease with heart failure; I50.9 Heart failure, unspecified; D72.829 Elevated white blood cell count, unspecified; R11.0 Nausea; J44.9 Chronic obstructive pulmonary disease, unspecified; I25.10 Atherosclerotic heart disease of native coronary artery without angina pectoris; E03.9 Hypothyroidism, unspecified; I48.91 Unspecified atrial fibrillation; I25.2 Old myocardial infarction; E11.9 Type 2 diabetes mellitus without complications; E78.00 Pure hypercholesterolemia, unspecified; F17.210 Nicotine dependence, cigarettes, uncomplicated
CPT/HCPCS: 71045; 80053; 84484; 85025; 93005; 93010; 96374; 96376; 99285-25; J2405

== ENCOUNTER 2022-01-11 19:21 | Emergency (ER) | payer MEDICARE ==
[~2022-01-11] VITALS: Ht 167.6 cm; Wt 108.9 kg
[2022-01-11 20:01] LABS: BASOPHILS ABSOLUTE AUTO 0.09 K/mm3 (0.00-0.23); BASOPHILS PERCENT AUTO 1 % (0-2); EOSINOPHILS ABSOLUTE AUTO 0.19 K/mm3 (0.00-0.68); EOSINOPHILS PERCENT AUTO 1 % (0-6); Hematocrit 42.8 % (33.0-51.0); Hemoglobin 13.8 g/dL (11.5-16.0); IMMATURE GRAN PERCENT AUTO 1 % (0-1); LYMPHOCYTES ABSOLUTE AUTO 2.45 K/mm3 (0.84-5.20); LYMPHOCYTES PERCENT AUTO 18 % (21-46); MONOCYTES ABSOLUTE AUTO 0.86 K/mm3 (0.16-1.47); MONOCYTES PERCENT AUTO 6 % (4-13); Mean Corpuscular HGB 28.3 pg (26.0-34.0); Mean Corpuscular HGB Conc 32.2 g/dL (31.5-36.5); Mean Corpuscular Volume 88 fL (80-100); Mean Platelet Volume 10.5 fL (9.1-12.4); NEUTROPHILS ABSOLUTE AUTO 10.11 K/mm3 (1.96-9.15); NEUTROPHILS PERCENT AUTO 73 % (41-73); Platelet Count 331 K/mm3 (150-400); RDW Coefficient Variation 15.8 % (11.7-14.2); RDW Standard Deviation 51.2 fL (35.1-46.3); Red Blood Cell Count 4.88 M/mm3 (3.80-5.20)
[2022-01-11 20:17] LABS: Alanine Aminotransfer (ALT/SGP 25 U/L (12-78); Albumin, Blood 3.5 g/dL (3.4-5.0); Albumin/Globulin Ratio 0.8 (0.8-1.8); Alk Phos 146 U/L (50-136); Anion Gap 7 mmol/L (6-16); Aspartate Aminotrans (AST/SGOT 11 U/L (12-37); Bilirubin, Total 0.3 mg/dL (0.1-1.0); Blood Urea Nitrogen 16 mg/dL (8-24); Bun/Creatinine Ratio 20.1 (12.0-20.0); CO2, Blood 28 mmol/L (21-32); Calcium, Blood 9.2 mg/dL (8.5-10.1); Chloride, Blood 102 mmol/L (98-108); Globulin, Blood 4.5 g/dL (2.2-4.0); Glomerular Filtration Rate >60 (60-); Glucose, Blood 102 mg/dL (70-99); Potassium, Blood 3.8 mmol/L (3.5-5.5); Sodium, Blood 137 mmol/L (136-145)
[2022-02-17] MEDS ORDERED: Tessalon200 MG PO (13:14)
[2022-02-17] MEDS ORDERED: DOXY100 PO (13:14)
[2022-06-06] MEDS ORDERED: LEVOTHYROXINE PO (15:38)
[2022-06-06] MEDS ORDERED: DOXY100 PO (17:27)
[2022-06-06] MEDS ORDERED: ALBU90OI INH (17:27)
[2022-06-06] MEDS ORDERED: PRED20 PO (17:27)
[2022-06-12] MEDS ORDERED: PEPCID40 MG PO (19:55)
== END 2022-01-11 23:04 | disposition left against medical advice (07) ==
LOC: ER 19:21
PROVIDERS: Emergency Medicine
DX: Z53.21 Procedure and treatment not carried out due to patient leaving prior to being seen by health care provider (principal)
CPT/HCPCS: 71046; 80053; 83690; 83880; 84484; 85025; 93005; 93010

== ENCOUNTER 2022-01-13 02:25 | Emergency (ER) | payer MEDICARE ==
[~2022-01-13] VITALS: Ht 167.6 cm; Wt 111.1 kg
[2022-01-13 03:27] LABS: BASOPHILS ABSOLUTE AUTO 0.09 K/mm3 (0.00-0.23); BASOPHILS PERCENT AUTO 1 % (0-2); EOSINOPHILS ABSOLUTE AUTO 0.27 K/mm3 (0.00-0.68); EOSINOPHILS PERCENT AUTO 2 % (0-6); Hematocrit 39.3 % (33.0-51.0); Hemoglobin 12.3 g/dL (11.5-16.0); IMMATURE GRAN ABSOLUTE AUTO 0.15 K/mm3 (0.00-0.10); IMMATURE GRAN PERCENT AUTO 1 % (0-1); LYMPHOCYTES ABSOLUTE AUTO 2.21 K/mm3 (0.84-5.20); LYMPHOCYTES PERCENT AUTO 18 % (21-46); MONOCYTES ABSOLUTE AUTO 0.81 K/mm3 (0.16-1.47); MONOCYTES PERCENT AUTO 7 % (4-13); Mean Corpuscular HGB 28.5 pg (26.0-34.0); Mean Corpuscular HGB Conc 31.3 g/dL (31.5-36.5); Mean Corpuscular Volume 91 fL (80-100); Mean Platelet Volume 10.2 fL (9.1-12.4); NEUTROPHILS ABSOLUTE AUTO 8.81 K/mm3 (1.96-9.15); NEUTROPHILS PERCENT AUTO 71 % (41-73); Platelet Count 284 K/mm3 (150-400); RDW Coefficient Variation 15.9 % (11.7-14.2); RDW Standard Deviation 52.9 fL (35.1-46.3); Red Blood Cell Count 4.32 M/mm3 (3.80-5.20); White Blood Cell Count 12.34 K/mm3 (4.00-11.30)
[2022-01-13 03:56] LABS: Alanine Aminotransfer (ALT/SGP 20 U/L (12-78); Albumin, Blood 2.8 g/dL (3.4-5.0); Albumin/Globulin Ratio 0.7 (0.8-1.8); Alk Phos 135 U/L (50-136); Anion Gap 7 mmol/L (6-16); Aspartate Aminotrans (AST/SGOT 14 U/L (12-37); Bilirubin, Total 0.2 mg/dL (0.1-1.0); Blood Urea Nitrogen 18 mg/dL (8-24); CO2, Blood 27 mmol/L (21-32); Calcium, Blood 8.4 mg/dL (8.5-10.1); Chloride, Blood 104 mmol/L (98-108); Creatinine, Blood 0.72 mg/dL (0.40-1.00); Glomerular Filtration Rate >60 (60-); Glucose, Blood 112 mg/dL (70-99); Sodium, Blood 138 mmol/L (136-145); Total Protein, Blood 6.8 g/dL (6.4-8.2)
[2022-01-13 04:04] LABS: International Normalized Ratio 0.93; Prothrombin Time Results 9.8 Sec (9.7-11.5)
[2022-02-17] MEDS ORDERED: Tessalon200 MG PO (13:14)
[2022-02-17] MEDS ORDERED: DOXY100 PO (13:14)
[2022-06-06] MEDS ORDERED: LEVOTHYROXINE PO (15:38)
[2022-06-06] MEDS ORDERED: PRED20 PO (17:27)
[2022-06-06] MEDS ORDERED: ALBU90OI INH (17:27)
[2022-06-06] MEDS ORDERED: DOXY100 PO (17:27)
[2022-06-12] MEDS ORDERED: PEPCID40 MG PO (19:55)
== END 2022-01-13 07:43 | disposition home or self-care (01) ==
LOC: ER 02:25
PROVIDERS: Emergency Medicine
DX: M25.511 Pain in right shoulder (principal); M25.512 Pain in left shoulder; I25.10 Atherosclerotic heart disease of native coronary artery without angina pectoris; E03.9 Hypothyroidism, unspecified; J44.9 Chronic obstructive pulmonary disease, unspecified; I48.91 Unspecified atrial fibrillation; I11.0 Hypertensive heart disease with heart failure; I50.9 Heart failure, unspecified; E11.9 Type 2 diabetes mellitus without complications; E78.00 Pure hypercholesterolemia, unspecified; Z88.0 Allergy status to penicillin; Z91.048 Other nonmedicinal substance allergy status; Z91.013 Allergy to seafood; Z88.7 Allergy status to serum and vaccine; Z88.6 Allergy status to analgesic agent; Z88.8 Allergy status to other drugs, medicaments and biological substances; Z79.01 Long term (current) use of anticoagulants; Z79.82 Long term (current) use of aspirin; Z79.899 Other long term (current) drug therapy
CPT/HCPCS: 71045; 71260; 80053; 83690; 84484; 85025; 85379; 85610; 93005; 93010; 96374; 96375; 99284-25; A9270; J1170; J2405; J3010; Q9967

== ENCOUNTER 2022-01-29 10:01 | Inpatient (IN) | payer MEDICARE ==
[~2022-01-29] VITALS: Ht 167.6 cm; Wt 111.8 kg
[2022-01-29 10:36] LABS: Hematocrit 40.7 % (33.0-51.0); Hemoglobin 13.1 g/dL (11.5-16.0); Mean Corpuscular HGB 28.3 pg (26.0-34.0); Mean Corpuscular HGB Conc 32.2 g/dL (31.5-36.5); Mean Corpuscular Volume 88 fL (80-100); Mean Platelet Volume 9.7 fL (9.1-12.4); Platelet Count 405 K/mm3 (150-400); RDW Coefficient Variation 15.8 % (11.7-14.2); RDW Standard Deviation 50.7 fL (35.1-46.3); Red Blood Cell Count 4.63 M/mm3 (3.80-5.20); White Blood Cell Count 17.44 K/mm3 (4.00-11.30)
[2022-01-29 10:50] LABS: International Normalized Ratio 0.99; Prothrombin Time Results 10.4 Sec (9.7-11.5)
[2022-01-29 11:17] LABS: Anion Gap 7 mmol/L (6-16); Blood Urea Nitrogen 9 mg/dL (8-24); Bun/Creatinine Ratio 14.8 (12.0-20.0); CHOL/HDL RATIO 3.4; CO2, Blood 29 mmol/L (21-32); CPK Creatine Kinase 49 U/L (26-193); Chloride, Blood 102 mmol/L (98-108); Cholesterol 162 mg/dL (50-200); Creatinine, Blood 0.61 mg/dL (0.40-1.00); Glomerular Filtration Rate >60 (60-); Glucose, Blood 107 mg/dL (70-99); HDL Cholesterol 48 mg/dL (>39); LDL/HDL RATIO 1.8; Low Density Lipoprotein Chol 86 mg/dL (0-110); Magnesium, Blood 1.9 mg/dL (1.6-2.4); Potassium, Blood 3.6 mmol/L (3.5-5.5); Sodium, Blood 138 mmol/L (136-145); Triglycerides 142 mg/dL (30-160); Very Low Density Lipoprot Chol 28 mg/dL (6-32)
[2022-01-29 11:31] LABS: Creatine Kinase MB <1.0 ng/mL (0.0-3.6); Creatine Kinase MB Index Unable to Calculate (0.0-4.0)
[2022-01-29 11:57] LABS: Influenza A, PCR NEGATIVE (NEGATIVE); Influenza B, PCR NEGATIVE (NEGATIVE); Resp Syncytial Virus, PCR NEGATIVE (NEGATIVE); SARS-Cov-2 (COVID-19) PCR, MMC NEGATIVE (NEGATIVE)
--- NOTE | 2022-01-29 16:59 | NUR ---
PT ARRIVED IN THE UNIT FROM [facility] VIA STRETCHER, REPORT RECEIVED FROM KIM DE ANDA, PT WAS ABLE TO STAND TRANSFER SBA TO PCU BED WITH NO ISSUES, PT ALERT AND ORIENTED X4 AT BASELINE. PT STARTED ON HEPARIN GTT AT 15U/KG/HR PHARMACY TO MANAGE, CARDIOLOGY CONSULTED, TROPONIN TRENDS, DENIES ANY CHEST PAIN SINCE TRANSFER. VITALS HRR SR 70'S, BP SYSTLIC 120'S SATS ABOVE 95% ON RA, AFEBRILE. PT HAS OCCASIONAL DRY NON PRODUCTIVE COUGH SMALL AMOUNT OF MUCUS. ON CLEAR LIQUID DIET TOLERATING WELL. PT REPORTED HAS NOT VOIDED SINCE TRANSFER BLADDER SCAN SHOWS 116MLR URINE RETAINED, PT HAS HX OF OVERACTIVE BLADDER. LR RUNNING AT 75MLS PER HR. PT C/O BACK PAIN TYLENOL AND PERCOCET AWAITING TO TAKE EFFECT, REFUSED HEATING PACK. PT ABLE TO REPOSITION SELF FOR COMFORT. ABLE TO MAKE NEEDS KNOWN CALL LIGHTS IN REACH WILL REPORT TO ONCOMING SHIFT
--- NOTE | 2022-01-30 04:15 | NUR ---
Pt with CP at 0405, nitro x3 with good outcome, pt almost fully relieved, vss
[2022-01-30 04:38] LABS: BASOPHILS ABSOLUTE AUTO 0.17 K/mm3 (0.00-0.23); BASOPHILS PERCENT AUTO 1 % (0-2); EOSINOPHILS ABSOLUTE AUTO 0.52 K/mm3 (0.00-0.68); EOSINOPHILS PERCENT AUTO 3 % (0-6); Hematocrit 36.9 % (33.0-51.0); Hemoglobin 11.6 g/dL (11.5-16.0); IMMATURE GRAN ABSOLUTE AUTO 0.21 K/mm3 (0.00-0.10); IMMATURE GRAN PERCENT AUTO 1 % (0-1); LYMPHOCYTES ABSOLUTE AUTO 2.75 K/mm3 (0.84-5.20); LYMPHOCYTES PERCENT AUTO 18 % (21-46); MONOCYTES PERCENT AUTO 6 % (4-13); Mean Corpuscular HGB Conc 31.4 g/dL (31.5-36.5); Mean Corpuscular Volume 89 fL (80-100); Mean Platelet Volume 9.6 fL (9.1-12.4); NEUTROPHILS ABSOLUTE AUTO 10.87 K/mm3 (1.96-9.15); NEUTROPHILS PERCENT AUTO 70 % (41-73); Platelet Count 353 K/mm3 (150-400); RDW Coefficient Variation 15.6 % (11.7-14.2); RDW Standard Deviation 50.8 fL (35.1-46.3); Red Blood Cell Count 4.15 M/mm3 (3.80-5.20); White Blood Cell Count 15.52 K/mm3 (4.00-11.30)
[2022-01-30 05:06] LABS: Anion Gap 5 mmol/L (6-16); Blood Urea Nitrogen 9 mg/dL (8-24); Bun/Creatinine Ratio 14.4 (12.0-20.0); CO2, Blood 29 mmol/L (21-32); Calcium, Blood 8.6 mg/dL (8.5-10.1); Chloride, Blood 101 mmol/L (98-108); Creatinine, Blood 0.63 mg/dL (0.40-1.00); Glomerular Filtration Rate >60 (60-); Glucose, Blood 105 mg/dL (70-99); Potassium, Blood 3.9 mmol/L (3.5-5.5); Sodium, Blood 135 mmol/L (136-145)
--- NOTE | 2022-01-30 10:06 | NUR ---
CARE ASSUMPTION PATIENT IS ALERT AND ORIENTED X4. PERRLA. TELE SR DAUL CHAMBER PACED 80S. PATIENT REPORTS NO CHEST PAIN WHEN ARRIVING ON SHIFT, AT 0700. PATIENT REPORTED CHEST PAIN RATED AT 3 ON A SCALE FROM 0-10 WITH 10 BEING THE WORST. THIS RN OFFERED NITRO, BUT THE PATIENT REFUSED STATING IT COMES AND GOES AND IS STARTING TO IMPROVE. STRONG RADIAL PULSES BILATERALLY. CAP REFILL <3SECONDS. PATIENT LUNG SOUNDS CLEAR/DIM, ON RA WITH SHORTNESS OF BREATH WITH EXERTION. PATIENT HAS A PRODUCTIVE COUGH, WITH CLEAR THICK SECRETIONS, SAMLL AMOUNT. PATIENT ABD IS SOFT NONTENDER AND ACTIVE. PATIENT SKIN IS CLEAN DRY AND INTACT. PATIENT IS A STAND BY ASSIST WHEN WALKING TO THE BATHROOM DUE TO THE LINIES CONNECTED BUT CAN PERFORM ADLS INDEPDENTLY. HEP INFUSING AT 17U/KG/HR. MILES BY TO SEE PATIENT THIS AM. AWAITING FOR LINE INSTALLER TROLLEY TO STOP BY TO DECIDE IF PATIENT WILL HAVE AN ANGIO OR NOT. PATIENT REMAINS NPO. CALL LIGHT IS WITHIN REACH AND BED IN LOWEST POSITION. WILL CONTINUE TO MONITOR AND PROVIDE CARE.
--- NOTE | 2022-01-30 12:06 | NUR ---
TRANSFER OF CARE TO LIAM DE ANDA AND KRYSTINA VELASCO RN GAVE REPORT TO LIAM DE ANDA. PATIENT NEURO REMAINS INTACT AND NO ACUTE CHANGES. VSS. TELE SR PACED. PATIENT REPORTS CHEST PAIN WITH EXERTION, 3/10, WITH 10 BEING THE WORST PAIN. THE PAIN IS ALLIEVATED WITH REST. PLAN IS FOR PATIENT TO HAVE A STRESS TEST DONE. THE RESTING PART IS STARTED.
--- NOTE | 2022-01-30 16:30 | NUR ---
PT ARRIVED TO ROOM 330 FROM PCU VIA W/C. ABLE TO TRANSFER FROM CHAIR TO BED. ORIENTED TO ROOM. DENIED CHEST PAIN ON ARRIVAL. SETTLED IN AND CALL BUTTON PROVIDED.
--- NOTE | 2022-01-30 16:45 | NUR ---
TRANSFER TO MEDICAL PT A&O X4. VSS. MONITOR SHOWING PACED RHYTHM, HR 60's. SPO2 > 92% ON RA. PT SBA FOR AMBULATION INTO BATHROOM. PT W/ NO FURTHER REPORT OF CP. PT W/ PLAN FOR 2ND PORTION OF STRESS TEST TOMORROW. NUCLEAR MED STAFF NOTIFYING THIS RN PT TO BE NO CAFFIENE AFTER 2200 TONIGHT & THEN NPO TOMORROW MORNING @ 0700. PT MEDICAL W/ TELE STATUS, TAKEN TO RM 330 @ APPROX 1630 BY WHEELCHAIR W/ BELONGINGS AFTER REPORT GIVEN TO ACCEPTING MEDICAL FLOOR RN.
--- NOTE | 2022-01-31 04:53 | NUR ---
AROUND 2200 PATIENT C/O CHEST PAIN THAT RADIATED TO THE BACK AND LEFT SHOUDLER. RATED PAIN A 7 AT THE TIME BUT STATES THAT IT WAS WORSE PRIOR TO THIS RN ASSESSING HER. VS DONE WNL. DR. SEBASTIAN NOTIFIED WITH ORDER FOR FENTANYL IV. MEDICATION GIVEN PER DEC AND PATIENT VERBALIZED GREAT RELIEF. PATIENT TO GO FOR SECOND PART OF STRESS TEST TODAY. PATIENT ALSO C/O OF COUGH STATES THAT IT IS NOT NEW AND WAS TREATING AT HOME. DR. AVILES NOTIFIED WITH ORDER. PT BLOOD PRESSURE AT 0334 92/71 HOWEVER ONCE THIS RN CHECK AT 0414 BP 108/57. NO OTHER CHANGES NOTED DURING THE NIGHT.
[2022-01-31 05:54] LABS: BASOPHILS PERCENT AUTO 1 % (0-2); EOSINOPHILS ABSOLUTE AUTO 0.54 K/mm3 (0.00-0.68); EOSINOPHILS PERCENT AUTO 4 % (0-6); Hematocrit 40.1 % (33.0-51.0); Hemoglobin 12.7 g/dL (11.5-16.0); IMMATURE GRAN ABSOLUTE AUTO 0.27 K/mm3 (0.00-0.10); IMMATURE GRAN PERCENT AUTO 2 % (0-1); LYMPHOCYTES PERCENT AUTO 14 % (21-46); MONOCYTES ABSOLUTE AUTO 1.01 K/mm3 (0.16-1.47); MONOCYTES PERCENT AUTO 7 % (4-13); Mean Corpuscular HGB Conc 31.7 g/dL (31.5-36.5); Mean Corpuscular Volume 89 fL (80-100); Mean Platelet Volume 10.2 fL (9.1-12.4); NEUTROPHILS ABSOLUTE AUTO 10.31 K/mm3 (1.96-9.15); NEUTROPHILS PERCENT AUTO 72 % (41-73); Platelet Count 404 K/mm3 (150-400); RDW Coefficient Variation 15.6 % (11.7-14.2); RDW Standard Deviation 50.4 fL (35.1-46.3); Red Blood Cell Count 4.53 M/mm3 (3.80-5.20); White Blood Cell Count 14.23 K/mm3 (4.00-11.30)
[2022-01-31 06:13] LABS: Anion Gap 4 mmol/L (6-16); Blood Urea Nitrogen 9 mg/dL (8-24); CO2, Blood 29 mmol/L (21-32); Calcium, Blood 8.9 mg/dL (8.5-10.1); Chloride, Blood 100 mmol/L (98-108); Creatinine, Blood 0.56 mg/dL (0.40-1.00); Glomerular Filtration Rate >60 (60-); Glucose, Blood 121 mg/dL (70-99); Sodium, Blood 133 mmol/L (136-145)
--- NOTE | 2022-01-31 18:59 | NUR ---
SHIFT SUMMARY A&OX4. HAD THE STRESS PORTION OF HER STRESS TEST TODAY. RESTED MAJORITY OF THE DAY. AMBULATED WITH RT TODAY FOR HOME O2 EVAL. SHE DOES NOT NEED HOME O2. PROVIDED HER WITH AN INCENTIVE SPIROMETER PER MD ORDER WITH INSTRUCTION ON USE. SHE HAS BEEN USING HER IS EVERY HOUR INSTRUCTED. ANTICIPATE POSSIBLE DC TOMORROW.
[2022-01-31 19:07] LABS: International Normalized Ratio 1.02; Prothrombin Time Results 10.7 Sec (9.7-11.5)
--- NOTE | 2022-02-01 05:16 | NUR ---
Patient with VSS on RA overnight. Multiple coughing spells overnight with pink tinged sputum. Patient up ad sherry in room. VOiding. No acute skin issues noted. Patient hoping to DC to home today.
[2022-02-01 05:31] LABS: International Normalized Ratio 1.03; Prothrombin Time Results 10.8 Sec (9.7-11.5)
[2022-02-01] MEDS ORDERED: LEVO750 PO (14:21)
[2022-02-01] MEDS ORDERED: VISBIOME 112.51 EACH PO (14:21)
--- NOTE | 2022-02-01 16:28 | NUR ---
AT 1520 PT DC'D HOME. WRITTEN DC INSTRUCTIONS PROVIDED TO PT. ALL CONCERNS AND QUESTIONS ANSWERED. ALL PERSONAL BELONGINGS SENT HOME WITH PT. PT TOOK HER INCENTIVE SPIROMETER HOME STATING SHE DID USE IT EVERY HOUR TO HELP HER LUNGS & PLANS ON CONTINUING TO USE IT. PT TO PRIVATE VEHICLE VIA W/C. DAUGHTER HERE TO DRIVE HER HOME.
[2022-02-17] MEDS ORDERED: Tessalon200 MG PO (13:14)
[2022-02-17] MEDS ORDERED: DOXY100 PO (13:14)
== END 2022-02-01 15:03 | disposition home or self-care (01) | DRG 193 ==
LOC: ER 10:01 → PCU 13:12 → MEDS 01-30 16:36
PROVIDERS: Emergency Medicine; Student in an Organized Health Care Education/Training Program; ADMIT Internal Medicine
DX: J18.9 Pneumonia, unspecified organism (principal); I21.A1 Myocardial infarction type 2; J44.0 Chronic obstructive pulmonary disease with (acute) lower respiratory infection; I48.20 Chronic atrial fibrillation, unspecified; Z20.822 Contact with and (suspected) exposure to COVID-19; F41.9 Anxiety disorder, unspecified; I25.10 Atherosclerotic heart disease of native coronary artery without angina pectoris; E66.01 Morbid (severe) obesity due to excess calories; E03.9 Hypothyroidism, unspecified; I50.9 Heart failure, unspecified; E11.9 Type 2 diabetes mellitus without complications; E78.00 Pure hypercholesterolemia, unspecified; F17.210 Nicotine dependence, cigarettes, uncomplicated; G89.4 Chronic pain syndrome; R07.89 Other chest pain; E78.5 Hyperlipidemia, unspecified; I48.0 Paroxysmal atrial fibrillation; K21.9 Gastro-esophageal reflux disease without esophagitis; M54.9 Dorsalgia, unspecified; G47.33 Obstructive sleep apnea (adult) (pediatric); N32.81 Overactive bladder; G25.81 Restless legs syndrome; I11.0 Hypertensive heart disease with heart failure; Z91.041 Radiographic dye allergy status; Z91.013 Allergy to seafood; Z91.09 Other allergy status, other than to drugs and biological substances; Z79.01 Long term (current) use of anticoagulants; Z79.82 Long term (current) use of aspirin; Z79.890 Hormone replacement therapy; I25.2 Old myocardial infarction; Z88.0 Allergy status to penicillin; Z95.5 Presence of coronary angioplasty implant and graft; Z90.710 Acquired absence of both cervix and uterus; Z90.722 Acquired absence of ovaries, bilateral; Z90.49 Acquired absence of other specified parts of digestive tract; Z98.890 Other specified postprocedural states; Z95.0 Presence of cardiac pacemaker; Z79.84 Long term (current) use of oral hypoglycemic drugs; Z79.899 Other long term (current) drug therapy
CPT/HCPCS: 0241U; 36415; 71045; 78452; 80048; 80061; 82550; 82553; 82947; 83735; 84145; 84484; 85025; 85027; 85520; 85610; 85730; 86850; 86900; 86901; 93005; 93010; 93017; 94640; 94664; 94760; 94761; 96365; 96366; 96375; 99285-25; A9270; A9500; J0706; J1644; J1956; J2270; J2405; J2785; J3010; J7120

== ENCOUNTER 2022-02-06 00:53 | Observation (INO) | payer MEDICARE ==
[~2022-02-06] VITALS: Ht 167.6 cm; Wt 111.1 kg
[~2022-02-06 00:53] MED LIST changes: +VISBIOME 112.51 EACH PO
[2022-02-06 01:46] LABS: BASOPHILS ABSOLUTE AUTO 0.12 K/mm3 (0.00-0.23); BASOPHILS PERCENT AUTO 1 % (0-2); EOSINOPHILS PERCENT AUTO 2 % (0-6); Hemoglobin 12.7 g/dL (11.5-16.0); IMMATURE GRAN ABSOLUTE AUTO 0.29 K/mm3 (0.00-0.10); IMMATURE GRAN PERCENT AUTO 2 % (0-1); LYMPHOCYTES ABSOLUTE AUTO 2.18 K/mm3 (0.84-5.20); LYMPHOCYTES PERCENT AUTO 16 % (21-46); MONOCYTES ABSOLUTE AUTO 1.03 K/mm3 (0.16-1.47); MONOCYTES PERCENT AUTO 7 % (4-13); Mean Corpuscular HGB Conc 31.8 g/dL (31.5-36.5); Mean Corpuscular Volume 88 fL (80-100); NEUTROPHILS ABSOLUTE AUTO 10.06 K/mm3 (1.96-9.15); NEUTROPHILS PERCENT AUTO 72 % (41-73); Platelet Count 416 K/mm3 (150-400); RDW Coefficient Variation 15.8 % (11.7-14.2); RDW Standard Deviation 51.1 fL (35.1-46.3); Red Blood Cell Count 4.54 M/mm3 (3.80-5.20); White Blood Cell Count 13.98 K/mm3 (4.00-11.30)
[2022-02-06 01:51] LABS: Alanine Aminotransfer (ALT/SGP 20 U/L (12-78); Albumin/Globulin Ratio 0.7 (0.8-1.8); Alk Phos 144 U/L (50-136); Anion Gap 5 mmol/L (6-16); Aspartate Aminotrans (AST/SGOT 13 U/L (12-37); Bilirubin, Total 0.2 mg/dL (0.1-1.0); Blood Urea Nitrogen 14 mg/dL (8-24); Bun/Creatinine Ratio 21.1 (12.0-20.0); CO2, Blood 28 mmol/L (21-32); Calcium, Blood 8.6 mg/dL (8.5-10.1); Chloride, Blood 102 mmol/L (98-108); Creatinine, Blood 0.66 mg/dL (0.40-1.00); Globulin, Blood 4.4 g/dL (2.2-4.0); Glomerular Filtration Rate >60 (60-); Glucose, Blood 120 mg/dL (70-99); Potassium, Blood 4.1 mmol/L (3.5-5.5); Sodium, Blood 135 mmol/L (136-145); Total Protein, Blood 7.4 g/dL (6.4-8.2)
[2022-02-06 02:34] LABS: International Normalized Ratio 1.19; Prothrombin Time Results 12.4 Sec (9.7-11.5)
[2022-02-06] MEDS ORDERED: OMEP20ER PO (03:18)
[2022-02-06] MEDS ORDERED: ISOMON20 (03:18)
[2022-02-06] MEDS ORDERED: SOTALOL PO (03:19)
[2022-02-06] MEDS ORDERED: EUTHYROX150 MC1 PO (03:19)
[2022-02-06] MEDS ORDERED: ATOR40TA PO (03:19)
[2022-02-06] MEDS ORDERED: ISOSORBIDE MONO30 MG PO (05:55)
[2022-02-06] MEDS ORDERED: Isosorbide Mono30 MG PO (06:00)
[2022-02-06] MEDS ORDERED: ISOMON20 PO (06:03)
[2022-02-06 13:33] LABS: Hematocrit 38.1 % (33.0-51.0)
[2022-02-06] MEDS ORDERED: WARF5 PO (14:52)
[2022-02-06] MEDS ORDERED: Aspir 8181 MG PO (14:53)
[2022-02-06] MEDS ORDERED: CYMBALTA30 M1 PO (14:54)
[2022-02-06] MEDS ORDERED: LISI20 PO (14:55)
[2022-02-06] MEDS ORDERED: METF500C PO (14:56)
[2022-02-06] MEDS ORDERED: HYDRA25 PO (14:59)
[2022-02-06] MEDS ORDERED: ALBU90OI INH (15:02)
[2022-02-06] MEDS ORDERED: IPRAT-ALBUT 0.5-3 ML INH (15:04)
[2022-02-06] MEDS ORDERED: NITR.4SL SL (15:04)
[2022-02-06] MEDS ORDERED: LIDO700A20 TOP (15:05)
--- NOTE | 2022-02-06 15:09 | NUR ---
PT ADMITTED AT 1305. PT ORIENTED TO ROOM AND CALL LIGHT. PT IS ALERT AND ORIENTED X4.
--- NOTE | 2022-02-06 18:50 | NUR ---
SHIFT SUMMARY: PATIENT WAS TRANSFERRED TO ROOM FROM THE ED AT 1505. PT ADMITTED DUE TO HEMOPTYSIS AND PNEUMONIA. SHE REPORTS HAVING BACK PAIN DUE TO COUGHING. SHE STATES IT RADIATES UP TO HER NECK. PT WAS MEDICATED WITH TYLENOL AND GUAIFENESIN FOR COUGH. IT DID NOT PROVIDE MUCH RELIEF. PT HAS NS RUNNING AT 125 ML/HR. SHE WAS ABLE TO AMBULATE INDEPENDENTLY TO RESTROOM. PT/OT WORKED WITH PT. SHE WAS ABLE TO AMBULATE DOWN THE BENSON. PT IS NOW RESTING COMFORTABLY, SLEEPING INTERMITTENTLY. BED IS IN LOW POSITION AND CALL LIGHT IS WITHIN REACH.
--- NOTE | 2022-02-07 04:10 | NUR ---
SHIFT SUMMARY ADMITTED FOR RLL PNEUMONIA. FULL CODE. HOPEFUL FOR DC HOME TODAY. NS INFUSING ORDERED. PRN PAIN MEDICATION FOR CHRONIC BACK PAIN GIVEN. REGULAR DIET. INDEPENDENT IN ROOM RA. SHE IS ON WARFARIN. PRN COUGH SYRUP AND TESSALON PEARLS GIVEN. SHE IS A&O X4.
[2022-02-07 06:10] LABS: Hematocrit 37.9 % (33.0-51.0); Hemoglobin 11.8 g/dL (11.5-16.0); Mean Corpuscular HGB 27.7 pg (26.0-34.0); Mean Corpuscular HGB Conc 31.1 g/dL (31.5-36.5); Mean Corpuscular Volume 89 fL (80-100); Mean Platelet Volume 10.4 fL (9.1-12.4); Platelet Count 384 K/mm3 (150-400); RDW Coefficient Variation 15.7 % (11.7-14.2); RDW Standard Deviation 51.3 fL (35.1-46.3); Red Blood Cell Count 4.26 M/mm3 (3.80-5.20)
[2022-02-07 06:16] LABS: International Normalized Ratio 1.09; Prothrombin Time Results 11.4 Sec (9.7-11.5)
[2022-02-07 06:33] LABS: Anion Gap 5 mmol/L (6-16); Blood Urea Nitrogen 8 mg/dL (8-24); CO2, Blood 27 mmol/L (21-32); Calcium, Blood 8.6 mg/dL (8.5-10.1); Chloride, Blood 103 mmol/L (98-108); Creatinine, Blood 0.57 mg/dL (0.40-1.00); Glomerular Filtration Rate >60 (60-); Glucose, Blood 130 mg/dL (70-99); Potassium, Blood 3.9 mmol/L (3.5-5.5); Sodium, Blood 135 mmol/L (136-145)
[2022-02-07] MEDS ORDERED: NICO2 PO (11:45)
[2022-02-07] MEDS ORDERED: Tessalon200 MG PO (11:45)
[2022-02-07] MEDS ORDERED: VISBIOME 112.51 EACH PO (11:47)
[2022-02-07] MEDS ORDERED: ROBITUSSIN DM PO (12:04)
--- NOTE | 2022-02-07 14:11 | NUR ---
DISCHARGE SUMMARY: REVIEWED DISCHARGE PAPERWORK AND EDUCATIONAL MATERIALS WITH PATIENT. PT WAS UNDERSTANDING. IV WAS DC'D. PATIENT WAS ABLE TO DRESS INDEPENDENTLY. SHE DROVE HERSELF TO THE HOSPITAL, SO SHE WAS TAKEN OUT TO THE PARKING LOT IN A WHEELCHAIR AND WAS ABLE TO AMBULATE TO CAR INDEPENDENTLY.
== END 2022-02-07 12:42 | disposition home health service (06) ==
LOC: ER 00:53 → ERHOLD 00:54 → MEDS 14:02
PROVIDERS: Family Medicine; Student in an Organized Health Care Education/Training Program; ADMIT Internal Medicine
DX: J18.9 Pneumonia, unspecified organism (principal); R04.2 Hemoptysis; E11.9 Type 2 diabetes mellitus without complications; E03.9 Hypothyroidism, unspecified; J44.9 Chronic obstructive pulmonary disease, unspecified; I48.20 Chronic atrial fibrillation, unspecified; G70.00 Myasthenia gravis without (acute) exacerbation; I25.2 Old myocardial infarction; I11.0 Hypertensive heart disease with heart failure; I50.9 Heart failure, unspecified; G47.33 Obstructive sleep apnea (adult) (pediatric); Z79.01 Long term (current) use of anticoagulants; Z88.0 Allergy status to penicillin; Z88.7 Allergy status to serum and vaccine; Z88.6 Allergy status to analgesic agent; Z88.8 Allergy status to other drugs, medicaments and biological substances; Z79.84 Long term (current) use of oral hypoglycemic drugs; Z79.82 Long term (current) use of aspirin; Z95.0 Presence of cardiac pacemaker; Z95.5 Presence of coronary angioplasty implant and graft; F17.210 Nicotine dependence, cigarettes, uncomplicated; E66.01 Morbid (severe) obesity due to excess calories; I25.10 Atherosclerotic heart disease of native coronary artery without angina pectoris; K21.9 Gastro-esophageal reflux disease without esophagitis; G89.29 Other chronic pain; Z68.39 Body mass index [BMI] 39.0-39.9, adult
CPT/HCPCS: 36415; 71046; 71260; 80048; 80053; 82947; 85014; 85018; 85025; 85027; 85610; 85730; 87070; 87205; 93005; 93010; 94640; 94664; 94760; 97110; 97162; 97165; 97530; 99285-25; A9270; G0378; J0456; J0692; J1956; J7030; J7060; Q9967

== ENCOUNTER 2022-02-18 04:18 | Emergency (ER) | payer MEDICARE ==
[~2022-02-18] VITALS: Ht 167.6 cm; Wt 104.3 kg
[~2022-02-18 04:18] MED LIST changes: +CYMBALTA30 M1 PO; +DOXY100 PO; +EUTHYROX150 MC1 PO; +ISOMON20; +ISOSORBIDE MONO30 MG PO; +NICO2 PO; +ROBITUSSIN DM PO; +SOTALOL PO; +Tessalon200 MG PO
[2022-02-18 04:41] LABS: BASOPHILS ABSOLUTE AUTO 0.09 K/mm3 (0.00-0.23); BASOPHILS PERCENT AUTO 1 % (0-2); EOSINOPHILS ABSOLUTE AUTO 0.48 K/mm3 (0.00-0.68); EOSINOPHILS PERCENT AUTO 4 % (0-6); Hematocrit 38.5 % (33.0-51.0); Hemoglobin 12.2 g/dL (11.5-16.0); IMMATURE GRAN ABSOLUTE AUTO 0.09 K/mm3 (0.00-0.10); IMMATURE GRAN PERCENT AUTO 1 % (0-1); LYMPHOCYTES ABSOLUTE AUTO 2.46 K/mm3 (0.84-5.20); LYMPHOCYTES PERCENT AUTO 18 % (21-46); MONOCYTES PERCENT AUTO 7 % (4-13); Mean Corpuscular HGB Conc 31.7 g/dL (31.5-36.5); Mean Corpuscular Volume 88 fL (80-100); Mean Platelet Volume 10.1 fL (9.1-12.4); NEUTROPHILS ABSOLUTE AUTO 9.66 K/mm3 (1.96-9.15); NEUTROPHILS PERCENT AUTO 70 % (41-73); Platelet Count 334 K/mm3 (150-400); RDW Coefficient Variation 15.7 % (11.7-14.2); RDW Standard Deviation 51.1 fL (35.1-46.3); Red Blood Cell Count 4.36 M/mm3 (3.80-5.20); White Blood Cell Count 13.78 K/mm3 (4.00-11.30)
[2022-02-18 05:00] LABS: Albumin, Blood 3.1 g/dL (3.4-5.0); Albumin/Globulin Ratio 0.7 (0.8-1.8); Bilirubin, Total 0.6 mg/dL (0.1-1.0); Bun/Creatinine Ratio 20.6 (12.0-20.0); Calcium, Blood 8.9 mg/dL (8.5-10.1); Creatinine, Blood 0.58 mg/dL (0.40-1.00); Globulin, Blood 4.2 g/dL (2.2-4.0); Total Protein, Blood 7.3 g/dL (6.4-8.2)
== END 2022-02-18 06:17 | disposition home or self-care (01) ==
LOC: ER 04:18
PROVIDERS: Student in an Organized Health Care Education/Training Program
DX: J18.9 Pneumonia, unspecified organism (principal); I10 Essential (primary) hypertension; E03.9 Hypothyroidism, unspecified; J44.9 Chronic obstructive pulmonary disease, unspecified; I48.91 Unspecified atrial fibrillation; E11.9 Type 2 diabetes mellitus without complications; I25.10 Atherosclerotic heart disease of native coronary artery without angina pectoris; F41.9 Anxiety disorder, unspecified; Z95.5 Presence of coronary angioplasty implant and graft; Z95.0 Presence of cardiac pacemaker; Z79.899 Other long term (current) drug therapy; Z79.01 Long term (current) use of anticoagulants; Z79.82 Long term (current) use of aspirin; Z88.6 Allergy status to analgesic agent; Z88.0 Allergy status to penicillin; Z91.013 Allergy to seafood; Z88.7 Allergy status to serum and vaccine; Z88.8 Allergy status to other drugs, medicaments and biological substances; Z91.09 Other allergy status, other than to drugs and biological substances
CPT/HCPCS: 36415; 71046; 80053; 85025; 93005; 93010; 94640; 94664

== ENCOUNTER 2022-03-16 21:13 | Observation (INO) | payer MEDICARE ==
[~2022-03-16] VITALS: Ht 167.6 cm; Wt 89.1 kg
[2022-03-16 21:41] LABS: BASOPHILS ABSOLUTE AUTO 0.08 K/mm3 (0.00-0.23); BASOPHILS PERCENT AUTO 1 % (0-2); EOSINOPHILS ABSOLUTE AUTO 0.51 K/mm3 (0.00-0.68); EOSINOPHILS PERCENT AUTO 5 % (0-6); Hematocrit 41.2 % (33.0-51.0); Mean Corpuscular HGB 27.9 pg (26.0-34.0); Mean Corpuscular HGB Conc 31.6 g/dL (31.5-36.5); Mean Corpuscular Volume 88 fL (80-100); Mean Platelet Volume 10.2 fL (9.1-12.4); Platelet Count 296 K/mm3 (150-400); RDW Standard Deviation 49.2 fL (35.1-46.3); Red Blood Cell Count 4.66 M/mm3 (3.80-5.20); White Blood Cell Count 11.11 K/mm3 (4.00-11.30)
[2022-03-16 21:42] LABS: IMMATURE GRAN ABSOLUTE AUTO 0.05 K/mm3 (0.00-0.10); IMMATURE GRAN PERCENT AUTO 1 % (0-1); LYMPHOCYTES PERCENT AUTO 24 % (21-46); MONOCYTES ABSOLUTE AUTO 0.75 K/mm3 (0.16-1.47); MONOCYTES PERCENT AUTO 7 % (4-13); NEUTROPHILS ABSOLUTE AUTO 7.02 K/mm3 (1.96-9.15); NEUTROPHILS PERCENT AUTO 63 % (41-73)
[2022-03-16 22:01] LABS: Albumin, Blood 3.4 g/dL (3.4-5.0); Albumin/Globulin Ratio 0.8 (0.8-1.8); Bilirubin, Total 0.3 mg/dL (0.1-1.0); Calcium, Blood 9.4 mg/dL (8.5-10.1); Creatinine, Blood 0.8 mg/dL (0.40-1.00); Potassium, Blood 3.7 mmol/L (3.5-5.5); Total Protein, Blood 7.4 g/dL (6.4-8.2)
[2022-03-17 00:23] LABS: International Normalized Ratio 0.95
--- NOTE | 2022-03-17 02:30 | NUR ---
ADMISSION REPORT RECIEVED FROM ER NURSE. PATIENT ARRIVED TO PCU 8, ABLE TO STAND AND TRANSFER HERSELF TO PCU BED WITH MINIMAL ASSISTANCE. VSS. TELE IN PLACE READING PACED, SR 69. PATIENT STATES THAT SHE IS NOT HAVING ACTIVE CHEST PAIN BUT SHE HAS IT "EVERY SO OFTEN". PT STATES THAT IT IS LOCATED IN THE MIDDLE OF HER CHEST, RADIATING TO HER BACK AND DOWN HER LEFT ARM. PATIENT STATES THAT IT WAS A 6 PRIOR TO COMING TO ED AND IS CURRENTLY AT A 2. ORIENTED TO ROOM AND CALL LIGHT SYSTEM. BED IN LOW POSITION. DENIES NEEDS AT THIS TIME.
[2022-03-17 03:32] LABS: BASOPHILS ABSOLUTE AUTO 0.09 K/mm3 (0.00-0.23); BASOPHILS PERCENT AUTO 1 % (0-2); EOSINOPHILS ABSOLUTE AUTO 0.51 K/mm3 (0.00-0.68); EOSINOPHILS PERCENT AUTO 5 % (0-6); Hematocrit 38.5 % (33.0-51.0); Mean Corpuscular HGB 27.7 pg (26.0-34.0); Mean Corpuscular HGB Conc 31.2 g/dL (31.5-36.5); Mean Corpuscular Volume 89 fL (80-100); Mean Platelet Volume 10.9 fL (9.1-12.4); Platelet Count 288 K/mm3 (150-400); RDW Standard Deviation 49.2 fL (35.1-46.3); Red Blood Cell Count 4.33 M/mm3 (3.80-5.20); White Blood Cell Count 10.16 K/mm3 (4.00-11.30)
[2022-03-17 03:33] LABS: IMMATURE GRAN ABSOLUTE AUTO 0.03 K/mm3 (0.00-0.10); IMMATURE GRAN PERCENT AUTO 0 % (0-1); LYMPHOCYTES ABSOLUTE AUTO 2.48 K/mm3 (0.84-5.20); LYMPHOCYTES PERCENT AUTO 24 % (21-46); MONOCYTES ABSOLUTE AUTO 0.81 K/mm3 (0.16-1.47); MONOCYTES PERCENT AUTO 8 % (4-13); NEUTROPHILS ABSOLUTE AUTO 6.24 K/mm3 (1.96-9.15); NEUTROPHILS PERCENT AUTO 61 % (41-73)
[2022-03-17 03:59] LABS: Albumin, Blood 3.1 g/dL (3.4-5.0); Albumin/Globulin Ratio 0.9 (0.8-1.8); Bilirubin, Total 0.3 mg/dL (0.1-1.0); Bun/Creatinine Ratio 29.4 (12.0-20.0); Calcium, Blood 8.8 mg/dL (8.5-10.1); Creatinine, Blood 0.68 mg/dL (0.40-1.00); Globulin, Blood 3.6 g/dL (2.2-4.0); Potassium, Blood 3.8 mmol/L (3.5-5.5); Total Protein, Blood 6.7 g/dL (6.4-8.2)
--- NOTE | 2022-03-17 06:30 | NUR ---
SHIFT SUMMARY PATIENT ALERT AND ORIENTED x4, VSS, PATIENT REMAINS ON RA WITH O2 SAT >90%. PATIENT DENIES CHEST PAIN AT THIS TIME. NO CHANGES SINCE ADMISSION. WILL REPORT TO DAY SHIFT RN.
--- NOTE | 2022-03-17 07:15 | NUR ---
ASSUMPTION OF CARE: PATIENT IS RESTING, NO SIGNS OF ACUTE DISTRESS, 70 ON MONITOR PACED, NO IV;S INFUSING. PATIENT ROOM CLEAN, NIGHT RN INFORMED RECIEVING RN THAT SHE DENIED CHEST PAIN, WAS RESTING, LAST TROP 118, PLACED ON NPO DUE TO POTENTIAL CARDIAC NEED WILL CONTINUE TO MONITOR.
[2022-03-17] MEDS ORDERED: PRAM.5 PO (15:49)
[2022-03-17] MEDS ORDERED: BETAPACE AF80 M1 PO (15:49)
--- NOTE | 2022-03-17 16:44 | NUR ---
END OF SHIFT: PATIENT WAS DISHCARGED WITH ALL PERSONAL BELONGINGS, PATIENT AND HAD COMPLETE UNDERSTANDING OF DISCHARGE INSTRUCTIONS. PATIENT HAD THIER IV REMOVED AND WAS TAKEN OFF OF TELEMETRY. PATIENT HAS BEEN CHEST PAIN FREE, NO PRESSURE OR PAIN RADIATING TO EITHER ARM, DENIES JAW PAIN. PATIENT HAS BEEN VERY COOPERATIVE WITH CARE, EDUCATION OF GREATER THAN 60 MINUTES GIVEN THROUGH THE DAY ON CHRONIC ILLNESS, DISEASE PROCESS, AND SYMPTOM MANAGEMENT. PATIENT HAS NO FURTHER QUESTIONS COMMENTS OR CONCERNS.
[2022-03-18 08:08] LABS: COMPLEMENT C3, SERUM 148 mg/dL (82-167)
[2022-03-19 15:09] LABS: ANTI-DSDNA ANTIBODIES <1 IU/mL (0-9); RNP ANTIBODIES <0.2 AI (0.0-0.9); SJOGREN'S ANTI-SS-A <0.2 AI (0.0-0.9); SJOGREN'S ANTI-SS-B <0.2 AI (0.0-0.9); SMITH ANTIBODIES <0.2 AI (0.0-0.9)
== END 2022-03-17 16:33 | disposition home or self-care (01) ==
LOC: ER 21:13 → PCU 03-17 01:14 → ER 03-17 01:14 → PCU 03-17 01:14 → ER 03-17 02:00 → PCU 03-17 02:00
PROVIDERS: Family Medicine; Internal Medicine; Student in an Organized Health Care Education/Training Program; ADMIT Internal Medicine
DX: R07.89 Other chest pain (principal); I25.2 Old myocardial infarction; E03.9 Hypothyroidism, unspecified; J44.9 Chronic obstructive pulmonary disease, unspecified; I11.9 Hypertensive heart disease without heart failure; E11.9 Type 2 diabetes mellitus without complications; I25.10 Atherosclerotic heart disease of native coronary artery without angina pectoris; I48.0 Paroxysmal atrial fibrillation; R91.8 Other nonspecific abnormal finding of lung field; J18.9 Pneumonia, unspecified organism; Z95.5 Presence of coronary angioplasty implant and graft; Z95.0 Presence of cardiac pacemaker; Z79.01 Long term (current) use of anticoagulants; Z79.82 Long term (current) use of aspirin; Z79.84 Long term (current) use of oral hypoglycemic drugs; Z88.0 Allergy status to penicillin; Z88.7 Allergy status to serum and vaccine; Z88.6 Allergy status to analgesic agent; Z88.8 Allergy status to other drugs, medicaments and biological substances; Z91.013 Allergy to seafood
CPT/HCPCS: 36415; 71045; 80053; 82947; 83880; 84484; 85025; 85610; 93005; 93010; 93306; 99285-25; A9270; G0378

== ENCOUNTER 2022-03-24 21:26 | Emergency (ER) | payer MEDICARE ==
[~2022-03-24] VITALS: Ht 167.6 cm; Wt 108.0 kg
[~2022-03-24 21:26] MED LIST changes: +BETAPACE AF80 M1 PO
[2022-03-24 22:31] LABS: BASOPHILS ABSOLUTE AUTO 0.11 K/mm3 (0.00-0.23); BASOPHILS PERCENT AUTO 1 % (0-2); EOSINOPHILS ABSOLUTE AUTO 0.15 K/mm3 (0.00-0.68); EOSINOPHILS PERCENT AUTO 1 % (0-6); Hematocrit 41.7 % (33.0-51.0); Hemoglobin 13.6 g/dL (11.5-16.0); IMMATURE GRAN ABSOLUTE AUTO 0.12 K/mm3 (0.00-0.10); IMMATURE GRAN PERCENT AUTO 1 % (0-1); LYMPHOCYTES ABSOLUTE AUTO 2.39 K/mm3 (0.84-5.20); LYMPHOCYTES PERCENT AUTO 17 % (21-46); MONOCYTES ABSOLUTE AUTO 1.05 K/mm3 (0.16-1.47); MONOCYTES PERCENT AUTO 7 % (4-13); Mean Corpuscular HGB Conc 32.6 g/dL (31.5-36.5); Mean Corpuscular Volume 86 fL (80-100); NEUTROPHILS ABSOLUTE AUTO 10.46 K/mm3 (1.96-9.15); NEUTROPHILS PERCENT AUTO 73 % (41-73); Platelet Count 347 K/mm3 (150-400); RDW Standard Deviation 47.2 fL (35.1-46.3); Red Blood Cell Count 4.86 M/mm3 (3.80-5.20); White Blood Cell Count 14.28 K/mm3 (4.00-11.30)
[2022-03-24 22:49] LABS: Albumin, Blood 3.2 g/dL (3.4-5.0); Albumin/Globulin Ratio 0.8 (0.8-1.8); Bilirubin, Total 0.3 mg/dL (0.1-1.0); Bun/Creatinine Ratio 31.2 (12.0-20.0); Calcium, Blood 8.9 mg/dL (8.5-10.1); Creatinine, Blood 0.64 mg/dL (0.40-1.00); Globulin, Blood 4.1 g/dL (2.2-4.0); Potassium, Blood 4.1 mmol/L (3.5-5.5); Total Protein, Blood 7.3 g/dL (6.4-8.2)
[2022-03-24 23:32] LABS: Influenza A, PCR NEGATIVE (NEGATIVE); Influenza B, PCR NEGATIVE (NEGATIVE); Resp Syncytial Virus, PCR NEGATIVE (NEGATIVE); SARS-Cov-2 (COVID-19) PCR, MMC NEGATIVE (NEGATIVE)
== END 2022-03-25 03:07 | disposition home or self-care (01) ==
LOC: ER 21:26
PROVIDERS: Physician Assistant
DX: R07.9 Chest pain, unspecified (principal); J44.9 Chronic obstructive pulmonary disease, unspecified; I10 Essential (primary) hypertension; E03.9 Hypothyroidism, unspecified; E11.9 Type 2 diabetes mellitus without complications; I25.10 Atherosclerotic heart disease of native coronary artery without angina pectoris; F17.210 Nicotine dependence, cigarettes, uncomplicated; Z79.82 Long term (current) use of aspirin; Z79.899 Other long term (current) drug therapy; Z79.84 Long term (current) use of oral hypoglycemic drugs; Z88.0 Allergy status to penicillin; Z91.013 Allergy to seafood; Z91.048 Other nonmedicinal substance allergy status; Z88.8 Allergy status to other drugs, medicaments and biological substances; Z95.5 Presence of coronary angioplasty implant and graft; Z20.822 Contact with and (suspected) exposure to COVID-19
CPT/HCPCS: 0241U; 36415; 71045; 80053; 84484; 85025; 93005; 93010; A9270

== ENCOUNTER 2022-04-15 09:01 | Emergency (ER) | payer MEDICARE ==
[~2022-04-15] VITALS: Ht 167.6 cm; Wt 104.3 kg
[2022-04-15] MEDS ORDERED: ISOSORBIDE MONO60 MG PO (09:29)
[2022-04-15] MEDS ORDERED: WARF5 PO (09:31)
[2022-04-15] MEDS ORDERED: Voltaren100 GM TOP (10:09)
== END 2022-04-15 12:16 | disposition home or self-care (01) ==
LOC: ER 09:01
DX: M25.551 Pain in right hip (principal); G89.29 Other chronic pain; I10 Essential (primary) hypertension; E03.9 Hypothyroidism, unspecified; J44.9 Chronic obstructive pulmonary disease, unspecified; E11.9 Type 2 diabetes mellitus without complications; I25.10 Atherosclerotic heart disease of native coronary artery without angina pectoris; F17.200 Nicotine dependence, unspecified, uncomplicated; Z95.5 Presence of coronary angioplasty implant and graft; Z95.0 Presence of cardiac pacemaker; Z79.84 Long term (current) use of oral hypoglycemic drugs; Z79.82 Long term (current) use of aspirin; Z79.01 Long term (current) use of anticoagulants; Z88.6 Allergy status to analgesic agent; Z91.041 Radiographic dye allergy status; Z88.0 Allergy status to penicillin; Z91.013 Allergy to seafood; Z88.7 Allergy status to serum and vaccine; Z88.8 Allergy status to other drugs, medicaments and biological substances; Z91.09 Other allergy status, other than to drugs and biological substances
CPT/HCPCS: 73502

== ENCOUNTER 2022-04-28 19:24 | Observation (INO) | payer MEDICARE ==
[~2022-04-28] VITALS: Ht 167.6 cm; Wt 106.0 kg
[~2022-04-28 19:24] MED LIST changes: +Voltaren100 GM TOP
[2022-04-28 19:58] LABS: BASOPHILS ABSOLUTE AUTO 0.09 K/mm3 (0.00-0.23); BASOPHILS PERCENT AUTO 1 % (0-2); EOSINOPHILS PERCENT AUTO 2 % (0-6); Hematocrit 40.5 % (33.0-51.0); Hemoglobin 12.9 g/dL (11.5-16.0); IMMATURE GRAN ABSOLUTE AUTO 0.11 K/mm3 (0.00-0.10); IMMATURE GRAN PERCENT AUTO 1 % (0-1); LYMPHOCYTES ABSOLUTE AUTO 2.26 K/mm3 (0.84-5.20); LYMPHOCYTES PERCENT AUTO 17 % (21-46); MONOCYTES ABSOLUTE AUTO 0.81 K/mm3 (0.16-1.47); MONOCYTES PERCENT AUTO 6 % (4-13); Mean Corpuscular HGB 27.8 pg (26.0-34.0); Mean Corpuscular HGB Conc 31.9 g/dL (31.5-36.5); Mean Corpuscular Volume 87 fL (80-100); Mean Platelet Volume 10.4 fL (9.1-12.4); NEUTROPHILS ABSOLUTE AUTO 10.07 K/mm3 (1.96-9.15); NEUTROPHILS PERCENT AUTO 74 % (41-73); Platelet Count 343 K/mm3 (150-400); RDW Coefficient Variation 15.4 % (11.7-14.2); RDW Standard Deviation 49.1 fL (35.1-46.3); Red Blood Cell Count 4.64 M/mm3 (3.80-5.20); White Blood Cell Count 13.54 K/mm3 (4.00-11.30)
[2022-04-28 20:32] LABS: Albumin/Globulin Ratio 0.8 (0.8-1.8); Bilirubin, Total 0.2 mg/dL (0.1-1.0); Bun/Creatinine Ratio 24.2 (12.0-20.0); Calcium, Blood 8.6 mg/dL (8.5-10.1); Creatinine, Blood 0.66 mg/dL (0.40-1.00); Potassium, Blood 3.9 mmol/L (3.5-5.5)
[2022-04-28] MEDS ORDERED: ATOR40TA PO (23:16)
--- NOTE | 2022-04-29 02:32 | NUR ---
ADMISSION: PATIENT IS RECIEVED FROM ER VIA STRETCHER FROM ER. ABLE TO AMBULATE TO THE BED WITH A STEADY GAIT. BP IS ELEVATED, PATIENT IS ASYMPTOMATIC. HAS NOT TAKEN ANY HS MEDS INCLUDING BP MEDS. TELI IS PLACED AND VERIFIED. DUAL PACED AT 79 BUT WAS 49 WHEN INTITIALY STARTED. PATIENT IS ORIENTED TO THE ROOM AND THE CALL DAWKINS.
[2022-04-29 02:58] LABS: International Normalized Ratio 0.93; Prothrombin Time Results 9.8 Sec (9.7-11.5)
[2022-04-29 05:29] LABS: BASOPHILS ABSOLUTE AUTO 0.08 K/mm3 (0.00-0.23); BASOPHILS PERCENT AUTO 1 % (0-2); EOSINOPHILS ABSOLUTE AUTO 0.23 K/mm3 (0.00-0.68); EOSINOPHILS PERCENT AUTO 2 % (0-6); Hematocrit 40.9 % (33.0-51.0); Hemoglobin 12.8 g/dL (11.5-16.0); IMMATURE GRAN ABSOLUTE AUTO 0.12 K/mm3 (0.00-0.10); IMMATURE GRAN PERCENT AUTO 1 % (0-1); LYMPHOCYTES ABSOLUTE AUTO 2.59 K/mm3 (0.84-5.20); LYMPHOCYTES PERCENT AUTO 21 % (21-46); MONOCYTES ABSOLUTE AUTO 0.77 K/mm3 (0.16-1.47); MONOCYTES PERCENT AUTO 6 % (4-13); Mean Corpuscular HGB 27.6 pg (26.0-34.0); Mean Corpuscular HGB Conc 31.3 g/dL (31.5-36.5); Mean Corpuscular Volume 88 fL (80-100); Mean Platelet Volume 10.4 fL (9.1-12.4); NEUTROPHILS ABSOLUTE AUTO 8.53 K/mm3 (1.96-9.15); NEUTROPHILS PERCENT AUTO 69 % (41-73); Platelet Count 336 K/mm3 (150-400); RDW Coefficient Variation 15.5 % (11.7-14.2); RDW Standard Deviation 49.6 fL (35.1-46.3); Red Blood Cell Count 4.64 M/mm3 (3.80-5.20); White Blood Cell Count 12.32 K/mm3 (4.00-11.30)
[2022-04-29 06:44] LABS: Albumin, Blood 2.9 g/dL (3.4-5.0); Albumin/Globulin Ratio 0.7 (0.8-1.8); Bilirubin, Total 0.3 mg/dL (0.1-1.0); Bun/Creatinine Ratio 24.1 (12.0-20.0); Calcium, Blood 8.7 mg/dL (8.5-10.1); Creatinine, Blood 0.54 mg/dL (0.40-1.00); Globulin, Blood 3.9 g/dL (2.2-4.0); Potassium, Blood 4.1 mmol/L (3.5-5.5); Total Protein, Blood 6.8 g/dL (6.4-8.2)
--- NOTE | 2022-04-29 11:18 | NUR ---
0715 PT STATE HAVING SHARP STABS AT HEART, FEELS PACER SHOCKING?. CALLED [facility], STATES THERE ARE PACER SPIKES BEFORE P WAVE, BEFORE QRS, AN DINBETWEEN. SPIKING CONSISTANTLY NONSTOP, H/R RUNNING ABOUT 48-68, WITH 13 SPIKES PER HEART BEAT. CALLED DR LORENZ. GAVE HER INFO. REQUESTED CARDIAC CONSULT, SHE TO CALL. 0820. PACER INTERROGATED BY WOUND CARE RN. NEW EKG RUN AND SHOWN TO WHEN TO ROOM. CT OF CHEST ORDERED BY 1115 DR PITTMAN HAS SEEN TELE. TELE CALLED ME . STATES SHE IS ATRIAL PACED , OTHER URENA ARE ARTIFACT. ALL LOOKS GOOD PER . THEY TO SEND NEW TELE.
--- NOTE | 2022-04-29 12:07 | NUR ---
PT STATES CHEST PAIN STABS STOPPED EARLIER THIS AM. BETTER THERE. C/O LOW BACK PAIIN, CHRONIC. MED PER EMAR.
--- NOTE | 2022-04-29 12:15 | NUR ---
DR PITTMAN IN TO SEE PT . STATES HEART LOOKING GOOD. SUGGEST PAIN STABS LIKELY FROM OTHER SOURCE.
--- NOTE | 2022-04-29 15:18 | NUR ---
PT AMBULATED TO DOOR TO ASK FOR HAND LOTION. STATES FEELS OKAY
--- NOTE | 2022-04-29 18:16 | NUR ---
DISCHARGE REVIEWD WITH PT AND SPOUSE/ TELE REMOVED. IV REMOVED INTACT. PT VERBALIZED UNDERSTANDING MEDS AND INST. NO NEW MEDS. PT TO DRESS SELF
--- NOTE | 2022-04-29 18:31 | NUR ---
PT WALKED TO DOOR WITH AIDE. 183
== END 2022-04-29 18:29 | disposition home or self-care (01) ==
LOC: ER 19:24 → MEDS 19:25
PROVIDERS: Emergency Medicine; Family Medicine; ADMIT Internal Medicine
DX: R07.89 Other chest pain (principal); G89.4 Chronic pain syndrome; I25.10 Atherosclerotic heart disease of native coronary artery without angina pectoris; Z95.5 Presence of coronary angioplasty implant and graft; I10 Essential (primary) hypertension; E03.9 Hypothyroidism, unspecified; J44.9 Chronic obstructive pulmonary disease, unspecified; I48.91 Unspecified atrial fibrillation; E11.9 Type 2 diabetes mellitus without complications; G47.30 Sleep apnea, unspecified; G25.81 Restless legs syndrome; Z95.0 Presence of cardiac pacemaker; Z91.013 Allergy to seafood; Z88.0 Allergy status to penicillin; Z88.7 Allergy status to serum and vaccine; Z88.8 Allergy status to other drugs, medicaments and biological substances; Z79.899 Other long term (current) drug therapy
CPT/HCPCS: 36415; 71045; 71250; 80053; 82947; 84484; 85025; 85610; 93005; 93010; 94640; 94664; 94760; 99285-25; A9270; G0378

== ENCOUNTER 2022-05-30 21:57 | Emergency (ER) | payer MEDICARE ==
[~2022-05-30] VITALS: Ht 167.6 cm; Wt 104.3 kg
== END 2022-05-30 22:40 | disposition left against medical advice (07) ==
LOC: ER 21:57
DX: R07.9 Chest pain, unspecified (principal); Z53.21 Procedure and treatment not carried out due to patient leaving prior to being seen by health care provider
CPT/HCPCS: 93005; 93010

== ENCOUNTER 2022-06-09 17:51 | Inpatient (IN) | payer MEDICARE ==
[~2022-06-09] VITALS: Ht 167.6 cm; Wt 107.9 kg
[~2022-06-09 17:51] MED LIST changes: +LEVOTHYROXINE PO
[2022-06-09 18:58] LABS: BASOPHILS ABSOLUTE AUTO 0.02 K/mm3 (0.00-0.23); BASOPHILS PERCENT AUTO 0 % (0-2); EOSINOPHILS PERCENT AUTO 0 % (0-6); Hematocrit 43.4 % (33.0-51.0); Hemoglobin 14.2 g/dL (11.5-16.0); IMMATURE GRAN ABSOLUTE AUTO 0.06 K/mm3 (0.00-0.10); IMMATURE GRAN PERCENT AUTO 1 % (0-1); LYMPHOCYTES PERCENT AUTO 13 % (21-46); MONOCYTES ABSOLUTE AUTO 0.43 K/mm3 (0.16-1.47); MONOCYTES PERCENT AUTO 6 % (4-13); Mean Corpuscular HGB 27.7 pg (26.0-34.0); Mean Corpuscular HGB Conc 32.7 g/dL (31.5-36.5); Mean Corpuscular Volume 85 fL (80-100); Mean Platelet Volume 10.2 fL (9.1-12.4); NEUTROPHILS PERCENT AUTO 81 % (41-73); Platelet Count 286 K/mm3 (150-400); RDW Coefficient Variation 15.9 % (11.7-14.2); RDW Standard Deviation 49.2 fL (35.1-46.3); Red Blood Cell Count 5.12 M/mm3 (3.80-5.20); White Blood Cell Count 7.81 K/mm3 (4.00-11.30)
[2022-06-09 19:12] LABS: International Normalized Ratio 0.93; Prothrombin Time Results 9.8 Sec (9.7-11.5)
[2022-06-09 19:30] LABS: Albumin, Blood 3.4 g/dL (3.4-5.0); Albumin/Globulin Ratio 0.8 (0.8-1.8); Bilirubin, Total 0.2 mg/dL (0.1-1.0); Bun/Creatinine Ratio 28.8 (12.0-20.0); Calcium, Blood 9.5 mg/dL (8.5-10.1); Creatinine, Blood 0.59 mg/dL (0.40-1.00); Potassium, Blood 3.9 mmol/L (3.5-5.5); Total Protein, Blood 7.4 g/dL (6.4-8.2)
[2022-06-09 22:35] LABS: Anti-Xa UFH, PHA Monitoring <0.10 IU/mL; D-Dimer, Quantitative 0.52 mg/L FEU (0.00-0.52)
[2022-06-09 22:45] LABS: CHOL/HDL RATIO 5.2; Cholesterol 214 mg/dL (50-200); HDL Cholesterol 41 mg/dL (>39); LDL/HDL RATIO 3.7; Low Density Lipoprotein Chol 150 mg/dL (0-110); Triglycerides 116 mg/dL (30-160); Very Low Density Lipoprot Chol 23 mg/dL (6-32)
[2022-06-10] MEDS ORDERED: Percocet 10-321 EACH PO (00:45)
[2022-06-10 02:11] LABS: BASOPHILS ABSOLUTE AUTO 0.02 K/mm3 (0.00-0.23); BASOPHILS PERCENT AUTO 0 % (0-2); EOSINOPHILS PERCENT AUTO 0 % (0-6); Hematocrit 38.7 % (33.0-51.0); Hemoglobin 12.6 g/dL (11.5-16.0); IMMATURE GRAN PERCENT AUTO 1 % (0-1); LYMPHOCYTES ABSOLUTE AUTO 1.99 K/mm3 (0.84-5.20); LYMPHOCYTES PERCENT AUTO 20 % (21-46); MONOCYTES ABSOLUTE AUTO 1.05 K/mm3 (0.16-1.47); MONOCYTES PERCENT AUTO 10 % (4-13); Mean Corpuscular HGB 27.8 pg (26.0-34.0); Mean Corpuscular HGB Conc 32.6 g/dL (31.5-36.5); Mean Corpuscular Volume 85 fL (80-100); Mean Platelet Volume 10.7 fL (9.1-12.4); NEUTROPHILS PERCENT AUTO 69 % (41-73); Platelet Count 285 K/mm3 (150-400); RDW Coefficient Variation 16.1 % (11.7-14.2); RDW Standard Deviation 50.1 fL (35.1-46.3); Red Blood Cell Count 4.54 M/mm3 (3.80-5.20); White Blood Cell Count 10.06 K/mm3 (4.00-11.30)
[2022-06-10 02:27] LABS: International Normalized Ratio 0.99; Prothrombin Time Results 10.4 Sec (9.7-11.5)
[2022-06-10 03:56] LABS: Bun/Creatinine Ratio 25.9 (12.0-20.0); Calcium, Blood 8.8 mg/dL (8.5-10.1); Creatinine, Blood 0.66 mg/dL (0.40-1.00); Potassium, Blood 3.3 mmol/L (3.5-5.5)
--- NOTE | 2022-06-10 05:55 | NUR ---
PELT SHEARER SUMMARY THE PT ARRIVED TO THE UNIT ON A HEPARIN GTT DENYING ANY CP OR PRESSURE. THE PT IS ALERT AND ORIENTED COMMUNICATING APPRORPIATELY W STAFF. THE PT HAS BEEN EMOTIONAL AT TIMES GOING FROM ANGER TO TEARS W NO OBVIOUS REASON FOR THE CHANGE IN EMOTION. THE PT HAS MAINTAINED O2 SATS >90% ON RM AIR WHILE AWAKE BUT WHEN SHE FELL ASLEEP SHE HAD APNEIC PERIODS DROPPING LOW 70 SPO2. RT ATTEMPTED TO GET THE PT TO WEAR CPAP TO WHICH SHE REFUSED SO SHE WAS PLACED ON 3L NC WHILE SHE SLEPT. THE PT HAS BEEN NPO IN ANTICIPATION OF POSSIBLE PROCEDURE. HEPARIN GTT RUNNING UNINTERUPTED ALL NIGHT. BP WNL AND STABLE. TELE SHOWING ATRIAL PACED RYTHYM 80'S-90'S. WILL REPORT TO ONCOMING RN.
[2022-06-10 16:11] LABS: International Normalized Ratio 0.97; Prothrombin Time Results 10.2 Sec (9.7-11.5)
[2022-06-10 17:44] LABS: U Amphetamine Screen Not Detected; U Barbituate Screen Not Detected; U Benzodiazapine Screen Not Detected; U Buprenorphine Screen Not Detected; U Cannabinoids Screen Not Detected; U Cocaine Screen Not Detected; U Methadone Screen Not Detected; U Methamphetamine Screen Not Detected; U Opiates Screen Not Detected; U Oxycodone Screen DETECTED; U Phencyclidine Screen Not Detected; U Propoxyphene Screen Not Detected
--- NOTE | 2022-06-10 17:56 | NUR ---
SHIFT SUMMARY PT IS A/Ox3 AND FOLLOWS DIRECTIONS FROM STAFF. PT HAS A HX OF BECOMING EMOTIONAL AND FRUSTRATED WITH HER CARE AND STAFFF. BUT PT HAS BEEN CALM AND COOPERATIVE T/O MY SHIFT. PT HAS BEEN CLEARED BY CARDIOLOGY TODAY WITH NO NEW REPORTS OF CP OR PRESSURE TODAY. HEPARIN DIP HAS BEEN DC'D AND PT HAS BEEN DOWNGRADED TO MEDICAL STATUS THIS PM. PT MAINTAINS SPO2 >94% ON RA, BUT DESATS WHEN SHE FALLS ASLEEP. PT REFUSES TO USE CPAP AND WOULD RATHER USE 3L VIA NC WHEN SLEEPING. PT HAS BEEN UP TO THE BATHROOM TO VOID SEVERAL TIMES TODAY, BUT HAS TRANSFERRED WELL. NO SOB OR DYSPNEA NOTED AT REST. BP AND HR HAVE BEEN STABLE. POSSIBLE DC WITHIN THE NEXT FEW DAYS. PT CLAIMS SHE AND HER ARE CURRENTLY HOMELSS AND ARE LIVING OUT OF THEIR CARE. CARE MANAGMENT HAS BEEN CONSULTED TO TRY AND COORDINATE RESOURCES. SERGIO VARGAS T/O THE SHIFT
[2022-06-11 04:57] LABS: BASOPHILS ABSOLUTE AUTO 0.04 K/mm3 (0.00-0.23); BASOPHILS PERCENT AUTO 0 % (0-2); EOSINOPHILS ABSOLUTE AUTO 0.01 K/mm3 (0.00-0.68); EOSINOPHILS PERCENT AUTO 0 % (0-6); Hematocrit 41.4 % (33.0-51.0); IMMATURE GRAN ABSOLUTE AUTO 0.18 K/mm3 (0.00-0.10); IMMATURE GRAN PERCENT AUTO 1 % (0-1); LYMPHOCYTES ABSOLUTE AUTO 2.71 K/mm3 (0.84-5.20); LYMPHOCYTES PERCENT AUTO 21 % (21-46); MONOCYTES ABSOLUTE AUTO 0.63 K/mm3 (0.16-1.47); MONOCYTES PERCENT AUTO 5 % (4-13); Mean Corpuscular HGB 27.2 pg (26.0-34.0); Mean Corpuscular HGB Conc 31.4 g/dL (31.5-36.5); Mean Corpuscular Volume 87 fL (80-100); Mean Platelet Volume 10.6 fL (9.1-12.4); NEUTROPHILS PERCENT AUTO 72 % (41-73); Platelet Count 224 K/mm3 (150-400); RDW Coefficient Variation 16.3 % (11.7-14.2); Red Blood Cell Count 4.78 M/mm3 (3.80-5.20); White Blood Cell Count 12.67 K/mm3 (4.00-11.30)
[2022-06-11 05:09] LABS: International Normalized Ratio 0.95
[2022-06-11 05:21] LABS: Bun/Creatinine Ratio 31.1 (12.0-20.0); Calcium, Blood 9.1 mg/dL (8.5-10.1); Creatinine, Blood 0.61 mg/dL (0.40-1.00); Potassium, Blood 3.6 mmol/L (3.5-5.5)
--- NOTE | 2022-06-11 06:31 | NUR ---
SHIFT SUMMARY: PT HAS BEEN A&OX4. NO COMPLAINTS OF CHEST PAIN OR SOB. HR IN SINUS RHYTHM BEFORE DC OF TELE PER DOCTOR'S ORDERS. O2 SATS STABLE > 90% ON RA. UP INDEPENDTLY IN THE ROOM WITH STEADY GAIT. VOIDING CLEAR, YELLOW URINE IN TOILET WITHOUT DIFFICULTY. MEDICATED FOR CHRONIC BACK PAIN WITH PRN PAIN MEDICAITON, SEE EMAR. BED BATH AND COMPLETE BED CHANGE DONE AT PT REQUEST. POWERGLYDE SLUGISH, ABLE TO DRAW LABS THROUGH.
[2022-06-11] MEDS ORDERED: Tessalon200 MG PO (09:48)
[2022-06-11] MEDS ORDERED: ACET325 PO (09:49)
--- NOTE | 2022-06-11 10:44 | NUR ---
DISCHARGE SUMMARY PATIENT ALERT AND ORIENTED. INDEPENDENT IN ROOM. TOLERATING CARDIAC DIET AND LIQUIDS. SALINE LOCKED. VOIDING WELL. REPORTED MILD SHORTNESS OF BREATH AND CHEST PRESSURE THIS AM. NOTED TO HAVE EXP WHEEZE. RT PROVIDED NEB TREATMENT WHICH IMPROVED SOB AND CHETS PRESSURE. DR KENNEDY AWARE OF CHEST PRESSURE. DISCHARGE ORDERS GIVEN. DISCHARGE EDUCATION GIVEN ON NEW MEDS FAXED TO [facility], FOLLOW UP APPT WITH CARDIOLOGY, AND TO RETURN TO ER IF CHEST PAIN WORSENS AND IS UNRESOLVED WITH NITRO. POWERGLIDE IF DC'D WNL. PATIENT LEFT UNIT AT 1030 VIA WHEELCHAIR. SPOUSE WAS WAITING IN PARKING LOT WITH VEHICLE.
[2022-06-12] MEDS ORDERED: PEPCID40 MG PO (19:55)
== END 2022-06-11 10:31 | disposition home or self-care (01) | DRG 313 ==
LOC: ER 17:51 → ERHOLD 21:58 → PCU 21:58
PROVIDERS: Internal Medicine; Physician Assistant; ADMIT Family Medicine
DX: R07.89 Other chest pain (principal); U07.1 COVID-19; J44.1 Chronic obstructive pulmonary disease with (acute) exacerbation; I25.10 Atherosclerotic heart disease of native coronary artery without angina pectoris; I10 Essential (primary) hypertension; E03.9 Hypothyroidism, unspecified; I48.91 Unspecified atrial fibrillation; I48.0 Paroxysmal atrial fibrillation; I44.0 Atrioventricular block, first degree; E11.9 Type 2 diabetes mellitus without complications; K21.9 Gastro-esophageal reflux disease without esophagitis; G47.33 Obstructive sleep apnea (adult) (pediatric); R77.8 Other specified abnormalities of plasma proteins; F41.9 Anxiety disorder, unspecified; G89.29 Other chronic pain; E66.9 Obesity, unspecified; E87.6 Hypokalemia; F17.210 Nicotine dependence, cigarettes, uncomplicated; Z59.00 Homelessness unspecified; Z85.828 Personal history of other malignant neoplasm of skin; Z90.710 Acquired absence of both cervix and uterus; Z95.0 Presence of cardiac pacemaker; Z98.890 Other specified postprocedural states; Z91.14 Patient's other noncompliance with medication regimen; Z88.0 Allergy status to penicillin; Z91.048 Other nonmedicinal substance allergy status; Z91.013 Allergy to seafood; Z88.7 Allergy status to serum and vaccine; Z88.8 Allergy status to other drugs, medicaments and biological substances; Z79.2 Long term (current) use of antibiotics; Z79.52 Long term (current) use of systemic steroids; Z79.84 Long term (current) use of oral hypoglycemic drugs; Z79.899 Other long term (current) drug therapy
CPT/HCPCS: 36415; 71046; 80048; 80053; 80061; 83690; 83880; 84443; 84484; 85025; 85379; 85520; 85610; 93005; 93010; 93306; 94640; 94664; 94760; 94762; 96365; 96375; 99285-25; A9270; C1751; J0360; J1644; J2405; J3010; J7512; Q9957

== ENCOUNTER 2022-06-17 02:51 | Emergency (ER) | payer MEDICARE ==
[~2022-06-17] VITALS: Ht 167.6 cm; Wt 104.3 kg
[~2022-06-17 02:51] MED LIST changes: +ACET325 PO; +PEPCID40 MG PO
== END 2022-06-17 05:20 | disposition home or self-care (01) ==
LOC: ER 02:51
DX: U07.1 COVID-19 (principal); I10 Essential (primary) hypertension; E03.9 Hypothyroidism, unspecified; J44.9 Chronic obstructive pulmonary disease, unspecified; I48.91 Unspecified atrial fibrillation; E11.9 Type 2 diabetes mellitus without complications; I25.10 Atherosclerotic heart disease of native coronary artery without angina pectoris; Z88.6 Allergy status to analgesic agent; Z88.0 Allergy status to penicillin; Z91.013 Allergy to seafood; Z88.7 Allergy status to serum and vaccine; Z88.8 Allergy status to other drugs, medicaments and biological substances; Z91.048 Other nonmedicinal substance allergy status; Z79.899 Other long term (current) drug therapy; Z79.01 Long term (current) use of anticoagulants; Z79.82 Long term (current) use of aspirin; Z79.84 Long term (current) use of oral hypoglycemic drugs; Z87.891 Personal history of nicotine dependence
CPT/HCPCS: A9270

== ENCOUNTER 2022-07-11 03:27 | Emergency (ER) | payer MEDICARE ==
[~2022-07-11] VITALS: Ht 167.6 cm; Wt 104.3 kg
[2022-07-11 04:30] LABS: BASOPHILS ABSOLUTE AUTO 0.12 K/mm3 (0.00-0.23); BASOPHILS PERCENT AUTO 1 % (0-2); EOSINOPHILS ABSOLUTE AUTO 0.46 K/mm3 (0.00-0.68); EOSINOPHILS PERCENT AUTO 5 % (0-6); Hematocrit 43.9 % (33.0-51.0); Hemoglobin 13.9 g/dL (11.5-16.0); IMMATURE GRAN ABSOLUTE AUTO 0.14 K/mm3 (0.00-0.10); IMMATURE GRAN PERCENT AUTO 2 % (0-1); LYMPHOCYTES ABSOLUTE AUTO 2.52 K/mm3 (0.84-5.20); LYMPHOCYTES PERCENT AUTO 26 % (21-46); MONOCYTES ABSOLUTE AUTO 0.74 K/mm3 (0.16-1.47); MONOCYTES PERCENT AUTO 8 % (4-13); Mean Corpuscular HGB 27.9 pg (26.0-34.0); Mean Corpuscular HGB Conc 31.7 g/dL (31.5-36.5); Mean Corpuscular Volume 88 fL (80-100); NEUTROPHILS ABSOLUTE AUTO 5.63 K/mm3 (1.96-9.15); NEUTROPHILS PERCENT AUTO 59 % (41-73); NRBC ABSOLUTE 0.02 K/mm3 (0.00-0.02); NRBC Auto 0.2 /100 WBC (0.0-0.2); RDW Coefficient Variation 16.9 % (11.7-14.2); RDW Standard Deviation 54.7 fL (35.1-46.3); Red Blood Cell Count 4.99 M/mm3 (3.80-5.20); White Blood Cell Count 9.61 K/mm3 (4.00-11.30)
[2022-07-11 04:33] LABS: Albumin, Blood 3.3 g/dL (3.4-5.0); Albumin/Globulin Ratio 0.9 (0.8-1.8); Bilirubin, Total 0.3 mg/dL (0.1-1.0); Bun/Creatinine Ratio 20.7 (12.0-20.0); Calcium, Blood 8.8 mg/dL (8.5-10.1); Creatinine, Blood 0.73 mg/dL (0.40-1.00); Globulin, Blood 3.7 g/dL (2.2-4.0)
[2022-07-11 04:37] LABS: Platelet Count 333 K/mm3 (150-400)
[2022-07-11] MEDS ORDERED: PRED20 PO (06:57)
== END 2022-07-11 07:24 | disposition home or self-care (01) ==
LOC: ER 03:27
PROVIDERS: Student in an Organized Health Care Education/Training Program
DX: R07.9 Chest pain, unspecified (principal); R06.02 Shortness of breath; R06.2 Wheezing; E03.9 Hypothyroidism, unspecified; I10 Essential (primary) hypertension; J44.9 Chronic obstructive pulmonary disease, unspecified; E11.9 Type 2 diabetes mellitus without complications; I25.10 Atherosclerotic heart disease of native coronary artery without angina pectoris; Z79.890 Hormone replacement therapy; Z95.5 Presence of coronary angioplasty implant and graft; Z95.0 Presence of cardiac pacemaker; Z87.891 Personal history of nicotine dependence; Z79.84 Long term (current) use of oral hypoglycemic drugs; Z79.82 Long term (current) use of aspirin; Z79.02 Long term (current) use of antithrombotics/antiplatelets; Z79.899 Other long term (current) drug therapy
CPT/HCPCS: 36415; 71046; 80053; 83880; 84484; 85025; 85379; 93005; 93010; 94640; 94664; 96374; 99285-25; A9270; J2405

== ENCOUNTER 2022-07-20 05:12 | Emergency (ER) | payer MEDICARE ==
[~2022-07-20] VITALS: Ht 167.6 cm; Wt 105.7 kg
[2022-07-20 06:05] LABS: BASOPHILS PERCENT AUTO 1 % (0-2); EOSINOPHILS ABSOLUTE AUTO 0.32 K/mm3 (0.00-0.68); EOSINOPHILS PERCENT AUTO 3 % (0-6); Hematocrit 42.1 % (33.0-51.0); Hemoglobin 13.4 g/dL (11.5-16.0); IMMATURE GRAN ABSOLUTE AUTO 0.08 K/mm3 (0.00-0.10); IMMATURE GRAN PERCENT AUTO 1 % (0-1); LYMPHOCYTES PERCENT AUTO 23 % (21-46); MONOCYTES PERCENT AUTO 7 % (4-13); Mean Corpuscular HGB 28.1 pg (26.0-34.0); Mean Corpuscular HGB Conc 31.8 g/dL (31.5-36.5); Mean Corpuscular Volume 88 fL (80-100); Mean Platelet Volume 10.5 fL (9.1-12.4); NEUTROPHILS ABSOLUTE AUTO 6.19 K/mm3 (1.96-9.15); NEUTROPHILS PERCENT AUTO 65 % (41-73); Platelet Count 332 K/mm3 (150-400); RDW Coefficient Variation 16.6 % (11.7-14.2); RDW Standard Deviation 54.2 fL (35.1-46.3); Red Blood Cell Count 4.77 M/mm3 (3.80-5.20); White Blood Cell Count 9.59 K/mm3 (4.00-11.30)
[2022-07-20 06:29] LABS: Albumin, Blood 3.3 g/dL (3.4-5.0); Albumin/Globulin Ratio 0.8 (0.8-1.8); Bilirubin, Total 0.4 mg/dL (0.1-1.0); Bun/Creatinine Ratio 24.4 (12.0-20.0); Calcium, Blood 8.4 mg/dL (8.5-10.1); Creatinine, Blood 0.62 mg/dL (0.40-1.00); Globulin, Blood 3.9 g/dL (2.2-4.0); Total Protein, Blood 7.2 g/dL (6.4-8.2)
== END 2022-07-20 09:07 | disposition home or self-care (01) ==
LOC: ER 05:12
PROVIDERS: Emergency Medicine
DX: J98.01 Acute bronchospasm (principal); I10 Essential (primary) hypertension; E03.9 Hypothyroidism, unspecified; J45.909 Unspecified asthma, uncomplicated; I48.91 Unspecified atrial fibrillation; E11.9 Type 2 diabetes mellitus without complications; I25.10 Atherosclerotic heart disease of native coronary artery without angina pectoris; Z87.891 Personal history of nicotine dependence; Z88.0 Allergy status to penicillin; Z91.013 Allergy to seafood; Z88.7 Allergy status to serum and vaccine; Z91.048 Other nonmedicinal substance allergy status; Z88.6 Allergy status to analgesic agent; Z88.8 Allergy status to other drugs, medicaments and biological substances; Z79.899 Other long term (current) drug therapy; Z79.01 Long term (current) use of anticoagulants
CPT/HCPCS: 36415; 71045; 80053; 83690; 84484; 85025; 93005; 93010; 94640; 94664; 96374; 99285-25; J1100

== ENCOUNTER 2022-07-26 09:30 | Emergency (ER) | payer MEDICARE ==
[~2022-07-26] VITALS: Ht 167.6 cm; Wt 104.3 kg
[2022-07-26 10:11] LABS: BASOPHILS ABSOLUTE AUTO 0.13 K/mm3 (0.00-0.23); BASOPHILS PERCENT AUTO 1 % (0-2); EOSINOPHILS ABSOLUTE AUTO 0.49 K/mm3 (0.00-0.68); EOSINOPHILS PERCENT AUTO 4 % (0-6); Hematocrit 42.3 % (33.0-51.0); IMMATURE GRAN ABSOLUTE AUTO 0.08 K/mm3 (0.00-0.10); IMMATURE GRAN PERCENT AUTO 1 % (0-1); LYMPHOCYTES ABSOLUTE AUTO 1.96 K/mm3 (0.84-5.20); LYMPHOCYTES PERCENT AUTO 18 % (21-46); MONOCYTES ABSOLUTE AUTO 0.99 K/mm3 (0.16-1.47); MONOCYTES PERCENT AUTO 9 % (4-13); Mean Corpuscular HGB 27.9 pg (26.0-34.0); Mean Corpuscular HGB Conc 30.7 g/dL (31.5-36.5); Mean Corpuscular Volume 91 fL (80-100); Mean Platelet Volume 10.9 fL (9.1-12.4); NEUTROPHILS ABSOLUTE AUTO 7.45 K/mm3 (1.96-9.15); NEUTROPHILS PERCENT AUTO 67 % (41-73); Platelet Count 320 K/mm3 (150-400); RDW Coefficient Variation 16.6 % (11.7-14.2); RDW Standard Deviation 55.3 fL (35.1-46.3); Red Blood Cell Count 4.66 M/mm3 (3.80-5.20)
[2022-07-26 10:40] LABS: Albumin, Blood 3.2 g/dL (3.4-5.0); Albumin/Globulin Ratio 0.9 (0.8-1.8); Bilirubin, Total 0.3 mg/dL (0.1-1.0); Calcium, Blood 8.8 mg/dL (8.5-10.1); Creatinine, Blood 0.69 mg/dL (0.40-1.00); Globulin, Blood 3.7 g/dL (2.2-4.0); Magnesium, Blood 1.9 mg/dL (1.6-2.4); Total Protein, Blood 6.9 g/dL (6.4-8.2)
[2022-07-26] MEDS ORDERED: PRED20 PO ×2 (11:32→11:34)
[2022-07-26] MEDS ORDERED: AZIT250 PO ×2 (11:32→11:34)
== END 2022-07-26 11:46 | disposition home or self-care (01) ==
LOC: ER 09:30
PROVIDERS: Student in an Organized Health Care Education/Training Program
DX: J44.1 Chronic obstructive pulmonary disease with (acute) exacerbation (principal); I10 Essential (primary) hypertension; E03.9 Hypothyroidism, unspecified; I48.91 Unspecified atrial fibrillation; E11.9 Type 2 diabetes mellitus without complications; I25.10 Atherosclerotic heart disease of native coronary artery without angina pectoris; Z87.891 Personal history of nicotine dependence; Z88.0 Allergy status to penicillin; Z91.048 Other nonmedicinal substance allergy status; Z91.013 Allergy to seafood; Z88.7 Allergy status to serum and vaccine; Z79.899 Other long term (current) drug therapy; Z79.01 Long term (current) use of anticoagulants; Z79.82 Long term (current) use of aspirin; Z79.84 Long term (current) use of oral hypoglycemic drugs
CPT/HCPCS: 71046; 80053; 83735; 84484; 85025; 93005; 93010; 94640; 94664; A9270; J7512

== ENCOUNTER 2022-08-04 00:28 | Emergency (ER) | payer MEDICARE ==
[~2022-08-04] VITALS: Ht 167.6 cm; Wt 104.3 kg
[2022-08-04 00:59] LABS: BASOPHILS ABSOLUTE AUTO 0.12 K/mm3 (0.00-0.23); BASOPHILS PERCENT AUTO 1 % (0-2); EOSINOPHILS ABSOLUTE AUTO 0.57 K/mm3 (0.00-0.68); EOSINOPHILS PERCENT AUTO 5 % (0-6); Hematocrit 41.1 % (33.0-51.0); Hemoglobin 13.5 g/dL (11.5-16.0); IMMATURE GRAN ABSOLUTE AUTO 0.27 K/mm3 (0.00-0.10); IMMATURE GRAN PERCENT AUTO 2 % (0-1); LYMPHOCYTES ABSOLUTE AUTO 2.55 K/mm3 (0.84-5.20); LYMPHOCYTES PERCENT AUTO 21 % (21-46); MONOCYTES ABSOLUTE AUTO 0.84 K/mm3 (0.16-1.47); MONOCYTES PERCENT AUTO 7 % (4-13); Mean Corpuscular HGB 28.6 pg (26.0-34.0); Mean Corpuscular HGB Conc 32.8 g/dL (31.5-36.5); Mean Corpuscular Volume 87 fL (80-100); NEUTROPHILS ABSOLUTE AUTO 7.68 K/mm3 (1.96-9.15); NEUTROPHILS PERCENT AUTO 64 % (41-73); RDW Coefficient Variation 16.5 % (11.7-14.2); Red Blood Cell Count 4.72 M/mm3 (3.80-5.20); White Blood Cell Count 12.03 K/mm3 (4.00-11.30)
[2022-08-04 01:04] LABS: Albumin, Blood 3.2 g/dL (3.4-5.0); Albumin/Globulin Ratio 0.8 (0.8-1.8); Bilirubin, Total 0.2 mg/dL (0.1-1.0); Bun/Creatinine Ratio 18.2 (12.0-20.0); Calcium, Blood 8.7 mg/dL (8.5-10.1); Creatinine, Blood 0.66 mg/dL (0.40-1.00); Globulin, Blood 3.9 g/dL (2.2-4.0); Potassium, Blood 4.7 mmol/L (3.5-5.5); Total Protein, Blood 7.1 g/dL (6.4-8.2)
[2022-08-04 01:14] LABS: Mean Platelet Volume 10.2 fL (9.1-12.4); Platelet Count 330 K/mm3 (150-400)
== END 2022-08-04 03:55 | disposition home or self-care (01) ==
LOC: ER 00:28
PROVIDERS: Emergency Medicine
DX: R07.9 Chest pain, unspecified (principal); I10 Essential (primary) hypertension; J44.9 Chronic obstructive pulmonary disease, unspecified; E11.9 Type 2 diabetes mellitus without complications; I25.10 Atherosclerotic heart disease of native coronary artery without angina pectoris; E03.9 Hypothyroidism, unspecified; Z95.5 Presence of coronary angioplasty implant and graft; Z95.0 Presence of cardiac pacemaker; Z88.0 Allergy status to penicillin; Z91.09 Other allergy status, other than to drugs and biological substances; Z91.013 Allergy to seafood; Z88.7 Allergy status to serum and vaccine; Z88.8 Allergy status to other drugs, medicaments and biological substances; Z79.01 Long term (current) use of anticoagulants; Z79.899 Other long term (current) drug therapy; Z79.890 Hormone replacement therapy; Z79.82 Long term (current) use of aspirin; Z87.891 Personal history of nicotine dependence
CPT/HCPCS: 36415; 71045; 80053; 84484; 85025; 93005; 93010

== ENCOUNTER 2022-08-25 20:20 | Emergency (ER) | payer MEDICARE ==
[~2022-08-25] VITALS: Ht 167.6 cm; Wt 106.6 kg
[~2022-08-25 20:20] MED LIST changes: +Pepcid40 MG PO
[2022-08-25 20:57] LABS: BASOPHILS ABSOLUTE AUTO 0.08 K/mm3 (0.00-0.23); BASOPHILS PERCENT AUTO 1 % (0-2); EOSINOPHILS ABSOLUTE AUTO 0.41 K/mm3 (0.00-0.68); EOSINOPHILS PERCENT AUTO 5 % (0-6); Hematocrit 40.9 % (33.0-51.0); Hemoglobin 13.3 g/dL (11.5-16.0); IMMATURE GRAN ABSOLUTE AUTO 0.07 K/mm3 (0.00-0.10); IMMATURE GRAN PERCENT AUTO 1 % (0-1); LYMPHOCYTES ABSOLUTE AUTO 2.52 K/mm3 (0.84-5.20); LYMPHOCYTES PERCENT AUTO 29 % (21-46); MONOCYTES ABSOLUTE AUTO 0.74 K/mm3 (0.16-1.47); MONOCYTES PERCENT AUTO 9 % (4-13); Mean Corpuscular HGB 28.4 pg (26.0-34.0); Mean Corpuscular HGB Conc 32.5 g/dL (31.5-36.5); Mean Corpuscular Volume 87 fL (80-100); Mean Platelet Volume 10.7 fL (9.1-12.4); NEUTROPHILS ABSOLUTE AUTO 4.74 K/mm3 (1.96-9.15); NEUTROPHILS PERCENT AUTO 56 % (41-73); Platelet Count 345 K/mm3 (150-400); RDW Coefficient Variation 15.9 % (11.7-14.2); RDW Standard Deviation 50.7 fL (35.1-46.3); Red Blood Cell Count 4.69 M/mm3 (3.80-5.20); White Blood Cell Count 8.56 K/mm3 (4.00-11.30)
[2022-08-25 21:02] LABS: Albumin, Blood 3.4 g/dL (3.4-5.0); Albumin/Globulin Ratio 0.8 (0.8-1.8); Bilirubin, Total 0.3 mg/dL (0.1-1.0); Bun/Creatinine Ratio 17.4 (12.0-20.0); Calcium, Blood 9.1 mg/dL (8.5-10.1); Creatinine, Blood 0.86 mg/dL (0.40-1.00); Potassium, Blood 4.2 mmol/L (3.5-5.5); Total Protein, Blood 7.4 g/dL (6.4-8.2)
== END 2022-08-26 01:02 | disposition home or self-care (01) ==
LOC: ER 20:20
PROVIDERS: Emergency Medicine
DX: R07.9 Chest pain, unspecified (principal); I10 Essential (primary) hypertension; E03.9 Hypothyroidism, unspecified; J44.9 Chronic obstructive pulmonary disease, unspecified; E11.9 Type 2 diabetes mellitus without complications; I25.10 Atherosclerotic heart disease of native coronary artery without angina pectoris; I25.2 Old myocardial infarction; F17.210 Nicotine dependence, cigarettes, uncomplicated; Z88.0 Allergy status to penicillin; Z91.013 Allergy to seafood; Z88.7 Allergy status to serum and vaccine; Z88.8 Allergy status to other drugs, medicaments and biological substances; Z91.09 Other allergy status, other than to drugs and biological substances; Z79.899 Other long term (current) drug therapy; Z79.890 Hormone replacement therapy; Z79.82 Long term (current) use of aspirin; Z79.84 Long term (current) use of oral hypoglycemic drugs; Z95.5 Presence of coronary angioplasty implant and graft; Z95.0 Presence of cardiac pacemaker
CPT/HCPCS: 71045; 80053; 84484; 85025; 93005; 93010

== ENCOUNTER 2022-08-28 14:58 | Emergency (ER) | payer MEDICARE ==
[~2022-08-28] VITALS: Ht 167.6 cm; Wt 106.6 kg
== END 2022-08-28 17:17 | disposition home or self-care (01) ==
LOC: ER 14:58
DX: R45.851 Suicidal ideations (principal); I10 Essential (primary) hypertension; J44.9 Chronic obstructive pulmonary disease, unspecified; E11.9 Type 2 diabetes mellitus without complications; I25.2 Old myocardial infarction; I25.10 Atherosclerotic heart disease of native coronary artery without angina pectoris; F17.210 Nicotine dependence, cigarettes, uncomplicated; Z95.5 Presence of coronary angioplasty implant and graft; Z95.0 Presence of cardiac pacemaker; Z88.0 Allergy status to penicillin; Z91.013 Allergy to seafood; Z88.7 Allergy status to serum and vaccine; Z79.890 Hormone replacement therapy; Z79.82 Long term (current) use of aspirin; Z79.84 Long term (current) use of oral hypoglycemic drugs; Z79.899 Other long term (current) drug therapy
CPT/HCPCS: A9270

== ENCOUNTER 2022-09-01 13:53 | Emergency (ER) | payer MEDICARE ==
[~2022-09-01] VITALS: Ht 167.6 cm; Wt 106.6 kg
[2022-09-01 15:05] LABS: BASOPHILS ABSOLUTE AUTO 0.11 K/mm3 (0.00-0.23); BASOPHILS PERCENT AUTO 1 % (0-2); EOSINOPHILS ABSOLUTE AUTO 0.52 K/mm3 (0.00-0.68); EOSINOPHILS PERCENT AUTO 5 % (0-6); Hematocrit 42.2 % (33.0-51.0); Hemoglobin 13.7 g/dL (11.5-16.0); IMMATURE GRAN ABSOLUTE AUTO 0.09 K/mm3 (0.00-0.10); IMMATURE GRAN PERCENT AUTO 1 % (0-1); LYMPHOCYTES ABSOLUTE AUTO 2.41 K/mm3 (0.84-5.20); LYMPHOCYTES PERCENT AUTO 21 % (21-46); MONOCYTES ABSOLUTE AUTO 0.94 K/mm3 (0.16-1.47); MONOCYTES PERCENT AUTO 8 % (4-13); Mean Corpuscular HGB 28.4 pg (26.0-34.0); Mean Corpuscular HGB Conc 32.5 g/dL (31.5-36.5); Mean Corpuscular Volume 87 fL (80-100); Mean Platelet Volume 10.3 fL (9.1-12.4); NEUTROPHILS ABSOLUTE AUTO 7.46 K/mm3 (1.96-9.15); NEUTROPHILS PERCENT AUTO 65 % (41-73); Platelet Count 314 K/mm3 (150-400); RDW Coefficient Variation 15.6 % (11.7-14.2); Red Blood Cell Count 4.83 M/mm3 (3.80-5.20); White Blood Cell Count 11.53 K/mm3 (4.00-11.30)
[2022-09-01 15:24] LABS: Albumin, Blood 3.4 g/dL (3.4-5.0); Albumin/Globulin Ratio 0.8 (0.8-1.8); Bilirubin, Total 0.2 mg/dL (0.1-1.0); Bun/Creatinine Ratio 21.2 (12.0-20.0); Calcium, Blood 9.3 mg/dL (8.5-10.1); Creatinine, Blood 0.71 mg/dL (0.40-1.00); Total Protein, Blood 7.4 g/dL (6.4-8.2)
[2022-09-01 19:38] LABS: Influenza A, PCR NEGATIVE (NEGATIVE); Influenza B, PCR NEGATIVE (NEGATIVE); Resp Syncytial Virus, PCR NEGATIVE (NEGATIVE); SARS-Cov-2 (COVID-19) PCR, MMC NEGATIVE (NEGATIVE)
== END 2022-09-01 21:36 | disposition home or self-care (01) ==
LOC: ER 13:53
PROVIDERS: Physician Assistant; Student in an Organized Health Care Education/Training Program
DX: R07.9 Chest pain, unspecified (principal); I10 Essential (primary) hypertension; E03.9 Hypothyroidism, unspecified; J44.9 Chronic obstructive pulmonary disease, unspecified; E11.9 Type 2 diabetes mellitus without complications; I25.10 Atherosclerotic heart disease of native coronary artery without angina pectoris; F17.210 Nicotine dependence, cigarettes, uncomplicated; Z88.0 Allergy status to penicillin; Z91.013 Allergy to seafood; Z88.7 Allergy status to serum and vaccine; Z88.8 Allergy status to other drugs, medicaments and biological substances; Z91.048 Other nonmedicinal substance allergy status; Z79.899 Other long term (current) drug therapy; Z79.82 Long term (current) use of aspirin; Z20.822 Contact with and (suspected) exposure to COVID-19
CPT/HCPCS: 0241U; 36415; 71046; 80053; 83690; 83880; 84484; 85025; 93005; 93010; A9270; J2405

== ENCOUNTER 2022-09-13 20:56 | Emergency (ER) | payer MEDICARE ==
[~2022-09-13] VITALS: Ht 167.6 cm; Wt 104.3 kg
[2022-09-13 21:43] LABS: BASOPHILS PERCENT AUTO 1 % (0-2); EOSINOPHILS ABSOLUTE AUTO 0.36 K/mm3 (0.00-0.68); EOSINOPHILS PERCENT AUTO 4 % (0-6); Hematocrit 45.7 % (33.0-51.0); Hemoglobin 14.8 g/dL (11.5-16.0); IMMATURE GRAN PERCENT AUTO 1 % (0-1); LYMPHOCYTES PERCENT AUTO 27 % (21-46); MONOCYTES ABSOLUTE AUTO 0.65 K/mm3 (0.16-1.47); MONOCYTES PERCENT AUTO 7 % (4-13); Mean Corpuscular HGB 27.7 pg (26.0-34.0); Mean Corpuscular HGB Conc 32.4 g/dL (31.5-36.5); Mean Corpuscular Volume 86 fL (80-100); NEUTROPHILS ABSOLUTE AUTO 5.69 K/mm3 (1.96-9.15); NEUTROPHILS PERCENT AUTO 60 % (41-73); Platelet Count 384 K/mm3 (150-400); RDW Coefficient Variation 15.6 % (11.7-14.2); RDW Standard Deviation 48.1 fL (35.1-46.3); Red Blood Cell Count 5.34 M/mm3 (3.80-5.20)
[2022-09-13 22:00] LABS: Albumin, Blood 3.5 g/dL (3.4-5.0); Albumin/Globulin Ratio 0.8 (0.8-1.8); Bilirubin, Total 0.4 mg/dL (0.1-1.0); Bun/Creatinine Ratio 8.6 (12.0-20.0); Calcium, Blood 9.1 mg/dL (8.5-10.1); Creatinine, Blood 0.94 mg/dL (0.40-1.00); Globulin, Blood 4.2 g/dL (2.2-4.0); Potassium, Blood 3.3 mmol/L (3.5-5.5); Total Protein, Blood 7.7 g/dL (6.4-8.2)
== END 2022-09-14 01:21 | disposition home or self-care (01) ==
LOC: ER 20:56
PROVIDERS: Student in an Organized Health Care Education/Training Program
DX: R07.2 Precordial pain (principal); Z88.0 Allergy status to penicillin; Z88.7 Allergy status to serum and vaccine; Z79.899 Other long term (current) drug therapy; Z79.82 Long term (current) use of aspirin; Z91.048 Other nonmedicinal substance allergy status; Z79.84 Long term (current) use of oral hypoglycemic drugs; I10 Essential (primary) hypertension; E03.9 Hypothyroidism, unspecified; J44.9 Chronic obstructive pulmonary disease, unspecified; I48.91 Unspecified atrial fibrillation; G47.30 Sleep apnea, unspecified; E11.9 Type 2 diabetes mellitus without complications; I25.10 Atherosclerotic heart disease of native coronary artery without angina pectoris; I25.2 Old myocardial infarction; F17.210 Nicotine dependence, cigarettes, uncomplicated
CPT/HCPCS: 71045; 80053; 83690; 84484; 85025; 93005; 93010; A9270

== ENCOUNTER 2022-10-04 03:50 | Emergency (ER) | payer MEDICARE ==
[~2022-10-04] VITALS: Ht 162.6 cm; Wt 99.8 kg
[2022-10-04 04:51] LABS: BASOPHILS ABSOLUTE AUTO 0.11 K/mm3 (0.00-0.23); BASOPHILS PERCENT AUTO 1 % (0-2); EOSINOPHILS ABSOLUTE AUTO 0.54 K/mm3 (0.00-0.68); EOSINOPHILS PERCENT AUTO 4 % (0-6); Hematocrit 42.8 % (33.0-51.0); Hemoglobin 13.9 g/dL (11.5-16.0); IMMATURE GRAN ABSOLUTE AUTO 0.16 K/mm3 (0.00-0.10); IMMATURE GRAN PERCENT AUTO 1 % (0-1); LYMPHOCYTES ABSOLUTE AUTO 2.33 K/mm3 (0.84-5.20); LYMPHOCYTES PERCENT AUTO 18 % (21-46); MONOCYTES ABSOLUTE AUTO 0.64 K/mm3 (0.16-1.47); MONOCYTES PERCENT AUTO 5 % (4-13); Mean Corpuscular HGB 28.4 pg (26.0-34.0); Mean Corpuscular HGB Conc 32.5 g/dL (31.5-36.5); Mean Corpuscular Volume 87 fL (80-100); Mean Platelet Volume 9.7 fL (9.1-12.4); NEUTROPHILS ABSOLUTE AUTO 9.29 K/mm3 (1.96-9.15); NEUTROPHILS PERCENT AUTO 71 % (41-73); Platelet Count 389 K/mm3 (150-400); RDW Standard Deviation 51.2 fL (35.1-46.3); White Blood Cell Count 13.07 K/mm3 (4.00-11.30)
[2022-10-04 05:28] LABS: Influenza A, PCR NEGATIVE (NEGATIVE); Influenza B, PCR NEGATIVE (NEGATIVE); Resp Syncytial Virus, PCR NEGATIVE (NEGATIVE); SARS-Cov-2 (COVID-19) PCR, MMC NEGATIVE (NEGATIVE)
[2022-10-04 05:28] LABS: Albumin, Blood 3.3 g/dL (3.4-5.0); Albumin/Globulin Ratio 0.7 (0.8-1.8); Bilirubin, Total 0.4 mg/dL (0.1-1.0); Bun/Creatinine Ratio 12.6 (12.0-20.0); Creatinine, Blood 0.79 mg/dL (0.40-1.00); Globulin, Blood 4.6 g/dL (2.2-4.0); Potassium, Blood 3.5 mmol/L (3.5-5.5); Total Protein, Blood 7.9 g/dL (6.4-8.2)
[2022-10-04] MEDS ORDERED: PRED20 PO ×3 (05:50→06:25)
[2022-10-04] MEDS ORDERED: DOXY100 PO ×3 (05:50→06:25)
== END 2022-10-04 06:36 | disposition home or self-care (01) ==
LOC: ER 03:50
PROVIDERS: Student in an Organized Health Care Education/Training Program
DX: J44.1 Chronic obstructive pulmonary disease with (acute) exacerbation (principal); J40 Bronchitis, not specified as acute or chronic; I10 Essential (primary) hypertension; E03.9 Hypothyroidism, unspecified; E11.9 Type 2 diabetes mellitus without complications; I25.10 Atherosclerotic heart disease of native coronary artery without angina pectoris; F17.210 Nicotine dependence, cigarettes, uncomplicated; Z88.0 Allergy status to penicillin; Z88.7 Allergy status to serum and vaccine; Z91.09 Other allergy status, other than to drugs and biological substances; Z91.013 Allergy to seafood; Z79.899 Other long term (current) drug therapy; Z79.890 Hormone replacement therapy; Z79.82 Long term (current) use of aspirin; Z79.84 Long term (current) use of oral hypoglycemic drugs; Z95.5 Presence of coronary angioplasty implant and graft; Z95.0 Presence of cardiac pacemaker; Z20.822 Contact with and (suspected) exposure to COVID-19
CPT/HCPCS: 0241U; 36415; 71046; 80053; 85025; 93005; 93010; 94640; 94664; A9270; J7512

== ENCOUNTER 2022-10-13 03:38 | Observation (INO) | payer MEDICARE ==
[~2022-10-13] VITALS: Ht 167.6 cm; Wt 115.5 kg
[2022-10-13 05:17] LABS: BASOPHILS ABSOLUTE AUTO 0.11 K/mm3 (0.00-0.23); BASOPHILS PERCENT AUTO 1 % (0-2); EOSINOPHILS ABSOLUTE AUTO 0.34 K/mm3 (0.00-0.68); EOSINOPHILS PERCENT AUTO 3 % (0-6); Hematocrit 43.7 % (33.0-51.0); Hemoglobin 14.4 g/dL (11.5-16.0); IMMATURE GRAN ABSOLUTE AUTO 0.11 K/mm3 (0.00-0.10); IMMATURE GRAN PERCENT AUTO 1 % (0-1); LYMPHOCYTES ABSOLUTE AUTO 2.99 K/mm3 (0.84-5.20); LYMPHOCYTES PERCENT AUTO 22 % (21-46); MONOCYTES ABSOLUTE AUTO 0.96 K/mm3 (0.16-1.47); MONOCYTES PERCENT AUTO 7 % (4-13); Mean Corpuscular HGB 28.5 pg (26.0-34.0); Mean Corpuscular Volume 87 fL (80-100); Mean Platelet Volume 9.4 fL (9.1-12.4); NEUTROPHILS ABSOLUTE AUTO 9.26 K/mm3 (1.96-9.15); NEUTROPHILS PERCENT AUTO 67 % (41-73); Platelet Count 371 K/mm3 (150-400); RDW Coefficient Variation 16.2 % (11.7-14.2); RDW Standard Deviation 51.6 fL (35.1-46.3); Red Blood Cell Count 5.05 M/mm3 (3.80-5.20); White Blood Cell Count 13.77 K/mm3 (4.00-11.30)
[2022-10-13 05:36] LABS: Albumin, Blood 3.3 g/dL (3.4-5.0); Albumin/Globulin Ratio 0.9 (0.8-1.8); Bilirubin, Total 0.4 mg/dL (0.1-1.0); Bun/Creatinine Ratio 17.8 (12.0-20.0); Calcium, Blood 8.9 mg/dL (8.5-10.1); Creatinine, Blood 0.79 mg/dL (0.40-1.00); Globulin, Blood 3.8 g/dL (2.2-4.0); Potassium, Blood 3.6 mmol/L (3.5-5.5); Total Protein, Blood 7.1 g/dL (6.4-8.2)
[2022-10-13 08:00] LABS: CPK Creatine Kinase 74 U/L (26-193)
[2022-10-13] MEDS ORDERED: POLYETHYLENE G500 G1 PO (13:47)
[2022-10-13] MEDS ORDERED: NICO2 PO (13:47)
--- NOTE | 2022-10-13 14:21 | NUR ---
Patient alert and oriented x 3. Resting confortably in bed. at bedside. Pt states chest pain is about 2 out of 3. Pt has a monitor for her bladder thats implanted. Pt also has a pacemaker. received a call from that pt will be discharged, IV removed. Pt given morning medications. Discharged with all belongings.
== END 2022-10-13 14:19 | disposition home or self-care (01) ==
LOC: ER 03:38 → ERHOLD 03:39 → MEDS 03:39 → ER 03:39 → MEDS 08:50
PROVIDERS: Emergency Medicine; ADMIT Internal Medicine
DX: I24.9 Acute ischemic heart disease, unspecified (principal); I48.91 Unspecified atrial fibrillation; F41.9 Anxiety disorder, unspecified; I25.10 Atherosclerotic heart disease of native coronary artery without angina pectoris; K59.00 Constipation, unspecified; J44.9 Chronic obstructive pulmonary disease, unspecified; E11.9 Type 2 diabetes mellitus without complications; I10 Essential (primary) hypertension; E03.9 Hypothyroidism, unspecified; G25.81 Restless legs syndrome; D72.829 Elevated white blood cell count, unspecified; Z88.0 Allergy status to penicillin; Z91.040 Latex allergy status; Z88.8 Allergy status to other drugs, medicaments and biological substances; F17.210 Nicotine dependence, cigarettes, uncomplicated
CPT/HCPCS: 36415; 71045; 80053; 82550; 83690; 83880; 84484; 85025; 93005; 93010; 96374; 96375; 99285-25; A9270; C9113; G0378; J3010; J7030

== ENCOUNTER 2022-11-02 13:55 | Emergency (ER) | payer MEDICARE ==
[~2022-11-02] VITALS: Ht 167.6 cm; Wt 105.7 kg
[~2022-11-02 13:55] MED LIST changes: +ATOR80 PO; +CARTIA XT240 M1 PO; +POLYETHYLENE G500 G1 PO
== END 2022-11-02 16:48 | disposition left against medical advice (07) ==
LOC: ER 13:55
DX: R05.9 Cough, unspecified (principal); Z79.52 Long term (current) use of systemic steroids; Z79.899 Other long term (current) drug therapy; Z79.82 Long term (current) use of aspirin; Z79.890 Hormone replacement therapy; Z53.21 Procedure and treatment not carried out due to patient leaving prior to being seen by health care provider
CPT/HCPCS: 99281

== ENCOUNTER 2022-11-23 05:20 | Emergency (ER) | payer MEDICARE ==
[~2022-11-23] VITALS: Ht 167.6 cm; Wt 113.4 kg
[~2022-11-23 05:20] MED LIST changes: +ERYT.5TO RIGHTEYE; +Roxicodone5 MG PO
[2022-11-23 05:57] LABS: BASOPHILS ABSOLUTE AUTO 0.11 K/mm3 (0.00-0.23); BASOPHILS PERCENT AUTO 1 % (0-2); EOSINOPHILS ABSOLUTE AUTO 1.02 K/mm3 (0.00-0.68); EOSINOPHILS PERCENT AUTO 11 % (0-6); Hematocrit 45.4 % (33.0-51.0); IMMATURE GRAN ABSOLUTE AUTO 0.04 K/mm3 (0.00-0.10); IMMATURE GRAN PERCENT AUTO 0 % (0-1); LYMPHOCYTES ABSOLUTE AUTO 2.48 K/mm3 (0.84-5.20); LYMPHOCYTES PERCENT AUTO 27 % (21-46); MONOCYTES ABSOLUTE AUTO 0.59 K/mm3 (0.16-1.47); MONOCYTES PERCENT AUTO 6 % (4-13); Mean Corpuscular HGB 28.5 pg (26.0-34.0); Mean Corpuscular Volume 86 fL (80-100); Mean Platelet Volume 10.5 fL (9.1-12.4); NEUTROPHILS ABSOLUTE AUTO 4.93 K/mm3 (1.96-9.15); NEUTROPHILS PERCENT AUTO 54 % (41-73); Platelet Count 303 K/mm3 (150-400); RDW Standard Deviation 53.9 fL (35.1-46.3); Red Blood Cell Count 5.27 M/mm3 (3.80-5.20); White Blood Cell Count 9.17 K/mm3 (4.00-11.30)
[2022-11-23 06:11] LABS: Base Excess Venous -0.9 mmol/L; Bicarbonate Venous 24.3 mmol/L (24.0-30.0); PCO2 Venous 33.5 mmHg (38-42); pH Blood Venous 7.45 (7.34-7.37)
[2022-11-23 06:12] LABS: Source, Urine Straight Cath
[2022-11-23 06:16] LABS: International Normalized Ratio 0.96; Magnesium, Blood 2.3 mg/dL (1.6-2.4); Prothrombin Time Results 10.1 Sec (9.7-11.5)
[2022-11-23 06:19] LABS: Thyroid Stimulating Hormone 71.5 uIU/mL (0.360-4.800)
[2022-11-23 06:20] LABS: Albumin, Blood 3.9 g/dL (3.4-5.0); Bilirubin, Total 0.4 mg/dL (0.1-1.0); Bun/Creatinine Ratio 10.8 (12.0-20.0); Creatinine, Blood 0.93 mg/dL (0.40-1.00); Globulin, Blood 4.1 g/dL (2.2-4.0); Potassium, Blood 3.9 mmol/L (3.5-5.5)
[2022-11-23 06:26] LABS: Appearance, Urine Clear (Clear); Bilirubin, Urine Neg (Neg); Blood, Urine Neg (Neg); Color, Urine Yellow (P-Yellow); Glucose Qualitative, Urine Neg (Neg); Ketones, Urine Neg (Neg); Leukocyte Esterase, Urine Neg (Neg); Nitrite, Urine Neg (Neg); Protein, Urine Neg (Neg); Specific Gravity, Urine 1.015 (1.003-1.022); Urobilinogen, Urine NORM (Normal)
[2022-11-23 06:43] LABS: Influenza A, PCR NEGATIVE (NEGATIVE); Influenza B, PCR NEGATIVE (NEGATIVE); Resp Syncytial Virus, PCR NEGATIVE (NEGATIVE); SARS-Cov-2 (COVID-19) PCR, MMC NEGATIVE (NEGATIVE)
[2022-11-23 07:50] LABS: U Amphetamine Screen Not Detected; U Barbituate Screen Not Detected; U Benzodiazapine Screen Not Detected; U Buprenorphine Screen Not Detected; U Cannabinoids Screen Not Detected; U Cocaine Screen Not Detected; U Methadone Screen Not Detected; U Methamphetamine Screen Not Detected; U Opiates Screen Not Detected; U Oxycodone Screen DETECTED; U Phencyclidine Screen Not Detected; U Propoxyphene Screen Not Detected
[2022-11-23] MEDS ORDERED: EUTHYROX175 MCG PO (09:56)
== END 2022-11-23 10:11 | disposition home or self-care (01) ==
LOC: ER 05:20
PROVIDERS: Emergency Medicine; Student in an Organized Health Care Education/Training Program
DX: R41.82 Altered mental status, unspecified (principal); I25.10 Atherosclerotic heart disease of native coronary artery without angina pectoris; I10 Essential (primary) hypertension; E03.9 Hypothyroidism, unspecified; J44.9 Chronic obstructive pulmonary disease, unspecified; I25.2 Old myocardial infarction; F17.210 Nicotine dependence, cigarettes, uncomplicated; Z88.0 Allergy status to penicillin; Z91.013 Allergy to seafood; Z91.09 Other allergy status, other than to drugs and biological substances; Z88.7 Allergy status to serum and vaccine; Z88.8 Allergy status to other drugs, medicaments and biological substances; Z79.890 Hormone replacement therapy; Z79.82 Long term (current) use of aspirin; Z79.899 Other long term (current) drug therapy; Z95.5 Presence of coronary angioplasty implant and graft; Z95.0 Presence of cardiac pacemaker; Z20.822 Contact with and (suspected) exposure to COVID-19
CPT/HCPCS: 0241U; 36415; 70450; 80053; 81003; 82803; 83735; 84439; 84443; 85025; 85610; 93005; 93010; 99285-25; G0480; P9612

== ENCOUNTER 2022-11-29 06:50 | Emergency (ER) | payer MEDICARE ==
[~2022-11-29] VITALS: Ht 167.6 cm; Wt 105.7 kg
[2022-11-29] MEDS ORDERED: CYCL10 PO (09:42)
== END 2022-11-29 10:15 | disposition home or self-care (01) ==
LOC: ER 06:50
DX: M54.50 Low back pain, unspecified (principal); G89.29 Other chronic pain; Z88.0 Allergy status to penicillin; Z91.048 Other nonmedicinal substance allergy status; Z88.7 Allergy status to serum and vaccine; Z88.8 Allergy status to other drugs, medicaments and biological substances; Z79.899 Other long term (current) drug therapy; Z79.82 Long term (current) use of aspirin; I25.10 Atherosclerotic heart disease of native coronary artery without angina pectoris; I10 Essential (primary) hypertension; E03.9 Hypothyroidism, unspecified; J44.9 Chronic obstructive pulmonary disease, unspecified; I48.91 Unspecified atrial fibrillation; G47.30 Sleep apnea, unspecified; I25.2 Old myocardial infarction; F17.290 Nicotine dependence, other tobacco product, uncomplicated
CPT/HCPCS: A9270; J1885

== ENCOUNTER 2022-12-06 03:15 | Emergency (ER) | payer MEDICARE ==
[~2022-12-06] VITALS: Ht 167.6 cm; Wt 104.3 kg
[~2022-12-06 03:15] MED LIST changes: -SOTALOL PO
[2022-12-06 04:54] VITALS: BP 151/72
[2022-12-19] MEDS ORDERED: LEVO750 PO (07:20)
[2022-12-25] MEDS ORDERED: EUTHYROX175 MCG PO (21:50)
[2023-01-21] MEDS ORDERED: CYCL10 PO (05:22)
[2023-01-21] MEDS ORDERED: Voltaren100 GM TOP (05:22)
[2023-01-21] MEDS ORDERED: LIDO700A20 TOP (05:22)
== END 2022-12-06 04:53 | disposition home or self-care (01) ==
LOC: ER 03:15
DX: R07.9 Chest pain, unspecified (principal); M54.6 Pain in thoracic spine; I25.10 Atherosclerotic heart disease of native coronary artery without angina pectoris; I10 Essential (primary) hypertension; E03.9 Hypothyroidism, unspecified; J44.9 Chronic obstructive pulmonary disease, unspecified; F17.210 Nicotine dependence, cigarettes, uncomplicated; Z88.0 Allergy status to penicillin; Z91.013 Allergy to seafood; Z88.7 Allergy status to serum and vaccine; Z88.8 Allergy status to other drugs, medicaments and biological substances; Z91.048 Other nonmedicinal substance allergy status; Z79.899 Other long term (current) drug therapy; Z79.82 Long term (current) use of aspirin; G89.29 Other chronic pain; I48.91 Unspecified atrial fibrillation; G47.30 Sleep apnea, unspecified; I25.2 Old myocardial infarction; Z59.00 Homelessness unspecified
CPT/HCPCS: 36415; 71046; 80053; 84484; 85025; 93005; 93010; 96372; 96374; 99285-25; A9270; J1885

== ENCOUNTER 2022-12-09 07:37 | Emergency (ER) | payer MEDICARE ==
[~2022-12-09] VITALS: Ht 167.6 cm; Wt 105.7 kg
[~2022-12-09 07:37] MED LIST changes: +SOTALOL PO
[2022-12-09 08:16] LABS: BASOPHILS ABSOLUTE AUTO 0.08 K/mm3 (0.00-0.23); BASOPHILS PERCENT AUTO 1 % (0-2); EOSINOPHILS ABSOLUTE AUTO 0.58 K/mm3 (0.00-0.68); EOSINOPHILS PERCENT AUTO 7 % (0-6); Hematocrit 39.4 % (33.0-51.0); IMMATURE GRAN ABSOLUTE AUTO 0.03 K/mm3 (0.00-0.10); IMMATURE GRAN PERCENT AUTO 0 % (0-1); LYMPHOCYTES ABSOLUTE AUTO 2.16 K/mm3 (0.84-5.20); LYMPHOCYTES PERCENT AUTO 24 % (21-46); MONOCYTES ABSOLUTE AUTO 0.74 K/mm3 (0.16-1.47); MONOCYTES PERCENT AUTO 8 % (4-13); Mean Corpuscular HGB 28.5 pg (26.0-34.0); Mean Corpuscular Volume 86 fL (80-100); Mean Platelet Volume 10.1 fL (9.1-12.4); NEUTROPHILS PERCENT AUTO 60 % (41-73); Platelet Count 276 K/mm3 (150-400); RDW Coefficient Variation 16.5 % (11.7-14.2); RDW Standard Deviation 51.8 fL (35.1-46.3); Red Blood Cell Count 4.56 M/mm3 (3.80-5.20); White Blood Cell Count 8.99 K/mm3 (4.00-11.30)
[2022-12-09 08:34] LABS: Albumin, Blood 3.7 g/dL (3.4-5.0); Albumin/Globulin Ratio 0.9 (0.8-1.8); Bilirubin, Total 0.5 mg/dL (0.1-1.0); Bun/Creatinine Ratio 21.2 (12.0-20.0); Calcium, Blood 9.7 mg/dL (8.5-10.1); Creatinine, Blood 0.94 mg/dL (0.40-1.00); Globulin, Blood 3.9 g/dL (2.2-4.0); Potassium, Blood 3.4 mmol/L (3.5-5.5); Total Protein, Blood 7.6 g/dL (6.4-8.2)
[2022-12-09] MEDS ORDERED: PRED20 PO (09:11)
== END 2022-12-09 09:37 | disposition home or self-care (01) ==
LOC: ER 07:37
PROVIDERS: Emergency Medicine
DX: J44.1 Chronic obstructive pulmonary disease with (acute) exacerbation (principal); F17.210 Nicotine dependence, cigarettes, uncomplicated; M54.9 Dorsalgia, unspecified; G89.29 Other chronic pain; I25.10 Atherosclerotic heart disease of native coronary artery without angina pectoris; I10 Essential (primary) hypertension; E03.9 Hypothyroidism, unspecified; I25.2 Old myocardial infarction; Z88.0 Allergy status to penicillin; Z91.09 Other allergy status, other than to drugs and biological substances; Z91.013 Allergy to seafood; Z88.7 Allergy status to serum and vaccine; Z88.8 Allergy status to other drugs, medicaments and biological substances; Z79.899 Other long term (current) drug therapy; Z79.82 Long term (current) use of aspirin; Z79.890 Hormone replacement therapy; Z95.5 Presence of coronary angioplasty implant and graft; Z95.0 Presence of cardiac pacemaker
CPT/HCPCS: 71045; 80053; 84484; 85025; 93005; 93010; 94644; 94664; J2930

== ENCOUNTER 2022-12-12 11:50 | Emergency (ER) | payer MEDICARE ==
[~2022-12-12] VITALS: Ht 167.6 cm; Wt 105.7 kg
[2022-12-12 12:51] LABS: Source, Urine Clean Catch
[2022-12-12 12:59] LABS: Appearance, Urine Clear (Clear); Bilirubin, Urine Neg (Neg); Blood, Urine 1+ (Neg); Color, Urine Yellow (P-Yellow); Glucose Qualitative, Urine Neg (Neg); Ketones, Urine Neg (Neg); Leukocyte Esterase, Urine Neg (Neg); Nitrite, Urine Neg (Neg); Protein, Urine 2+ (Neg); Specific Gravity, Urine 1.015 (1.003-1.022); Urobilinogen, Urine NORM (Normal)
[2022-12-12 13:13] LABS: Bacteria Not Seen /hpf; Red Blood Cells, Urine 0-2 /hpf (0-2); Squamous Epithelial Cells Rare /hpf (Few); White Blood Cells, Urine Not Seen /hpf (0-5)
[2022-12-12] MEDS ORDERED: Norflex100 MG PO (19:17)
== END 2022-12-12 13:12 | disposition left against medical advice (07) ==
LOC: ER 11:50
PROVIDERS: Physician Assistant
DX: R30.0 Dysuria (principal); R10.84 Generalized abdominal pain; R68.83 Chills (without fever); Z53.29 Procedure and treatment not carried out because of patient's decision for other reasons
CPT/HCPCS: 81001; 99281

== ENCOUNTER 2022-12-12 17:17 | Emergency (ER) | payer MEDICARE ==
[~2022-12-12] VITALS: Ht 167.6 cm; Wt 105.7 kg
[2022-12-12] MEDS ORDERED: Norflex100 MG PO (19:17)
== END 2022-12-12 19:28 | disposition home or self-care (01) ==
LOC: ER 17:17
DX: M54.50 Low back pain, unspecified (principal); I25.10 Atherosclerotic heart disease of native coronary artery without angina pectoris; I10 Essential (primary) hypertension; E03.9 Hypothyroidism, unspecified; J44.9 Chronic obstructive pulmonary disease, unspecified; I25.2 Old myocardial infarction; F17.210 Nicotine dependence, cigarettes, uncomplicated; Z79.52 Long term (current) use of systemic steroids; Z79.890 Hormone replacement therapy; Z79.899 Other long term (current) drug therapy; Z79.82 Long term (current) use of aspirin; Z95.5 Presence of coronary angioplasty implant and graft; Z95.0 Presence of cardiac pacemaker
CPT/HCPCS: 72070; 99283-25

== ENCOUNTER 2022-12-24 02:17 | Emergency (ER) | payer MEDICARE ==
[~2022-12-24] VITALS: Ht 167.6 cm; Wt 115.7 kg
[~2022-12-24 02:17] MED LIST changes: +Norflex100 MG PO; -SOTALOL PO
[2022-12-24 02:47] LABS: Source, Urine Clean Catch
[2022-12-24 02:50] LABS: Bilirubin, Urine Neg (Neg); Blood, Urine Neg (Neg); Glucose Qualitative, Urine Neg (Neg); Ketones, Urine Neg (Neg); Leukocyte Esterase, Urine 1+ (Neg); Nitrite, Urine Neg (Neg); Protein, Urine Neg (Neg); Specific Gravity, Urine 1.015 (1.003-1.022); Urobilinogen, Urine NORM (Normal)
[2022-12-24 02:58] LABS: Appearance, Urine Clear (Clear); Color, Urine Yellow (P-Yellow)
[2022-12-24 02:59] LABS: Bacteria Rare /hpf; Red Blood Cells, Urine Not Seen /hpf (0-2); Squamous Epithelial Cells Few /hpf (Few)
[2022-12-24] MEDS ORDERED: CYCL10 PO (03:12)
[2022-12-25] MEDS ORDERED: DILTIAZEM 24HR240 M4 PO (21:49)
[2022-12-25] MEDS ORDERED: LEVOTHYROXINE200 MCG PO (21:50)
[2022-12-25] MEDS ORDERED: IPRAT-ALBUT 0.5-3 ML INH (21:55)
[2022-12-25] MEDS ORDERED: CYCL10 PO (21:56)
== END 2022-12-24 03:22 | disposition home or self-care (01) ==
LOC: ER 02:17
PROVIDERS: Student in an Organized Health Care Education/Training Program
DX: M54.50 Low back pain, unspecified (principal); G89.29 Other chronic pain; I25.10 Atherosclerotic heart disease of native coronary artery without angina pectoris; I10 Essential (primary) hypertension; E03.9 Hypothyroidism, unspecified; J44.9 Chronic obstructive pulmonary disease, unspecified; I25.2 Old myocardial infarction; F17.210 Nicotine dependence, cigarettes, uncomplicated; Z88.0 Allergy status to penicillin; Z88.7 Allergy status to serum and vaccine; Z88.8 Allergy status to other drugs, medicaments and biological substances; Z91.013 Allergy to seafood; Z91.09 Other allergy status, other than to drugs and biological substances; Z79.890 Hormone replacement therapy; Z79.899 Other long term (current) drug therapy; Z95.5 Presence of coronary angioplasty implant and graft; Z95.0 Presence of cardiac pacemaker
CPT/HCPCS: 81001; A9270; J1885

== ENCOUNTER 2022-12-25 12:53 | Observation (INO) | payer MEDICARE ==
[~2022-12-25] VITALS: Ht 167.6 cm; Wt 115.7 kg
[2022-12-25 13:48] LABS: Hemoglobin 12.5 g/dL (11.5-16.0); Mean Corpuscular HGB 28.2 pg (26.0-34.0); Mean Corpuscular HGB Conc 32.9 g/dL (31.5-36.5); Mean Corpuscular Volume 86 fL (80-100); Mean Platelet Volume 10.1 fL (9.1-12.4); Platelet Count 334 K/mm3 (150-400); RDW Coefficient Variation 16.5 % (11.7-14.2); RDW Standard Deviation 51.8 fL (35.1-46.3); Red Blood Cell Count 4.43 M/mm3 (3.80-5.20); White Blood Cell Count 13.18 K/mm3 (4.00-11.30)
[2022-12-25 14:06] LABS: Albumin, Blood 2.7 g/dL (3.4-5.0); Albumin/Globulin Ratio 0.7 (0.8-1.8); Bilirubin, Total 0.1 mg/dL (0.1-1.0); Calcium, Blood 9.3 mg/dL (8.5-10.1); Creatinine, Blood 0.78 mg/dL (0.40-1.00); Globulin, Blood 4.1 g/dL (2.2-4.0); Potassium, Blood 3.8 mmol/L (3.5-5.5); Total Protein, Blood 6.8 g/dL (6.4-8.2)
[2022-12-25 14:31] LABS: BAND PERCENT MAN 3 % (0-8); BASOPHILS ABSOLUTE MAN 0.26 K/mm3 (0.00-0.23); BASOPHILS PERCENT MAN 2 % (0-2); EOSINOPHILS ABSOLUTE MAN 0.26 K/mm3 (0.00-0.68); EOSINOPHILS PERCENT MAN 2 % (0-6); LYMPHOCYTES % ATYPICAL MANUAL 1 % (0-0); LYMPHOCYTES PERCENT MAN 18 % (21-46); METAMYELOCYTE ABSOLUTE MAN 0.52 K/mm3 (0.00-0.00); METAMYELOCYTE PERCENT MAN 4 % (0-0); MONOCYTES ABSOLUTE MAN 0.92 K/mm3 (0.16-1.47); MONOCYTES PERCENT MAN 7 % (4-13); MYELOCYTE ABSOLUTE MAN 0.13 K/mm3 (0.00-0.00); MYELOCYTE PERCENT MAN 1 % (0-0); NEUTROPHILS ABSOLUTE MAN 8.56 K/mm3 (1.96-9.15); SEG NEUTROPHILS PERCENT MAN 62 % (41-73); TOTAL CELLS COUNTED 100
--- NOTE | 2022-12-25 18:57 | NUR ---
ASSUMED CARE: PT ARRIVED FROM ED VIA GURNEY AND TRANSFERRED SELF TO HOSPITAL BED. PAPER ORDERS IN HAND, RN TO REVIEW TO DETERMINE FURTHER PLANS FOR PT. CALL LIGHT IN REACH
[2022-12-25 21:31] LABS: BASOPHILS ABSOLUTE AUTO 0.16 K/mm3 (0.00-0.23); BASOPHILS PERCENT AUTO 1 % (0-2); EOSINOPHILS ABSOLUTE AUTO 0.21 K/mm3 (0.00-0.68); EOSINOPHILS PERCENT AUTO 2 % (0-6); Hematocrit 40.6 % (33.0-51.0); Hemoglobin 13.2 g/dL (11.5-16.0); IMMATURE GRAN PERCENT AUTO 10 % (0-1); LYMPHOCYTES ABSOLUTE AUTO 2.11 K/mm3 (0.84-5.20); LYMPHOCYTES PERCENT AUTO 19 % (21-46); MONOCYTES ABSOLUTE AUTO 0.84 K/mm3 (0.16-1.47); MONOCYTES PERCENT AUTO 7 % (4-13); Mean Corpuscular HGB 28.3 pg (26.0-34.0); Mean Corpuscular HGB Conc 32.5 g/dL (31.5-36.5); Mean Corpuscular Volume 87 fL (80-100); NEUTROPHILS ABSOLUTE AUTO 6.86 K/mm3 (1.96-9.15); NEUTROPHILS PERCENT AUTO 61 % (41-73); Platelet Count 374 K/mm3 (150-400); RDW Coefficient Variation 16.6 % (11.7-14.2); RDW Standard Deviation 52.9 fL (35.1-46.3); Red Blood Cell Count 4.67 M/mm3 (3.80-5.20); White Blood Cell Count 11.28 K/mm3 (4.00-11.30)
[2022-12-25] MEDS ORDERED: DILTIAZEM 24HR240 M4 PO (21:49)
[2022-12-25] MEDS ORDERED: LEVOTHYROXINE200 MCG PO (21:50)
[2022-12-25] MEDS ORDERED: IPRAT-ALBUT 0.5-3 ML INH (21:55)
[2022-12-25] MEDS ORDERED: CYCL10 PO (21:56)
[2022-12-26 06:27] LABS: Hematocrit 41.2 % (33.0-51.0); Hemoglobin 13.3 g/dL (11.5-16.0); Mean Corpuscular HGB 28.1 pg (26.0-34.0); Mean Corpuscular HGB Conc 32.3 g/dL (31.5-36.5); Mean Corpuscular Volume 87 fL (80-100); Mean Platelet Volume 10.1 fL (9.1-12.4); Platelet Count 371 K/mm3 (150-400); RDW Coefficient Variation 16.5 % (11.7-14.2); RDW Standard Deviation 52.4 fL (35.1-46.3); Red Blood Cell Count 4.74 M/mm3 (3.80-5.20); White Blood Cell Count 10.54 K/mm3 (4.00-11.30)
[2022-12-26 06:45] LABS: Bun/Creatinine Ratio 11.6 (12.0-20.0); Calcium, Blood 8.7 mg/dL (8.5-10.1); Creatinine, Blood 0.77 mg/dL (0.40-1.00); Potassium, Blood 3.4 mmol/L (3.5-5.5)
[2022-12-26 07:11] LABS: BAND PERCENT MAN 1 % (0-8); BASOPHILS PERCENT MAN 0 % (0-2); EOSINOPHILS ABSOLUTE MAN 0.42 K/mm3 (0.00-0.68); EOSINOPHILS PERCENT MAN 4 % (0-6); LYMPHOCYTES ABSOLUTE MAN 1.58 K/mm3 (0.84-5.20); LYMPHOCYTES PERCENT MAN 15 % (21-46); METAMYELOCYTE PERCENT MAN 1 % (0-0); MONOCYTES ABSOLUTE MAN 0.84 K/mm3 (0.16-1.47); MONOCYTES PERCENT MAN 8 % (4-13); MYELOCYTE ABSOLUTE MAN 0.21 K/mm3 (0.00-0.00); MYELOCYTE PERCENT MAN 2 % (0-0); NEUTROPHILS ABSOLUTE MAN 7.37 K/mm3 (1.96-9.15); SEG NEUTROPHILS PERCENT MAN 69 % (41-73); TOTAL CELLS COUNTED 100
--- NOTE | 2022-12-26 17:14 | NUR ---
PT BROUGHT FROM MEDICAL FLOOR TO DAY SURGERY FOR PROCEDURE.
--- NOTE | 2022-12-26 17:43 | NUR ---
12/26/22 3301 Edil Metz History, Chart, Medications and Allergies reviewed before start of procedure. MONITOR INTACT WITH CONTINUOUS PULSE OXIMETRY, CONTINUOUS END TITAL CO2, AND INTERMITTENT BLOOD PRESSURE. 3-LEAD EKG REVIEWED WITH PHYSICIAN PRIOR TO START OF PROCEDURE. O2 VIA POM MASK INTACT THROUGHOUT SEDATION/PROCEDURE.
--- NOTE | 2022-12-26 19:04 | NUR ---
SHIFT SUMMARY- PT IS A/O, PLESANT AND COOPERATIVE. SHE WAS NPO THIS SHIFT FOR COLONOSCOPY. RECIVING MEDICATION FOR PAIN NEEDED. SHE SLEPT INTERMITENTLY DURING THIS SHIFT. AT BEDSIDE THIS AFTERNOON. SHE HAD TWO IV'S INFULTRATE THIS SHIFT AND ANOTHER WAS PLACED IN DAY SURGERY. SHE WENT FOR HER SCOPE THIS AFTERNOON. UPON ARRIVAL BACK TO THE FLOOR SHE WAS HYPERTENSIVE. IV HYDRALIZINE ORDERED. HER BED IS IN THE LOW POSITION AND CALL LIGHT IS WITIN REACH.
--- NOTE | 2022-12-27 04:36 | NUR ---
SHIFT SUMMARY; THE PT IS AXO X4 AND INDEPENDENT IN THE ROOM. THE PT HAS BEEN HYPERTENSIVE T/O THE SHIFT. 10MG OF IV HYDRALAZINE WAS GIVEN FOR A B/P OF 167/85, B/P WAS RECHECKED AND HER B/P IS NOW 124/70. THE PT HAS HAD FREUQENT LOOSE BM'S THIS AM. THE PT HAS BEEN MEDICATED A FEW TIMES FOR HER CHRONIC BACK PAIN. THE PT DENIES ANY SOB, CHEST PAIN/PRESSURE OR N/V. CURRENTLY THE PT IS SITTING UP IN BED WITH THE BED IN THE LOWEST POSITION AND THE CALL LIGHT AT BEDSIDE.
[2022-12-27 05:17] LABS: Hematocrit 41.5 % (33.0-51.0); Hemoglobin 13.5 g/dL (11.5-16.0); Mean Corpuscular HGB 28.1 pg (26.0-34.0); Mean Corpuscular HGB Conc 32.5 g/dL (31.5-36.5); Mean Corpuscular Volume 86 fL (80-100); Mean Platelet Volume 10.8 fL (9.1-12.4); Platelet Count 381 K/mm3 (150-400); RDW Coefficient Variation 16.6 % (11.7-14.2); RDW Standard Deviation 52.1 fL (35.1-46.3); Red Blood Cell Count 4.81 M/mm3 (3.80-5.20); White Blood Cell Count 11.43 K/mm3 (4.00-11.30)
[2022-12-27 05:50] LABS: Albumin, Blood 2.9 g/dL (3.4-5.0); Albumin/Globulin Ratio 0.7 (0.8-1.8); Bilirubin, Total 0.4 mg/dL (0.1-1.0); Bun/Creatinine Ratio 13.7 (12.0-20.0); Calcium, Blood 8.2 mg/dL (8.5-10.1); Creatinine, Blood 0.66 mg/dL (0.40-1.00); Globulin, Blood 3.9 g/dL (2.2-4.0); Potassium, Blood 3.2 mmol/L (3.5-5.5); Thyroid Stimulating Hormone 55.3 uIU/mL (0.360-4.800); Total Protein, Blood 6.8 g/dL (6.4-8.2)
--- NOTE | 2022-12-27 17:24 | NUR ---
SHIFT SUMMARY NO ACUTE CHANGES THIS SHIFT. PT REMAINS NPO OF 1200 TODAY IN PREPARATION FOR A COLONOSCOPY TOMORROW, SATURDAY. SHE HAS HAD NO C/O OF P/N/V/CP/SOB THIS SHIFT. HER BOYFRIEND OF 51 YEARS HAS BEEN AT THE ALL SHIFT. SHE HAS AMBULATED WITH HIM DOWN THE HALLWAY. SHE IS AOX4 AND CALLS WELL. BED IS IN THE LOWEST POSITION, CALL LIGHT IS WITHIN REACH. WILL REPORT TO THE ONCOMING NURSE.
[2022-12-28 05:30] LABS: Hematocrit 40.3 % (33.0-51.0); Hemoglobin 13.4 g/dL (11.5-16.0); Mean Corpuscular HGB 28.7 pg (26.0-34.0); Mean Corpuscular HGB Conc 33.3 g/dL (31.5-36.5); Mean Corpuscular Volume 86 fL (80-100); Mean Platelet Volume 10.5 fL (9.1-12.4); Platelet Count 399 K/mm3 (150-400); RDW Coefficient Variation 16.7 % (11.7-14.2); RDW Standard Deviation 52.5 fL (35.1-46.3); Red Blood Cell Count 4.67 M/mm3 (3.80-5.20); White Blood Cell Count 8.49 K/mm3 (4.00-11.30)
--- NOTE | 2022-12-28 06:04 | NUR ---
SHIFT SUMMARY; NO ACUTE CHANGES OVERNIGHT. PT IS AXO X4 AND INDEPENDENT IN THE ROOM. THE PT USES THE CALL LIGHT APPROPRIATELY TO COMMUNICATE HER NEEDS. THE PT WAS MEDICATED A FEW TIMES LAST NIGHT FOR BACK PAIN BUT OTHERWISE DENIES ANY OTHER PAIN. THE PT DENIES ANY SOB, CHEST PAIN/PRESSURE OR N/V. THE PT WAS PLACED BACK ON A CLEAR LIQUID DIET AT SHIFT CHANGE AFTER CLARIFICATION WITH THE PT REMAINED ON A CLEAR LIQUID DIET UNTIL 0000, THE PT HAS SINCE ONLY HAD WATER AND ICE CHIPS IN PREPERATION FOR A COLONSCOPY LATER TODAY. THE PT HAS STARTED DRINKING BOWEL PREP-GOLYTELY. CURRENTLY THE PT IS SITTING IN BED WITH THE BED IN THE LOWEST POSITION AND THE CALL LIGHT AT BEDSIDE.
[2022-12-28 06:29] LABS: Albumin, Blood 2.8 g/dL (3.4-5.0); Albumin/Globulin Ratio 0.7 (0.8-1.8); Bilirubin, Total 0.5 mg/dL (0.1-1.0); Bun/Creatinine Ratio 12.3 (12.0-20.0); Calcium, Blood 8.4 mg/dL (8.5-10.1); Creatinine, Blood 0.82 mg/dL (0.40-1.00); Globulin, Blood 3.9 g/dL (2.2-4.0); Potassium, Blood 3.8 mmol/L (3.5-5.5); Total Protein, Blood 6.7 g/dL (6.4-8.2)
--- NOTE | 2022-12-28 14:18 | NUR ---
PT BROUGHT FROM FLOOR TO DAY SURGERY FOR PROCEDURE.
--- NOTE | 2022-12-28 14:42 | NUR ---
12/28/22 [address] CALLE; SEE ANESTHESIA RECORDS.
--- NOTE | 2022-12-28 16:49 | NUR ---
SHIFT SUMMARY: PATIENT A&OX4. CALM, PLEASANT AND COOPERATIVE c CARE. USES CALL LIGHT APPROPRIATELY AND ABLE TO MAKE NEEDS KNOWN. PATIENT WAS CL AT BEGINNING OF SHIFT AND NPO AT NOON TODAY FOR COLONOSCOPY. PATIENT FINISHED THE ENTIRE GALLOON OF GOLYTELY. PATIENT HAS LIQUID YELLOWISH COLOR STOOL. PATIENT LEFT THE ROOM AT AROUND 1410 TO DAY SURGERY. RECEIVED CALL FROM LEIGHANN WELLER RN FROM DAY SURGERY AT AROUND 1500. PER LEIGHANN THE PROCEDURE WAS NOT SUCCESSFUL D/T INADEQUATE PREP NOT ABLE TO SEE A CLEAR VISION AND LARGE STOOL WAS OBSTRACTING. PER LEIGHANN THE PLAN TO HAVE PATIENT CL NOW. PER DR. HUMMEL GI ORDER ADMINISTER OT GOLYTELY AT 1900, H2O AND ICE CHIPS AT MN AND NPO AT 0600 FOR COLONOSCOPY 12/29/22. VITAL SIGNS REVIEWED. POWERGLIDE TO RUSSELL SALINE LOCKED. PATIENT AMBULATES IN ROOM INDEPENDENTLY. SIG OTHER IN ROOM T/O SHIFT. RECEIVED SCHEDULED MEDS PER EMAR. PATIENT REPORT PAIN TO LOWER BACK. MEDICATED X1 c OXYCODONE. PATIENT REPORT HAVING ADEQUATE RELIEF. CALL LIGHT IN REACH.
--- NOTE | 2022-12-29 06:26 | NUR ---
SUMMARY: PATIENT AOX4. VSS. PATIENT DRANK ENTIRE JUG OF BOWEL PREP. PATIENT REPORTS HER STOOL IS CLEAR THIS AM. NPO SINCE 6AM.
--- NOTE | 2022-12-29 09:36 | NUR ---
History, Chart, Medications and Allergies reviewed before start of procedure. Lungs clear T/O to Auscultation. Patient confirms NPO status and agrees with scheduled surgery. Pre-Op teaching done. Pt verbalizes understanding. DR. DYE TALKED WITH PATIENT AND DETERMINED THAT PATIENT WAS CLEANED OUT ENOUGH AND THAT WE WOULD PROCEED WITH PROCEDURE.
--- NOTE | 2022-12-29 09:41 | NUR ---
12/29/22 0941 Vanessa Parra SEE ANESTHESIA RECORDS FOR SEDATION.
--- NOTE | 2022-12-29 11:16 | NUR ---
PATIENT RETURNED FROM DAY SURGERY VIA [facility] AT 1050. ABLE TO TRANSFER FROM [facility] TO [facility] [place] WITH MIN ASSIST. BSC PLACED NEXT TO BED; EDUCATED PT THAT, SINCE SHE HAD HAD SEDATING MEDICATIONS PRIOR TO AND DURING PROCEDURE, IT WOULD BE SAFER FOR HER TO USE BSC FOR NOW, TO WHICH SHE VERBALIZED UNDERSTANDING. DENIED PAIN, SLIGHTLY GROGGY. WILL CONTINUE TO MONITOR.
--- NOTE | 2022-12-29 16:09 | NUR ---
OFF UNIT VIA W/C FOR CT ANGIO OF ABD/PELVIS.
--- NOTE | 2022-12-29 17:23 | NUR ---
SHIFT SUMMARY: COLONOSCOPY AND ABD CTA COMPLETED. C/O BACK PAIN AND MUSCLE SPASMS; MEDICATED PER EMAR WITH GOOD EFFECT. TOLERATING PO INTAKE, DENIED NAUSEA. STILL HAVING WATERY STOOL, NO BLOOD NOTED. INDEPENDENT IN ROOM. AWAITING RESULTS OF CTA TO SEE IF APPROPRIATE FOR D/C. SPOUSE AT BEDSIDE ALL DAY.
[2022-12-29] MEDS ORDERED: ASPI81CH PO (18:04)
[2022-12-29] MEDS ORDERED: LIOT5 PO (18:05)
--- NOTE | 2022-12-29 18:21 | NUR ---
PATIENT DISCHARGED TO HOME ACCOMPANIED MY HER SPOUSE. BOTH IV SALINE LOCKS REMOVED WITHOUT INCIDENT. VERBALIZED UNDERSTANDING OF D/C INSTRUCTIONS. OFF UNIT VIA W/C AT 1815. NO PERSONAL BELONGINGS LEFT BEHIND IN ROOM.
== END 2022-12-29 18:20 | disposition home or self-care (01) ==
LOC: ER 12:53 → MEDS 17:58
PROVIDERS: Anesthesiology; Internal Medicine; ADMIT Internal Medicine
DX: K63.3 Ulcer of intestine (principal); K52.9 Noninfective gastroenteritis and colitis, unspecified; K57.30 Diverticulosis of large intestine without perforation or abscess without bleeding; Q43.8 Other specified congenital malformations of intestine; K64.8 Other hemorrhoids; K64.4 Residual hemorrhoidal skin tags; K21.9 Gastro-esophageal reflux disease without esophagitis; I10 Essential (primary) hypertension; I25.10 Atherosclerotic heart disease of native coronary artery without angina pectoris; Z95.5 Presence of coronary angioplasty implant and graft; I25.2 Old myocardial infarction; E78.5 Hyperlipidemia, unspecified; E11.42 Type 2 diabetes mellitus with diabetic polyneuropathy; J44.9 Chronic obstructive pulmonary disease, unspecified; G47.33 Obstructive sleep apnea (adult) (pediatric); I48.91 Unspecified atrial fibrillation; E89.0 Postprocedural hypothyroidism; G89.4 Chronic pain syndrome; Z88.0 Allergy status to penicillin; Z88.7 Allergy status to serum and vaccine; Z88.8 Allergy status to other drugs, medicaments and biological substances; Z79.890 Hormone replacement therapy; Z79.899 Other long term (current) drug therapy; F17.200 Nicotine dependence, unspecified, uncomplicated
CPT/HCPCS: 36415; 74174; 80048; 80053; 82272; 84443; 85025; 85027; 86850; 86900; 86901; 88305; 94640; 94664; 94760; 99285-25; A9270; C1751; C9113; G0378; J0360; J2001; J2704; J7030; J7120; Q9967

== ENCOUNTER 2023-01-01 01:49 | Emergency (ER) | payer MEDICARE ==
[~2023-01-01] VITALS: Ht 172.7 cm; Wt 113.4 kg
[~2023-01-01 01:49] MED LIST changes: +DILTIAZEM 24HR240 M4 PO; +LEVOTHYROXINE200 MCG PO; +LIOT5 PO
[2023-01-01 03:01] LABS: BASOPHILS ABSOLUTE AUTO 0.05 K/mm3 (0.00-0.23); BASOPHILS PERCENT AUTO 1 % (0-2); EOSINOPHILS PERCENT AUTO 4 % (0-6); Hematocrit 35.5 % (33.0-51.0); Hemoglobin 11.5 g/dL (11.5-16.0); IMMATURE GRAN ABSOLUTE AUTO 0.05 K/mm3 (0.00-0.10); IMMATURE GRAN PERCENT AUTO 1 % (0-1); LYMPHOCYTES ABSOLUTE AUTO 1.72 K/mm3 (0.84-5.20); LYMPHOCYTES PERCENT AUTO 22 % (21-46); MONOCYTES PERCENT AUTO 9 % (4-13); Mean Corpuscular HGB 28.5 pg (26.0-34.0); Mean Corpuscular HGB Conc 32.4 g/dL (31.5-36.5); Mean Corpuscular Volume 88 fL (80-100); Mean Platelet Volume 9.9 fL (9.1-12.4); NEUTROPHILS ABSOLUTE AUTO 4.98 K/mm3 (1.96-9.15); NEUTROPHILS PERCENT AUTO 64 % (41-73); Platelet Count 330 K/mm3 (150-400); RDW Coefficient Variation 16.5 % (11.7-14.2); RDW Standard Deviation 53.3 fL (35.1-46.3); Red Blood Cell Count 4.04 M/mm3 (3.80-5.20)
[2023-01-01 03:06] LABS: Albumin, Blood 2.7 g/dL (3.4-5.0); Albumin/Globulin Ratio 0.7 (0.8-1.8); Bilirubin, Total 0.3 mg/dL (0.1-1.0); Bun/Creatinine Ratio 10.3 (12.0-20.0); Calcium, Blood 8.8 mg/dL (8.5-10.1); Creatinine, Blood 0.68 mg/dL (0.40-1.00); Potassium, Blood 3.5 mmol/L (3.5-5.5); Total Protein, Blood 6.7 g/dL (6.4-8.2)
== END 2023-01-01 06:54 | disposition home or self-care (01) ==
LOC: ER 01:49
PROVIDERS: Student in an Organized Health Care Education/Training Program
DX: R07.9 Chest pain, unspecified (principal); M54.9 Dorsalgia, unspecified; I25.10 Atherosclerotic heart disease of native coronary artery without angina pectoris; I10 Essential (primary) hypertension; E03.9 Hypothyroidism, unspecified; J44.9 Chronic obstructive pulmonary disease, unspecified; F17.210 Nicotine dependence, cigarettes, uncomplicated; Z88.0 Allergy status to penicillin; Z91.013 Allergy to seafood; Z88.7 Allergy status to serum and vaccine; Z88.8 Allergy status to other drugs, medicaments and biological substances; Z91.048 Other nonmedicinal substance allergy status; Z79.899 Other long term (current) drug therapy; Z79.82 Long term (current) use of aspirin
CPT/HCPCS: 36415; 71045; 71275; 80053; 83880; 84484; 85025; 93005; 93010; J3010; Q9967

== ENCOUNTER 2023-01-04 22:41 | Emergency (ER) | payer MEDICARE ==
[~2023-01-04] VITALS: Ht 167.6 cm; Wt 113.4 kg
== END 2023-01-05 01:30 | disposition home or self-care (01) ==
LOC: ER 22:41
DX: M54.50 Low back pain, unspecified (principal); G89.29 Other chronic pain; I25.10 Atherosclerotic heart disease of native coronary artery without angina pectoris; I10 Essential (primary) hypertension; E03.9 Hypothyroidism, unspecified; J44.9 Chronic obstructive pulmonary disease, unspecified; I25.2 Old myocardial infarction; F17.210 Nicotine dependence, cigarettes, uncomplicated; Z88.0 Allergy status to penicillin; Z91.013 Allergy to seafood; Z88.7 Allergy status to serum and vaccine; Z88.8 Allergy status to other drugs, medicaments and biological substances; Z79.899 Other long term (current) drug therapy; Z79.890 Hormone replacement therapy; Z95.5 Presence of coronary angioplasty implant and graft; Z95.0 Presence of cardiac pacemaker
CPT/HCPCS: 93005; 93010; 99284-25

== ENCOUNTER 2023-01-06 12:38 | Emergency (ER) | payer MEDICARE ==
[~2023-01-06] VITALS: Ht 167.6 cm; Wt 115.7 kg
== END 2023-01-06 17:03 | disposition home or self-care (01) ==
LOC: ER 12:38
DX: S09.90XA Unspecified injury of head, initial encounter (principal); I25.10 Atherosclerotic heart disease of native coronary artery without angina pectoris; I10 Essential (primary) hypertension; E03.9 Hypothyroidism, unspecified; J44.9 Chronic obstructive pulmonary disease, unspecified; I48.91 Unspecified atrial fibrillation; G47.30 Sleep apnea, unspecified; F17.210 Nicotine dependence, cigarettes, uncomplicated; Z88.0 Allergy status to penicillin; Z91.048 Other nonmedicinal substance allergy status; Z88.7 Allergy status to serum and vaccine; Z91.013 Allergy to seafood; Z88.8 Allergy status to other drugs, medicaments and biological substances; Z79.899 Other long term (current) drug therapy; Z79.82 Long term (current) use of aspirin; W01.0XXA Fall on same level from slipping, tripping and stumbling without subsequent striking against object, initial encounter
CPT/HCPCS: 70450; 99284-25

== ENCOUNTER 2023-01-12 08:14 | Emergency (ER) | payer MEDICARE ==
[~2023-01-12] VITALS: Ht 167.6 cm; Wt 115.7 kg
[2023-01-12 09:06] LABS: Hematocrit 38.9 % (33.0-51.0); Hemoglobin 12.8 g/dL (11.5-16.0); Mean Corpuscular HGB 28.6 pg (26.0-34.0); Mean Corpuscular HGB Conc 32.9 g/dL (31.5-36.5); Mean Corpuscular Volume 87 fL (80-100); Mean Platelet Volume 9.5 fL (9.1-12.4); Platelet Count 341 K/mm3 (150-400); RDW Coefficient Variation 16.6 % (11.7-14.2); RDW Standard Deviation 53.1 fL (35.1-46.3); Red Blood Cell Count 4.48 M/mm3 (3.80-5.20); White Blood Cell Count 7.49 K/mm3 (4.00-11.30)
[2023-01-12 09:29] LABS: BAND PERCENT MAN 2 % (0-8); BASOPHILS ABSOLUTE MAN 0.07 K/mm3 (0.00-0.23); BASOPHILS PERCENT MAN 1 % (0-2); EOSINOPHILS ABSOLUTE MAN 0.44 K/mm3 (0.00-0.68); EOSINOPHILS PERCENT MAN 6 % (0-6); LYMPHOCYTES ABSOLUTE MAN 2.24 K/mm3 (0.84-5.20); LYMPHOCYTES PERCENT MAN 30 % (21-46); MONOCYTES ABSOLUTE MAN 0.82 K/mm3 (0.16-1.47); MONOCYTES PERCENT MAN 11 % (4-13); NEUTROPHILS ABSOLUTE MAN 3.89 K/mm3 (1.96-9.15); SEG NEUTROPHILS PERCENT MAN 50 % (41-73); TOTAL CELLS COUNTED 100
[2023-01-12 09:30] LABS: Albumin, Blood 2.9 g/dL (3.4-5.0); Albumin/Globulin Ratio 0.7 (0.8-1.8); Bilirubin, Total 0.3 mg/dL (0.1-1.0); Bun/Creatinine Ratio 15.2 (12.0-20.0); Calcium, Blood 8.6 mg/dL (8.5-10.1); Creatinine, Blood 0.85 mg/dL (0.40-1.00); Globulin, Blood 3.9 g/dL (2.2-4.0); Potassium, Blood 2.9 mmol/L (3.5-5.5); Total Protein, Blood 6.8 g/dL (6.4-8.2)
== END 2023-01-12 15:30 | disposition home or self-care (01) ==
LOC: ER 08:14
PROVIDERS: Physician Assistant
DX: R07.9 Chest pain, unspecified (principal); E87.6 Hypokalemia; I25.10 Atherosclerotic heart disease of native coronary artery without angina pectoris; J44.9 Chronic obstructive pulmonary disease, unspecified; I10 Essential (primary) hypertension; E03.9 Hypothyroidism, unspecified; F17.210 Nicotine dependence, cigarettes, uncomplicated; Z88.0 Allergy status to penicillin; Z91.013 Allergy to seafood; Z88.7 Allergy status to serum and vaccine; Z88.8 Allergy status to other drugs, medicaments and biological substances; Z91.048 Other nonmedicinal substance allergy status; Z79.899 Other long term (current) drug therapy; Z79.82 Long term (current) use of aspirin
CPT/HCPCS: 36415; 71045; 80053; 83735; 83880; 84439; 84484; 85025; 93005; 93010; A9270; J1885; J2270; J3480; J7050

== ENCOUNTER 2023-01-21 21:35 | Emergency (ER) | payer MEDICARE ==
[~2023-01-21] VITALS: Ht 167.6 cm; Wt 115.7 kg
[~2023-01-21 21:35] MED LIST changes: -LEVOTHYROXINE200 MCG PO
[2023-01-21 23:00] VITALS: BP 155/79
[2023-01-21 23:47] LABS: BASOPHILS ABSOLUTE AUTO 0.08 K/mm3 (0.00-0.23); BASOPHILS PERCENT AUTO 1 % (0-2); EOSINOPHILS ABSOLUTE AUTO 0.29 K/mm3 (0.00-0.68); EOSINOPHILS PERCENT AUTO 4 % (0-6); Hematocrit 38.9 % (33.0-51.0); Hemoglobin 12.8 g/dL (11.5-16.0); IMMATURE GRAN ABSOLUTE AUTO 0.06 K/mm3 (0.00-0.10); IMMATURE GRAN PERCENT AUTO 1 % (0-1); LYMPHOCYTES PERCENT AUTO 29 % (21-46); MONOCYTES ABSOLUTE AUTO 0.67 K/mm3 (0.16-1.47); MONOCYTES PERCENT AUTO 8 % (4-13); Mean Corpuscular HGB 28.7 pg (26.0-34.0); Mean Corpuscular HGB Conc 32.9 g/dL (31.5-36.5); Mean Corpuscular Volume 87 fL (80-100); Mean Platelet Volume 9.3 fL (9.1-12.4); NEUTROPHILS ABSOLUTE AUTO 4.77 K/mm3 (1.96-9.15); NEUTROPHILS PERCENT AUTO 58 % (41-73); Platelet Count 323 K/mm3 (150-400); RDW Standard Deviation 54.2 fL (35.1-46.3); Red Blood Cell Count 4.46 M/mm3 (3.80-5.20); White Blood Cell Count 8.27 K/mm3 (4.00-11.30)
[2023-01-22 00:06] LABS: Albumin/Globulin Ratio 0.8 (0.8-1.8); Bilirubin, Total 0.5 mg/dL (0.1-1.0); Bun/Creatinine Ratio 12.7 (12.0-20.0); Calcium, Blood 8.5 mg/dL (8.5-10.1); Creatinine, Blood 0.79 mg/dL (0.40-1.00); Globulin, Blood 3.9 g/dL (2.2-4.0); Total Protein, Blood 6.9 g/dL (6.4-8.2)
== END 2023-01-22 00:59 | disposition home or self-care (01) ==
LOC: ER 21:35
PROVIDERS: Student in an Organized Health Care Education/Training Program
DX: M54.6 Pain in thoracic spine (principal); I25.10 Atherosclerotic heart disease of native coronary artery without angina pectoris; I10 Essential (primary) hypertension; E03.9 Hypothyroidism, unspecified; J44.9 Chronic obstructive pulmonary disease, unspecified; I48.91 Unspecified atrial fibrillation; G47.30 Sleep apnea, unspecified; I25.2 Old myocardial infarction; F17.210 Nicotine dependence, cigarettes, uncomplicated; M54.50 Low back pain, unspecified; Z88.0 Allergy status to penicillin; Z91.048 Other nonmedicinal substance allergy status; Z91.013 Allergy to seafood; Z88.7 Allergy status to serum and vaccine; Z88.8 Allergy status to other drugs, medicaments and biological substances; Z79.899 Other long term (current) drug therapy; Z79.82 Long term (current) use of aspirin
CPT/HCPCS: 36415; 71045; 80053; 83690; 84484; 85025; 93005; 93010; 96372; 99283-25; 99284-25; A9270; J1885

== ENCOUNTER 2023-01-26 10:34 | Observation (INO) | payer MEDICARE ==
[~2023-01-26] VITALS: Ht 167.6 cm; Wt 106.8 kg
[2023-01-26] MEDS ORDERED: Prinivil10 MG PO (10:47)
[2023-01-26] MEDS ORDERED: HYDRA25 PO (10:48)
[2023-01-26 11:05] LABS: BASOPHILS ABSOLUTE AUTO 0.09 K/mm3 (0.00-0.23); BASOPHILS PERCENT AUTO 1 % (0-2); EOSINOPHILS ABSOLUTE AUTO 0.53 K/mm3 (0.00-0.68); EOSINOPHILS PERCENT AUTO 6 % (0-6); Hematocrit 37.4 % (33.0-51.0); Hemoglobin 12.6 g/dL (11.5-16.0); IMMATURE GRAN ABSOLUTE AUTO 0.06 K/mm3 (0.00-0.10); IMMATURE GRAN PERCENT AUTO 1 % (0-1); LYMPHOCYTES PERCENT AUTO 25 % (21-46); MONOCYTES PERCENT AUTO 7 % (4-13); Mean Corpuscular HGB 29.3 pg (26.0-34.0); Mean Corpuscular HGB Conc 33.7 g/dL (31.5-36.5); Mean Corpuscular Volume 87 fL (80-100); Mean Platelet Volume 9.6 fL (9.1-12.4); NEUTROPHILS ABSOLUTE AUTO 5.64 K/mm3 (1.96-9.15); NEUTROPHILS PERCENT AUTO 61 % (41-73); Platelet Count 304 K/mm3 (150-400); RDW Coefficient Variation 16.9 % (11.7-14.2); RDW Standard Deviation 54.1 fL (35.1-46.3); White Blood Cell Count 9.22 K/mm3 (4.00-11.30)
[2023-01-26 11:32] LABS: Thyroid Stimulating Hormone 63.5 uIU/mL (0.360-4.800)
[2023-01-26 11:33] LABS: Albumin, Blood 2.6 g/dL (3.4-5.0); Albumin/Globulin Ratio 0.7 (0.8-1.8); Bilirubin, Total 0.5 mg/dL (0.1-1.0); Bun/Creatinine Ratio 20.2 (12.0-20.0); Calcium, Blood 8.1 mg/dL (8.5-10.1); Creatinine, Blood 1.04 mg/dL (0.40-1.00); Globulin, Blood 3.8 g/dL (2.2-4.0); Potassium, Blood 4.1 mmol/L (3.5-5.5); Total Protein, Blood 6.4 g/dL (6.4-8.2)
[2023-01-26 12:13] LABS: Source, Urine Voided
[2023-01-26 12:32] LABS: Blood, Urine Neg (Neg); Glucose Qualitative, Urine Neg (Neg); Ketones, Urine Neg (Neg); Leukocyte Esterase, Urine 1+ (Neg); Nitrite, Urine Neg (Neg); Protein, Urine 2+ (Neg); Specific Gravity, Urine 1.025 (1.003-1.022); Urobilinogen, Urine 1+ (Normal)
[2023-01-26 13:14] LABS: Bilirubin, Urine 1+ (Neg)
[2023-01-26 13:15] LABS: Appearance, Urine Clear (Clear); Color, Urine Yellow (P-Yellow)
[2023-01-26 13:17] LABS: Squamous Epithelial Cells Many /hpf (Few)
[2023-01-26 13:18] LABS: Bacteria Many /hpf; Mucus Heavy (0-Heavy)
[2023-01-26 13:22] LABS: Red Blood Cells, Urine 0-2 /hpf (0-2)
[2023-01-26 14:23] LABS: Free Thyroxine 0.19 ng/dL (0.70-1.60); Triiodothyronine, Free <0.50 pg/mL (2.18-3.98)
[2023-01-26 18:58] VITALS: BP 97/57
[2023-01-26 20:03] VITALS: BP 121/62
[2023-01-26 20:05] VITALS: BP 111/69
[2023-01-26 20:06] VITALS: BP 101/60
[2023-01-27 03:54] VITALS: BP 120/61
--- NOTE | 2023-01-27 05:10 | NUR ---
SHIFT SUMMARY 67 YR F ADMITTED ON 01/26/23 FOR HYPOTENTION. FULL CODE. NO ACUTE CHANGES THIS SHIFT. PT STATES SHE NORMALLY TAKES OXY AT HOME FOR CHRONIC BACK PAIN BUT STATED SHE WAS FINE WITH JUST HAVING TYLENOL THIS SHIFT. SHE IS ABLE TO CALL APPROPRIATELY FOR ASSISTANCE TO THE BATHROOM. PER HEATING ELEMENT REPAIRER THE AMPTITUDE OF EKG MAKES IT HARD FOR THE COMPUTER TO READ RYTHM SO IT WAS ALARMING ASYSTOLE AND BRADYCARDIA EVEN THOUGH PT HAS A PACEMAKER AND IS PACED AT 60.
[2023-01-27 05:23] LABS: BASOPHILS ABSOLUTE AUTO 0.07 K/mm3 (0.00-0.23); BASOPHILS PERCENT AUTO 1 % (0-2); EOSINOPHILS ABSOLUTE AUTO 0.53 K/mm3 (0.00-0.68); EOSINOPHILS PERCENT AUTO 7 % (0-6); Hematocrit 36.9 % (33.0-51.0); Hemoglobin 12.1 g/dL (11.5-16.0); IMMATURE GRAN ABSOLUTE AUTO 0.06 K/mm3 (0.00-0.10); IMMATURE GRAN PERCENT AUTO 1 % (0-1); LYMPHOCYTES ABSOLUTE AUTO 2.04 K/mm3 (0.84-5.20); LYMPHOCYTES PERCENT AUTO 26 % (21-46); MONOCYTES ABSOLUTE AUTO 0.49 K/mm3 (0.16-1.47); MONOCYTES PERCENT AUTO 6 % (4-13); Mean Corpuscular HGB Conc 32.8 g/dL (31.5-36.5); Mean Corpuscular Volume 89 fL (80-100); NEUTROPHILS ABSOLUTE AUTO 4.72 K/mm3 (1.96-9.15); NEUTROPHILS PERCENT AUTO 60 % (41-73); Platelet Count 311 K/mm3 (150-400); RDW Coefficient Variation 17.1 % (11.7-14.2); RDW Standard Deviation 55.8 fL (35.1-46.3); Red Blood Cell Count 4.17 M/mm3 (3.80-5.20); White Blood Cell Count 7.91 K/mm3 (4.00-11.30)
[2023-01-27 05:43] LABS: Albumin, Blood 2.2 g/dL (3.4-5.0); Albumin/Globulin Ratio 0.8 (0.8-1.8); Bilirubin, Total 0.4 mg/dL (0.1-1.0); Bun/Creatinine Ratio 19.8 (12.0-20.0); Creatinine, Blood 0.81 mg/dL (0.40-1.00); Globulin, Blood 2.9 g/dL (2.2-4.0); Potassium, Blood 3.5 mmol/L (3.5-5.5); Total Protein, Blood 5.1 g/dL (6.4-8.2)
[2023-01-27 07:19] VITALS: BP 123/64
[2023-01-27 09:50] VITALS: BP 118/58
--- NOTE | 2023-01-27 10:16 | NUR ---
AM RN NOTE MS RAMOS IS ORIENTATED X 4. C/O CHRONIC LOWER BACK PAIN THAT SHE TAKES [id number] FOR AT HOME. DR MACDONALD AWARE AND SAID THAT SHE WILL ORDER. CORTISOL LEVEL 30 MINUTES PAST IV ADMINISTRATION UNABLE TO BE DRAWN BY LAB DUE TO DIFFICULTY OF BLOOD DRAW. DR MACDONALD INFORMED. ORTHOSTATIC BP IMPROVED. PT DID C/O FEELING UNSTEADY WALKING TO THE BATHROOM, SO BEDSIDE COMMODE USED. AWAITING PT EVALUATION. BED LOW, CALL LIGHT IN REACH.
--- NOTE | 2023-01-27 10:36 | NUR ---
ADDN TO AM NOTE NOTE - ON AM ASSESSMENT LEFT FOOT WEAKER THAN RIGHT FOOT. WITH ARMS EXTENDED IN FRONT OF HER AND EYES CLOSED SHE WAS ABLE TO TOUCH HER NOSE WITH HER RIGHT INDEX FINGER, TOUCHED HER LIP WTH HER LEFT INDEX FINGER, UNABLE TO TOUCH HER NOSE.
[2023-01-27 15:52] VITALS: BP 134/69
--- NOTE | 2023-01-27 16:20 | NUR ---
SHIFT SUMMARY MS RAMOS HAS BEEN WALKING TO THE BATHROOM WITH STAND BY ASSIST, GAIT BELT AND WALKER. SHE IS STEADIER AT THE END OF THE SHIFT THAN EARLIER THIS MORNING. SHE DOES NOTICE A WEAKNESS IN HER LEFT LEG, SHE DOES NOT NOTICE A DIFFERENCE IN ARM STRENGTH. TELE - PACED 60BPM. POOR APPETITE TODAY. C/O LOWER BACK PAIN, MEDICATED WITH PERCOCET. BED LOW, CALL LIGHT IN REACH.
[2023-01-27 19:33] VITALS: BP 126/63
[2023-01-28 04:06] VITALS: BP 152/70
--- NOTE | 2023-01-28 06:32 | NUR ---
PT STATES SHE IS FEELING STRONGER. ABLE TO WALK TO BR WITH SBA.
[2023-01-28 07:43] VITALS: BP 166/75
[2023-01-28 09:37] LABS: Bun/Creatinine Ratio 13.4 (12.0-20.0); Calcium, Blood 7.8 mg/dL (8.5-10.1); Creatinine, Blood 0.75 mg/dL (0.40-1.00); Potassium, Blood 3.6 mmol/L (3.5-5.5)
--- NOTE | 2023-01-28 10:00 | NUR ---
DISCUSSED ECOLI IN URINE WITH DR. MACDONALD. DR. MACDONALD STATED THAT THE COUNT WASNT NIGH ENOUGH TO TREAT AT THIS TIME, BUT NEEDS TO BE FOLLOWED UP WITH PCP.
[2023-01-28] MEDS ORDERED: LIOT5 PO (13:23)
[2023-01-28] MEDS ORDERED: Synthroid200 MCG PO (13:24)
[2023-01-28] MEDS ORDERED: FAMO40 PO (13:24)
--- NOTE | 2023-01-28 15:10 | NUR ---
PAIN ASSESSMENT DURING ASSESSMENT PATIENT RATED 7/10 LOWER BACK PAIN. THIS IS CHRONIN AND PATIENT TAKES OPIATES AT HOME FOR PAIN MANAGEMENT. AT THE TIME PATIENT WAS NOT DUE FOR OXYCODONE, TYLENOL WAS OFFERED, BUT PATIENT DENIED.SHE STATES THAT SHE WILL WAIT UNTIL IT IS TIME FOR NARCOTIC. REASSESSED PATIENT'S PAIN AT 14:30 WHEN PAIN MEDICATION WAS DUE AND PATIENT DECLINED PAIN MEDICATION AND STATED THAT SHE WOULD TAKE HER HOME PRESCRIPTION ONCE SHE GOT HOME.
--- NOTE | 2023-01-28 16:20 | NUR ---
DISCHARGE PT DICHARGED AT 1446. PT & EDUCATED ON DC INSTRUCTIONS AND NEW MEDS. BOTH DENY FURTHER NEED FOR INSTUCTIONS PRIOR TO DC. PT IV REMOVED & INTACT. WHEELED OUT BY THIS RN. NO FURTHER CHANGES IN ASSESSMENT PRIOR TO ADMIT.
== END 2023-01-28 14:46 | disposition home or self-care (01) ==
LOC: ER 10:34 → MEDS 10:35
PROVIDERS: Emergency Medicine; Family Medicine; ADMIT Internal Medicine
DX: I95.9 Hypotension, unspecified (principal); N17.9 Acute kidney failure, unspecified; E03.9 Hypothyroidism, unspecified; E87.1 Hypo-osmolality and hyponatremia; I10 Essential (primary) hypertension; I25.10 Atherosclerotic heart disease of native coronary artery without angina pectoris; J44.9 Chronic obstructive pulmonary disease, unspecified; I48.0 Paroxysmal atrial fibrillation; K21.9 Gastro-esophageal reflux disease without esophagitis; G47.30 Sleep apnea, unspecified; F41.9 Anxiety disorder, unspecified; G89.4 Chronic pain syndrome; I25.2 Old myocardial infarction; Z95.5 Presence of coronary angioplasty implant and graft; F17.210 Nicotine dependence, cigarettes, uncomplicated; E66.9 Obesity, unspecified; Z88.0 Allergy status to penicillin; Z88.8 Allergy status to other drugs, medicaments and biological substances; Z88.7 Allergy status to serum and vaccine; Z79.82 Long term (current) use of aspirin; Z79.890 Hormone replacement therapy; Z79.899 Other long term (current) drug therapy
CPT/HCPCS: 36415; 70450; 80048; 80053; 80400; 81001; 82533; 84439; 84443; 84481; 84484; 85025; 87077; 87086; 87186; 93005; 93010; 94760; 96361; 96372; 96374; 96375; 96376; 97116; 97162; 99285-25; A9270; G0378; J0834; J1650; J7030

== ENCOUNTER 2023-02-01 08:50 | Emergency (ER) | payer MEDICARE ==
[~2023-02-01] VITALS: Ht 167.6 cm; Wt 113.4 kg
[~2023-02-01 08:50] MED LIST changes: +FAMO40 PO; +Synthroid200 MCG PO
[2023-02-01 09:07] VITALS: BP 126/73
[2023-02-01 09:55] LABS: BASOPHILS ABSOLUTE AUTO 0.07 K/mm3 (0.00-0.23); BASOPHILS PERCENT AUTO 1 % (0-2); EOSINOPHILS ABSOLUTE AUTO 0.54 K/mm3 (0.00-0.68); EOSINOPHILS PERCENT AUTO 5 % (0-6); Hematocrit 36.9 % (33.0-51.0); Hemoglobin 12.6 g/dL (11.5-16.0); IMMATURE GRAN ABSOLUTE AUTO 0.07 K/mm3 (0.00-0.10); IMMATURE GRAN PERCENT AUTO 1 % (0-1); LYMPHOCYTES ABSOLUTE AUTO 2.46 K/mm3 (0.84-5.20); LYMPHOCYTES PERCENT AUTO 21 % (21-46); MONOCYTES PERCENT AUTO 8 % (4-13); Mean Corpuscular HGB 29.5 pg (26.0-34.0); Mean Corpuscular HGB Conc 34.1 g/dL (31.5-36.5); Mean Corpuscular Volume 86 fL (80-100); Mean Platelet Volume 10.4 fL (9.1-12.4); NEUTROPHILS PERCENT AUTO 66 % (41-73); Platelet Count 320 K/mm3 (150-400); RDW Coefficient Variation 17.1 % (11.7-14.2); RDW Standard Deviation 54.2 fL (35.1-46.3); Red Blood Cell Count 4.27 M/mm3 (3.80-5.20); White Blood Cell Count 11.84 K/mm3 (4.00-11.30)
[2023-02-01 10:30] LABS: Albumin, Blood 2.6 g/dL (3.4-5.0); Albumin/Globulin Ratio 0.8 (0.8-1.8); Bilirubin, Total 0.4 mg/dL (0.1-1.0); Bun/Creatinine Ratio 19.4 (12.0-20.0); Creatinine, Blood 0.77 mg/dL (0.40-1.00); Globulin, Blood 3.4 g/dL (2.2-4.0); Potassium, Blood 3.4 mmol/L (3.5-5.5)
== END 2023-02-01 11:22 | disposition home or self-care (01) ==
LOC: ER 08:50
PROVIDERS: Emergency Medicine
DX: R20.2 Paresthesia of skin (principal); E87.1 Hypo-osmolality and hyponatremia; Z88.0 Allergy status to penicillin; Z88.7 Allergy status to serum and vaccine; Z91.040 Latex allergy status; Z79.899 Other long term (current) drug therapy; Z79.82 Long term (current) use of aspirin; I25.10 Atherosclerotic heart disease of native coronary artery without angina pectoris; I10 Essential (primary) hypertension; E03.9 Hypothyroidism, unspecified; J44.9 Chronic obstructive pulmonary disease, unspecified; I48.91 Unspecified atrial fibrillation; G47.30 Sleep apnea, unspecified; I25.2 Old myocardial infarction; F17.210 Nicotine dependence, cigarettes, uncomplicated
CPT/HCPCS: 80053; 84443; 85025; 93005; 93010; 96374; 99284-25; J2405

== ENCOUNTER 2023-02-10 04:49 | Emergency (ER) | payer MEDICARE ==
[~2023-02-10] VITALS: Ht 167.6 cm; Wt 105.7 kg
[2023-02-10 06:30] VITALS: BP 173/95
== END 2023-02-10 08:15 | disposition home or self-care (01) ==
LOC: ER 04:49
DX: M54.6 Pain in thoracic spine (principal); R11.0 Nausea; I25.10 Atherosclerotic heart disease of native coronary artery without angina pectoris; I10 Essential (primary) hypertension; E03.9 Hypothyroidism, unspecified; E05.00 Thyrotoxicosis with diffuse goiter without thyrotoxic crisis or storm; J44.9 Chronic obstructive pulmonary disease, unspecified; F17.210 Nicotine dependence, cigarettes, uncomplicated; Z88.0 Allergy status to penicillin; Z91.048 Other nonmedicinal substance allergy status; Z91.013 Allergy to seafood; Z88.7 Allergy status to serum and vaccine; Z88.8 Allergy status to other drugs, medicaments and biological substances; Z79.82 Long term (current) use of aspirin; Z79.899 Other long term (current) drug therapy
CPT/HCPCS: 93005; 93010; A9270; J1885

== ENCOUNTER 2023-02-20 16:01 | Emergency (ER) | payer MEDICARE ==
[~2023-02-20] VITALS: Ht 167.6 cm; Wt 105.7 kg
[2023-02-20 16:31] VITALS: BP 178/96
[2023-02-21] MEDS ORDERED: Triamcinolone A15 GM EXT (10:46)
== END 2023-02-20 19:28 | disposition home or self-care (01) ==
LOC: ER 16:01
DX: N64.4 Mastodynia (principal); I25.10 Atherosclerotic heart disease of native coronary artery without angina pectoris; I10 Essential (primary) hypertension; E03.9 Hypothyroidism, unspecified; J44.9 Chronic obstructive pulmonary disease, unspecified; I25.2 Old myocardial infarction; F17.210 Nicotine dependence, cigarettes, uncomplicated; Z88.0 Allergy status to penicillin; Z88.7 Allergy status to serum and vaccine; Z88.8 Allergy status to other drugs, medicaments and biological substances; Z91.048 Other nonmedicinal substance allergy status; Z79.899 Other long term (current) drug therapy
CPT/HCPCS: 76642; J1885

== ENCOUNTER 2023-02-21 09:11 | Emergency (ER) | payer MEDICARE ==
[~2023-02-21] VITALS: Ht 167.6 cm; Wt 105.7 kg
[2023-02-21 09:59] VITALS: BP 160/96
[2023-02-21] MEDS ORDERED: Triamcinolone A15 GM EXT (10:46)
== END 2023-02-21 11:05 | disposition home or self-care (01) ==
LOC: ER 09:11
DX: L29.9 Pruritus, unspecified (principal); Z88.0 Allergy status to penicillin; Z88.7 Allergy status to serum and vaccine; Z91.013 Allergy to seafood; Z91.048 Other nonmedicinal substance allergy status; Z88.8 Allergy status to other drugs, medicaments and biological substances; Z79.899 Other long term (current) drug therapy; Z79.82 Long term (current) use of aspirin; I25.10 Atherosclerotic heart disease of native coronary artery without angina pectoris; I10 Essential (primary) hypertension; E03.9 Hypothyroidism, unspecified; J44.9 Chronic obstructive pulmonary disease, unspecified; I48.91 Unspecified atrial fibrillation; G47.30 Sleep apnea, unspecified; I25.2 Old myocardial infarction; F17.210 Nicotine dependence, cigarettes, uncomplicated
CPT/HCPCS: 99283; A9270

== ENCOUNTER 2023-03-05 11:38 | Emergency (ER) | payer MEDICARE ==
[~2023-03-05] VITALS: Ht 170.2 cm; Wt 97.5 kg
[~2023-03-05 11:38] MED LIST changes: +Triamcinolone A15 GM EXT
[2023-03-05 13:29] LABS: BASOPHILS ABSOLUTE AUTO 0.09 K/mm3 (0.00-0.23); BASOPHILS PERCENT AUTO 1 % (0-2); EOSINOPHILS ABSOLUTE AUTO 0.29 K/mm3 (0.00-0.68); EOSINOPHILS PERCENT AUTO 3 % (0-6); Hematocrit 45.8 % (33.0-51.0); Hemoglobin 14.8 g/dL (11.5-16.0); IMMATURE GRAN ABSOLUTE AUTO 0.05 K/mm3 (0.00-0.10); IMMATURE GRAN PERCENT AUTO 1 % (0-1); LYMPHOCYTES ABSOLUTE AUTO 2.65 K/mm3 (0.84-5.20); LYMPHOCYTES PERCENT AUTO 28 % (21-46); MONOCYTES ABSOLUTE AUTO 0.46 K/mm3 (0.16-1.47); MONOCYTES PERCENT AUTO 5 % (4-13); Mean Corpuscular HGB 28.3 pg (26.0-34.0); Mean Corpuscular HGB Conc 32.3 g/dL (31.5-36.5); Mean Corpuscular Volume 88 fL (80-100); Mean Platelet Volume 10.6 fL (9.1-12.4); NEUTROPHILS ABSOLUTE AUTO 5.79 K/mm3 (1.96-9.15); NEUTROPHILS PERCENT AUTO 62 % (41-73); Platelet Count 366 K/mm3 (150-400); RDW Coefficient Variation 16.3 % (11.7-14.2); RDW Standard Deviation 52.7 fL (35.1-46.3); Red Blood Cell Count 5.23 M/mm3 (3.80-5.20); White Blood Cell Count 9.33 K/mm3 (4.00-11.30)
[2023-03-05 13:49] LABS: Albumin, Blood 3.6 g/dL (3.4-5.0); Albumin/Globulin Ratio 0.8 (0.8-1.8); Bilirubin, Total 0.5 mg/dL (0.1-1.0); Bun/Creatinine Ratio 14.3 (12.0-20.0); Calcium, Blood 9.3 mg/dL (8.5-10.1); Creatinine, Blood 0.84 mg/dL (0.40-1.00); Globulin, Blood 4.6 g/dL (2.2-4.0); Magnesium, Blood 2.4 mg/dL (1.6-2.4); Potassium, Blood 3.3 mmol/L (3.5-5.5); Total Protein, Blood 8.2 g/dL (6.4-8.2)
[2023-03-05 14:44] VITALS: BP 155/89
== END 2023-03-05 14:44 | disposition home or self-care (01) ==
LOC: ER 11:38
PROVIDERS: Physician Assistant
DX: R53.1 Weakness (principal); I25.10 Atherosclerotic heart disease of native coronary artery without angina pectoris; I25.2 Old myocardial infarction; I10 Essential (primary) hypertension; E03.9 Hypothyroidism, unspecified; E05.00 Thyrotoxicosis with diffuse goiter without thyrotoxic crisis or storm; J44.9 Chronic obstructive pulmonary disease, unspecified; F17.210 Nicotine dependence, cigarettes, uncomplicated; Z88.0 Allergy status to penicillin; Z88.7 Allergy status to serum and vaccine; Z88.8 Allergy status to other drugs, medicaments and biological substances; Z91.013 Allergy to seafood; Z91.048 Other nonmedicinal substance allergy status; Z79.82 Long term (current) use of aspirin; Z79.899 Other long term (current) drug therapy
CPT/HCPCS: 70450; 80053; 82947; 83735; 85025; 93005; 93010; 99285-25

== ENCOUNTER 2023-03-17 07:10 | Emergency (ER) | payer MEDICARE ==
[~2023-03-17] VITALS: Ht 167.6 cm; Wt 99.8 kg
[2023-03-17 07:40] VITALS: BP 168/87
== END 2023-03-17 09:12 | disposition home or self-care (01) ==
LOC: ER 07:10
DX: S61.412A Laceration without foreign body of left hand, initial encounter (principal); X58.XXXA Exposure to other specified factors, initial encounter; Z88.0 Allergy status to penicillin; Z91.048 Other nonmedicinal substance allergy status; Z91.013 Allergy to seafood; Z88.7 Allergy status to serum and vaccine; Z88.8 Allergy status to other drugs, medicaments and biological substances; Z79.899 Other long term (current) drug therapy; Z79.82 Long term (current) use of aspirin; I25.10 Atherosclerotic heart disease of native coronary artery without angina pectoris; F17.210 Nicotine dependence, cigarettes, uncomplicated; I10 Essential (primary) hypertension; E03.9 Hypothyroidism, unspecified; J44.9 Chronic obstructive pulmonary disease, unspecified; I48.91 Unspecified atrial fibrillation; G47.30 Sleep apnea, unspecified; I25.2 Old myocardial infarction
CPT/HCPCS: 12002; 99282-25

== ENCOUNTER 2023-04-11 21:17 | Emergency (ER) | payer MEDICARE ==
[~2023-04-11] VITALS: Ht 167.6 cm; Wt 99.8 kg
[~2023-04-11 21:17] MED LIST changes: +LIDOCAINE1 EACH TOP
[2023-04-11 21:48] LABS: BASOPHILS ABSOLUTE AUTO 0.09 K/mm3 (0.00-0.23); BASOPHILS PERCENT AUTO 1 % (0-2); EOSINOPHILS ABSOLUTE AUTO 0.31 K/mm3 (0.00-0.68); EOSINOPHILS PERCENT AUTO 3 % (0-6); Hematocrit 38.9 % (33.0-51.0); IMMATURE GRAN ABSOLUTE AUTO 0.04 K/mm3 (0.00-0.10); IMMATURE GRAN PERCENT AUTO 0 % (0-1); LYMPHOCYTES ABSOLUTE AUTO 2.86 K/mm3 (0.84-5.20); LYMPHOCYTES PERCENT AUTO 31 % (21-46); MONOCYTES ABSOLUTE AUTO 0.68 K/mm3 (0.16-1.47); MONOCYTES PERCENT AUTO 7 % (4-13); Mean Corpuscular HGB 29.4 pg (26.0-34.0); Mean Corpuscular HGB Conc 33.4 g/dL (31.5-36.5); Mean Corpuscular Volume 88 fL (80-100); NEUTROPHILS ABSOLUTE AUTO 5.18 K/mm3 (1.96-9.15); NEUTROPHILS PERCENT AUTO 57 % (41-73); Platelet Count 360 K/mm3 (150-400); RDW Coefficient Variation 15.7 % (11.7-14.2); Red Blood Cell Count 4.42 M/mm3 (3.80-5.20); White Blood Cell Count 9.16 K/mm3 (4.00-11.30)
[2023-04-11 22:16] LABS: Albumin, Blood 3.3 g/dL (3.4-5.0); Albumin/Globulin Ratio 0.9 (0.8-1.8); Bilirubin, Total 0.4 mg/dL (0.1-1.0); Bun/Creatinine Ratio 14.2 (12.0-20.0); Calcium, Blood 8.7 mg/dL (8.5-10.1); Creatinine, Blood 1.06 mg/dL (0.40-1.00); Globulin, Blood 3.8 g/dL (2.2-4.0); Potassium, Blood 3.6 mmol/L (3.5-5.5); Total Protein, Blood 7.1 g/dL (6.4-8.2)
[2023-04-11 23:35] VITALS: BP 132/100
== END 2023-04-11 23:33 | disposition home or self-care (01) ==
LOC: ER 21:17
PROVIDERS: Emergency Medicine
DX: R07.89 Other chest pain (principal); M54.6 Pain in thoracic spine; I25.10 Atherosclerotic heart disease of native coronary artery without angina pectoris; I10 Essential (primary) hypertension; E03.9 Hypothyroidism, unspecified; J44.9 Chronic obstructive pulmonary disease, unspecified; I25.2 Old myocardial infarction; E05.00 Thyrotoxicosis with diffuse goiter without thyrotoxic crisis or storm; F17.210 Nicotine dependence, cigarettes, uncomplicated; Z88.0 Allergy status to penicillin; Z91.048 Other nonmedicinal substance allergy status; Z91.013 Allergy to seafood; Z88.7 Allergy status to serum and vaccine; Z88.8 Allergy status to other drugs, medicaments and biological substances; Z79.82 Long term (current) use of aspirin; Z79.899 Other long term (current) drug therapy
CPT/HCPCS: 71046; 80053; 84484; 85025; 93005; 93010; 99285-25

== ENCOUNTER 2023-04-23 01:04 | Emergency (ER) | payer MEDICARE ==
[~2023-04-23] VITALS: Ht 167.6 cm; Wt 94.3 kg
[2023-04-23 02:31] LABS: Albumin, Blood 3.5 g/dL (3.4-5.0); Albumin/Globulin Ratio 0.9 (0.8-1.8); Bilirubin, Total 0.4 mg/dL (0.1-1.0); Bun/Creatinine Ratio 11.5 (12.0-20.0); Calcium, Blood 9.5 mg/dL (8.5-10.1); Creatinine, Blood 1.22 mg/dL (0.40-1.00); Globulin, Blood 3.9 g/dL (2.2-4.0); Potassium, Blood 4.1 mmol/L (3.5-5.5); Total Protein, Blood 7.4 g/dL (6.4-8.2)
[2023-04-23 02:53] LABS: Hematocrit 38.2 % (33.0-51.0); Hemoglobin 12.8 g/dL (11.5-16.0); Mean Corpuscular HGB Conc 33.5 g/dL (31.5-36.5); Mean Corpuscular Volume 87 fL (80-100); Platelet Count 322 K/mm3 (150-400); RDW Coefficient Variation 15.7 % (11.7-14.2); RDW Standard Deviation 50.1 fL (35.1-46.3); Red Blood Cell Count 4.41 M/mm3 (3.80-5.20); White Blood Cell Count 9.29 K/mm3 (4.00-11.30)
[2023-04-23 03:29] LABS: BAND PERCENT MAN 2 % (0-8); BASOPHILS ABSOLUTE MAN 0.18 K/mm3 (0.00-0.23); BASOPHILS PERCENT MAN 2 % (0-2); EOSINOPHILS ABSOLUTE MAN 0.65 K/mm3 (0.00-0.68); EOSINOPHILS PERCENT MAN 7 % (0-6); LYMPHOCYTES ABSOLUTE MAN 3.34 K/mm3 (0.84-5.20); LYMPHOCYTES PERCENT MAN 36 % (21-46); MONOCYTES ABSOLUTE MAN 0.55 K/mm3 (0.16-1.47); MONOCYTES PERCENT MAN 6 % (4-13); NEUTROPHILS ABSOLUTE MAN 4.55 K/mm3 (1.96-9.15); SEG NEUTROPHILS PERCENT MAN 47 % (41-73); TOTAL CELLS COUNTED 100
[2023-04-23 05:20] VITALS: BP 163/86
== END 2023-04-23 05:20 | disposition home or self-care (01) ==
LOC: ER 01:04
PROVIDERS: Emergency Medicine
DX: E86.0 Dehydration (principal); Z88.0 Allergy status to penicillin; Z88.7 Allergy status to serum and vaccine; Z91.048 Other nonmedicinal substance allergy status; Z91.013 Allergy to seafood; Z88.8 Allergy status to other drugs, medicaments and biological substances; Z79.1 Long term (current) use of non-steroidal anti-inflammatories (NSAID); Z79.899 Other long term (current) drug therapy; Z79.82 Long term (current) use of aspirin; Z79.51 Long term (current) use of inhaled steroids; I10 Essential (primary) hypertension; J44.9 Chronic obstructive pulmonary disease, unspecified; G47.30 Sleep apnea, unspecified; I48.91 Unspecified atrial fibrillation; Z79.01 Long term (current) use of anticoagulants; I25.2 Old myocardial infarction; Z95.5 Presence of coronary angioplasty implant and graft; F17.210 Nicotine dependence, cigarettes, uncomplicated
CPT/HCPCS: 80053; 84484; 85025; 93005; 93010; 96360; 99285-25; J7030

== ENCOUNTER 2023-04-29 13:53 | Emergency (ER) | payer MEDICARE ==
[~2023-04-29] VITALS: Ht 167.6 cm; Wt 95.7 kg
[2023-04-29 15:03] LABS: Albumin, Blood 2.9 g/dL (3.4-5.0); Albumin/Globulin Ratio 0.8 (0.8-1.8); Bilirubin, Total 0.4 mg/dL (0.1-1.0); Bun/Creatinine Ratio 15.6 (12.0-20.0); Calcium, Blood 8.5 mg/dL (8.5-10.1); Creatinine, Blood 0.84 mg/dL (0.40-1.00); Globulin, Blood 3.7 g/dL (2.2-4.0); Potassium, Blood 4.5 mmol/L (3.5-5.5); Total Protein, Blood 6.6 g/dL (6.4-8.2)
[2023-04-29 15:36] LABS: BASOPHILS ABSOLUTE AUTO 0.07 K/mm3 (0.00-0.23); BASOPHILS PERCENT AUTO 1 % (0-2); EOSINOPHILS ABSOLUTE AUTO 0.28 K/mm3 (0.00-0.68); EOSINOPHILS PERCENT AUTO 3 % (0-6); Hematocrit 37.9 % (33.0-51.0); Hemoglobin 12.8 g/dL (11.5-16.0); IMMATURE GRAN ABSOLUTE AUTO 0.03 K/mm3 (0.00-0.10); IMMATURE GRAN PERCENT AUTO 0 % (0-1); LYMPHOCYTES ABSOLUTE AUTO 2.47 K/mm3 (0.84-5.20); LYMPHOCYTES PERCENT AUTO 26 % (21-46); MONOCYTES ABSOLUTE AUTO 0.65 K/mm3 (0.16-1.47); MONOCYTES PERCENT AUTO 7 % (4-13); Mean Corpuscular HGB 29.3 pg (26.0-34.0); Mean Corpuscular HGB Conc 33.8 g/dL (31.5-36.5); Mean Corpuscular Volume 87 fL (80-100); NEUTROPHILS ABSOLUTE AUTO 5.85 K/mm3 (1.96-9.15); NEUTROPHILS PERCENT AUTO 63 % (41-73); Platelet Count 299 K/mm3 (150-400); RDW Coefficient Variation 15.9 % (11.7-14.2); RDW Standard Deviation 50.9 fL (35.1-46.3); Red Blood Cell Count 4.37 M/mm3 (3.80-5.20); White Blood Cell Count 9.35 K/mm3 (4.00-11.30)
[2023-04-29 15:46] LABS: International Normalized Ratio 0.98; Prothrombin Time Results 10.3 Sec (9.7-11.5)
[2023-04-29] MEDS ORDERED: Nitrostat0.4 MG SL (17:38)
[2023-04-29 17:45] VITALS: BP 115/66
== END 2023-04-29 18:00 | disposition home or self-care (01) ==
LOC: ER 13:53
PROVIDERS: Emergency Medicine
DX: I25.10 Atherosclerotic heart disease of native coronary artery without angina pectoris (principal); Z88.0 Allergy status to penicillin; Z91.048 Other nonmedicinal substance allergy status; Z88.7 Allergy status to serum and vaccine; Z91.013 Allergy to seafood; Z79.899 Other long term (current) drug therapy; Z79.82 Long term (current) use of aspirin; I10 Essential (primary) hypertension; E03.9 Hypothyroidism, unspecified; J44.9 Chronic obstructive pulmonary disease, unspecified; I48.91 Unspecified atrial fibrillation; G47.30 Sleep apnea, unspecified; I25.2 Old myocardial infarction; F17.210 Nicotine dependence, cigarettes, uncomplicated
CPT/HCPCS: 71046; 80053; 83690; 83880; 84484; 85025; 85610; 93005; 93010; 96361; 96374; 99285-25; A9270; J2405; J7030

== ENCOUNTER 2023-05-15 03:25 | Emergency (ER) | payer MEDICARE ==
[~2023-05-15] VITALS: Ht 167.6 cm; Wt 91.6 kg
[2023-05-15 03:53] LABS: BASOPHILS ABSOLUTE AUTO 0.08 K/mm3 (0.00-0.23); BASOPHILS PERCENT AUTO 1 % (0-2); EOSINOPHILS ABSOLUTE AUTO 0.57 K/mm3 (0.00-0.68); EOSINOPHILS PERCENT AUTO 6 % (0-6); Hematocrit 42.8 % (33.0-51.0); Hemoglobin 14.3 g/dL (11.5-16.0); IMMATURE GRAN ABSOLUTE AUTO 0.06 K/mm3 (0.00-0.10); IMMATURE GRAN PERCENT AUTO 1 % (0-1); LYMPHOCYTES ABSOLUTE AUTO 3.24 K/mm3 (0.84-5.20); LYMPHOCYTES PERCENT AUTO 31 % (21-46); MONOCYTES ABSOLUTE AUTO 0.66 K/mm3 (0.16-1.47); MONOCYTES PERCENT AUTO 6 % (4-13); Mean Corpuscular HGB 28.8 pg (26.0-34.0); Mean Corpuscular HGB Conc 33.4 g/dL (31.5-36.5); Mean Corpuscular Volume 86 fL (80-100); NEUTROPHILS ABSOLUTE AUTO 5.84 K/mm3 (1.96-9.15); NEUTROPHILS PERCENT AUTO 56 % (41-73); Platelet Count 339 K/mm3 (150-400); RDW Coefficient Variation 16.5 % (11.7-14.2); RDW Standard Deviation 50.8 fL (35.1-46.3); Red Blood Cell Count 4.97 M/mm3 (3.80-5.20); White Blood Cell Count 10.45 K/mm3 (4.00-11.30)
[2023-05-15 04:15] LABS: Albumin, Blood 3.5 g/dL (3.4-5.0); Albumin/Globulin Ratio 0.8 (0.8-1.8); Bilirubin, Total 0.5 mg/dL (0.1-1.0); Bun/Creatinine Ratio 15.2 (12.0-20.0); Calcium, Blood 9.3 mg/dL (8.5-10.1); Creatinine, Blood 0.98 mg/dL (0.40-1.00); Globulin, Blood 4.2 g/dL (2.2-4.0); Potassium, Blood 4.4 mmol/L (3.5-5.5); Total Protein, Blood 7.7 g/dL (6.4-8.2)
[2023-05-15 05:00] VITALS: BP 147/95
== END 2023-05-15 05:16 | disposition left against medical advice (07) ==
LOC: ER 03:25
PROVIDERS: Student in an Organized Health Care Education/Training Program
DX: R07.9 Chest pain, unspecified (principal); Z88.0 Allergy status to penicillin; Z91.013 Allergy to seafood; Z88.7 Allergy status to serum and vaccine; Z88.8 Allergy status to other drugs, medicaments and biological substances; Z79.899 Other long term (current) drug therapy; Z79.82 Long term (current) use of aspirin; I25.10 Atherosclerotic heart disease of native coronary artery without angina pectoris; I10 Essential (primary) hypertension; E03.9 Hypothyroidism, unspecified; J44.9 Chronic obstructive pulmonary disease, unspecified; I48.91 Unspecified atrial fibrillation; G47.30 Sleep apnea, unspecified; I25.2 Old myocardial infarction; F17.210 Nicotine dependence, cigarettes, uncomplicated
CPT/HCPCS: 80053; 84484; 85025; 93005; 93010; 96374; 96375; 99285-25; A9270; J1885; J2405

== ENCOUNTER 2023-05-24 23:47 | Emergency (ER) | payer MEDICARE ==
[~2023-05-24] VITALS: Ht 167.6 cm; Wt 91.6 kg
[2023-05-25 01:00] VITALS: BP 145/86
[2023-05-25 01:00] LABS: BASOPHILS PERCENT AUTO 1 % (0-2); EOSINOPHILS ABSOLUTE AUTO 0.36 K/mm3 (0.00-0.68); EOSINOPHILS PERCENT AUTO 4 % (0-6); Hematocrit 39.6 % (33.0-51.0); Hemoglobin 13.4 g/dL (11.5-16.0); IMMATURE GRAN ABSOLUTE AUTO 0.04 K/mm3 (0.00-0.10); IMMATURE GRAN PERCENT AUTO 0 % (0-1); LYMPHOCYTES ABSOLUTE AUTO 2.65 K/mm3 (0.84-5.20); LYMPHOCYTES PERCENT AUTO 28 % (21-46); MONOCYTES ABSOLUTE AUTO 0.55 K/mm3 (0.16-1.47); MONOCYTES PERCENT AUTO 6 % (4-13); Mean Corpuscular HGB 29.2 pg (26.0-34.0); Mean Corpuscular HGB Conc 33.8 g/dL (31.5-36.5); Mean Corpuscular Volume 86 fL (80-100); Mean Platelet Volume 10.5 fL (9.1-12.4); NEUTROPHILS ABSOLUTE AUTO 5.66 K/mm3 (1.96-9.15); NEUTROPHILS PERCENT AUTO 61 % (41-73); Platelet Count 298 K/mm3 (150-400); RDW Coefficient Variation 16.8 % (11.7-14.2); RDW Standard Deviation 52.4 fL (35.1-46.3); Red Blood Cell Count 4.59 M/mm3 (3.80-5.20); White Blood Cell Count 9.36 K/mm3 (4.00-11.30)
[2023-05-25 01:26] LABS: Albumin, Blood 3.2 g/dL (3.4-5.0); Albumin/Globulin Ratio 0.8 (0.8-1.8); Bilirubin, Total 0.5 mg/dL (0.1-1.0); Bun/Creatinine Ratio 15.6 (12.0-20.0); Calcium, Blood 8.3 mg/dL (8.5-10.1); Creatinine, Blood 0.96 mg/dL (0.40-1.00); Globulin, Blood 4.1 g/dL (2.2-4.0); Potassium, Blood 4.3 mmol/L (3.5-5.5); Total Protein, Blood 7.3 g/dL (6.4-8.2)
[2023-05-25] MEDS ORDERED: NITR.4SL SL (02:27)
== END 2023-05-25 02:36 | disposition home or self-care (01) ==
LOC: ER 23:47
PROVIDERS: Emergency Medicine
DX: R07.2 Precordial pain (principal); I10 Essential (primary) hypertension; J45.909 Unspecified asthma, uncomplicated; E03.9 Hypothyroidism, unspecified; I48.91 Unspecified atrial fibrillation; G47.30 Sleep apnea, unspecified; I25.2 Old myocardial infarction; Z95.5 Presence of coronary angioplasty implant and graft; F17.210 Nicotine dependence, cigarettes, uncomplicated; Z88.0 Allergy status to penicillin; Z91.013 Allergy to seafood; Z91.018 Allergy to other foods; Z88.7 Allergy status to serum and vaccine; Z88.8 Allergy status to other drugs, medicaments and biological substances; Z79.899 Other long term (current) drug therapy; Z79.82 Long term (current) use of aspirin; Z79.890 Hormone replacement therapy
CPT/HCPCS: 80053; 84484; 85025; 93005; 93010; 96374; 99285-25; J2405

== ENCOUNTER 2023-06-09 20:21 | Emergency (ER) | payer MEDICARE ==
[~2023-06-09] VITALS: Ht 167.6 cm; Wt 91.6 kg
[2023-06-09 21:34] LABS: BASOPHILS ABSOLUTE AUTO 0.09 K/mm3 (0.00-0.23); BASOPHILS PERCENT AUTO 1 % (0-2); EOSINOPHILS PERCENT AUTO 5 % (0-6); Hematocrit 41.7 % (33.0-51.0); Hemoglobin 14.2 g/dL (11.5-16.0); IMMATURE GRAN ABSOLUTE AUTO 0.05 K/mm3 (0.00-0.10); IMMATURE GRAN PERCENT AUTO 1 % (0-1); LYMPHOCYTES ABSOLUTE AUTO 2.81 K/mm3 (0.84-5.20); LYMPHOCYTES PERCENT AUTO 30 % (21-46); MONOCYTES ABSOLUTE AUTO 0.51 K/mm3 (0.16-1.47); MONOCYTES PERCENT AUTO 5 % (4-13); Mean Corpuscular HGB 29.1 pg (26.0-34.0); Mean Corpuscular HGB Conc 34.1 g/dL (31.5-36.5); Mean Corpuscular Volume 86 fL (80-100); Mean Platelet Volume 10.9 fL (9.1-12.4); NEUTROPHILS ABSOLUTE AUTO 5.46 K/mm3 (1.96-9.15); NEUTROPHILS PERCENT AUTO 58 % (41-73); Platelet Count 153 K/mm3 (150-400); RDW Standard Deviation 52.4 fL (35.1-46.3); Red Blood Cell Count 4.88 M/mm3 (3.80-5.20); White Blood Cell Count 9.42 K/mm3 (4.00-11.30)
[2023-06-09 21:53] LABS: Albumin, Blood 3.5 g/dL (3.4-5.0); Albumin/Globulin Ratio 0.8 (0.8-1.8); Bilirubin, Total 0.4 mg/dL (0.1-1.0); Bun/Creatinine Ratio 10.8 (12.0-20.0); Calcium, Blood 8.6 mg/dL (8.5-10.1); Creatinine, Blood 1.02 mg/dL (0.40-1.00); Globulin, Blood 4.2 g/dL (2.2-4.0); Potassium, Blood 3.8 mmol/L (3.5-5.5); Total Protein, Blood 7.7 g/dL (6.4-8.2)
[2023-06-09 22:38] VITALS: BP 187/95
[2023-06-09 23:30] LABS: Influenza A, PCR NEGATIVE (NEGATIVE); Influenza B, PCR NEGATIVE (NEGATIVE); Resp Syncytial Virus, PCR NEGATIVE (NEGATIVE); SARS-Cov-2 (COVID-19) PCR, MMC NEGATIVE (NEGATIVE)
[2023-06-09] MEDS ORDERED: OMEP20ER PO (23:43)
== END 2023-06-10 00:04 | disposition home or self-care (01) ==
LOC: ER 20:21
PROVIDERS: Student in an Organized Health Care Education/Training Program
DX: R07.9 Chest pain, unspecified (principal); F17.210 Nicotine dependence, cigarettes, uncomplicated; I10 Essential (primary) hypertension; E03.9 Hypothyroidism, unspecified; J44.9 Chronic obstructive pulmonary disease, unspecified; G47.30 Sleep apnea, unspecified; I25.2 Old myocardial infarction; Z95.5 Presence of coronary angioplasty implant and graft; Z79.1 Long term (current) use of non-steroidal anti-inflammatories (NSAID); Z79.51 Long term (current) use of inhaled steroids; Z79.52 Long term (current) use of systemic steroids; Z79.82 Long term (current) use of aspirin; Z79.890 Hormone replacement therapy; Z79.899 Other long term (current) drug therapy; Z79.84 Long term (current) use of oral hypoglycemic drugs; Z88.0 Allergy status to penicillin; Z91.013 Allergy to seafood; Z91.09 Other allergy status, other than to drugs and biological substances; Z88.7 Allergy status to serum and vaccine
CPT/HCPCS: 0241U; 71046; 80053; 83690; 84484; 85025; 93005; 93010; 96361; 96374; 99285-25; J2405; J7030

== ENCOUNTER 2023-06-22 21:58 | Emergency (ER) | payer MEDICARE ==
[~2023-06-22] VITALS: Ht 167.6 cm; Wt 91.6 kg
[2023-06-22 22:58] LABS: BASOPHILS PERCENT AUTO 1 % (0-2); EOSINOPHILS ABSOLUTE AUTO 0.46 K/mm3 (0.00-0.68); EOSINOPHILS PERCENT AUTO 5 % (0-6); Hematocrit 36.5 % (33.0-51.0); Hemoglobin 12.3 g/dL (11.5-16.0); IMMATURE GRAN ABSOLUTE AUTO 0.02 K/mm3 (0.00-0.10); IMMATURE GRAN PERCENT AUTO 0 % (0-1); LYMPHOCYTES ABSOLUTE AUTO 2.58 K/mm3 (0.84-5.20); LYMPHOCYTES PERCENT AUTO 30 % (21-46); MONOCYTES PERCENT AUTO 7 % (4-13); Mean Corpuscular HGB 29.1 pg (26.0-34.0); Mean Corpuscular HGB Conc 33.7 g/dL (31.5-36.5); Mean Corpuscular Volume 87 fL (80-100); Mean Platelet Volume 9.9 fL (9.1-12.4); NEUTROPHILS PERCENT AUTO 57 % (41-73); Platelet Count 302 K/mm3 (150-400); RDW Coefficient Variation 17.1 % (11.7-14.2); Red Blood Cell Count 4.22 M/mm3 (3.80-5.20); White Blood Cell Count 8.76 K/mm3 (4.00-11.30)
[2023-06-22 23:31] LABS: Albumin, Blood 3.3 g/dL (3.4-5.0); Albumin/Globulin Ratio 0.8 (0.8-1.8); Bilirubin, Total 0.3 mg/dL (0.1-1.0); Bun/Creatinine Ratio 11.7 (12.0-20.0); Calcium, Blood 9.1 mg/dL (8.5-10.1); Creatinine, Blood 1.2 mg/dL (0.40-1.00); Globulin, Blood 3.9 g/dL (2.2-4.0); Potassium, Blood 3.7 mmol/L (3.5-5.5); Total Protein, Blood 7.2 g/dL (6.4-8.2)
[2023-06-23 01:35] VITALS: BP 129/97
== END 2023-06-23 01:50 | disposition home or self-care (01) ==
LOC: ER 21:58
PROVIDERS: Emergency Medicine
DX: R07.9 Chest pain, unspecified (principal); F17.210 Nicotine dependence, cigarettes, uncomplicated; Z88.0 Allergy status to penicillin; Z91.013 Allergy to seafood; Z91.09 Other allergy status, other than to drugs and biological substances; Z88.7 Allergy status to serum and vaccine; Z88.8 Allergy status to other drugs, medicaments and biological substances; Z79.890 Hormone replacement therapy; Z79.82 Long term (current) use of aspirin; Z79.1 Long term (current) use of non-steroidal anti-inflammatories (NSAID); Z79.51 Long term (current) use of inhaled steroids; Z79.899 Other long term (current) drug therapy; Z95.5 Presence of coronary angioplasty implant and graft; I10 Essential (primary) hypertension; E03.9 Hypothyroidism, unspecified; J44.9 Chronic obstructive pulmonary disease, unspecified; I48.91 Unspecified atrial fibrillation; G47.30 Sleep apnea, unspecified; I25.2 Old myocardial infarction
CPT/HCPCS: 36415; 71045; 80053; 84484; 85025; 93005; 93010; 99285-25; A9270; J2405

== ENCOUNTER 2023-06-24 01:27 | Emergency (ER) | payer MEDICARE ==
[~2023-06-24] VITALS: Ht 167.6 cm; Wt 91.6 kg
[2023-06-24 03:15] VITALS: BP 164/82
== END 2023-06-24 03:48 | disposition home or self-care (01) ==
LOC: ER 01:27
DX: R07.9 Chest pain, unspecified (principal); I25.10 Atherosclerotic heart disease of native coronary artery without angina pectoris; I10 Essential (primary) hypertension; E03.9 Hypothyroidism, unspecified; J44.9 Chronic obstructive pulmonary disease, unspecified; I25.2 Old myocardial infarction; E05.00 Thyrotoxicosis with diffuse goiter without thyrotoxic crisis or storm; F17.210 Nicotine dependence, cigarettes, uncomplicated; Z88.0 Allergy status to penicillin; Z91.048 Other nonmedicinal substance allergy status; Z91.013 Allergy to seafood; Z88.7 Allergy status to serum and vaccine; Z88.8 Allergy status to other drugs, medicaments and biological substances; Z79.82 Long term (current) use of aspirin; Z79.899 Other long term (current) drug therapy
CPT/HCPCS: 84484; 93005; 93010; 96374; 99285-25; J1790

== ENCOUNTER 2023-07-05 06:04 | Emergency (ER) | payer MEDICARE ==
[~2023-07-05] VITALS: Ht 167.6 cm; Wt 90.7 kg
[2023-07-05 06:36] LABS: Source, Urine Clean Catch
[2023-07-05 06:40] LABS: Appearance, Urine Hazy (Clear); Blood, Urine Neg (Neg); Color, Urine Yellow (P-Yellow); Glucose Qualitative, Urine Neg (Neg); Ketones, Urine 1+ (Neg); Leukocyte Esterase, Urine 1+ (Neg); Nitrite, Urine Neg (Neg); Protein, Urine 2+ (Neg); Urobilinogen, Urine 2+ (Normal)
[2023-07-05 06:50] LABS: Bilirubin, Urine 1+ (Neg)
[2023-07-05 06:51] LABS: Bacteria Rare /hpf; Mucus Light (0-Heavy); Red Blood Cells, Urine 0-2 /hpf (0-2); Squamous Epithelial Cells Mod /hpf (Few)
[2023-07-05] MEDS ORDERED: IBUP400 PO (07:22)
[2023-07-05] MEDS ORDERED: ACET500 PO (07:22)
[2023-07-05 07:45] VITALS: BP 138/72
== END 2023-07-05 07:45 | disposition home or self-care (01) ==
LOC: ER 06:04
PROVIDERS: Student in an Organized Health Care Education/Training Program
DX: M62.830 Muscle spasm of back (principal); Z88.0 Allergy status to penicillin; Z88.7 Allergy status to serum and vaccine; Z88.8 Allergy status to other drugs, medicaments and biological substances; Z91.048 Other nonmedicinal substance allergy status; I25.10 Atherosclerotic heart disease of native coronary artery without angina pectoris; I10 Essential (primary) hypertension; E03.9 Hypothyroidism, unspecified; J44.9 Chronic obstructive pulmonary disease, unspecified; I48.91 Unspecified atrial fibrillation; G47.30 Sleep apnea, unspecified; I25.2 Old myocardial infarction; F17.210 Nicotine dependence, cigarettes, uncomplicated
CPT/HCPCS: 81001; 87086; 99283; A9270

== ENCOUNTER 2023-07-14 12:22 | Emergency (ER) | payer MEDICARE ==
[~2023-07-14] VITALS: Ht 167.6 cm; Wt 90.7 kg
[~2023-07-14 12:22] MED LIST changes: +ACET500 PO; +IBUP400 PO
[2023-07-14] MEDS ORDERED: Cyclobenzaprine5 MG PO (12:33)
[2023-07-14 13:07] LABS: BASOPHILS ABSOLUTE AUTO 0.09 K/mm3 (0.00-0.23); BASOPHILS PERCENT AUTO 1 % (0-2); EOSINOPHILS ABSOLUTE AUTO 0.43 K/mm3 (0.00-0.68); EOSINOPHILS PERCENT AUTO 5 % (0-6); Hematocrit 40.6 % (33.0-51.0); Hemoglobin 13.6 g/dL (11.5-16.0); IMMATURE GRAN ABSOLUTE AUTO 0.04 K/mm3 (0.00-0.10); IMMATURE GRAN PERCENT AUTO 1 % (0-1); LYMPHOCYTES ABSOLUTE AUTO 2.41 K/mm3 (0.84-5.20); LYMPHOCYTES PERCENT AUTO 30 % (21-46); MONOCYTES ABSOLUTE AUTO 0.38 K/mm3 (0.16-1.47); MONOCYTES PERCENT AUTO 5 % (4-13); Mean Corpuscular HGB 29.3 pg (26.0-34.0); Mean Corpuscular HGB Conc 33.5 g/dL (31.5-36.5); Mean Corpuscular Volume 88 fL (80-100); Mean Platelet Volume 10.1 fL (9.1-12.4); NEUTROPHILS ABSOLUTE AUTO 4.75 K/mm3 (1.96-9.15); NEUTROPHILS PERCENT AUTO 59 % (41-73); Platelet Count 274 K/mm3 (150-400); RDW Coefficient Variation 17.2 % (11.7-14.2); RDW Standard Deviation 55.3 fL (35.1-46.3); Red Blood Cell Count 4.64 M/mm3 (3.80-5.20)
[2023-07-14 13:29] LABS: Albumin, Blood 3.7 g/dL (3.4-5.0); Albumin/Globulin Ratio 0.9 (0.8-1.8); Bilirubin, Total 0.4 mg/dL (0.1-1.0); Bun/Creatinine Ratio 11.6 (12.0-20.0); Calcium, Blood 9.2 mg/dL (8.5-10.1); Creatinine, Blood 1.12 mg/dL (0.40-1.00); Globulin, Blood 4.1 g/dL (2.2-4.0); Potassium, Blood 3.6 mmol/L (3.5-5.5); Total Protein, Blood 7.8 g/dL (6.4-8.2)
[2023-07-14 15:37] VITALS: BP 135/77
== END 2023-07-14 16:32 | disposition home or self-care (01) ==
LOC: ER 12:22
PROVIDERS: Emergency Medicine
DX: R07.89 Other chest pain (principal); Z95.0 Presence of cardiac pacemaker; I25.10 Atherosclerotic heart disease of native coronary artery without angina pectoris; I10 Essential (primary) hypertension; J44.9 Chronic obstructive pulmonary disease, unspecified; I25.2 Old myocardial infarction; F17.210 Nicotine dependence, cigarettes, uncomplicated; Z88.0 Allergy status to penicillin; Z88.7 Allergy status to serum and vaccine; Z88.8 Allergy status to other drugs, medicaments and biological substances; Z91.013 Allergy to seafood; Z95.5 Presence of coronary angioplasty implant and graft
CPT/HCPCS: 71045; 80053; 84484; 85025; 93005; 93010; 99285-25; A9270

== ENCOUNTER 2023-08-05 06:36 | Emergency (ER) | payer MEDICARE ==
[~2023-08-05] VITALS: Ht 167.6 cm; Wt 99.8 kg
[~2023-08-05 06:36] MED LIST changes: +Cyclobenzaprine5 MG PO
[2023-08-05 07:02] LABS: Source, Urine Clean Catch
[2023-08-05 07:09] LABS: Appearance, Urine Clear (Clear); Bilirubin, Urine Neg (Neg); Blood, Urine Neg (Neg); Color, Urine Yellow (P-Yellow); Glucose Qualitative, Urine Neg (Neg); Ketones, Urine Neg (Neg); Leukocyte Esterase, Urine Neg (Neg); Nitrite, Urine Neg (Neg); Protein, Urine 1+ (Neg); Specific Gravity, Urine 1.015 (1.003-1.022); Urobilinogen, Urine NORM (Normal); pH, Urine 6.5 (5.0-8.0)
[2023-08-05 07:50] LABS: BASOPHILS PERCENT AUTO 2 % (0-2); EOSINOPHILS ABSOLUTE AUTO 0.39 K/mm3 (0.00-0.68); EOSINOPHILS PERCENT AUTO 6 % (0-6); Hemoglobin 12.4 g/dL (11.5-16.0); IMMATURE GRAN ABSOLUTE AUTO 0.02 K/mm3 (0.00-0.10); IMMATURE GRAN PERCENT AUTO 0 % (0-1); LYMPHOCYTES ABSOLUTE AUTO 2.07 K/mm3 (0.84-5.20); LYMPHOCYTES PERCENT AUTO 30 % (21-46); MONOCYTES ABSOLUTE AUTO 0.52 K/mm3 (0.16-1.47); MONOCYTES PERCENT AUTO 8 % (4-13); Mean Corpuscular HGB Conc 33.5 g/dL (31.5-36.5); Mean Corpuscular Volume 90 fL (80-100); Mean Platelet Volume 10.3 fL (9.1-12.4); NEUTROPHILS ABSOLUTE AUTO 3.75 K/mm3 (1.96-9.15); NEUTROPHILS PERCENT AUTO 55 % (41-73); Platelet Count 274 K/mm3 (150-400); RDW Coefficient Variation 16.5 % (11.7-14.2); RDW Standard Deviation 54.3 fL (35.1-46.3); Red Blood Cell Count 4.13 M/mm3 (3.80-5.20); White Blood Cell Count 6.85 K/mm3 (4.00-11.30)
[2023-08-05 08:09] LABS: Albumin, Blood 3.5 g/dL (3.4-5.0); Albumin/Globulin Ratio 0.9 (0.8-1.8); Bilirubin, Total 0.4 mg/dL (0.1-1.0); Calcium, Blood 8.6 mg/dL (8.5-10.1); Creatinine, Blood 1.08 mg/dL (0.40-1.00); Globulin, Blood 3.9 g/dL (2.2-4.0); Potassium, Blood 3.6 mmol/L (3.5-5.5); Total Protein, Blood 7.4 g/dL (6.4-8.2)
[2023-08-05] MEDS ORDERED: EUTHYROX175 MCG PO (09:51)
[2023-08-05 10:33] VITALS: BP 154/89
[2023-08-05 11:57] LABS: Free Thyroxine 0.16 ng/dL (0.70-1.60)
[2023-08-05 12:30] LABS: Triiodothyronine, Free <0.50 pg/mL (2.18-3.98)
== END 2023-08-05 12:48 | disposition home or self-care (01) ==
LOC: ER 06:36
PROVIDERS: Emergency Medicine; Family Medicine
DX: M54.50 Low back pain, unspecified (principal); E03.9 Hypothyroidism, unspecified; Z88.0 Allergy status to penicillin; Z91.048 Other nonmedicinal substance allergy status; Z91.013 Allergy to seafood; Z88.8 Allergy status to other drugs, medicaments and biological substances; Z79.899 Other long term (current) drug therapy; I10 Essential (primary) hypertension; J44.9 Chronic obstructive pulmonary disease, unspecified; I48.91 Unspecified atrial fibrillation; I25.2 Old myocardial infarction; F17.210 Nicotine dependence, cigarettes, uncomplicated
CPT/HCPCS: 76700; 76770; 80053; 84439; 84443; 84481; 84484; 85025; 86800; 93005; 93010; 96374; 96375; 99284-25; A9270; J1885; J2405

== ENCOUNTER 2023-08-06 16:59 | Emergency (ER) | payer MEDICARE ==
[~2023-08-06] VITALS: Ht 162.6 cm; Wt 90.7 kg
[2023-08-06 17:39] LABS: BASOPHILS PERCENT AUTO 1 % (0-2); EOSINOPHILS ABSOLUTE AUTO 0.42 K/mm3 (0.00-0.68); EOSINOPHILS PERCENT AUTO 5 % (0-6); Hematocrit 36.2 % (33.0-51.0); Hemoglobin 12.1 g/dL (11.5-16.0); IMMATURE GRAN ABSOLUTE AUTO 0.03 K/mm3 (0.00-0.10); IMMATURE GRAN PERCENT AUTO 0 % (0-1); LYMPHOCYTES PERCENT AUTO 30 % (21-46); MONOCYTES ABSOLUTE AUTO 0.53 K/mm3 (0.16-1.47); MONOCYTES PERCENT AUTO 6 % (4-13); Mean Corpuscular HGB 29.9 pg (26.0-34.0); Mean Corpuscular HGB Conc 33.4 g/dL (31.5-36.5); Mean Corpuscular Volume 89 fL (80-100); Mean Platelet Volume 10.8 fL (9.1-12.4); NEUTROPHILS ABSOLUTE AUTO 4.73 K/mm3 (1.96-9.15); NEUTROPHILS PERCENT AUTO 57 % (41-73); Platelet Count 294 K/mm3 (150-400); RDW Coefficient Variation 16.6 % (11.7-14.2); RDW Standard Deviation 54.4 fL (35.1-46.3); Red Blood Cell Count 4.05 M/mm3 (3.80-5.20); White Blood Cell Count 8.31 K/mm3 (4.00-11.30)
[2023-08-06 18:04] LABS: Albumin, Blood 3.5 g/dL (3.4-5.0); Albumin/Globulin Ratio 0.9 (0.8-1.8); Bilirubin, Total 0.3 mg/dL (0.1-1.0); Bun/Creatinine Ratio 12.4 (12.0-20.0); Calcium, Blood 8.4 mg/dL (8.5-10.1); Creatinine, Blood 1.05 mg/dL (0.40-1.00); Globulin, Blood 3.8 g/dL (2.2-4.0); Potassium, Blood 3.5 mmol/L (3.5-5.5); Total Protein, Blood 7.3 g/dL (6.4-8.2)
[2023-08-06 19:16] VITALS: BP 124/90
== END 2023-08-06 19:09 | disposition home or self-care (01) ==
LOC: ER 16:59
PROVIDERS: Emergency Medicine
DX: R07.89 Other chest pain (principal); I25.10 Atherosclerotic heart disease of native coronary artery without angina pectoris; I10 Essential (primary) hypertension; E05.00 Thyrotoxicosis with diffuse goiter without thyrotoxic crisis or storm; J44.9 Chronic obstructive pulmonary disease, unspecified; G47.30 Sleep apnea, unspecified; F17.210 Nicotine dependence, cigarettes, uncomplicated; Z79.890 Hormone replacement therapy; Z79.899 Other long term (current) drug therapy
CPT/HCPCS: 80053; 84484; 85025; 93005; 93010; 99285-25

== ENCOUNTER 2023-08-11 09:38 | Emergency (ER) | payer MEDICARE ==
[~2023-08-11] VITALS: Ht 167.6 cm; Wt 90.7 kg
[2023-08-11 10:38] LABS: BASOPHILS ABSOLUTE AUTO 0.11 K/mm3 (0.00-0.23); BASOPHILS PERCENT AUTO 1 % (0-2); EOSINOPHILS ABSOLUTE AUTO 0.49 K/mm3 (0.00-0.68); EOSINOPHILS PERCENT AUTO 6 % (0-6); Hematocrit 38.4 % (33.0-51.0); Hemoglobin 12.8 g/dL (11.5-16.0); IMMATURE GRAN ABSOLUTE AUTO 0.03 K/mm3 (0.00-0.10); IMMATURE GRAN PERCENT AUTO 0 % (0-1); LYMPHOCYTES ABSOLUTE AUTO 2.17 K/mm3 (0.84-5.20); LYMPHOCYTES PERCENT AUTO 26 % (21-46); MONOCYTES ABSOLUTE AUTO 0.56 K/mm3 (0.16-1.47); MONOCYTES PERCENT AUTO 7 % (4-13); Mean Corpuscular HGB 29.8 pg (26.0-34.0); Mean Corpuscular HGB Conc 33.3 g/dL (31.5-36.5); Mean Corpuscular Volume 90 fL (80-100); Mean Platelet Volume 10.4 fL (9.1-12.4); NEUTROPHILS ABSOLUTE AUTO 4.95 K/mm3 (1.96-9.15); NEUTROPHILS PERCENT AUTO 60 % (41-73); Platelet Count 299 K/mm3 (150-400); RDW Coefficient Variation 16.1 % (11.7-14.2); RDW Standard Deviation 53.1 fL (35.1-46.3); Red Blood Cell Count 4.29 M/mm3 (3.80-5.20); White Blood Cell Count 8.31 K/mm3 (4.00-11.30)
[2023-08-11 11:07] LABS: Albumin, Blood 3.4 g/dL (3.4-5.0); Albumin/Globulin Ratio 0.8 (0.8-1.8); Bilirubin, Total 0.5 mg/dL (0.1-1.0); Bun/Creatinine Ratio 10.7 (12.0-20.0); Calcium, Blood 9.2 mg/dL (8.5-10.1); Creatinine, Blood 1.03 mg/dL (0.40-1.00); Globulin, Blood 4.2 g/dL (2.2-4.0); Potassium, Blood 4.5 mmol/L (3.5-5.5); Total Protein, Blood 7.6 g/dL (6.4-8.2)
[2023-08-11 13:50] VITALS: BP 166/97
== END 2023-08-11 13:51 | disposition home or self-care (01) ==
LOC: ER 09:38
PROVIDERS: Physician Assistant
DX: R10.13 Epigastric pain (principal); R79.89 Other specified abnormal findings of blood chemistry; I25.10 Atherosclerotic heart disease of native coronary artery without angina pectoris; I10 Essential (primary) hypertension; E03.9 Hypothyroidism, unspecified; J44.9 Chronic obstructive pulmonary disease, unspecified; I48.91 Unspecified atrial fibrillation; G70.00 Myasthenia gravis without (acute) exacerbation; F17.210 Nicotine dependence, cigarettes, uncomplicated; Z88.0 Allergy status to penicillin; Z91.048 Other nonmedicinal substance allergy status; Z91.013 Allergy to seafood; Z88.8 Allergy status to other drugs, medicaments and biological substances; Z88.7 Allergy status to serum and vaccine; Z79.890 Hormone replacement therapy; Z79.899 Other long term (current) drug therapy
CPT/HCPCS: 71046; 74176; 80053; 83690; 84484; 85025; 93005; 93010; 99285-25

== ENCOUNTER 2023-08-24 07:33 | Emergency (ER) | payer MEDICARE ==
[~2023-08-24] VITALS: Ht 167.6 cm; Wt 90.7 kg
[2023-08-24 08:19] LABS: BASOPHILS ABSOLUTE AUTO 0.12 K/mm3 (0.00-0.23); BASOPHILS PERCENT AUTO 1 % (0-2); EOSINOPHILS ABSOLUTE AUTO 0.66 K/mm3 (0.00-0.68); EOSINOPHILS PERCENT AUTO 8 % (0-6); Hemoglobin 12.4 g/dL (11.5-16.0); IMMATURE GRAN ABSOLUTE AUTO 0.03 K/mm3 (0.00-0.10); IMMATURE GRAN PERCENT AUTO 0 % (0-1); LYMPHOCYTES PERCENT AUTO 26 % (21-46); MONOCYTES ABSOLUTE AUTO 0.59 K/mm3 (0.16-1.47); MONOCYTES PERCENT AUTO 7 % (4-13); Mean Corpuscular HGB 30.1 pg (26.0-34.0); Mean Corpuscular HGB Conc 33.5 g/dL (31.5-36.5); Mean Corpuscular Volume 90 fL (80-100); Mean Platelet Volume 10.3 fL (9.1-12.4); NEUTROPHILS ABSOLUTE AUTO 5.03 K/mm3 (1.96-9.15); NEUTROPHILS PERCENT AUTO 58 % (41-73); Platelet Count 356 K/mm3 (150-400); RDW Coefficient Variation 16.1 % (11.7-14.2); RDW Standard Deviation 53.5 fL (35.1-46.3); Red Blood Cell Count 4.12 M/mm3 (3.80-5.20); White Blood Cell Count 8.73 K/mm3 (4.00-11.30)
[2023-08-24 08:38] LABS: Free Thyroxine 0.14 ng/dL (0.70-1.60); Magnesium, Blood 2.3 mg/dL (1.6-2.4)
[2023-08-24 08:41] LABS: Alanine Aminotransfer (ALT/SGP 17 U/L (12-78); Albumin, Blood 3.6 g/dL (3.4-5.0); Albumin/Globulin Ratio 0.9 (0.8-1.8); Alk Phos 91 U/L (50-136); Anion Gap 4 mmol/L (6-16); Aspartate Aminotrans (AST/SGOT 37 U/L (12-37); Bilirubin, Total 0.5 mg/dL (0.1-1.0); Blood Urea Nitrogen 13 mg/dL (8-24); Bun/Creatinine Ratio 12.4 (12.0-20.0); CO2, Blood 29 mmol/L (21-32); Calcium, Blood 8.1 mg/dL (8.5-10.1); Chloride, Blood 102 mmol/L (98-108); Creatinine, Blood 1.05 mg/dL (0.40-1.00); Globulin, Blood 3.9 g/dL (2.2-4.0); Glomerular Filtration Rate 58 (60-); Glucose, Blood 91 mg/dL (70-99); Sodium, Blood 135 mmol/L (136-145); Total Protein, Blood 7.5 g/dL (6.4-8.2); Triiodothyronine, Free <0.50 pg/mL (2.18-3.98)
[2023-08-24 09:30] VITALS: BP 160/96
[2023-08-24] MEDS ORDERED: LEVOTHYROXINE200 MCG PO (09:30)
== END 2023-08-24 09:52 | disposition home or self-care (01) ==
LOC: ER 07:33
PROVIDERS: Student in an Organized Health Care Education/Training Program
DX: R07.9 Chest pain, unspecified (principal); E03.9 Hypothyroidism, unspecified; I25.10 Atherosclerotic heart disease of native coronary artery without angina pectoris; I10 Essential (primary) hypertension; J44.9 Chronic obstructive pulmonary disease, unspecified; I48.91 Unspecified atrial fibrillation; I25.2 Old myocardial infarction; F17.210 Nicotine dependence, cigarettes, uncomplicated; Z91.148 Patient's other noncompliance with medication regimen for other reason; Z88.0 Allergy status to penicillin; Z88.7 Allergy status to serum and vaccine; Z88.8 Allergy status to other drugs, medicaments and biological substances; Z91.013 Allergy to seafood; Z91.048 Other nonmedicinal substance allergy status; Z95.0 Presence of cardiac pacemaker
CPT/HCPCS: 80053; 83735; 84439; 84443; 84481; 84484; 85025; 93005; 93010; 96374; 96375; 99285-25; A9270; J1790

== ENCOUNTER 2023-10-02 11:21 | Emergency (ER) | payer MEDICARE ==
[~2023-10-02] VITALS: Ht 167.6 cm; Wt 89.8 kg
[~2023-10-02 11:21] MED LIST changes: +LEVOTHYROXINE200 MCG PO
[2023-10-02 12:51] LABS: BASOPHILS ABSOLUTE AUTO 0.09 K/mm3 (0.00-0.23); BASOPHILS PERCENT AUTO 1 % (0-2); EOSINOPHILS ABSOLUTE AUTO 0.34 K/mm3 (0.00-0.68); EOSINOPHILS PERCENT AUTO 4 % (0-6); Hematocrit 40.1 % (33.0-51.0); Hemoglobin 13.4 g/dL (11.5-16.0); IMMATURE GRAN ABSOLUTE AUTO 0.03 K/mm3 (0.00-0.10); IMMATURE GRAN PERCENT AUTO 0 % (0-1); LYMPHOCYTES ABSOLUTE AUTO 1.86 K/mm3 (0.84-5.20); LYMPHOCYTES PERCENT AUTO 21 % (21-46); MONOCYTES ABSOLUTE AUTO 0.52 K/mm3 (0.16-1.47); MONOCYTES PERCENT AUTO 6 % (4-13); Mean Corpuscular HGB 29.8 pg (26.0-34.0); Mean Corpuscular HGB Conc 33.4 g/dL (31.5-36.5); Mean Corpuscular Volume 89 fL (80-100); Mean Platelet Volume 10.7 fL (9.1-12.4); NEUTROPHILS ABSOLUTE AUTO 6.13 K/mm3 (1.96-9.15); NEUTROPHILS PERCENT AUTO 68 % (41-73); Platelet Count 297 K/mm3 (150-400); RDW Coefficient Variation 15.2 % (11.7-14.2); RDW Standard Deviation 49.9 fL (35.1-46.3); White Blood Cell Count 8.97 K/mm3 (4.00-11.30)
[2023-10-02 13:10] LABS: Albumin, Blood 3.4 g/dL (3.4-5.0); Albumin/Globulin Ratio 0.8 (0.8-1.8); Bilirubin, Total 0.5 mg/dL (0.1-1.0); Bun/Creatinine Ratio 14.6 (12.0-20.0); Creatinine, Blood 1.03 mg/dL (0.40-1.00); Globulin, Blood 4.1 g/dL (2.2-4.0); Potassium, Blood 3.7 mmol/L (3.5-5.5); Total Protein, Blood 7.5 g/dL (6.4-8.2)
[2023-10-02 13:24] LABS: Source, Urine Clean Catch
[2023-10-02 13:26] LABS: Appearance, Urine Clear (Clear); Bilirubin, Urine Neg (Neg); Blood, Urine Neg (Neg); Color, Urine Yellow (P-Yellow); Glucose Qualitative, Urine Neg (Neg); Ketones, Urine Neg (Neg); Leukocyte Esterase, Urine Neg (Neg); Nitrite, Urine Neg (Neg); Protein, Urine 1+ (Neg); Specific Gravity, Urine 1.025 (1.003-1.022); Urobilinogen, Urine NORM (Normal)
[2023-10-02] MEDS ORDERED: Synthroid200 MCG PO (14:52)
[2023-10-02 15:00] VITALS: BP 139/75
== END 2023-10-02 15:04 | disposition home or self-care (01) ==
LOC: ER 11:21
PROVIDERS: Emergency Medicine
DX: E03.9 Hypothyroidism, unspecified (principal); R32 Unspecified urinary incontinence; Z91.148 Patient's other noncompliance with medication regimen for other reason; Z88.0 Allergy status to penicillin; Z88.7 Allergy status to serum and vaccine; Z88.8 Allergy status to other drugs, medicaments and biological substances; Z91.048 Other nonmedicinal substance allergy status; Z91.013 Allergy to seafood; Z79.899 Other long term (current) drug therapy; I25.10 Atherosclerotic heart disease of native coronary artery without angina pectoris; I10 Essential (primary) hypertension; J44.9 Chronic obstructive pulmonary disease, unspecified; I48.91 Unspecified atrial fibrillation; G47.30 Sleep apnea, unspecified; I25.2 Old myocardial infarction; F17.210 Nicotine dependence, cigarettes, uncomplicated
CPT/HCPCS: 80053; 84439; 84443; 85025; 99285; A9270

== ENCOUNTER 2023-10-21 04:44 | Emergency (ER) | payer MEDICARE ==
[~2023-10-21] VITALS: Ht 167.6 cm; Wt 88.5 kg
[2023-10-21 04:59] VITALS: BP 150/98
[2023-10-21 05:29] LABS: Source, Urine Clean Catch
[2023-10-21 06:07] LABS: Appearance, Urine Hazy (Clear); Color, Urine Yellow (P-Yellow)
[2023-10-21 06:08] LABS: Leukocyte Esterase, Urine 3+ (Neg)
[2023-10-21 06:09] LABS: Bacteria Few /hpf; Bilirubin, Urine Neg (Neg); Blood, Urine 2+ (Neg); Glucose Qualitative, Urine Neg (Neg); Ketones, Urine 1+ (Neg); Mucus Mod (0-Heavy); Nitrite, Urine Neg (Neg); Protein, Urine 2+ (Neg); Squamous Epithelial Cells Many /hpf (Few); Urobilinogen, Urine NORM (Normal)
== END 2023-10-21 08:30 | disposition home or self-care (01) ==
LOC: ER 04:44
PROVIDERS: Emergency Medicine
DX: M25.552 Pain in left hip (principal); F17.210 Nicotine dependence, cigarettes, uncomplicated; J44.89 Other specified chronic obstructive pulmonary disease; I10 Essential (primary) hypertension; E03.9 Hypothyroidism, unspecified; I48.91 Unspecified atrial fibrillation; Z95.0 Presence of cardiac pacemaker; E05.00 Thyrotoxicosis with diffuse goiter without thyrotoxic crisis or storm; Z88.0 Allergy status to penicillin; Z88.7 Allergy status to serum and vaccine; Z88.8 Allergy status to other drugs, medicaments and biological substances; Z91.013 Allergy to seafood; Z91.09 Other allergy status, other than to drugs and biological substances
CPT/HCPCS: 73502; 81001; 87077; 87086; 87186; 96372; 99283-25; J1885

== ENCOUNTER 2023-11-02 09:52 | Emergency (ER) | payer MEDICARE ==
[~2023-11-02] VITALS: Ht 167.6 cm; Wt 85.3 kg
[2023-11-02 10:52] LABS: Hematocrit 39.8 % (33.0-51.0); Hemoglobin 13.8 g/dL (11.5-16.0); Mean Corpuscular HGB 29.7 pg (26.0-34.0); Mean Corpuscular HGB Conc 34.7 g/dL (31.5-36.5); Mean Corpuscular Volume 86 fL (80-100); RDW Coefficient Variation 15.1 % (11.7-14.2); RDW Standard Deviation 47.6 fL (35.1-46.3); Red Blood Cell Count 4.64 M/mm3 (3.80-5.20); White Blood Cell Count 7.58 K/mm3 (4.00-11.30)
[2023-11-02 11:00] LABS: Albumin, Blood 3.5 g/dL (3.4-5.0); Albumin/Globulin Ratio 0.9 (0.8-1.8); Bilirubin, Total 0.6 mg/dL (0.1-1.0); Bun/Creatinine Ratio 19.5 (12.0-20.0); Calcium, Blood 8.8 mg/dL (8.5-10.1); Creatinine, Blood 0.87 mg/dL (0.40-1.00); Globulin, Blood 3.7 g/dL (2.2-4.0); Potassium, Blood 4.4 mmol/L (3.5-5.5); Total Protein, Blood 7.2 g/dL (6.4-8.2)
[2023-11-02 11:30] VITALS: BP 127/71
[2023-11-02] MEDS ORDERED: CELE100 PO (11:31)
[2023-11-02 11:35] LABS: BASOPHILS ABSOLUTE MAN 0.07 K/mm3 (0.00-0.23); BASOPHILS PERCENT MAN 1 % (0-2); EOSINOPHILS ABSOLUTE MAN 0.53 K/mm3 (0.00-0.68); EOSINOPHILS PERCENT MAN 7 % (0-6); LYMPHOCYTES ABSOLUTE MAN 1.44 K/mm3 (0.84-5.20); LYMPHOCYTES PERCENT MAN 19 % (21-46); MONOCYTES PERCENT MAN 8 % (4-13); NEUTROPHILS ABSOLUTE MAN 4.92 K/mm3 (1.96-9.15); SEG NEUTROPHILS PERCENT MAN 65 % (41-73); TOTAL CELLS COUNTED 100
[2023-11-02 11:39] LABS: Platelet Count 228 K/mm3 (150-400)
== END 2023-11-02 11:51 | disposition home or self-care (01) ==
LOC: ER 09:52
PROVIDERS: Emergency Medicine
DX: S70.02XA Contusion of left hip, initial encounter (principal); W18.30XA Fall on same level, unspecified, initial encounter; Z88.0 Allergy status to penicillin; Z88.7 Allergy status to serum and vaccine; Z91.048 Other nonmedicinal substance allergy status; Z88.8 Allergy status to other drugs, medicaments and biological substances; Z79.899 Other long term (current) drug therapy; E03.9 Hypothyroidism, unspecified; I10 Essential (primary) hypertension; J44.9 Chronic obstructive pulmonary disease, unspecified; I48.91 Unspecified atrial fibrillation; G47.30 Sleep apnea, unspecified; I25.2 Old myocardial infarction; F17.210 Nicotine dependence, cigarettes, uncomplicated
CPT/HCPCS: 36415; 73502; 80053; 85025; 93005; 93010; 96374; 99284-25; A9270; J2270; J2405

== ENCOUNTER 2023-11-11 10:40 | Emergency (ER) | payer OTHER, MEDICARE ==
[~2023-11-11] VITALS: Ht 167.6 cm; Wt 85.3 kg
[~2023-11-11 10:40] MED LIST changes: +CELE100 PO
[2023-11-11 12:00] VITALS: BP 121/88
== END 2023-11-11 13:50 | disposition home or self-care (01) ==
LOC: ER 10:40
DX: S70.02XA Contusion of left hip, initial encounter (principal); W01.0XXA Fall on same level from slipping, tripping and stumbling without subsequent striking against object, initial encounter; I10 Essential (primary) hypertension; J44.9 Chronic obstructive pulmonary disease, unspecified; E03.9 Hypothyroidism, unspecified; F17.210 Nicotine dependence, cigarettes, uncomplicated; Z95.0 Presence of cardiac pacemaker; Z95.5 Presence of coronary angioplasty implant and graft; Z88.0 Allergy status to penicillin; Z88.7 Allergy status to serum and vaccine; Z88.8 Allergy status to other drugs, medicaments and biological substances; Z91.013 Allergy to seafood; Z91.048 Other nonmedicinal substance allergy status; Z79.899 Other long term (current) drug therapy; Z79.890 Hormone replacement therapy
CPT/HCPCS: 73502; 99283-25

== ENCOUNTER 2024-06-10 14:05 | Emergency (ER) | payer MEDICARE, OTHER ==
[~2024-06-10] VITALS: Ht 167.6 cm; Wt 99.8 kg
[2024-06-10 14:42] VITALS: BP 109/74
[2024-06-10 15:06] LABS: BASOPHILS ABSOLUTE AUTO 0.04 K/mm3 (0.00-0.23); BASOPHILS PERCENT AUTO 0 % (0-2); EOSINOPHILS PERCENT AUTO 3 % (0-6); Hematocrit 33.3 % (33.0-51.0); Hemoglobin 11.3 g/dL (11.5-16.0); IMMATURE GRAN ABSOLUTE AUTO 0.05 K/mm3 (0.00-0.10); IMMATURE GRAN PERCENT AUTO 1 % (0-1); LYMPHOCYTES ABSOLUTE AUTO 1.72 K/mm3 (0.84-5.20); LYMPHOCYTES PERCENT AUTO 17 % (21-46); MONOCYTES ABSOLUTE AUTO 0.52 K/mm3 (0.16-1.47); MONOCYTES PERCENT AUTO 5 % (4-13); Mean Corpuscular HGB Conc 33.9 g/dL (31.5-36.5); Mean Corpuscular Volume 88 fL (80-100); Mean Platelet Volume 10.4 fL (9.1-12.4); NEUTROPHILS ABSOLUTE AUTO 7.71 K/mm3 (1.96-9.15); NEUTROPHILS PERCENT AUTO 75 % (41-73); Platelet Count 261 K/mm3 (150-400); RDW Coefficient Variation 15.8 % (11.7-14.2); RDW Standard Deviation 51.2 fL (35.1-46.3); Red Blood Cell Count 3.77 M/mm3 (3.80-5.20); White Blood Cell Count 10.34 K/mm3 (4.00-11.30)
[2024-06-10 15:26] LABS: Albumin, Blood 3.7 g/dL (3.4-5.0); Albumin/Globulin Ratio 1.1 (0.8-1.8); Bilirubin, Total 0.6 mg/dL (0.1-1.0); Bun/Creatinine Ratio 20.2 (12.0-20.0); Calcium, Blood 9.5 mg/dL (8.5-10.1); Creatinine, Blood 1.14 mg/dL (0.40-1.00); Globulin, Blood 3.5 g/dL (2.2-4.0); Potassium, Blood 4.4 mmol/L (3.5-5.5); Total Protein, Blood 7.2 g/dL (6.4-8.2)
== END 2024-06-10 16:27 | disposition left against medical advice (07) ==
LOC: ER 14:05
PROVIDERS: Physician Assistant
DX: R10.32 Left lower quadrant pain (principal); Z53.29 Procedure and treatment not carried out because of patient's decision for other reasons
CPT/HCPCS: 80053; 83690; 85025; 99282

== ENCOUNTER 2024-08-26 02:05 | Emergency (ER) | payer MEDICARE, OTHER | END 2024-08-26 03:45 | disposition home or self-care (01) | LOC: ER 02:05 | DX: S60.511A Abrasion of right hand, initial encounter (principal); I10 Essential (primary) hypertension; E03.9 Hypothyroidism, unspecified; J44.89 Other specified chronic obstructive pulmonary disease; I48.91 Unspecified atrial fibrillation; G47.30 Sleep apnea, unspecified; I25.2 Old myocardial infarction; F17.210 Nicotine dependence, cigarettes, uncomplicated; W01.0XXA Fall on same level from slipping, tripping and stumbling without subsequent striking against object, initial encounter; Z79.899 Other long term (current) drug therapy; Z91.048 Other nonmedicinal substance allergy status; Z91.013 Allergy to seafood; Z88.7 Allergy status to serum and vaccine; Z88.8 Allergy status to other drugs, medicaments and biological substances | CPT/HCPCS: 99282 ==

== ENCOUNTER 2024-09-30 14:37 | Emergency (ER) | payer MEDICARE, OTHER ==
[~2024-09-30] VITALS: Ht 170.2 cm; Wt 83.9 kg
[2024-09-30 14:58] LABS: BASOPHILS ABSOLUTE AUTO 0.11 K/mm3 (0.00-0.23); BASOPHILS PERCENT AUTO 1 % (0-2); EOSINOPHILS ABSOLUTE AUTO 0.49 K/mm3 (0.00-0.68); EOSINOPHILS PERCENT AUTO 6 % (0-6); Hemoglobin 11.3 g/dL (11.5-16.0); IMMATURE GRAN ABSOLUTE AUTO 0.05 K/mm3 (0.00-0.10); IMMATURE GRAN PERCENT AUTO 1 % (0-1); LYMPHOCYTES ABSOLUTE AUTO 2.29 K/mm3 (0.84-5.20); LYMPHOCYTES PERCENT AUTO 28 % (21-46); MONOCYTES ABSOLUTE AUTO 0.43 K/mm3 (0.16-1.47); MONOCYTES PERCENT AUTO 5 % (4-13); Mean Corpuscular HGB 29.3 pg (26.0-34.0); Mean Corpuscular HGB Conc 33.2 g/dL (31.5-36.5); Mean Corpuscular Volume 88 fL (80-100); Mean Platelet Volume 10.2 fL (9.1-12.4); NEUTROPHILS ABSOLUTE AUTO 4.89 K/mm3 (1.96-9.15); NEUTROPHILS PERCENT AUTO 59 % (41-73); Platelet Count 265 K/mm3 (150-400); RDW Coefficient Variation 19.9 % (11.7-14.2); RDW Standard Deviation 63.7 fL (35.1-46.3); Red Blood Cell Count 3.86 M/mm3 (3.80-5.20); White Blood Cell Count 8.26 K/mm3 (4.00-11.30)
[2024-09-30 15:10] LABS: Albumin, Blood 3.4 g/dL (3.4-5.0); Albumin/Globulin Ratio 0.9 (0.8-1.8); Bilirubin, Total 0.6 mg/dL (0.1-1.0); Bun/Creatinine Ratio 12.8 (12.0-20.0); Calcium, Blood 9.2 mg/dL (8.5-10.1); Creatinine, Blood 1.25 mg/dL (0.40-1.00); Globulin, Blood 3.6 g/dL (2.2-4.0); Potassium, Blood 3.2 mmol/L (3.5-5.5)
[2024-09-30] MEDS ORDERED: Magnesium Oxide 400 MG Tab PO ONE (15:50)
[2024-09-30] MEDS ORDERED: Potassium Chloride 20 MEQ TabCR PO ONE (15:50)
[2024-09-30] MEDS ORDERED: Cyclobenzaprine HCl 10 MG Tab PO ONE (18:35)
[2024-09-30 20:30] VITALS: BP 134/72
== END 2024-09-30 20:42 | disposition short-term general hospital (02) ==
LOC: ER 14:37
PROVIDERS: Emergency Medicine
DX: T82.111A Breakdown (mechanical) of cardiac pulse generator (battery), initial encounter (principal); Y71.8 Miscellaneous cardiovascular devices associated with adverse incidents, not elsewhere classified; I25.10 Atherosclerotic heart disease of native coronary artery without angina pectoris; I10 Essential (primary) hypertension; E03.9 Hypothyroidism, unspecified; J44.89 Other specified chronic obstructive pulmonary disease; I48.91 Unspecified atrial fibrillation; I25.2 Old myocardial infarction; F17.210 Nicotine dependence, cigarettes, uncomplicated; Z88.0 Allergy status to penicillin; Z88.7 Allergy status to serum and vaccine; Z88.8 Allergy status to other drugs, medicaments and biological substances; Z91.013 Allergy to seafood; Z91.048 Other nonmedicinal substance allergy status; Z79.890 Hormone replacement therapy; Z79.899 Other long term (current) drug therapy
CPT/HCPCS: 80053; 83735; 85025; 93005; 93010; 99285-25; A9270